=== PATIENT | male | born 1990 | race African-American/Black ===

== ENCOUNTER 2018-03-22 17:35 | Observation (INO) | payer SELFPAY ==
--- NOTE | 2018-03-22 18:20 | EDPHYS ---
Physician Documentation [facility] Name: Brice Polk III Age: 27 yrs Sex: Male : 1990 Arrival Date: 03/22/2018 Time: 17:37 Bed 13 Private MD: None, None ED Physician Kaushik Mcghee HPI: 03/22 18:10 This 27 yrs old Black Male presents to ER via Wheelchair with complaints of Chest Pain. rolan 18:10 The patient or guardian reports chest pain that is located primarily in the substernal rolan area. The pain does not radiate. Associated signs and symptoms: Pertinent positives: shortness of breath. The chest pain is described as a heaviness, a pressure. Modifying factors: The symptoms are alleviated by nothing. the symptoms are aggravated by nothing. Severity of pain: At its worst the pain was mild in the emergency department the pain is unchanged. The patient has experienced similar episodes in the past, a few times. 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 - Social history:: Smoking status: Patient uses tobacco products, 1 pack per week, Patient uses alcohol, weekly. - Ebola Screening: : Patient negative for fever greater than or equal to 101.5 degrees Fahrenheit, and additional compatible Ebola Virus Disease symptoms Patient denies exposure to infectious person Patient denies travel to an Ebola-affected area in the 21 days before illness onset No symptoms or risks identified at this time. - Family history:: not pertinent. ROS: 18:10 Constitutional: Negative for fever, chills, and weight loss, Eyes: Negative for injury, rolan pain, redness, and discharge, ENT: Negative for injury, pain, and discharge, Neck: Negative for injury, pain, and swelling, Respiratory: Negative for shortness of breath, cough, wheezing, and pleuritic chest pain, Abdomen/GI: Negative for abdominal pain, nausea, vomiting, diarrhea, and constipation, Back: Negative for injury and pain, : Negative for injury, bleeding, discharge, and swelling, MS/Extremity: Negative for injury and deformity, Skin: Negative for injury, rash, and discoloration, Neuro: Negative for headache, weakness, numbness, tingling, and seizure, Psych: Negative for depression, anxiety, suicide ideation, homicidal ideation, and hallucinations, Allergy/Immunology: Negative for hives, rash, and allergies, Endocrine: Negative for neck swelling, polydipsia, polyuria, polyphagia, and marked weight changes, Hematologic/Lymphatic: Negative for swollen nodes, abnormal bleeding, and unusual bruising. 18:10 Cardiovascular: Positive for chest pain, of the chest. Exam: 18:10 Constitutional: This is a well developed, well nourished patient who is awake, alert, rolan and in no acute distress. Head/Face: Normocephalic, atraumatic. Eyes: Pupils equal round and reactive to light, extra-ocular motions intact. Lids and lashes normal. Conjunctiva and sclera are non-icteric and not injected. Cornea within normal limits. Periorbital areas with no swelling, redness, or edema. ENT: Nares patent. No nasal discharge, no septal abnormalities noted. Tympanic membranes are normal and external auditory canals are clear. Oropharynx with no redness, swelling, or masses, exudates, or evidence of obstruction, uvula midline. Mucous membranes moist. Neck: Trachea midline, no thyromegaly or masses palpated, and no cervical lymphadenopathy. Supple, full range of motion without nuchal rigidity, or vertebral point tenderness. No Meningismus. Chest/axilla: Normal chest wall appearance and motion. Nontender with no deformity. No lesions are appreciated. Cardiovascular: Regular rate and rhythm with a normal S1 and S2. No gallops, murmurs, or rubs. Normal PMI, no JVD. No pulse deficits. Respiratory: Lungs have equal breath sounds bilaterally, clear to auscultation and percussion. No rales, rhonchi or wheezes noted. No increased work of breathing, no retractions or nasal flaring. Abdomen/GI: Soft, non-tender, with normal bowel sounds. No distension or tympany. No guarding or rebound. No evidence of tenderness throughout. Back: No spinal tenderness. No costovertebral tenderness. Full range of motion. Skin: Warm, dry with normal turgor. Normal color with no rashes, no lesions, and no evidence of cellulitis. MS/ Extremity: Pulses equal, no cyanosis. Neurovascular intact. Full, normal range of motion. Neuro: Awake and alert, GCS 15, oriented to person, place, time, and situation. Cranial nerves II-XII grossly intact. Motor strength 5/5 in all extremities. Sensory grossly intact. Cerebellar exam normal. Normal gait. Psych: Awake, alert, with orientation to person, place and time. Behavior, mood, and affect are within normal limits. Vital Signs: 17:46 BP 168 / 106; Pulse 86; Resp 16; Pulse Ox 100% on R/A; Weight 122.47 kg; Height 6 ft. 2 iw in. (187.96 cm); Pain 8/10; 18:46 BP 157 / 98; Pulse 82; Resp 16; Pulse Ox 100% ; bp 19:00 BP 151 / 93; Pulse 75; Resp 16; Temp 99.7(O); Pulse Ox 100% on R/A; jb4 20:30 BP 162 / 89; Pulse 70; Resp 16; Pulse Ox 100% on R/A; jb4 21:30 BP 157 / 91; Pulse 77; Resp 11; Pulse Ox 100% on R/A; jb4 17:46 Body Mass Index 34.67 (122.47 kg, 187.96 cm) iw MDM: 17:53 Patient medically screened. rolan 18:15 Data reviewed: vital signs, nurses notes, lab test result(s), EKG, radiologic studies, rolan plain films. 03/22 17:54 Order name: Basic Metabolic Panel; Complete Time: 19:08 03/22 17:54 Order name: CBC with Diff; Complete Time: 19: 03/22 17:54 Order name: LFT's; Complete Time: 19: 03/22 17:54 Order name: Magnesium; Complete Time: 19: 03/22 17:54 Order name: NT PRO-BNP; Complete Time: 19:08 03/22 17:54 Order name: PT-INR; Complete Time: 19:08 03/22 17:54 Order name: Troponin (emerg Dept Use Only); Complete Time: 19:08 03/22 17:54 Order name: XRAY Chest (1 view); Complete Time: 19:08 03/22 17:54 Order name: EKG; Complete Time: 17:55 03/22 18:10 Order name: UDS; Complete Time: 21:47 [facility] 03/22 21:48 Order name: Echo w/ Doppler [facility] 03/22 17:54 Order name: Cardiac monitoring; Complete Time: 18:03 03/22 17:54 Order name: EKG - Nurse/Tech; Complete Time: 18:03 03/22 17:54 Order name: IV Saline Lock; Complete Time: 18:03 03/22 17:54 Order name: Labs collected and sent; Complete Time: 18:03 03/22 17:54 Order name: O2 Per Protocol; Complete Time: 18:03 03/22 17:54 Order name: O2 Sat Monitoring; Complete Time: 18:03 Administered Medications: 18:18 Drug: Aspirin Chewable Tablet 162 mg Route: PO; bp 20:43 Follow up: Response: No adverse reaction 4 18:18 Drug: Lopressor (metoprolol TARTRATE) 50 mg Route: PO; bp 20:43 Follow up: Response: No adverse reaction jb4 18:18 Drug: Lisinopril 10 mg Route: PO; bp 20:43 Follow up: Response: No adverse reaction jb4 Disposition: 03/22/18 18:18 Hospitalization ordered by Mabel Le for Observation. Preliminary diagnosis are Chest pain, unspecified, Essential (primary) hypertension, Cardiomegaly. - Bed requested for Telemetry/MedSurg (observation). - Status is Observation. jb4 - Condition is Stable. - Problem is new. - Symptoms have improved. UTI on Admission? No Signatures: Dispatcher [employer] EDMS Sidra Krishnan Corey, MD MD cha Williams, Irene, AWAIS ERNANDEZ Joaquín Camp RN RN jb4 Federico Wilcox RN RN bp Corrections: (The following items were deleted from the chart) 18:48 18:18 Hospitalization Ordered by Mabel Le MD for Observation. Preliminary diagnosis bd is Chest pain, unspecified; Essential (primary) hypertension. Bed requested for Telemetry/MedSurg (observation). Status is Observation. Condition is Stable. Problem is new. Symptoms have improved. UTI on Admission? No. rolan 19:08 18:48 03/22/2018 18:18 Hospitalization Ordered by Mabel Le MD for Observation. rolan Preliminary diagnosis is Chest pain, unspecified; Essential (primary) hypertension. Bed requested for Telemetry/MedSurg (observation). Status is Observation. Condition is Stable. Problem is new. Symptoms have improved. UTI on Admission? No. bd 22:08 19:08 03/22/2018 18:18 Hospitalization Ordered by Mabel Le MD for Observation. jb4 Preliminary diagnosis is Chest pain, unspecified; Essential (primary) hypertension; Cardiomegaly. Bed requested for Telemetry/MedSurg (observation). Status is Observation. Condition is Stable. Problem is new. Symptoms have improved. UTI on Admission? No. rolan
--- NOTE | 2018-03-22 18:20 | ER ---
Nurse's Notes [facility] Name: Brice Polk III Age: 27 yrs Sex: Male : 1990 Arrival Date: 03/22/2018 Time: 17:37 Bed 13 Private MD: None, None Diagnosis: Chest pain, unspecified;Essential (primary) hypertension;Cardiomegaly Presentation: 03/22 17:44 Presenting complaint: Patient states: c/o midsternal chest pain X 2 days, intermittent iw today, also had SOB this morning when he woke up and dizziness, pain described as sharp pressure, at times radiates across chest. Transition of care: patient was not received from another setting of care. Onset of symptoms was March 20, 2018. Risk Assessment: Do you want to hurt yourself or someone else? Patient reports no desire to harm self or others. Initial Sepsis Screen: Does the patient meet any 2 criteria? No. Patient's initial sepsis screen is negative. Does the patient have a suspected source of infection? No. Patient's initial sepsis screen is negative. Care prior to arrival: None. 17:44 Method Of Arrival: Wheelchair iw 17:44 Acuity: LEXI 3 iw Triage Assessment: 18:00 General: Appears in no apparent distress. comfortable, obese, Behavior is calm, bp cooperative, appropriate for age. Pain: Complains of pain in chest. Cardiovascular: Rhythm is sinus rhythm. 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 - Social history:: Smoking status: Patient uses tobacco products, 1 pack per week, Patient uses alcohol, weekly. - Ebola Screening: : Patient negative for fever greater than or equal to 101.5 degrees Fahrenheit, and additional compatible Ebola Virus Disease symptoms Patient denies exposure to infectious person Patient denies travel to an Ebola-affected area in the 21 days before illness onset No symptoms or risks identified at this time. - Family history:: not pertinent. Screenin:00 Abuse screen: Denies threats or abuse. Denies injuries from another. Nutritional bp screening: No deficits noted. Tuberculosis screening: No symptoms or risk factors identified. Fall Risk None identified. Assessment: 18:00 General: Appears in no apparent distress. comfortable, Behavior is calm, cooperative, bp appropriate for age. Pain: Complains of pain in chest Pain does not radiate. Pain began THIS MORNING. Neuro: Level of Consciousness is awake, alert, obeys commands, Oriented to person, place, time, situation, Appropriate for age. Cardiovascular: Chest pain is described as mild, quality is heaviness, is located in substernal area. Respiratory: Airway is patent Respiratory effort is even, unlabored, Respiratory pattern is regular, symmetrical. GI: No signs and/or symptoms were reported involving the gastrointestinal system. : No signs and/or symptoms were reported regarding the genitourinary system. EENT: No deficits noted. Derm: No deficits noted. Musculoskeletal: Circulation, motion, and sensation intact. Range of motion: intact in all extremities. 18:47 Reassessment: ADMIT IN PROCESS, FULL LAB RESULTS PENDING. bp 19:00 Reassessment: Patient appears in no apparent distress at this time. Patient and/or jb4 family updated on plan of care and expected duration. Pain level reassessed. Patient is alert, oriented x 3, equal unlabored respirations, skin warm/dry/pink. General: Appears in no apparent distress. comfortable, Behavior is calm, cooperative. Cardiovascular: Patient's skin is warm and dry. Respiratory: Airway is patent Respiratory effort is even, unlabored, Respiratory pattern is regular, symmetrical. 20:17 Reassessment: Patient appears in no apparent distress at this time. Patient and/or jb4 family updated on plan of care and expected duration. Pain level reassessed. Patient is alert, oriented x 3, equal unlabored respirations, skin warm/dry/pink. Guest is at the bedside. Attempted to call report. instructed to wait for call back. 21:30 Reassessment: Patient appears in no apparent distress at this time. Patient and/or jb4 family updated on plan of care and expected duration. Pain level reassessed. Patient is alert, oriented x 3, equal unlabored respirations, skin warm/dry/pink. Family at the bedside. Vital Signs: 17:46 BP 168 / 106; Pulse 86; Resp 16; Pulse Ox 100% on R/A; Weight 122.47 kg; Height 6 ft. 2 iw in. (187.96 cm); Pain 8/10; 18:46 BP 157 / 98; Pulse 82; Resp 16; Pulse Ox 100% ; bp 19:00 BP 151 / 93; Pulse 75; Resp 16; Temp 99.7(O); Pulse Ox 100% on R/A; jb4 20:30 BP 162 / 89; Pulse 70; Resp 16; Pulse Ox 100% on R/A; jb4 21:30 BP 157 / 91; Pulse 77; Resp 11; Pulse Ox 100% on R/A; jb4 17:46 Body Mass Index 34.67 (122.47 kg, 187.96 cm) iw ED Course: 17:37 Patient arrived in ED. sb2 17:37 None, None is Private Physician. sb2 17:43 Gi Covington, RN is Primary Nurse. iw 17:45 Federico Wilcox, RN is Primary Nurse. bp 17:45 Triage completed. iw 17:46 Arm band placed on. iw 17:53 Kaushik Mcghee MD is Attending Physician. rolan 18:00 Patient has correct armband on for positive identification. Bed in low position. Call bp light in reach. Side rails up X2. Adult w/ patient. Pulse ox on. NIBP on. 18:00 Inserted saline lock: 20 gauge in right forearm, using aseptic technique. Blood bp collected. 18:00 Patient maintains SpO2 saturation greater than 95% on room air. bp 18:08 EKG done, by radiographic technologist. reviewed by Kaushik Mcghee MD. sm3 18:10 XRAY Chest (1 view) In Process Unspecified. EDMS 18:16 Mabel Le MD is Hospitalizing Provider. rolan 21:50 No provider procedures requiring assistance completed. Patient admitted, IV remains in jb4 place. Administered Medications: 18:18 Drug: Aspirin Chewable Tablet 162 mg Route: PO; bp 20:43 Follow up: Response: No adverse reaction jb4 18:18 Drug: Lopressor (metoprolol TARTRATE) 50 mg Route: PO; bp 20:43 Follow up: Response: No adverse reaction jb4 18:18 Drug: Lisinopril 10 mg Route: PO; bp 20:43 Follow up: Response: No adverse reaction jb4 Outcome: 18:18 Decision to Hospitalize by Provider. rolan 21:50 Admitted to Tele accompanied by tech, via wheelchair, room 425, with chart, Report jb4 called to AWAIS Granado 21:50 Condition: stable 21:50 Discharge instructions given to patient, Instructed on the need for admit, Demonstrated understanding of instructions. 22:08 Patient left the ED. jb4 Signatures: Dispatcher [employer] EDKaushik Blanchard MD MD cha Williams, Irene, RN RN Joaquín Padilla RN RN jb4 Federico Wilcox RN RN bp Billeau, Sheri 2 Vijaya Chavez 3 Corrections: (The following items were deleted from the chart) 19:25 19:00 BP 151 / 93; Pulse 75bpm; Resp 16bpm; Pulse Ox 100% RA; jb4 jb4
[2018-03-22 18:22] LABS: Absolute Lymphocytes (CBC) 1.5 K/uL (0.7-4.9); Absolute Monocytes 0.7 K/uL (0.1-1.3); Absolute Neutrophil 4.4 K/uL (1.8-8.0); Basophils % 0.6 % (0-1.3); Eosinophils % 1.3 % (0-4.4); Hematocrit 41.7 % (39.6-49.0); Lymphocytes % 22.1 % (15.3-44.8); MCH 30.5 pg (27.0-35.0); MCV 90.3 fL (80-100); MPV 7.5 fL (7.6-11.3); Monocytes % 10.2 % (3.3-12.3); RBC Red Blood Cell Count 4.62 M/uL (4.33-5.43)
[2018-03-22] MEDS ORDERED: ASPIRIN EC 81 MG TAB PO ONE (18:23)
[2018-03-22] MEDS ORDERED: METOPROLOL TAR 50 MG TAB ONE (18:23)
[2018-03-22] MEDS ORDERED: LISINOPRIL 10 MG TAB ONE (18:24)
[2018-03-22 18:26] LABS: Protime INR 0.92
[2018-03-22 18:41] LABS: ALT/SGPT 66 U/L (12-78); AST/SGOT 47 U/L (15-37); Albumin 3.8 g/dL (3.4-5.0); Alkaline Phosphatase 73 U/L (45-117); BUN Blood Urea Nitrogen 12 mg/dL (7-18); Bicarbonate 26 mmol/L (21-32); Bilirubin Direct 0.1 mg/dL (0-0.2); Bilirubin Total 0.4 mg/dL (0.2-1.0); Glucose Level 94 mg/dL (74-106); NT PRO-BNP 72 pg/mL (<125); Potassium 3.8 mmol/L (3.5-5.1); Protein, Total 7.1 g/dL (6.4-8.2); Sodium Level 140 mmol/L (136-145); Troponin (Emerg Dept Use Only) < 0.02 ng/mL (0.0-0.045)
--- NOTE | 2018-03-22 18:41 | RAD REPORT ---
EXAM DESCRIPTION: RAD - Chest Single View - 03/22/2018 6:10 pm CLINICAL HISTORY: Chest pain COMPARISON: None. TECHNIQUE: AP portable chest image was obtained 1803 hours . FINDINGS: Lungs are clear. Heart size is upper normal. Vasculature within normal limits. Trachea is midline. No measurable pleural effusion and no pneumothorax. No acute bony abnormality seen. No acute aortic findings suspected. IMPRESSION: No acute cardiopulmonary process.
[2018-03-22 19:40] LABS: Barbiturates NEGATIVE (NEGATIVE); Benzodiazepines NEGATIVE (NEGATIVE); Cocaine NEGATIVE (NEGATIVE); METHAMPHETAM NEGATIVE (NEGATIVE); Methadone NEGATIVE (NEGATIVE); Opiates NEGATIVE (NEGATIVE); Phencyclidine NEGATIVE (NEGATIVE); THC Cannibis NEGATIVE (NEGATIVE)
[2018-03-22] MEDS ORDERED: ACETAMINOPHEN 500 MG TAB PO PRN (22:09)
[2018-03-23 04:37] LABS: Absolute Lymphocytes (CBC) 1.8 K/uL (0.7-4.9); Absolute Monocytes 0.6 K/uL (0.1-1.3); Absolute Neutrophil 3.4 K/uL (1.8-8.0); Basophils % 0.6 % (0-1.3); Eosinophils % 1.8 % (0-4.4); Hematocrit 40.8 % (39.6-49.0); Lymphocytes % 30.1 % (15.3-44.8); MCH 30.9 pg (27.0-35.0); MCV 90.8 fL (80-100); MPV 7.6 fL (7.6-11.3); Monocytes % 10.6 % (3.3-12.3); RBC Red Blood Cell Count 4.49 M/uL (4.33-5.43)
[2018-03-23 04:47] LABS: ALT/SGPT 64 U/L (12-78); AST/SGOT 34 U/L (15-37); Albumin 3.7 g/dL (3.4-5.0); Alkaline Phosphatase 69 U/L (45-117); BUN Blood Urea Nitrogen 13 mg/dL (7-18); Bicarbonate 26 mmol/L (21-32); Bilirubin Total 0.5 mg/dL (0.2-1.0); Glucose Level 94 mg/dL (74-106); Potassium 4.3 mmol/L (3.5-5.1); Protein, Total 6.9 g/dL (6.4-8.2); Sodium Level 140 mmol/L (136-145)
[2018-03-23] MEDS: METOPROLOL TAR 25 MG TAB PO SCH ×2 (05:48→17:56)
--- NOTE | 2018-03-23 07:44 | EKG ---
Test Date: 2018-03-22 Test Time: 17:49:40 Stain Applicator: RAUL MEASUREMENT RESULTS: Intervals: Rate: 75 VA: 144 QRSD: 96 QT: 376 QTc: 419 [place]: P: 13 VA: 144 QRS: 49 T: 14 INTERPRETIVE STATEMENTS: Normal sinus rhythm Incomplete right bundle branch block Borderline ECG Compared to ECG 01/08/2000 15:52:00 Incomplete right bundle-branch block now present Atrial abnormality no longer present Electronically Signed On 03-23-18 07:43:36 ENGINE INSPECTOR by William Jacobo
[2018-03-23 07:48] LABS: Phosphorus 4.2 mg/dL (2.5-4.9)
[2018-03-23] MEDS ORDERED: INFLUENZA VACCINE (for 3y+) 0.5 ML DOSE IMVAC ONE (08:00)
[2018-03-23] MEDS: LOSARTAN POTASSIUM 50 MG TABLET PO SCH ×2 (08:58→22:18)
[2018-03-23] MEDS: ENOXAPARIN 40 MG/0.4 ML SQ SCH (08:58)
--- NOTE | 2018-03-23 09:46 | P.HP ---
Certification for Inpatient Patient admitted to: Observation With expected LOS: <2 Midnights Patient will require the following post-hospital care: None Practitioner: I am a practitioner with admitting privileges, knowledge of patient current condition, hospital course, and medical plan of care. 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 He said it started with a "T", and they had to switch his blood vessels, so is believe that is what it was called. 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 -: open heart surgery as a baby - Family History Father Medical History: Hypertension Mother Medical History: Hypertension, Stroke Notes: heart attack Brother Medical History: Hypertension - Social History Smoking Status: Current every day smoker Alcohol use: Yes CD- Drugs: No Caffeine use: No Place of Residence: Home Review of Systems 10-point ROS is otherwise unremarkable Physical Examination - Vital Signs Temperature: 98.2 F Blood Pressure: 136/76 Pulse: 67 Respirations: 16 Pulse Ox (%): 98 - Physical Exam General: Alert, In no apparent distress, Oriented x3 HEENT: Atraumatic, PERRLA, Mucous membr. moist/pink, EOMI, Sclerae nonicteric Neck: Supple, 2+ carotid pulse no bruit, No LAD, Without JVD or thyroid abnormality Respiratory: Clear to auscultation bilaterally, Normal air movement Cardiovascular: Regular rate/rhythm, Normal S1 S2, No murmurs Gastrointestinal: Normal bowel sounds, Soft and benign, Non-distended, No tenderness Musculoskeletal: No clubbing, No swelling, No tenderness Integumentary: No rashes Neurological: Normal gait, Normal speech, Normal strength at 5/5 x4 extr, Normal tone, Sensation intact, Cranial nerves 3-12 intact, Normal affect Lymphatics: No axilla or inguinal lymphadenopathy - Studies Laboratory Data (last 24 hrs) 03/22/18 18:00: PT 10.9, INR 0.92 03/22/18 18:00: WBC 6.7, Hgb 14.1, Hct 41.7, Plt Count 270 03/22/18 18:00: Sodium 140, Potassium 3.8, BUN 12, Creatinine 1.00, Glucose 94, Magnesium 2.0, Total Bilirubin 0.4, AST 47 H, ALT 66, Alkaline Phosphatase 73 Assessment & Plan - Problems (Diagnosis) (1) Transposition of great arteries Current Visit: Yes Status: Acute (2) Hypertensive urgency Current Visit: Yes Status: Acute - Plan Plan: 1. Strict blood pressure control 2. Pain control 3. Monitor hemodynamics closely 4. Echocardiogram and about. 5. Cardiology consultation 6. GI and DVT prophylaxis Discharge Plan: Home Plan to discharge in: 24 Hours - Advance Directives Does patient have a Living Will: No Does patient have a Durable POA for Healthcare: No - Code Status/Comfort Care Code Status Assessed: Yes Code Status: Full Code Critical Care: No Time Spent Managing PTS Care (In Minutes): 50
[2018-03-23 10:03] LABS: Urine Appearance TURBID; Urine Bilirubin NEGATIVE (NEG); Urine Blood NEGATIVE (NEG); Urine Color YELLOW; Urine Glucose NEGATIVE (NEG); Urine Protein TRACE (NEG); Urine Specific Gravity 1.025 (1.005-1.030); Urine pH 7.5 (5.0-7.0)
[2018-03-23 10:42] LABS: Urine Amorphous Sediment 3+ /HPF (NONE SEEN); Urine Bacteria <20 /HPF (NONE SEEN); Urine Culture Reflex Order NOT NEEDED; Urine Mucus 3+ /HPF (NONE SEEN); Urine RBC <5 /HPF (NONE SEEN)
--- NOTE | 2018-03-23 12:17 | CON ---
CARDIOLOGY CONSULT Chief Complaint: Chest pain. History Of Present Illness: Mr. Polk has been having chest pain off and on for about 3 days. The pain is sharp and brief in duration, not related to exertion. He decided to come to the hospital whe n it seemed to get a little bit worse. No nausea, vomiting, sweating, syncope, or palpitations. 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 We do not have any records from the surgery, but it seems fairly clear that he had transposition of the great vessels and an arterial switch operation. He has had no further followup with the heart team that did that or any software engineering specialist. Medications: He takes no medications. Social History: He uses tobacco, but only about 40 cigarettes a month. Uses no illegal drugs, rare alcohol. Allergies: HE HAS NO ALLERGIES. Physical Examination: General: 6 feet 3, 274 pounds. HEENT: Normal. Lungs: Clear. Cardiac: Within normal limits. No murmur or gallop. Extremities: Normal. Abdomen: Soft. Laboratory Data: EKG reveals incomplete right bundle-branch block, otherwise, it is normal. Plan: I think, we should do an echocardiogram and routine stress test to see what level of congenita l heart disease limitation he has. Some people with an arterial switch operation do very well and juarez ve a normal lifestyle, some have significant problems. I think, we should try to work that out, so w mo could understand Mr. Polk. He has not had any contact with the software engineering specialist in more than a decad e, so it is a good time to have him do a stress test and echo. He needs some kind of treatment for h is blood pressure, an angiotensin receptor clarence with hydrochlorothiazide and weight loss would be very good. Tobacco cessation has been recommended to him. JIMMIE/KARYNA Voice ID: [id number] Report ID: [id number]
--- NOTE | 2018-03-23 13:17 | P.PN ---
Subjective Date of Service: 03/23/18 Chief Complaint: Malignant hypertension Subjective: No new changes, No C/O voiced, Improving Patient seen and examined at bedside. No family at bedside. Chart reviewed and case discussed with nursing staff. Reports intermittent chest pain. Blood pressure elevated overnight, which responded to metoprolol. Review of Systems As noted Physical Examination - Vital Signs Temperature: 97.4 F Blood Pressure: 124/70 Pulse: 72 Respirations: 16 Pulse Ox (%): 99 - Physical Exam General: Alert, In no apparent distress, Oriented x3 HEENT: Atraumatic, PERRLA, EOMI Neck: Supple, JVD not distended Respiratory: Clear to auscultation bilaterally, Normal air movement Cardiovascular: Regular rate/rhythm, Normal S1 S2 Gastrointestinal: Normal bowel sounds, No tenderness Musculoskeletal: No tenderness Integumentary: No rashes Neurological: Normal speech, Normal tone, Normal affect Lymphatics: No axilla or inguinal lymphadenopathy - Studies Laboratory Data (last 24 hrs) 03/22/18 18:00: PT 10.9, INR 0.92 03/22/18 18:00: WBC 6.7, Hgb 14.1, Hct 41.7, Plt Count 270 03/22/18 18:00: Sodium 140, Potassium 3.8, BUN 12, Creatinine 1.00, Glucose 94, Magnesium 2.0, Total Bilirubin 0.4, AST 47 H, ALT 66, Alkaline Phosphatase 73 Assessment And Plan - Plan This is a 27-year-old male with: Hypertensive urgency Blood pressures improved, continue metoprolol and losartan. Will monitor and may add amlodipine if needed. Transposition of great arteries Cardiology consulted. Recommendations appreciated Echo pending Stress test pending Current tobacco user Counseled on smoking cessation Obesity, BMI 34.3 DVT prophylaxis: Lovenox GI prophylaxis: Not needed Diet: Heart healthy Disposition: Pending symptomatic improvement and cardiac workup. Physician Review: Patient Assessed, Agree with Above Assessment and Plan Time Spent Managing PTS Care (In Minutes): 30
--- NOTE | 2018-03-23 15:25 | TREADMILL ---
70% H.R.: 137 85% H.R.: 165 90% H.R.: 176 100% H.R.: 195 DX: CHEST PAIN Date of Study: 03/23/2018 Ht: 6 3 Wt: 274 lb 6.4 oz Consulting Physician: Dr. Jacobo MEDICATIONS: LOPRESSOR, COZAAR, LOVENOX HISTORY: 27 YEAR OLD MALE WITH COMPLAINTS OF CHEST PAIN. MEDICAL HISTORY: SMOKER, CONGENITAL HEART PROBLEMS PHYSICIAL EXAMINATION: RESTING B.P.: 156/94 RESTING H.R.: 86 RESTING EKG: SINUS/ RIGHT BUNDLE BRANCH BLOCK PROTOCOL: HARRIET ROUTINE EXERCISE TIME: 8:03 MAXIMUM HEART RATE: 176 90 % OF PREDICTED B.P. AT PEAK STRESS: 184/99 H.R. AT 1 MINUTE POST EXERCISE: 162 IMPRESSION: HARRIET ROUTINE STRESS STOPPED DUE TO FATIGUE AND TARGET HEART RATE REACHED. NO SUPRAVENTRICULAR TACHYCARDIA. NO VENTRICULAR TACHYCARDIA. 2 PREMATURE VENTRICULAR COMPLEXES. 9/10 CHEST PAIN AFTER PROCEDURE. NO ST CHANGES WITH STRESS.
--- NOTE | 2018-03-23 15:25 | ECHO ---
HEIGHT: 6 ft 3 in WEIGHT: 274 lb 6.4 oz DATE OF STUDY: 03/23/[address]: Kaushik Mcghee MD 2-DIMENSIONAL: YES M.MODE: YES DOPPLER: YES COLOR FLOW: YES TDS: PORTABLE: DEFINITY: BUBBLE STUDY: DIAGNOSIS: CHEST PAIN, HISTORY OF TRANSPOSITION OF THE GREAT VESSELS. CARDIAC HISTORY: CATHERIZATION: NO SURGERY: YES PROSTHETIC VALVE: NO PACEMAKER: NO MEASUREMENTS (cm) DIASTOLIC (NORMALS) SYSTOLIC (NORMALS) IVSd 1.3 (0.6-1.2) LA Diam 4.2 (1.9-4.0) LVEF 53% LVIDd 5.1 (3.5-5.7) LVIDs 3.7 (2.0-3.5) %FS 28% LVPWd 1.3 (0.6-1.2) Ao Diam 3.1 (2.0-3.7) 2 DIMENSIONAL ASSESSMENT: RIGHT ATRIUM: NORMAL LEFT ATRIUM: DILATED RIGHT VENTRICLE: NORMAL LEFT VENTRICLE: LEFT VENTRICULAR HYPERTROPHY TRICUSPID VALVE: NORMAL MITRAL VALVE: NORMAL PULMONIC VALVE: NORMAL AORTIC VALVE: NORMAL PERICARDIAL EFFUSION: NONE AORTIC ROOT: NORMAL LEFT VENTRICULAR WALL MOTION: NORMAL DOPPLER/COLOR FLOW: MILD AORTIC REGURGITATION. COMMENTS: NORMAL LEFT VENTRICULAR EJECTION FRACTION. LEFT VENTRICULAR HYPERTROPHY. DILATED LEFT ATRIUM. MILD AORTIC REGURGITATION. TECHNOLOGIST: CALVIN SEGUNDO
[2018-03-24] MEDS: METOPROLOL TAR 25 MG TAB PO SCH (06:10)
[2018-03-24] MEDS: ENOXAPARIN 40 MG/0.4 ML SQ SCH (09:44)
[2018-03-24] MEDS: LOSARTAN POTASSIUM 50 MG TABLET PO SCH (09:45)
--- NOTE | 2018-03-24 18:43 | P.SSS ---
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 He said it started with a "T", and they had to switch his blood vessels, so is believe that is what it was called. 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 moist/pink, EOMI, Sclerae nonicteric Neck: Supple, 2+ carotid pulse no bruit, No LAD, Without JVD or thyroid abnormality Respiratory: Clear to auscultation bilaterally, Normal air movement Cardiovascular: Regular rate/rhythm, Normal S1 S2 Gastrointestinal: Normal bowel sounds, No tenderness Musculoskeletal: No tenderness Integumentary: No rashes Neurological: Normal gait, Normal speech, Normal strength at 5/5 x4 extr, Normal tone, Normal affect Lymphatics: No axilla or inguinal lymphadenopathy Treatment Summary: Patient was admitted for hypertensive urgency. His blood pressure was elevated on admission, which stabilized with losartan and metoprolol. Cardiology was consulted as patient has a history of transposition of the great arteries as well as an open heart surgery when he was 1-day-old. Cardiac workup was negative, he was cleared for discharge from cardiology and was given information regarding cardiology so he could follow up outpatient with pulverizer mill operator. He remained otherwise stable throughout the stay. Lifestyle modifications including weight loss and exercise was discussed with patient. He was also counseled on smoking cessation. - Disposition Disposition: ROUTINE DISCHARGE Condition: GOOD Patient Discharge Instructions: Please follow up with your primary care physician in 1 week. Please follow up with the pulverizer mill operator in 2 weeks. Diet: AHA Activity: Ad vitaly Physician Review: Patient Assessed, Agree with Above Assessment and Plan Time Spent Managing Pts Care (In Minutes): 45
== END 2018-03-24 15:23 | disposition home or self-care (01) ==
LOC: ER 17:35 → ERHOLD 18:35 → 4TH 21:37
PROVIDERS: ADMIT Family Medicine; ATTEND Hospitalist
DX: I10 Essential (primary) hypertension (principal); F17.210 Nicotine dependence, cigarettes, uncomplicated
CPT/HCPCS: 36415; 71045; 80048; 80053; 80076; 80307; 81001; 83735; 83880; 84100; 84484; 85025; 85610; 93005; 93017; 93306; 94760; 99285; G0008; G0378; J1650; Q2035

== ENCOUNTER 2018-10-18 13:30 | Emergency (ER) | payer SELFPAY ==
[2018-10-18 15:08] LABS: Absolute Lymphocytes (CBC) 1.2 K/uL (0.7-4.9); Basophils % 0.4 % (0-1.3); Eosinophils % 0.4 % (0-4.4); Hematocrit 40.5 % (39.6-49.0); Lymphocytes % 15.5 % (15.3-44.8); MPV 7.3 fL (7.6-11.3); Monocytes % 6.4 % (3.3-12.3); RBC Red Blood Cell Count 4.66 M/uL (4.33-5.43)
[2018-10-18 15:24] LABS: BUN Blood Urea Nitrogen 13 mg/dL (7-18); Bicarbonate 25 mmol/L (21-32); Glucose Level 89 mg/dL (74-106); NT PRO-BNP 134 pg/mL (<125); Sodium Level 141 mmol/L (136-145); Troponin (Emerg Dept Use Only) < 0.02 ng/mL (0.0-0.045)
--- NOTE | 2018-10-18 15:35 | RAD REPORT ---
EXAM DESCRIPTION: RAD - Chest Single View - 10/18/2018 3:24 pm CLINICAL HISTORY: CHEST PAIN Chest pain. COMPARISON: Chest Single View dated 03/22/2018 FINDINGS: Portable technique limits examination quality. Mild interstitial pulmonary edema is noted. The heart is moderately enlarged. No displaced fractures. IMPRESSION: Mild CHF or volume overload pattern.
[2018-10-18] MEDS ORDERED: FENTANYL CITR 100 MCG/2 ML ONE (16:26)
[2018-10-18] MEDS ORDERED: FUROSEMIDE 20 MG/ 2ML VIAL ONE (16:26)
--- NOTE | 2018-10-18 16:42 | RAD REPORT ---
EXAM DESCRIPTION: CT - Thorax W/ Con CLINICAL HISTORY: Chest pain PAIN COMPARISON: Chest Single View dated 10/18/2018 FINDINGS: Mild linear subsegmental atelectasis is present in the left lung base. No focal infiltrate seen. No pleural thickening or pleural effusion. No pneumothorax. No axillary, mediastinal or hilar adenopathy. The heart appears normal in size, however there is aneu rysmal dilatation of the root of the aorta measuring 5.2 cm. No concerning bony finding. No gross upper abdominal finding. All CT scans are performed using dose optimization technique as appropriate and may include automated exposure control or mA/KV adjustment according to patient size. IMPRESSION: Aneurysmal dilatation of the root of the aorta/ proximal ascending aorta measuring 5.2 c m.No aortic dissection seen. No acute pulmonary finding.
--- NOTE | 2018-10-18 17:34 | EDPHYS ---
Physician Documentation [facility] Name: Brice Polk III Age: 28 yrs Sex: Male : 1990 Arrival Date: 10/18/2018 Time: 13:31 Bed 15 Private MD: ED Physician Rafael Dorman HPI: 10/18 16:58 This 28 yrs old Black Male presents to ER via Ambulatory with complaints of Chest Pain. gs 16:58 This 28 yrs old Black Male presents to ER via Ambulatory with complaints of Chest Pain. gs 16:58 The patient or guardian reports chest pain that is located primarily in the anterior gs chest wall. The pain does not radiate. Associated signs and symptoms: Pertinent positives: shortness of breath. The chest pain is described as a heaviness. Duration: The patient or guardian reports multiple episodes, that are intermittent. Modifying factors: the symptoms are aggravated by breathing, exertion. Severity of pain: At its worst the pain was moderate in the emergency department the pain is unchanged. The patient has experienced similar episodes in the past, a few times. The patient has not recently seen a physician. Historical: - Allergies: 13:37 No Known Drug Allergies; hj - PMHx: 13:37 CONGENITAL HEART PROBLEMS; Hypertension; hj - PSHx: 13:37 OPEN HEART SURGERY BABY; hj - Immunization history:: Adult Immunizations up to date. - Social history:: Smoking status: Patient/guardian denies using tobacco. - Ebola Screening: : No symptoms or risks identified at this time. ROS: 16:58 All other systems are negative. gs Exam: 16:30 ECG was reviewed by the Attending Physician. gs 16:58 Head/Face: Normocephalic, atraumatic. Eyes: Pupils equal round and reactive to light, gs extra-ocular motions intact. Lids and lashes normal. Conjunctiva and sclera are non-icteric and not injected. Cornea within normal limits. Periorbital areas with no swelling, redness, or edema. ENT: Nares patent. No nasal discharge, no septal abnormalities noted. Tympanic membranes are normal and external auditory canals are clear. Oropharynx with no redness, swelling, or masses, exudates, or evidence of obstruction, uvula midline. Mucous membranes moist. Neck: Trachea midline, no thyromegaly or masses palpated, and no cervical lymphadenopathy. Supple, full range of motion without nuchal rigidity, or vertebral point tenderness. No Meningismus. Chest/axilla: Normal chest wall appearance and motion. Nontender with no deformity. No lesions are appreciated. Cardiovascular: Regular rate and rhythm with a normal S1 and S2. No gallops, murmurs, or rubs. Normal PMI, no JVD. No pulse deficits. Respiratory: Lungs have equal breath sounds bilaterally, clear to auscultation and percussion. No rales, rhonchi or wheezes noted. No increased work of breathing, no retractions or nasal flaring. Abdomen/GI: Soft, non-tender, with normal bowel sounds. No distension or tympany. No guarding or rebound. No evidence of tenderness throughout. Back: No spinal tenderness. No costovertebral tenderness. Full range of motion. Skin: Warm, dry with normal turgor. Normal color with no rashes, no lesions, and no evidence of cellulitis. MS/ Extremity: Pulses equal, no cyanosis. Neurovascular intact. Full, normal range of motion. Neuro: Awake and alert, GCS 15, oriented to person, place, time, and situation. Cranial nerves II-XII grossly intact. Motor strength 5/5 in all extremities. Sensory grossly intact. Cerebellar exam normal. Normal gait. 16:58 Constitutional: The patient appears alert, awake, uncomfortable. Vital Signs: 13:37 BP 152 / 90; Pulse 101; Resp 18; Temp 98.6(TE); Pulse Ox 100% on R/A; Weight 127.01 kg; Height 6 ft. 3 in. (190.50 cm); Pain 8/10; 16:05 BP 149 / 96; Pulse 86; Resp 16; Pulse Ox 98% on R/A; la1 17:07 BP 160 / 100; Pulse 95; Resp 16; Pulse Ox 98% on R/A; la1 18:29 BP 159 / 95; Pulse 91; Resp 16; Pulse Ox 98% on R/A; la1 18:49 BP 149 / 95; Pulse 82; Resp 16; Pulse Ox 98% on R/A; la1 13:37 Body Mass Index 35.00 (127.01 kg, 190.50 cm) MDM: 14:43 Patient medically screened. 16:58 Differential diagnosis: coronary artery disease chest wall pain, congestive heart gs failure thoracic aortic disection. Data reviewed: vital signs, nurses notes, lab test result(s), EKG, radiologic studies. 10/18 14:43 Order name: Basic Metabolic Panel; Complete Time: 15:31 gs 10/18 14:43 Order name: CBC with Diff; Complete Time: 15:31 gs 10/18 14:43 Order name: NT PRO-BNP; Complete Time: 15:31 gs 10/18 14:43 Order name: Troponin (emerg Dept Use Only); Complete Time: 15:31 gs 10/18 14:43 Order name: XRAY Chest (1 view); Complete Time: 15:52 gs 10/18 15:57 Order name: Troponin I; Complete Time: 17:13 gs 10/18 13:39 Order name: EKG; Complete Time: 13:39 10/18 14:43 Order name: Cardiac monitoring; Complete Time: 14:54 gs 10/18 14:43 Order name: IV Saline Lock; Complete Time: 14:54 gs 10/18 14:43 Order name: Labs collected and sent; Complete Time: 14:54 10/18 16:01 Order name: CT Chest W/ Con; Complete Time: 16:47 gs 10/18 14:43 Order name: O2 Per Protocol; Complete Time: 14:54 10/18 14:43 Order name: O2 Sat Monitoring; Complete Time: 14:54 gs EC:30 Rate is 105 beats/min. Rhythm is regular, Sinus tachycardia. MO interval is normal. QRS gs interval is normal. QT interval is normal. T waves are Flattened. Clinical impression: NSR w/ Non-specific ST/T Changes. Interpreted by me. Administered Medications: 16:16 Drug: Lasix 20 mg Route: IVP; Site: right antecubital; la1 16:55 Follow up: Response: No adverse reaction la1 16:16 Drug: fentaNYL (PF) 50 mcg Route: IVP; Site: right antecubital; la1 16:55 Follow up: Response: No adverse reaction; Pain is decreased la1 17:37 Drug: Enalaprilat 1.25 mg Route: IV; Rate: calculated rate; Site: right antecubital; la1 18:50 Follow up: IV Status: Completed infusion la1 Disposition: 10/18/18 17:33 Transfer ordered to [facility]. Diagnosis is Thoracic aortic aneurysm, without rupture. - Reason for transfer: Higher level of care. - Accepting physician is [facility]. - Condition is Stable. - Problem is new. - Symptoms have improved. Signatures: Dispatcher [employer] EDParker Arteaga RN RN la1 Nikita Gorman RN Rafael Ponce MD MD gs Corrections: (The following items were deleted from the chart) 18:50 17:33 10/18/2018 17:33 Transfer ordered to [facility]. Diagnosis is la1 Thoracic aortic aneurysm, without rupture. Reason for transfer: Higher level of care. Accepting physician is [facility]. Condition is Stable. Problem is new. Symptoms have improved. gs
--- NOTE | 2018-10-18 17:34 | ER ---
Nurse's Notes [facility] Name: Brice Polk III Age: 28 yrs Sex: Male : 1990 Arrival Date: 10/18/2018 Time: 13:31 Bed 15 Private MD: Diagnosis: Thoracic aortic aneurysm, without rupture Presentation: 10/18 13:35 Presenting complaint: Patient states: i was awaken by my chest pain around 7 am today, hj it hurts when i breathe and i get dizzy, reports squeezing pain; reports N/V;. Transition of care: patient was not received from another setting of care. Onset of symptoms was October 18, 2018. Risk Assessment: Do you want to hurt yourself or someone else? Patient reports no desire to harm self or others. Initial Sepsis Screen: Does the patient meet any 2 criteria? No. Patient's initial sepsis screen is negative. Does the patient have a suspected source of infection? No. Patient's initial sepsis screen is negative. Care prior to arrival: None. 13:35 Method Of Arrival: Ambulatory 13:35 Acuity: LEXI 3 hj Historical: - Allergies: 13:37 No Known Drug Allergies; hj - PMHx: 13:37 CONGENITAL HEART PROBLEMS; Hypertension; hj - PSHx: 13:37 OPEN HEART SURGERY BABY; hj - Immunization history:: Adult Immunizations up to date. - Social history:: Smoking status: Patient/guardian denies using tobacco. - Ebola Screening: : No symptoms or risks identified at this time. Screenin:39 Abuse screen: Denies threats or abuse. Nutritional screening: No deficits noted. la1 Tuberculosis screening: No symptoms or risk factors identified. Fall Risk None identified. Assessment: 14:39 General: Appears comfortable, Behavior is calm, cooperative. Pain: Complains of pain in la1 chest Pain does not radiate. Pain currently is 8 out of 10 on a pain scale. Quality of pain is described as pressure, Pain began 1 day ago. Neuro: Level of Consciousness is awake, alert, obeys commands, Oriented to person, place, time, situation. Cardiovascular: Heart tones S1 S2 present Murmur present Capillary refill < 3 seconds. Respiratory: Airway is patent Respiratory effort is even, unlabored, Respiratory pattern is regular, symmetrical, Breath sounds are clear bilaterally. GI: No signs and/or symptoms were reported involving the gastrointestinal system. : No signs and/or symptoms were reported regarding the genitourinary system. 16:05 Reassessment: Patient appears in no apparent distress at this time. No changes from la1 previously documented assessment. Patient and/or family updated on plan of care and expected duration. Pain level reassessed. Patient is alert, oriented x 3, equal unlabored respirations, skin warm/dry/pink. 18:49 Reassessment: Patient appears in no apparent distress at this time. No changes from la1 previously documented assessment. Patient and/or family updated on plan of care and expected duration. Pain level reassessed. Patient is alert, oriented x 3, equal unlabored respirations, skin warm/dry/pink. Vital Signs: 13:37 BP 152 / 90; Pulse 101; Resp 18; Temp 98.6(TE); Pulse Ox 100% on R/A; Weight 127.01 kg; hj Height 6 ft. 3 in. (190.50 cm); Pain 8/10; 16:05 BP 149 / 96; Pulse 86; Resp 16; Pulse Ox 98% on R/A; la1 17:07 BP 160 / 100; Pulse 95; Resp 16; Pulse Ox 98% on R/A; la1 18:29 BP 159 / 95; Pulse 91; Resp 16; Pulse Ox 98% on R/A; la1 18:49 BP 149 / 95; Pulse 82; Resp 16; Pulse Ox 98% on R/A; la1 13:37 Body Mass Index 35.00 (127.01 kg, 190.50 cm) ED Course: 13:31 Patient arrived in ED. as 13:37 Triage completed. hj 13:37 Arm band placed on left wrist. hj 13:58 Parker Parker, AWAIS is Primary Nurse. la1 14:28 Rafael Dorman MD is Attending Physician. gs 14:40 Call light in reach. Side rails up X 1. cardiac monitor technician on. Pulse ox on. NIBP on. la1 15:24 XRAY Chest (1 view) In Process Unspecified. EDMS 16:29 CT completed. Patient tolerated procedure well. Patient moved to CT. Patient moved back nj from CT. 16:30 CT Chest W/ Con In Process Unspecified. EDMS 18:49 No provider procedures requiring assistance completed. Patient transferred, IV remains la1 in place. Patient maintains SpO2 saturation greater than 95% on room air. Administered Medications: 16:16 Drug: Lasix 20 mg Route: IVP; Site: right antecubital; la1 16:55 Follow up: Response: No adverse reaction la1 16:16 Drug: fentaNYL (PF) 50 mcg Route: IVP; Site: right antecubital; la1 16:55 Follow up: Response: No adverse reaction; Pain is decreased la1 17:37 Drug: Enalaprilat 1.25 mg Route: IV; Rate: calculated rate; Site: right antecubital; la1 18:50 Follow up: IV Status: Completed infusion la1 Outcome: 17:33 ER care complete, transfer ordered by . 18:49 Transferred by ground EMS to [facility], Transfer form completed. la1 X-rays sent w/ patient. 18:49 Condition: stable 18:49 Instructed on the need for transfer. 18:50 Patient left the ED. la1 Signatures: Dispatcher [employer] EDMS Margarita Rebollar Lee, RN RN la Nikita Gorman RN RN hj Jordan, Nathan nj Starr, Gregory, MD MD Corrections: (The following items were deleted from the chart) 13:39 13:37 Pulse 101bpm; Resp 18bpm; Pulse Ox 100% RA; Temp 98.6F Temporal; 127.01 kg; hj Height 6 ft. 3 in.; BMI: 35.0; Pain 8/10; hj
[2018-10-18] MEDS ORDERED: KETOROLAC 30 MG/ML INJ ONE (17:47)
[2018-10-18] MEDS ORDERED: ENALAPRILAT 1.25 MG/ML VIAL IV ONE ×2 (17:48→18:56)
--- NOTE | 2018-10-19 15:08 | EKG ---
Test Date: 2018-10-18 Test Time: 13:43:28 Division Merchandise Manager: KAVIN MEASUREMENT RESULTS: Intervals: Rate: 105 NV: 154 QRSD: 88 QT: 364 QTc: 481 Imperial: P: 63 NV: 154 QRS: 88 T: 66 INTERPRETIVE STATEMENTS: Sinus tachycardia RSR' or QR pattern in V1 suggests right ventricular conduction delay Nonspecific T wave abnormality Abnormal ECG Compared to ECG 03/22/2018 17:49:40 RSR' in V1 or V2 now present T-wave abnormality now present Sinus rhythm no longer present Incomplete right bundle-branch block no longer present Electronically Signed On 10-19-18 15:08:36 CDT by William Jacobo
== END 2018-10-18 18:50 | disposition short-term general hospital (02) ==
LOC: ER 13:30
DX: I71.2 Thoracic aortic aneurysm, without rupture (principal); I10 Essential (primary) hypertension
CPT/HCPCS: 36415; 71045; 71260; 80048; 83880; 84484; 85025; 93005; 96365; 96375; 99285; J1940; J3010; Q9967

== ENCOUNTER 2018-11-10 08:15 | Emergency (ER) | payer SELFPAY ==
--- OUTSIDE RECORDS SUMMARY | 2018-11-10 08:17 | XMS REPORT | Clinical Summary ---
:1990 Author Organization [facility] Address [address] [place] [address] Care Team Providers Name Role Phone Pcp, No Primary Care Provider Unavailable Allergies No Known Allergies Medications Medication Sig Dispensed Refills Start Date End Date Status losartan (COZAAR) 25 Take 3 tablets 270 tablet 0 10/24/2018 10/24/2019 Active MG tablet (75 mg total) by mouth daily. acetaminophen Take 2 tablets 30 tablet 0 10/24/2018 10/19/2019 Active (TYLENOL) 325 MG (650 mg total) tablet by mouth every 4 (four) hours as needed for up to 360 days. metoprolol 75 mg Tab Take 75 mg by 120 tablet 0 10/24/2018 10/24/2019 Active mouth 2 (two) times daily. pantoprazole Take 1 tablet 60 tablet 0 10/25/2018 Active (PROTONIX) 40 MG (40 mg total) tablet by mouth daily. sucralfate (CARAFATE) Take 1 tablet 180 tablet 3 10/24/2018 10/24/2019 Active 1 gram tablet (1 g total) by mouth 2 (two) times daily before meals. traMADol (ULTRAM) 50 Take 2 tablets 30 tablet 0 10/24/2018 11/03/2018 mg tablet (100 mg total) by mouth every 6 (six) hours as needed for up to 10 days. 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, 1992) 10/19/2018 Ascending aortic aneurysm 10/18/2018 Encounters Date Type Specialty Care Team Description 10/19/2018 Travel 10/18/2018 - Hospital Encounter Cardiology Ron Sharma Hypertensive emergency 10/24/2018 MD Coleen without congestive heart failure after 11/09/2017 Family History Medical History Relation Name Comments Hypertension Brother Hypertension Father Hypertension Mother Relation Name Status Comments Brother Father Mother Social History Tobacco Use Types Packs/Day Years Used Date Former Smoker 1 09/18/2005 - 03/05/2018 Smokeless Tobacco: Never Used Alcohol Use Drinks/Week oz/Week Comments Yes Alcohol Habits Answer Date Recorded How often do you have a drink containing alcohol? 2-4 times a month 2018 How many drinks containing alcohol do you have on a 1 or 2 10/18/2018 typical day when you are drinking? How often do you have six or more drinks on one Not asked occasion? Sex Assigned at Date Recorded Not on file Job Start Date Occupation Industry Not on file Not on file Not on file Travel History Travel Start Travel End No recent travel history available. Last Filed Vital Signs Vital Sign Reading Time Taken Blood Pressure 119/70 10/24/2018 7:00 AM CDT Pulse 75 10/24/2018 7:00 AM CDT Temperature 35.7 C (96.2 F) 10/24/2018 7:00 AM CDT Respiratory Rate 17 10/24/2018 7:00 AM CDT Oxygen Saturation 96% 10/24/2018 7:00 AM CDT Inhaled Oxygen Concentration - - Weight 134.4 kg (296 lb 4.8 oz) 10/23/2018 8:13 AM CDT Height 190.5 cm (6' 3") 10/18/2018 10:45 PM CDT Body Mass Index 37.03 10/23/2018 8:13 AM CDT Plan of Treatment Not on file Procedures Procedure Name Priority Date/Time Associated Comments Diagnosis RHYTHM STRIP - SCAN 11/01/2018 2:01 PM CDT RHYTHM STRIP - SCAN 10/26/2018 10:21 AM CDT PT/APTT Routine 10/24/2018 4:55 Results for this AM CDT procedure are in the results section. PROTHROMBIN TIME/INR Routine 10/24/2018 4:55 Results for this AM CDT procedure are in the results section. PHOSPHORUS Routine 10/24/2018 4:55 Results for this AM CDT procedure are in the results section. MAGNESIUM Routine 10/24/2018 4:55 Results for this AM CDT procedure are in the results section. CBC (HEMOGRAM ONLY) Routine 10/24/2018 4:55 Results for this AM CDT procedure are in the results section. CALCIUM, IONIZED Routine 10/24/2018 4:55 Results for this AM CDT procedure are in the results section. BASIC METABOLIC PANEL Routine 10/24/2018 4:55 Results for this (7) AM CDT procedure are in the results section. PT/APTT Routine 10/22/2018 5:03 Results for this AM CDT procedure are in the results section. PROTHROMBIN TIME/INR Routine 10/22/2018 5:03 Results for this AM CDT procedure are in the results section. PHOSPHORUS Routine 10/22/2018 5:03 Results for this AM CDT procedure are in the results section. MAGNESIUM Routine 10/22/2018 5:03 Results for this AM CDT procedure are in the results section. CBC (HEMOGRAM ONLY) Routine 10/22/2018 5:03 Results for this AM CDT procedure are in the results section. CALCIUM, IONIZED Routine 10/22/2018 5:03 Results for this AM CDT procedure are in the results section. BASIC METABOLIC PANEL Routine 10/22/2018 5:03 Results for this (7) AM CDT procedure are in the results section. CTA HEART CORONARY Routine 10/20/2018 5:13 Results for this WITH CALCIUM PM CDT procedure are in EVALUATION WITHOUT the results FFR section. PT/APTT Routine 10/20/2018 6:50 Results for this AM CDT procedure are in the results section. PROTHROMBIN TIME/INR Routine 10/20/2018 6:50 Results for this AM CDT procedure are in the results section. PHOSPHORUS Routine 10/20/2018 6:50 Results for this AM CDT procedure are in the results section. MAGNESIUM Routine 10/20/2018 6:50 Results for this AM CDT procedure are in the results section. CBC (HEMOGRAM ONLY) Routine 10/20/2018 6:50 Results for this AM CDT procedure are in the results section. CALCIUM, IONIZED Routine 10/20/2018 6:50 Results for this AM CDT procedure are in the results section. BASIC METABOLIC PANEL Routine 10/20/2018 6:50 Results for this (7) AM CDT procedure are in the results section. ECHOCARDIOGRAM REPORT 10/19/2018 9:20 - SCAN PM CDT PT/APTT Routine 10/19/2018 5:19 Results for this AM CDT procedure are in the results section. PROTHROMBIN TIME/INR Routine 10/19/2018 5:19 Results for this AM CDT procedure are in the results section. PHOSPHORUS Routine 10/19/2018 5:19 Results for this AM CDT procedure are in the results section. MAGNESIUM Routine 10/19/2018 5:19 Results for this AM CDT procedure are in the results section. CBC (HEMOGRAM ONLY) Routine 10/19/2018 5:19 Results for this AM CDT procedure are in the results section. CALCIUM, IONIZED Routine 10/19/2018 5:19 Results for this AM CDT procedure are in the results section. BASIC METABOLIC PANEL Routine 10/19/2018 5:19 Results for this (7) AM CDT procedure are in the results section. 2D ECHO W/ DOPPLER STAT(After 10/18/2018 9:32 Results for this (CW/PW/COLOR) Hours Page PM CDT procedure are in Staff) the results section. APTT STAT 10/18/2018 9:01 Results for this PM CDT procedure are in the results section. PROTHROMBIN TIME/INR STAT 10/18/2018 9:01 Results for this PM CDT procedure are in the results section. COMPREHENSIVE STAT 10/18/2018 9:01 Results for this METABOLIC PANEL PM CDT procedure are in the results section. CBC (HEMOGRAM ONLY) STAT 10/18/2018 9:01 Results for this PM CDT procedure are in the results section. after 11/09/2017 Results RHYTHM STRIP - SCAN (11/01/2018 2:01 PM CDT)Only the most recent of2 resultswithin the time period is included. Narrative Performed At PT/aPTT (10/24/2018 4:55 AM CDT)Only the most recent of4 resultswithin the time period is included. Protime 13.3 11.9 - 14.2 seconds [facility] INR 1.1 <=5.9 [facility] PTT 34.1 22.5 - 36.0 seconds [facility] Specimen Blood Narrative Performed At Effective 08/31/2018: PT Reference Range [facility] Change New: 11.9-14.2Previous: 11.7-14.7 RECOMMENDED COUMADIN/WARFARIN INR THERAPY RANGES STANDARD DOSE: 2.0-3.0Includes: PROPHYLAXIS for venous thrombosis, systemic embolization; TREATMENT for venous thrombosis and/or pulmonary embolus. HIGH RISK: Target INR is 2.5-3.5 for patients wiht mechanical heart valves. Performing Organization Address [facility] Phone Number [address] [address] CENTER Calcium, Ionized (10/24/2018 4:55 AM CDT)Only the most recent of4 resultswithin the time period is included. Calcium, Ion 1.17 1.12 - 1.27 mmol/L [facility] pH, Blood 7.30 [facility] Specimen Blood Performing Organization Address [facility] Facility[facility]oor Phone Number [address] [phone] [place] Prothrombin time/INR (10/24/2018 4:55 AM CDT)Only the most recent of5 resultswithin the time period is included. Protime 13.3 11.9 - 14.2 seconds [facility] INR 1.1 <=5.9 [facility] Specimen Blood Narrative Performed At Effective 08/31/2018: PT Reference Range [facility] Change New: 11.9-14.2Previous: 11.7-14.7 RECOMMENDED COUMADIN/WARFARIN INR THERAPY RANGES STANDARD DOSE: 2.0-3.0Includes: PROPHYLAXIS for venous thrombosis, systemic embolization; TREATMENT for venous thrombosis and/or pulmonary embolus. HIGH RISK: Target INR is 2.5-3.5 for patients wiht mechanical heart valves. Performing Organization Address City/[facility] Phone Number [address] [address] C[place] CBC (Hemogram only) (10/24/2018 4:55 AM CDT)Only the most recent of5 resultswithin the time period is included. WBC 6.9 3.5 - 10.5 K/L [facility] RBC 4.74 4.63 - 6.08 M/L [facility] Hemoglobin 13.7 13.7 - 17.5 GM/DL [facility] Hematocrit 41.7 40.1 - 51.0 % [facility] MCV 88.0 79.0 - 92.2 fL [facility] MCH 28.9 25.7 - 32.2 pg [facility] MCHC 32.9 32.3 - 36.5 GM/DL [facility] RDW 13.6 11.6 - 14.4 % [facility] Platelets 273 150 - 450 K/CU MM [facility] MPV 9.1 (L) 9.4 - 12.4 fL [facility] nRBC 0 0 - 0 /100 WBC [facility] Specimen Blood Performing Organization Address City/[facility] Phone Number [address] [address] CENTER Phosphorus (10/24/2018 4:55 AM CDT)Only the most recent of4 resultswithin the time period is included. Phosphorus 4.1 2.3 - 4.7 mg/dL [facility] Specimen Blood Performing Organization Address City/[facility] Phone Number [address] [address] C[place] Magnesium (10/24/2018 4:55 AM CDT)Only the most recent of4 resultswithin the time period is included. Magnesium 1.9 1.6 - 2.6 mg/dL [facility] Specimen Blood Performing Organization Address City/[facility] Phone Number [address] [address] CENTER Basic metabolic panel (10/24/2018 4:55 AM CDT)Only the most recent of4 resultswithin the time period is included. Sodium 140 136 - 145 meq/L [facility] Potassium 4.0 3.5 - 5.1 meq/L [facility] Chloride 106 98 - 107 meq/L [facility] CO2 27 22 - 29 meq/L [facility] BUN 12 7 - 21 mg/dL [facility] Creatinine 0.94 0.57 - 1.25 mg/dL [facility] Glucose 94 70 - 105 mg/dL [facility] Calcium 9.1 8.4 - 10.2 mg/dL [facility] EGFR 118Comment: ESTIMATED GFR IS mL/min/1.73 sq m [facility] NOT ACCURATE CREATININE [facility] CLEARANCE IN PREDICTING GLOMERULAR FILTRATION RATE. ESTIMATED GFR IS NOT APPLICABLE FOR DIALYSIS PATIENTS. Specimen Blood Performing Organization Address City/State/Zipcode Phone Number [facility] [address] [place] [address] [phone] CENTER CTA heart coronary with calcium evaluation without FFR (10/20/2018 5:13 PM CDT) Specimen Narrative Performed At Addendum Begins [employer] [facility] REPORT STATUS:A Addendum: October 20, 2018 at 1815 hours I have reviewed the CT images for this study and I concur with the nonvascular imaging findings as dictated. Signed: Manjeet Bridges MD Report Verified Date/Time:10/21/2018 18:13:46 Reading Location: [place] [address] Angio Body Reading Room Addendum Ends FINAL REPORT CT coronary angiography, 20-Oct-18 INDICATION: This is a 28 years old male, with transposition of great vessel, presents for assessment, due to dilated ascending aorta. Patient also chest pain. TECHNIQUE: Spiral acquisition before and during intravenous contrast administration using a Gaston multidetector CT scanner. Multi-planar 3-D volume-rendering reconstruction was performed using an independent workstation interactively by the interpreting physician as well as the 3-D specialist for optimal visualisation of the coronary anatomy.Consecutive thin slices (< 1mm) were obtained. Arrival heart rate was at least 75 bpm, and it appears patient was given a various cocktail of beta clarence and calcium clarence up in the medical santos. Medication administration: Oral metoprolol 0 mg; IV metoprolol 20 mg; S/L nitroglyercin 0.4 mg. Please refer to the contrast sheet scanned in the EPIC system for the amount and route of contrast given. This exam was performed according to our departmental dose-optimisation programme, which includes automated exposure control, adjustment of the mA and/or kV according to patient size and/or use of iterative reconstruction technique. Dose modulation, iterative reconstruction, and/or weight based adjustment of the mA/kV was utilized to reduce the radiation dose to as low as reasonably achievable. FINDINGS: VASCULAR: Patient has D-Transposition of Great Vessel (D-TGA), underwent the Jantene arterial switch procedure, with the Bois D Arc manoeuvre with the expected location of the main pulmonary artery anterior to the ascending thoracic aorta Since this is after corrective surgery, currently, there is normal atrio-ventricular and ventriculo-arterialconcordance, and systemic and pulmonary venous return. The left ventricle is normal in size. There could be minimal right ventricular prominence identified by visual inspection. Correlate with echocardiography. Significant increase imaging noise is identified, however, on visual inspection, no obvious coronary artery calcification is present. Presumably, the coronary artery origins are reimplanted. There are well seen. They're not compressed by surrounding structures. The left main coronary artery is widely patent, that gives rise to the left anterior descending of the left circumflex artery. The left anterior descending artery is widely patent, though it becomes a small calibre vessel distally. The first OM branch is also widely patent proximally. There could be a tiny ramus intermedius artery is identified. The left circumflex artery is widely patent, and give rise to a high OM branch. The second OM branch is widely patent. The right coronary artery origin is well seen, and the right coronary artery if the dominant vessel, and its widely patent in the proximal, mid, distal segment. The PDA is very small but well assessed. There is borderline aneurysmal dilation identified in the aortic root, measure 5.0 x 4.6 cm in diameter with effacement of sinotubular junction. See snapshot for details. Thereafter, the aorta tapers to a normal calibre where the mid ascending thoracic aorta measure 3.2 cm, the transverse arch measure 2.5 cm, the proximal descending thoracic aorta measure 2.5 cm, and the distal descending thoracic aorta measures 1.9 cm. No acute aortic pathology is seen and no dissection or contained rupture is identified. The aortic arch is left-sided, and the arch vessel branching pattern is normal and the visualised arch vessels are seen to be widely patent proximally. There is no acute aortic pathology, specifically, there is no dissection, contained rupture, and intramural hematoma. The central pulmonary artery is unremarkable, eccentric into account of prior surgery. No evidence of central pulmonary artery embolism is identified. No branch artery stenosis is appreciated. However, of note, the more distal pulmonary arteries to the left lower lobe is somewhat tortuous in morphology. On further inspection, the right upper lobe and right lower lobe pulmonary veins are well seen, and the left upper lobe pulmonary veins also well seen, however, the left lower lobe pulmonary vein is not identified, coincide with the tortuosity of the left lower lobe peripheral pulmonary arterial branch. Clinical significance of this finding is uncertain. NON-VASCULAR: The visualised thyroid gland is unremarkable. The chest wall mediastinum is remarkable for prior median sternotomy. No significant adenopathy is identified in the mediastinum. In the lung windows, no endobronchial lesion is seen, and no pleural effusions identified. Some atelectatic changes are seen. No suspicious pulmonary nodule is identified, defined as greater than 6 mm in size. Limited images of the upper abdomen reveals no gross abnormality. No acute bony pathology is identified. CONCLUSIONS: 1.On visual inspection, no coronary artery calcification is identified. 2.Patient has history of D-TGA, underwent the Jantene arterial switch procedure, with the Bois D Arc manoeuvre, with the expected anatomy of the pulmonary arteries and the ascending thoracic aorta (PA is now sitting in front of the ascending thoracic aorta). In the available images, the aortic root (blayne-aortic root) has borderline aneurysmal dilation; by multiplanar reformation, the maximum diameter measures 5.0 x 4.6 cm in diameter, with effacement of sinotubular junction. Thereafter, remainder of the thoracic aorta is normal in course and calibre. See snapshot for details. No acute aortic pathology is identified in the aortic root is left-sided with normal arch vessel branching pattern. 3.The coronary artery origins are well seen, presumably the origins are reimplanted due to prior surgery. The major epicardial coronary arteries are seen to be widely patent and no compression to the coronary artery origins is appreciated. In summary, no coronary artery calcification is seen and no obstructive coronary artery disease is appreciated. 4.Taking account of the prior surgery, the central pulmonary artery is unremarkable, no evidence of central pulmonary artery embolism. 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 5.No acute pulmonary pathology. 6.Other findings as described above. 7.The non-vascular findings will be reviewed by the Link Trainer Mechanic Radiologist and addendum will be added as needed. Major findings were discussed with Dr. Kumar at the time of dictation. Signed: Gokul Mark MD Report Verified Date/Time:10/20/2018 20:02:00 Reading Location: [place] [id number] Cardiology MRI Procedure Note Interface, External Ris In - 10/21/2018 6:15 PM CDT Addendum Begins REPORT STATUS:A Addendum: October 20, 2018 at 1815 hours I have reviewed the CT images for this study and I concur with the nonvascular imaging findings as dictated. Signed: Manjeet Bridgse MD Report Verified Date/Time: 10/21/2018 18:13:46 Reading Location: [facility] [address] Angio Body Reading Room Addendum Ends FINAL REPORT CT coronary angiography, 20-Oct-18 INDICATION: This is a 28 years old male, with transposition of great vessel, presents for assessment, due to dilated ascending aorta. Patient also chest pain. TECHNIQUE: Spiral acquisition before and during intravenous contrast administration using a Gaston multidetector CT scanner. Multi-planar 3-D volume-rendering reconstruction was performed using an independent workstation interactively by the interpreting physician as well as the 3-D specialist for optimal visualisation of the coronary anatomy. Consecutive thin slices (< 1mm) were obtained. Arrival heart rate was at least 75 bpm, and it appears patient was given a various cocktail of beta clarence and calcium clarence up in the medical santos. Medication administration: Oral metoprolol 0 mg; IV metoprolol 20 mg; S/L nitroglyercin 0.4 mg. Please refer to the contrast sheet scanned in the [employer] system for the amount and route of contrast given. This exam was performed according to our departmental dose-optimisation programme, which includes automated exposure control, adjustment of the mA and/or kV according to patient size and/or use of iterative reconstruction technique. Dose modulation, iterative reconstruction, and/or weight based adjustment of the mA/kV was utilized to reduce the radiation dose to as low as reasonably achievable. FINDINGS: VASCULAR: Patient has D-Transposition of Great Vessel (D-TGA), underwent the Jantene arterial switch procedure, with the Jr manoeuvre with the expected location of the main pulmonary artery anterior to the ascending thoracic aorta Since this is after corrective surgery, currently, there is normal atrio-ventricular and ventriculo-arterial concordance, and systemic and pulmonary venous return. The left ventricle is normal in size. There could be minimal right ventricular prominence identified by visual inspection. Correlate with echocardiography. Significant increase imaging noise is identified, however, on visual inspection, no obvious coronary artery calcification is present. Presumably, the coronary artery origins are reimplanted. There are well seen. They're not compressed by surrounding structures. The left main coronary artery is widely patent, that gives rise to the left anterior descending of the left circumflex artery. The left anterior descending artery is widely patent, though it becomes a small calibre vessel distally. The first OM branch is also widely patent proximally. There could be a tiny ramus intermedius artery is identified. The left circumflex artery is widely patent, and give rise to a high OM branch. The second OM branch is widely patent. The right coronary artery origin is well seen, and the right coronary artery if the dominant vessel, and its widely patent in the proximal, mid, distal segment. The PDA is very small but well assessed. There is borderline aneurysmal dilation identified in the aortic root, measure 5.0 x 4.6 cm in diameter with effacement of sinotubular junction. See snapshot for details. Thereafter, the aorta tapers to a normal calibre where the mid ascending thoracic aorta measure 3.2 cm, the transverse arch measure 2.5 cm, the proximal descending thoracic aorta measure 2.5 cm, and the distal descending thoracic aorta measures 1.9 cm. No acute aortic pathology is seen and no dissection or contained rupture is identified. The aortic arch is left-sided, and the arch vessel branching pattern is normal and the visualised arch vessels are seen to be widely patent proximally. There is no acute aortic pathology, specifically, there is no dissection, contained rupture, and intramural hematoma. The central pulmonary artery is unremarkable, eccentric into account of prior surgery. No evidence of central pulmonary artery embolism is identified. No branch artery stenosis is appreciated. However, of note, the more distal pulmonary arteries to the left lower lobe is somewhat tortuous in morphology. On further inspection, the right upper lobe and right lower lobe pulmonary veins are well seen, and the left upper lobe pulmonary veins also well seen, however, the left lower lobe pulmonary vein is not identified, coincide with the tortuosity of the left lower lobe peripheral pulmonary arterial branch. Clinical significance of this finding is uncertain. NON-VASCULAR: The visualised thyroid gland is unremarkable. The chest wall mediastinum is remarkable for prior median sternotomy. No significant adenopathy is identified in the mediastinum. In the lung windows, no endobronchial lesion is seen, and no pleural effusions identified. Some atelectatic changes are seen. No suspicious pulmonary nodule is identified, defined as greater than 6 mm in size. Limited images of the upper abdomen reveals no gross abnormality. No acute bony pathology is identified. CONCLUSIONS: 1. On visual inspection, no coronary artery calcification is identified. 2. Patient has history of D-TGA, underwent the Jantene arterial switch procedure, with the Jr manoeuvre, with the expected anatomy of the pulmonary arteries and the ascending thoracic aorta (PA is now sitting in front of the ascending thoracic aorta). In the available images, the aortic root (blayne-aortic root) has borderline aneurysmal dilation; by multiplanar reformation, the maximum diameter measures 5.0 x 4.6 cm in diameter, with effacement of sinotubular junction. Thereafter, remainder of the thoracic aorta is normal in course and calibre. See snapshot for details. No acute aortic pathology is identified in the aortic root is left-sided with normal arch vessel branching pattern. 3. The coronary artery origins are well seen, presumably the origins are reimplanted due to prior surgery. The major epicardial coronary arteries are seen to be widely patent and no compression to the coronary artery origins is appreciated. In summary, no coronary artery calcification is seen and no obstructive coronary artery disease is appreciated. 4. Taking account of the prior surgery, the central pulmonary artery is unremarkable, no evidence of central pulmonary artery embolism. 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 5. No acute pulmonary pathology. 6. Other findings as described above. 7. The non-vascular findings will be reviewed by the Link Trainer Mechanic Radiologist and addendum will be added as needed. Major findings were discussed with Dr. Kumar at the time of dictation. Signed: Gokul Mark MD Report Verified Date/Time: 10/20/2018 20:02:00 Reading Location: [place] [address] Cardiology MRI Performing Organization Address City/State/Zipcode Phone Number [place] ECHOCARDIOGRAM REPORT - SCAN (10/19/2018 9:20 PM CDT) Narrative Performed At 2D Echo W/Doppler(CW/PW/Color) (10/18/2018 9:32 PM CDT) Ejection Fraction [facility] ECHO HEARTLAB Parametric Dining [facility] Specimen Narrative Performed At Transthoracic Echocardiography Report (TTE) [facility] ECHO HEARTLAB Parametric Dining [facility] Demographics Patient NameBRICE POLK Date of Study10/18/2018 EDWARD III Male Visit [id number] Black Room [id number] Number Date of 1990Referring Physician Age 28 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 Clinical History HGB 13.2 HCT 40.0 % HTN, PSH REPAIR OF TRANSPOSITION OF GREAT VESSELS (1992) Height: 75 inches Weight: 122.47 kg (270 lbs) BSA: 2.49 m^2 BMI: 33.75 kg/m^2 HR: 86 bpm BP: 139/67 mmHg Summary D TGA s/p arterial switch Neoaortic root size (SInus of Valsalva diameter 4.5 cm) and proximal ascending aorta (5.0cm) are moderately to severely dilated. No evidence of aortic regurgitation. All of the LV segments contract normally . LVEF by Valenzuela's method of disk assessment is normal (55-60%) A trivial pericardial effusion is present . Previous Study No prior studies available for comparison. Signature Findings Rhythm/BPRegular sinus rhythm during the exam. Left Ventricle The LV endocardium is adequately visualized. Th e left ventricle is chamber size (by vol index) is normal (male - LVED vol - 34-74ml/m2). Mi ld concentric LV hypertrophy. Al l of the LV segments contract normally . LV EF by Valenzuela's method of disk assessment is no rmal (55-60%) . Left AtriumLA size is normal . Right VentricleRV chamber size is normal size . Gl obal RV systolic function is normal . Right Atrium RA size is normal. Aortic Valve Normal AoV structure. Ao V cusp mobility is normal . No evidence of aortic regurgitation. Mitral Valve Normal MV structure. No significant mitral regurgitation. Tricuspid ValveTV structure is normal. A trace of tricuspid regurgitation. Es timated peak systolic PA pressure is cannot be de termined due to inadequate TR velocity signal . Pulmonic Valve Normal PV structure appears normal by available vi ews with mild pulmonary regurgitation. AortaNeoaorti c root size (SInus of Valsalva diameter 4.5 cm ) and proximal ascending aorta (5.0cm) are mo derately to severely dilated. le ft sided aortic arch. No rmal size transverse and descending aorta. No dissection visualized. PericardiumA trivial pericardial effusion is present . An echo lucent space is noted consistent with pr ominent pericardial fat pad. IVC/SVC/PA/PV/PleuralThe inferior vena cava is not well visualized. 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 Chambers/Structures Left Ventricle LVIDd: 5.54 cm LVIDs: 3.53 cm LV Septum Diastolic: 1.15 cm LV PW Diastolic: 1.31 cmLV FS: 36.3 % LVEDV Valenzuela's:149.98 ml LVESV Valenzuela's:59.34 mlLVEDVI: 60 ml/m^2 LVEF Valenzuela's: 60.4 %LVESV I: 24 ml/m^2 LVOT Diameter: 2.48 cm Aorta Ao Root S of Eileen.: 4.89 cmAscending Aorta: 4.97 cm Doppler/Quantitative Measurements Aortic Valve Peak Velocity: 1.07 m/sMean Velocity: 0.61 m/s Peak Gradient: 4.57 mmHg Mean Gradient: 1.91 mmHg AV Area (continuity): 5.29 cm^2 AV VTI: 16.33 cm AV DVI: 1.1 LVOT Peak Velocity: 0.96 m/s Peak Gradient: 3.72 mmHg Mean Velocity: 0.56 m/s Mean Gradient: 1.61 mmHg LVOT Diameter: 2.48 cmLVOT VTI: 17.9 cm LVOT Area: 4.83 cm^2LVOT SV:86.42 ml LVOT CO: 7.43 l/min LVOT CI: 2.98 l/min/m^2 Procedure Note Interface, External Ris In - 10/19/2018 11:04 AM CDT Transthoracic Echocardiography Report (TTE) Demographics Patient Name BRICE POLK Date of Study 10/18/2018 RIGOBERTO FUNES Gender Male Visit Number [id number] Race Black Room Number [id number] Number Date of 1990 Referring Physician Age 28 year(s) 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 Clinical History HGB 13.2 HCT 40.0 % HTN, PSH REPAIR OF TRANSPOSITION OF GREAT VESSELS (1992) Height: 75 inches Weight: 122.47 kg (270 lbs) BSA: 2.49 m^2 BMI: 33.75 kg/m^2 HR: 86 bpm BP: 139/67 mmHg Summary D TGA s/p arterial switch Neoaortic root size (SInus of Valsalva diameter 4.5 cm) and proximal ascending aorta (5.0cm) are moderately to severely dilated. No evidence of aortic regurgitation. All of the LV segments contract normally . LVEF by Valenzuela's method of disk assessment is normal (55-60%) A trivial pericardial effusion is present . Previous Study No prior studies available for comparison. Signature Findings Rhythm/BP Regular sinus rhythm during the exam. Left Ventricle The LV endocardium is adequately visualized. The left ventricle is chamber size (by vol index) is normal (male - LVED vol - 34-74ml/m2). Mild concentric LV hypertrophy. All of the LV segments contract normally . LVEF by Valenzuela's method of disk assessment is normal (55-60%) . Left Atrium LA size is normal . Right Ventricle RV chamber size is normal size . Global RV systolic function is normal . Right Atrium RA size is normal. Aortic Valve Normal AoV structure. AoV cusp mobility is normal . No evidence of aortic regurgitation. Mitral Valve Normal MV structure. No significant mitral regurgitation. Tricuspid Valve TV structure is normal. A trace of tricuspid regurgitation. Estimated peak systolic PA pressure is cannot be determined due to inadequate TR velocity signal . Pulmonic Valve Normal PV structure appears normal by available views with mild pulmonary regurgitation. Aorta Neoaortic root size (SInus of Valsalva diameter 4.5 cm) and proximal ascending aorta (5.0cm) are moderately to severely dilated. left sided aortic arch. Normal size transverse and descending aorta. No dissection visualized. Pericardium A trivial pericardial effusion is present . An echo lucent space is noted consistent with prominent pericardial fat pad. IVC/SVC/PA/PV/Pleural The inferior vena cava is not well visualized. Congenital Exam consistent with D-TGA with prior atrial redirection surgery . Chambers/Structures Left Ventricle LVIDd: 5.54 cm LVIDs: 3.53 cm LV Septum Diastolic: 1.15 cm LV PW Diastolic: 1.31 cm LV FS: 36.3 % LVEDV Valenzuela's:149.98 ml LVESV Valenzuela's:59.34 ml LVEDVI: 60 ml/m^2 LVEF Valenzuela's: 60.4 % LVESVI: 24 ml/m^2 LVOT Diameter: 2.48 cm Aorta Ao Root S of Eileen.: 4.89 cm Ascending Aorta: 4.97 cm Doppler/Quantitative Measurements Aortic Valve Peak Velocity: 1.07 m/s Mean Velocity: 0.61 m/s Peak Gradient: 4.57 mmHg Mean Gradient: 1.91 mmHg AV Area (continuity): 5.29 cm^2 AV VTI: 16.33 cm AV DVI: 1.1 LVOT Peak Velocity: 0.96 m/s Peak Gradient: 3.72 mmHg Mean Velocity: 0.56 m/s Mean Gradient: 1.61 mmHg LVOT Diameter: 2.48 cm LVOT VTI: 17.9 cm LVOT Area: 4.83 cm^2 LVOT SV:86.42 ml LVOT CO: 7.43 l/min LVOT CI: 2.98 l/min/m^2 Performing Organization Address City/[facility] Phone Number [facility] ECHO HEARTLAB MKCKESSON CPACS aPTT (10/18/2018 9:01 PM CDT) PTT 30.5 22.5 - 36.0 seconds [facility] Specimen Blood Performing Organization Address City/[facility] Facilitycode Phone Number [facility] [address] [place] [address] [phone] [facility] Comprehensive metabolic panel (10/18/2018 9:01 PM CDT) Protein, Total 7.4Comment: Specimen 6.0 - 8.3 gm/dL [facility] slightly hemolyzed [facility] Albumin 4.5Comment: Specimen 3.5 - 5.0 g/dL [facility] slightly hemolyzed [facility] Alkaline Phosphatase 64 40 - 150 U/L [facility] Total Bilirubin 0.7Comment: Specimen 0.2 - 1.2 mg/dL [facility] slightly hemolyzed [facility] Sodium 140 136 - 145 meq/L [facility] Potassium 3.8Comment: Specimen 3.5 - 5.1 meq/L [facility] slightly hemolyzed [facility] Chloride 104 98 - 107 meq/L [facility] CO2 28 22 - 29 meq/L [facility] BUN 11 7 - 21 mg/dL [facility] Creatinine 1.02Comment: Specimen 0.57 - 1.25 mg/dL [facility] Gl[facility] 98 70 - 105 mg/dL [facility] Calcium 9.7 8.4 - 10.2 mg/dL [facility] AST 21Comment: Specimen 5 - 34 U/L [facility] slightly hemolyzed [facility] ALT 28Comment: Specimen 6 - 55 U/L [facility] slightly hemolyzed [facility] EGFR 107Comment: ESTIMATED mL/min/1.73 sq m [facility] GFR IS NOT ACCURATE [facility] CREATININE CLEARANCE IN PREDICTING GLOMERULAR FILTRATION RATE. ESTIMATED GFR IS NOT APPLICABLE FOR DIALYSIS PATIENTS. Specimen Blood Performing Organization Address City/State/Zipcode Phone Number [facility] [address] [place] [address] [phone] CENTER after 11/09/2017 Advance Directives For more information, please contact:[address] [phone] Code Status Date Activated Date Inactivated Comments Full Code 10/18/2018 8:04 PM 10/24/2018 3:40 PM This code status was determined by: Patient
--- OUTSIDE RECORDS SUMMARY | 2018-11-10 08:18 | XMS REPORT ---
:1990 [facility] Address [address] [place] [address] [address] [place] [address] Care Team Providers Name Role Phone SONAM PERDOMO Unavailable Unavailable Problems This patient has no known problems. Allergies, Adverse Reactions, Alerts This patient has no known allergies or adverse reactions. Medications This patient has no known medications. Results Test Description Test Time Test Comments Text Results Atomic Results Result Comments PHOSPHORUS 2018-10-24 07:08:00 Test Item Value Reference Range Comments PHOSPHORUS (BEAKER) (test thpb=062) 4.1 mg/dL 2.3-4.7 [id number] 07:08:00 Test Item Value Reference Range Comments MAGNESIUM (BEAKER) (test rjwl=647) 1.9 mg/dL 1.6-2.6 BASIC METABOLIC [id number] 07:08:00 Test Item Value Reference Range Comments SODIUM (BEAKER) (test 140 meq/L 136-145 beqn=506) POTASSIUM (BEAKER) (test 4.0 meq/L 3.5-5.1 fmhb=322) CHLORIDE (BEAKER) (test 106 meq/L 98-107 fmtd=644) CO2 (BEAKER) (test 27 meq/L 22-29 sigr=295) BLOOD UREA NITROGEN 12 mg/dL 7-21 (BEAKER) (test sfgi=528) CREATININE (BEAKER) (test 0.94 mg/dL 0.57-1.25 wzil=066) GLUCOSE RANDOM (BEAKER) 94 mg/dL 70-105 (test dspd=185) CALCIUM (BEAKER) (test 9.1 mg/dL 8.4-10.2 vkgw=207) EGFR (BEAKER) (test 118 mL/min/1.73 sq m ESTIMATED GFR IS NOT vfsw=7080) ACCURATE CREATININE CLEARANCE IN PREDICTING GLOMERULAR FILTRATION RATE. ESTIMATED GFR IS NOT APPLICABLE FOR DIALYSIS PATIENTS. PT/[id number] 05:59:00 Test Item Value Reference Range Comments PROTIME (BEAKER) (test algv=886) 13.3 seconds 11.9-14.2 INR (BEAKER) (test mohq=580) 1.1 <=5.9 PARTIAL THROMBOPLASTIN TIME (BEAKER) (test 34.1 seconds 22.5-36.0 fcee=032) Effective 08/31/2018: PT Reference Range ChangeNew: 11.9-14.2 Previous: 11.7- 14.7RECOMMENDED COUMADIN/WARFARIN INR THERAPY RANGESSTANDARD DOSE: 2.0-3.0 Includes: PROPHYLAXIS for venous thrombosis, systemic embolization; TREATMENT for venous thrombosis and/or pulmonary embolus.HIGH RISK: Target INR is2.5-3.5 for patients wiht mechanical heart valves.PROTHROMBIN TIME/[id number] 05:58: 00 Test Item Value Reference Range Comments PROTIME (BEAKER) (test wswg=437) 13.3 seconds 11.9-14.2 INR (BEAKER) (test dgxf=069) 1.1 <=5.9 Effective 08/31/2018: PT Reference Range ChangeNew: 11.9-14.2 Previous: 11.7- 14.7RECOMMENDED COUMADIN/WARFARIN INR THERAPY RANGESSTANDARD DOSE: 2.0-3.0 Includes: PROPHYLAXIS for venous thrombosis, systemic embolization; TREATMENT for venous thrombosis and/or pulmonary embolus.HIGH RISK: Target INR is2.5-3.5 for patients wiht mechanical heart valves.CALCIUM, [id number] 05:48:00 Test Item Value Reference Range Comments CALCIUM IONIZED (BEAKER) (test ffrq=474) 1.17 mmol/L 1.12-1.27 PH, BLOOD (BEAKER) (test hivj=0997) 7.30 CBC (HEMOGRAM ONLY)2018-10-24 05:40:00 Test Item Value Reference Range Comments WHITE BLOOD CELL COUNT (BEAKER) (test nrlc=772) 6.9 K/ L 3.5-10.5 RED BLOOD CELL COUNT (BEAKER) (test vpss=481) 4.74 M/ L 4.63-6.08 HEMOGLOBIN (BEAKER) (test cdsi=815) 13.7 GM/DL 13.7-17.5 HEMATOCRIT (BEAKER) (test bbtn=572) 41.7 % 40.1-51.0 MEAN CORPUSCULAR VOLUME (BEAKER) (test hlai=356) 88.0 fL 79.0-92.2 MEAN CORPUSCULAR HEMOGLOBIN (BEAKER) (test 28.9 pg 25.7-32.2 kszk=436) MEAN CORPUSCULAR HEMOGLOBIN CONC (BEAKER) (test 32.9 GM/DL 32.3-36.5 ennu=180) RED CELL DISTRIBUTION WIDTH (BEAKER) (test 13.6 % 11.6-14.4 syuw=553) PLATELET COUNT (BEAKER) (test unjl=604) 273 K/CU MM 150-450 MEAN PLATELET VOLUME (BEAKER) (test koyv=981) 9.1 fL 9.4-12.4 NUCLEATED RED BLOOD CELLS (BEAKER) (test 0 /100 WBC 0-0 lrcl=557) [id number] 06:15:00 Test Item Value Reference Range Comments PHOSPHORUS (BEAKER) (test uqjp=492) 3.8 mg/dL 2.3-4.7 [id number] 06:15:00 Test Item Value Reference Range Comments MAGNESIUM (BEAKER) (test ujuw=695) 1.9 mg/dL 1.6-2.6 BASIC METABOLIC [id number] 06:15:00 Test Item Value Reference Range Comments SODIUM (BEAKER) (test 137 meq/L 136-145 bxwh=011) POTASSIUM (BEAKER) (test 4.2 meq/L 3.5-5.1 gxfm=375) CHLORIDE (BEAKER) (test 106 meq/L 98-107 sycl=386) CO2 (BEAKER) (test 25 meq/L 22-29 dyxx=420) BLOOD UREA NITROGEN 12 mg/dL 7-21 (BEAKER) (test vmoj=222) CREATININE (BEAKER) (test 0.91 mg/dL 0.57-1.25 srfs=935) GLUCOSE RANDOM (BEAKER) 92 mg/dL 70-105 (test bsdg=891) CALCIUM (BEAKER) (test 9.2 mg/dL 8.4-10.2 reua=638) EGFR (BEAKER) (test 122 mL/min/1.73 sq m ESTIMATED GFR IS NOT ribe=7204) ACCURATE CREATININE CLEARANCE IN PREDICTING GLOMERULAR FILTRATION RATE. ESTIMATED GFR IS NOT APPLICABLE FOR DIALYSIS PATIENTS. PT/[id number] 05:49:00 Test Item Value Reference Range Comments PROTIME (BEAKER) (test cvot=983) 13.5 seconds 11.9-14.2 INR (BEAKER) (test awis=208) 1.1 <=5.9 PARTIAL THROMBOPLASTIN TIME (BEAKER) (test 32.4 seconds 22.5-36.0 ixgl=524) Effective 08/31/2018: PT Reference Range ChangeNew: 11.9-14.2 Previous: 11.7- 14.7RECOMMENDED COUMADIN/WARFARIN INR THERAPY RANGESSTANDARD DOSE: 2.0-3.0 Includes: PROPHYLAXIS for venous thrombosis, systemic embolization; TREATMENT for venous thrombosis and/or pulmonary embolus.HIGH RISK: Target INR is2.5-3.5 for patients wiht mechanical heart valves.PROTHROMBIN TIME/[id number] 05:48: 00 Test Item Value Reference Range Comments PROTIME (BEAKER) (test ypye=904) 13.5 seconds 11.9-14.2 INR (BEAKER) (test siqd=475) 1.1 <=5.9 Effective 08/31/2018: PT Reference Range ChangeNew: 11.9-14.2 Previous: 11.7- 14.7RECOMMENDED COUMADIN/WARFARIN INR THERAPY RANGESSTANDARD DOSE: 2.0-3.0 Includes: PROPHYLAXIS for venous thrombosis, systemic embolization; TREATMENT for venous thrombosis and/or pulmonary embolus.HIGH RISK: Target INR is2.5-3.5 for patients wiht mechanical heart valves.CALCIUM, [id number] 05:46:00 Test Item Value Reference Range Comments CALCIUM IONIZED (BEAKER) (test amzv=248) 1.14 mmol/L 1.12-1.27 PH, BLOOD (BEAKER) (test bhop=4613) 7.36 CBC (HEMOGRAM ONLY)2018-10-22 05:22:00 Test Item Value Reference Range Comments WHITE BLOOD CELL COUNT (BEAKER) (test kker=177) 5.7 K/ L 3.5-10.5 RED BLOOD CELL COUNT (BEAKER) (test xlux=698) 4.61 M/ L 4.63-6.08 HEMOGLOBIN (BEAKER) (test acgf=833) 13.5 GM/DL 13.7-17.5 HEMATOCRIT (BEAKER) (test cvuf=677) 41.2 % 40.1-51.0 MEAN CORPUSCULAR VOLUME (BEAKER) (test plls=712) 89.4 fL 79.0-92.2 MEAN CORPUSCULAR HEMOGLOBIN (BEAKER) (test 29.3 pg 25.7-32.2 grek=719) MEAN CORPUSCULAR HEMOGLOBIN CONC (BEAKER) (test 32.8 GM/DL 32.3-36.5 vezq=744) RED CELL DISTRIBUTION WIDTH (BEAKER) (test 13.8 % 11.6-14.4 mqnt=490) PLATELET COUNT (BEAKER) (test jbhe=242) 260 K/CU MM 150-450 MEAN PLATELET VOLUME (BEAKER) (test igoy=507) 8.7 fL 9.4-12.4 NUCLEATED RED BLOOD CELLS (BEAKER) (test 0 /100 WBC 0-0 knzq=269) CT, CTA CORONARY, W/ PATTY [id number] 18:13:00Addendum BeginsREPORT STATUS:A Addendum: October 20, 2018 at 1815 hours I have reviewed the CT images for this study and I concur with the nonvascular imaging findings as dictated. Signed: Manjeet Bridges MDReport Verified Date/Time: 10/21/2018 18: 13:46 Reading Location: [address] Body Reading RoomAddendum EndsFINAL REPORT CT coronary angiography, 20-Oct-18 INDICATION: This [...] Arrival heart rate was at least 75 bpm,and it appears patient was given a various cocktail of beta clarence and calcium clarence up in the medical santos. Medication administration: Oral metoprolol 0 mg;IV metoprolol 20 mg;S/L nitroglyercin 0.4mg. Please refer to the contrast sheet scanned [...] the Jantene arterial switch procedure, with the [place] manoeuvre with the expected location of the [...] artery. The left anterior descending artery is widelypatent, though it becomes a small calibre vessel distally. The first OM branch is also widely patentproximally. There could be a tiny ramus intermedius artery is identified. The left circumflex arteryis widely patent, and give rise to a high OM branch. The second OM branch is widely patent. The right coronary artery origin is well seen, and the right coronary artery if the dominant vessel, and its widely patent in the proximal, mid, distal segment. The PDA is very small but well assessed. There isborderline aneurysmal dilation identified in the aortic root, [...] rupture is identified. The aortic arch is left- sided, and the arch vessel branching pattern is normal and the visualised arch vessels are seen to be widely patent proximally. There is no acute aortic pathology, specifically, there is no dissection, contained rupture, and intramural hematoma. The central pulmonary artery isunremarkable, eccentric into account of prior surgery. No [...] multiplanar reformation, the maximum diameter measures 5.0 x4.6 cm in diameter, with effacement of sinotubular [...] the prior surgery, the central pulmonary artery isunremarkable, no evidence of central pulmonary artery embolism. 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 5. No acute pulmonary pathology. 6. Other findings as described above. 7. The non-vascular findings will be reviewed by the Director Of Resource Development Radiologist and addendum will be added asneeded. Major findings were discussed with Dr. Kumar at the time of dictation. Signed: Gokul Mark MDReport Verified Date/ Time: 10/20/2018 20:02:00 Reading Location: [place] [address] Cardiology MRI [id number] 08:03:00 Test Item Value Reference Range Comments PHOSPHORUS (BEAKER) (test kalb=372) 3.9 mg/dL 2.3-4.7 [id number] 08:03:00 Test Item Value Reference Range Comments MAGNESIUM (BEAKER) (test dmmh=613) 2.0 mg/dL 1.6-2.6 BASIC METABOLIC [id number] 08:03:00 Test Item Value Reference Range Comments SODIUM (BEAKER) (test 136 meq/L 136-145 emwc=695) POTASSIUM (BEAKER) (test 4.1 meq/L 3.5-5.1 tgqz=499) CHLORIDE (BEAKER) (test 103 meq/L 98-107 dtta=069) CO2 (BEAKER) (test 26 meq/L 22-29 umba=186) BLOOD UREA NITROGEN 11 mg/dL 7-21 (BEAKER) (test kucc=415) CREATININE (BEAKER) (test 0.84 mg/dL 0.57-1.25 qfmr=770) GLUCOSE RANDOM (BEAKER) 96 mg/dL 70-105 (test sxqs=503) CALCIUM (BEAKER) (test 9.1 mg/dL 8.4-10.2 rbaw=094) EGFR (BEAKER) (test 134 mL/min/1.73 sq m ESTIMATED GFR IS NOT delt=6331) ACCURATE CREATININE CLEARANCE IN PREDICTING GLOMERULAR FILTRATION RATE. ESTIMATED GFR IS NOT APPLICABLE FOR DIALYSIS PATIENTS. PROTHROMBIN TIME/[id number] 07:17:00 Test Item Value Reference Range Comments PROTIME (BEAKER) (test xggs=255) 12.5 seconds 11.9-14.2 INR (BEAKER) (test cvzf=886) 1.0 <=5.9 Effective 08/31/2018: PT Reference Range ChangeNew: 11.9-14.2 Previous: 11.7- 14.7RECOMMENDED COUMADIN/WARFARIN INR THERAPY RANGESSTANDARD DOSE: 2.0-3.0 Includes: PROPHYLAXIS for venous thrombosis, systemic embolization; TREATMENT for venous thrombosis and/or pulmonary embolus.HIGH RISK: Target INR is2.5-3.5 for patients wiht mechanical heart valves.PT/[id number] 07:17:00 Test Item Value Reference Range Comments PROTIME (BEAKER) (test qiyn=261) 12.5 seconds 11.9-14.2 INR (BEAKER) (test kqbl=426) 1.0 <=5.9 PARTIAL THROMBOPLASTIN TIME (BEAKER) (test 30.0 seconds 22.5-36.0 ombz=456) Effective 08/31/2018: PT Reference Range ChangeNew: 11.9-14.2 Previous: 11.7- 14.7RECOMMENDED COUMADIN/WARFARIN INR THERAPY RANGESSTANDARD DOSE: 2.0-3.0 Includes: PROPHYLAXIS for venous thrombosis, systemic embolization; TREATMENT for venous thrombosis and/or pulmonary embolus.HIGH RISK: Target INR is2.5-3.5 for patients wiht mechanical heart valves.CBC (HEMOGRAM ONLY)2018-10-20 07:14:00 Test Item Value Reference Range Comments WHITE BLOOD CELL COUNT (BEAKER) (test hwzr=155) 5.7 K/ L 3.5-10.5 RED BLOOD CELL COUNT (BEAKER) (test jagd=360) 4.63 M/ L 4.63-6.08 HEMOGLOBIN (BEAKER) (test tehk=791) 13.2 GM/DL 13.7-17.5 HEMATOCRIT (BEAKER) (test ysyj=884) 41.4 % 40.1-51.0 MEAN CORPUSCULAR VOLUME (BEAKER) (test avuv=257) 89.4 fL 79.0-92.2 MEAN CORPUSCULAR HEMOGLOBIN (BEAKER) (test 28.5 pg 25.7-32.2 afbb=895) MEAN CORPUSCULAR HEMOGLOBIN CONC (BEAKER) (test 31.9 GM/DL 32.3-36.5 xzta=611) RED CELL DISTRIBUTION WIDTH (BEAKER) (test 14.2 % 11.6-14.4 cclw=482) PLATELET COUNT (BEAKER) (test gsgs=633) 263 K/CU MM 150-450 MEAN PLATELET VOLUME (BEAKER) (test qjln=938) 8.8 fL 9.4-12.4 NUCLEATED RED BLOOD CELLS (BEAKER) (test 0 /100 WBC 0-0 lfxq=860) CALCIUM, [id number] 07:01:00 Test Item Value Reference Range Comments CALCIUM IONIZED (BEAKER) (test yslp=342) 1.20 mmol/L 1.12-1.27 PH, BLOOD (BEAKER) (test wuzh=5203) 7.37 [id number] 06:56:00 Test Item Value Reference Range Comments PHOSPHORUS (BEAKER) (test vybk=038) 5.4 mg/dL 2.3-4.7 [id number] 06:56:00 Test Item Value Reference Range Comments MAGNESIUM (BEAKER) (test fdyt=313) 2.2 mg/dL 1.6-2.6 BASIC METABOLIC [id number] 06:56:00 Test Item Value Reference Range Comments SODIUM (BEAKER) (test 141 meq/L 136-145 udch=160) POTASSIUM (BEAKER) (test 3.8 meq/L 3.5-5.1 bmnb=216) CHLORIDE (BEAKER) (test 106 meq/L 98-107 bfyx=754) CO2 (BEAKER) (test 28 meq/L 22-29 xvfa=955) BLOOD UREA NITROGEN 12 mg/dL 7-21 (BEAKER) (test znzb=022) CREATININE (BEAKER) (test 0.98 mg/dL 0.57-1.25 dtgc=917) GLUCOSE RANDOM (BEAKER) 97 mg/dL 70-105 (test sfsl=836) CALCIUM (BEAKER) (test 9.0 mg/dL 8.4-10.2 wotb=838) EGFR (BEAKER) (test 112 mL/min/1.73 sq m ESTIMATED GFR IS NOT dhgs=2467) ACCURATE CREATININE CLEARANCE IN PREDICTING GLOMERULAR FILTRATION RATE. ESTIMATED GFR IS NOT APPLICABLE FOR DIALYSIS PATIENTS. PT/[id number] 06:30:00 Test Item Value Reference Range Comments PROTIME (BEAKER) (test pjix=534) 12.8 seconds 11.9-14.2 INR (BEAKER) (test milu=715) 1.0 <=5.9 PARTIAL THROMBOPLASTIN TIME (BEAKER) (test 30.5 seconds 22.5-36.0 jlfm=854) Effective 08/31/2018: PT Reference Range ChangeNew: 11.9-14.2 Previous: 11.7- 14.7RECOMMENDED COUMADIN/WARFARIN INR THERAPY RANGESSTANDARD DOSE: 2.0-3.0 Includes: PROPHYLAXIS for venous thrombosis, systemic embolization; TREATMENT for venous thrombosis and/or pulmonary embolus.HIGH RISK: Target INR is2.5-3.5 for patients wiht mechanical heart valves.PROTHROMBIN [id number] 06:29: 00 Test Item Value Reference Range Comments PROTIME (BEAKER) (test eswb=248) 12.8 seconds 11.9-14.2 INR (BEAKER) (test yokd=529) 1.0 <=5.9 Effective 08/31/2018: PT Reference Range ChangeNew: 11.9-14.2 Previous: 11.7- 14.7RECOMMENDED COUMADIN/WARFARIN INR THERAPY RANGESSTANDARD DOSE: 2.0-3.0 Includes: PROPHYLAXIS for venous thrombosis, systemic embolization; TREATMENT for venous thrombosis and/or pulmonary embolus.HIGH RISK: Target INR is2.5-3.5 for patients wiht mechanical heart valves.CBC (HEMOGRAM ONLY)2018-10-19 06:21:00 Test Item Value Reference Range Comments WHITE BLOOD CELL COUNT (BEAKER) (test imsa=678) 5.5 K/ L 3.5-10.5 RED BLOOD CELL COUNT (BEAKER) (test ggov=522) 4.47 M/ L 4.63-6.08 HEMOGLOBIN (BEAKER) (test xkno=335) 12.9 GM/DL 13.7-17.5 HEMATOCRIT (BEAKER) (test bkif=301) 39.7 % 40.1-51.0 MEAN CORPUSCULAR VOLUME (BEAKER) (test kevf=058) 88.8 fL 79.0-92.2 MEAN CORPUSCULAR HEMOGLOBIN (BEAKER) (test 28.9 pg 25.7-32.2 gwef=520) MEAN CORPUSCULAR HEMOGLOBIN CONC (BEAKER) (test 32.5 GM/DL 32.3-36.5 azsn=436) RED CELL DISTRIBUTION WIDTH (BEAKER) (test 14.2 % 11.6-14.4 buvi=655) PLATELET COUNT (BEAKER) (test obvd=891) 283 K/CU MM 150-450 MEAN PLATELET VOLUME (BEAKER) (test lrdw=465) 9.0 fL 9.4-12.4 NUCLEATED RED BLOOD CELLS (BEAKER) (test 0 /100 WBC 0-0 silw=699) CALCIUM, [id number] 05:32:00 Test Item Value Reference Range Comments CALCIUM IONIZED (BEAKER) (test nopj=729) 1.20 mmol/L 1.12-1.27 PH, BLOOD (BEAKER) (test yuhr=8152) 7.38 COMPREHENSIVE METABOLIC [id number] 21:28:00 Test Item Value Reference Range Comments TOTAL PROTEIN (BEAKER) 7.4 gm/dL 6.0-8.3 Specimen slightly (test ssfq=416) hemolyzed ALBUMIN (BEAKER) (test 4.5 g/dL 3.5-5.0 Specimen slightly jijz=2567) hemolyzed ALKALINE PHOSPHATASE 64 U/L 40-150 (BEAKER) (test gugf=499) BILIRUBIN TOTAL (BEAKER) 0.7 mg/dL 0.2-1.2 Specimen slightly (test fnpm=075) hemolyzed SODIUM (BEAKER) (test 140 meq/L 136-145 zypv=983) POTASSIUM (BEAKER) (test 3.8 meq/L 3.5-5.1 Specimen slightly gkgp=648) hemolyzed CHLORIDE (BEAKER) (test 104 meq/L 98-107 kuei=152) CO2 (BEAKER) (test 28 meq/L 22-29 jgae=066) BLOOD UREA NITROGEN 11 mg/dL 7-21 (BEAKER) (test oerm=297) CREATININE (BEAKER) (test 1.02 mg/dL 0.57-1.25 Specimen slightly jkxk=367) hemolyzed GLUCOSE RANDOM (BEAKER) 98 mg/dL 70-105 (test uyjb=775) CALCIUM (BEAKER) (test 9.7 mg/dL 8.4-10.2 arlo=658) AST (SGOT) (BEAKER) (test 21 U/L 5-34 Specimen slightly ydvc=452) hemolyzed ALT (SGPT) (BEAKER) (test 28 U/L 6-55 Specimen slightly apqz=595) hemolyzed EGFR (BEAKER) (test 107 mL/min/1.73 sq ESTIMATED GFR IS NOT weli=8142) m ACCURATE CREATININE CLEARANCE IN PREDICTING GLOMERULAR FILTRATION RATE. ESTIMATED GFR IS NOT APPLICABLE FOR DIALYSIS PATIENTS. [id number] 21:24:00 Test Item Value Reference Range Comments PARTIAL THROMBOPLASTIN TIME (BEAKER) (test 30.5 seconds 22.5-36.0 mxhg=285) PROTHROMBIN TIME/[id number] 21:23:00 Test Item Value Reference Range Comments PROTIME (BEAKER) (test banf=671) 13.5 seconds 11.9-14.2 INR (BEAKER) (test bcpp=640) 1.1 <=5.9 Effective 08/31/2018: PT Reference Range ChangeNew: 11.9-14.2 Previous: 11.7- 14.7RECOMMENDED COUMADIN/WARFARIN INR THERAPY RANGESSTANDARD DOSE: 2.0-3.0 Includes: PROPHYLAXIS for venous thrombosis, systemic embolization; TREATMENT for venous thrombosis and/or pulmonary embolus.HIGH RISK: Target INR is2.5-3.5 for patients wiht mechanical heart valves.CBC (HEMOGRAM ONLY)2018-10-18 21:14:00 Test Item Value Reference Range Comments WHITE BLOOD CELL COUNT (BEAKER) (test lnmm=211) 6.7 K/ L 3.5-10.5 RED BLOOD CELL COUNT (BEAKER) (test vyji=161) 4.58 M/ L 4.63-6.08 HEMOGLOBIN (BEAKER) (test ioon=607) 13.2 GM/DL 13.7-17.5 HEMATOCRIT (BEAKER) (test wdxc=616) 40.0 % 40.1-51.0 MEAN CORPUSCULAR VOLUME (BEAKER) (test staq=750) 87.3 fL 79.0-92.2 MEAN CORPUSCULAR HEMOGLOBIN (BEAKER) (test 28.8 pg 25.7-32.2 ocpl=297) MEAN CORPUSCULAR HEMOGLOBIN CONC (BEAKER) (test 33.0 GM/DL 32.3-36.5 ewyu=754) RED CELL DISTRIBUTION WIDTH (BEAKER) (test 14.0 % 11.6-14.4 zciz=672) PLATELET COUNT (BEAKER) (test tmbk=081) 285 K/CU MM 150-450 MEAN PLATELET VOLUME (BEAKER) (test avta=753) 8.8 fL 9.4-12.4 NUCLEATED RED BLOOD CELLS (BEAKER) (test 0 /100 WBC 0-0 wwfx=631)
[2018-11-10 09:03] LABS: Protime INR 0.9
[2018-11-10 09:11] LABS: Absolute Lymphocytes (CBC) 1.6 K/uL (0.7-4.9); Basophils % 0.5 % (0-1.3); Hematocrit 40.4 % (39.6-49.0); Lymphocytes % 29.3 % (15.3-44.8); MPV 7.8 fL (7.6-11.3); RBC Red Blood Cell Count 4.64 M/uL (4.33-5.43)
--- NOTE | 2018-11-10 09:30 | RAD REPORT ---
EXAM DESCRIPTION: Margarette Single View11/10/2018 8:57 am CLINICAL HISTORY: Chest pain COMPARISON: October 2018 FINDINGS: The lungs appear clear of acute infiltrate. The heart is moderately enlarged IMPRESSION: No acute abnormalities displayed
[2018-11-10 09:42] LABS: ALT/SGPT 35 U/L (12-78); AST/SGOT 14 U/L (15-37); Albumin 3.7 g/dL (3.4-5.0); Alkaline Phosphatase 66 U/L (45-117); BUN Blood Urea Nitrogen 17 mg/dL (7-18); Bicarbonate 26 mmol/L (21-32); Bilirubin Direct 0.1 mg/dL (0-0.2); Bilirubin Total 0.3 mg/dL (0.2-1.0); Glucose Level 106 mg/dL (74-106); NT PRO-BNP 54 pg/mL (<125); Potassium 3.9 mmol/L (3.5-5.1); Protein, Total 6.9 g/dL (6.4-8.2); Sodium Level 143 mmol/L (136-145); Troponin (Emerg Dept Use Only) < 0.02 ng/mL (0.0-0.045)
--- NOTE | 2018-11-10 10:35 | RAD REPORT ---
EXAM DESCRIPTION: CT - Angio Aorta For Dissection - 11/10/2018 9:58 am CLINICAL HISTORY: Chest pain, shortness of breath, nausea, far remote history of open heart surgery COMPARISON: CT chest October 18 TECHNIQUE: Dynamically enhanced 3 mm thick images of the chest, abdomen, and upper pelvis were obtai carlos during administration of approximately 150mL Isovue 370 IV contrast. Sagittal and coronal reconst ruction images were generated using MIP and reviewed. Exam utilizes a protocol to evaluate entire cou rse of the aorta. All CT scans are performed using dose optimization technique as appropriate and may include automated exposure control or mA/KV adjustment according to patient size. FINDINGS: Ascending aorta is dilated to 5.3 cm matching the October 18 study. Aorta and main pulmonary artery have an altered orientation over what is typically encounter. Main pulmonary artery is anterio r to the aorta bifurcating into the right and left pulmonary arteries which traverse on the respectiv e lateral margins of the aorta. This AP orientation of aorta and pulmonary artery is atypical and can be accounted for by the patient's history of open heart surgery as an . The ascending aorta sh ows no dissection. This is believed to be a long-standing presentation for the patient. Aortic arch i s 2.8 cm in diameter and shows a normal 3 great vessel configuration. Aorta is normal diameter along the remaining course forearm arch the bifurcation. No iliac artery abnormality. Pulmonary arteries are well opacified and show no pulmonary emboli. Pulmonary vein show no suspicious findings. No cardiomegaly, pericardial thickening or pericardial effusion. No acute infiltrate in the lung parenchyma. A 6 millimeter noncalcified nodule is present in the post eromedial base of the lingula. This is not regarded as significant in a patient this age. No malignan cy history indicated. No pleural thickening, pleural effusion or pneumothorax. No abnormal mediastinal or hilar mass or lymphadenopathy seen. No chest wall mass or abnormal axillar y lymphadenopathy. Celiac, SMA and renal arteries show no suspicious findings. Solid abdominal viscera and bowel show no significant findings. Gallbladder size is normal. There is a punctate 1- 2 mm calcification in the g allbladder. No active gallbladder process seen. No biliary tree dilatation. No mass or abnormal lymp hadenopathy. No free air, free fluid or inflammatory stranding. No urinary bladder abnormality. IMPRESSION: Ascending aorta is dilated to 5.3 cm matching the October 18 study. The patient has a alter ed orientation of the aorta and main pulmonary artery as detailed above. These aortic findings can be explained by the patient provided history of open heart surgery as an infant. An acute aortic finding is not suspected. Pulmonary arteries are normal. No acute lung parenchymal process. Remainder of the examination, as detailed above, is without acute or suspicious finding. No other significant findings on chest, abdomen and upper pelvis examination.
--- NOTE | 2018-11-10 11:01 | ER ---
Nurse's Notes [facility] Name: Brice Polk III Age: 28 yrs Sex: Male : 1990 Arrival Date: 11/10/2018 Time: 08:17 Bed 7 Private MD: None, None Diagnosis: Hypertensive heart disease Presentation: 11/10 08:27 Presenting complaint: Substernal chest pain, mild SOB and nausea that started this hb morning while sitting down. Transition of care: patient was not received from another setting of care. Onset of symptoms was November 10, 2018. Risk Assessment: Do you want to hurt yourself or someone else? Patient reports no desire to harm self or others. Initial Sepsis Screen: Does the patient meet any 2 criteria? No. Patient's initial sepsis screen is negative. Does the patient have a suspected source of infection? No. Patient's initial sepsis screen is negative. Care prior to arrival: None. 08:27 Method Of Arrival: Ambulatory hb 08:27 Acuity: LEXI 3 hb Historical: - Allergies: 08:29 No Known Allergies; hb - Home Meds: 08:29 Metoprolol Tartrate Oral [Active]; hb - PMHx: 08:29 CONGENITAL HEART PROBLEMS; Hypertension; hb - PSHx: 08:29 OPEN HEART SURGERY BABY; hb - Immunization history:: Adult Immunizations up to date. - Social history:: Smoking status: Patient/guardian denies using tobacco. - Ebola Screening: : No symptoms or risks identified at this time. Screenin:40 Abuse screen: Denies threats or abuse. Denies injuries from another. Nutritional sg screening: No deficits noted. Tuberculosis screening: No symptoms or risk factors identified. Never had TB. Fall Risk None identified. Assessment: 08:40 General: Appears in no apparent distress. well groomed, well developed, well nourished, sg Behavior is calm, cooperative, appropriate for age. Pain: Complains of pain in chest Quality of pain is described as aching, sharp. Neuro: Level of Consciousness is awake, alert, obeys commands, Oriented to person, place, time, situation, Oil Agent are equal bilaterally Moves all extremities. Full function Gait is steady, Speech is normal. Cardiovascular: Patient's skin is warm and dry. Chest pain is described as vague, mild, quality is sharp, episodes are intermittent. 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 GI: Abdomen is round non-distended, Reports nausea, normal bowel habits, tolerance of fluids, tolerance of food. : No signs and/or symptoms were reported regarding the genitourinary system. EENT: No signs and/or symptoms were reported regarding the EENT system. Derm: Skin is pink, warm \T\ dry. Musculoskeletal: Circulation, motion, and sensation intact. Range of motion: intact in all extremities, Swelling absent. 09:35 Reassessment: Patient appears in no apparent distress at this time. Patient and/or sg family updated on plan of care and expected duration. Pain level reassessed. Patient is alert, oriented x 3, equal unlabored respirations, skin warm/dry/pink. awaiting lab results, awaiting CT scan, pt stated understanding, will continue to monitor. 10:39 Reassessment: Patient appears in no apparent distress at this time. Patient and/or sg family updated on plan of care and expected duration. Pain level reassessed. Patient is alert, oriented x 3, equal unlabored respirations, skin warm/dry/pink. radiology results back at this time, awaiting new orders from [facility], will continue to monitor. Vital Signs: 08:29 BP 155 / 106; Pulse 73; Resp 20; Temp 97.8; Pulse Ox 98% on R/A; Weight 127.01 kg; hb Height 6 ft. 3 in. (190.50 cm); Pain 7/10; 09:25 BP 142 / 92; Pulse 72; Resp 17; Pulse Ox 99% on R/A; Pain 7/10; sg 10:21 BP 149 / 97; Pulse 66; Resp 18; Pulse Ox 100% ; sv 11:00 BP 129 / 78; Pulse 70; Resp 18; Pulse Ox 99% ; sv 08:29 Body Mass Index 35.00 (127.01 kg, 190.50 cm) hb ED Course: 08:17 Patient arrived in ED. mr 08:17 None, None is Private Physician. mr 08:21 Lucian Wilson MD is Attending Physician. kdr 08:28 Triage completed. hb 08:29 Arm band placed on right wrist. hb 08:32 Missed attempt(s): 20 gauge in right in left wrist. antecubital area. Bleeding ms controlled, band aid applied, catheter tip intact. 08:34 Ben Martin, RN is Primary Nurse. sg 08:35 Patient has correct armband on for positive identification. Bed in low position. Call sg light in reach. Side rails up X2. hospital nursing assistant on. Pulse ox on. NIBP on. Head of bed elevated. 08:39 EKG done, by field artillery targeting technician. reviewed by Lucian Wilson MD. 3 08:40 Patient maintains SpO2 saturation greater than 95% on room air. sg 08:51 Initial lab(s) drawn, by or, sent to lab. Inserted saline lock: 22 gauge in right kj1 antecubital area, using aseptic technique. Blood collected. 08:54 X-ray completed. Portable x-ray completed in exam room. [facility] 08:56 XRAY Chest (1 view) In Process Unspecified. EDMS 09:26 Awaiting lab results, Awaiting CT Scan. sg 10:02 CT Aorta for Dissection In Process Unspecified. EDMS 11:10 No provider procedures requiring assistance completed. IV discontinued, intact, sg bleeding controlled, No redness/swelling at site. Pressure dressing applied. Administered Medications: No medications were administered Outcome: 10:59 Discharge ordered by . kdr 11:10 Discharged to home ambulatory, with family. sg 11:10 Condition: good 11:10 Discharge instructions given to patient, Instructed on discharge instructions, follow up and referral plans. safety practices, Demonstrated understanding of instructions, follow-up care. 11:15 Patient left the ED. hb Signatures: Dispatcher [employer] EDCorine Goins RN RN Ben Martin, AWAIS ERNANDEZ Lucian Wilson MD MD [facility] Edi, Evette mr KeysCamila 1 Madie Dover ms, Heather, RN RN Vijaya Chavez 3 Katey Rivera kj1
--- NOTE | 2018-11-10 11:01 | EDPHYS ---
Physician Documentation [facility] Name: Brice Polk III Age: 28 yrs Sex: Male : 1990 Arrival Date: 11/10/2018 Time: 08:17 Bed 7 Private MD: None, None ED Physician Lucian Wilson HPI: 11/10 08:43 This 28 yrs old Black Male presents to ER via Ambulatory with complaints of Chest kdr Tightness. 08:43 The patient or guardian reports chest pain that is located primarily in the substernal kdr area, anterior chest wall, bilaterally. The pain does not radiate. Associated signs and symptoms: Pertinent positives:. 08:57 The chest pain is described as aching, a pressure. Duration: The patient or guardian kdr reports multiple episodes, that are intermittent, that wax and wane, with no pattern. Modifying factors: The symptoms are alleviated by nothing. the symptoms are aggravated by exertion, movement. Severity of pain: At its worst the pain was mild just prior to arrival, in the emergency department the pain has improved moderately. EMS care prior to arrival includes:. The patient has experienced similar episodes in the past, multiple times, The patient states that he gets this pain often and does not usually seek treatment but since his pressure was elevated, he decided to be evaluated. The patient has not recently seen a physician. The patient has a known aortic aneurysm and he indicated that his doctors want him to loose 30# before they will operate to repair. Historical: - Allergies: 08:29 No Known Allergies; hb - Home Meds: 08:29 Metoprolol Tartrate Oral [Active]; hb - PMHx: 08:29 CONGENITAL HEART PROBLEMS; Hypertension; hb - PSHx: 08:29 OPEN HEART SURGERY BABY; hb - Immunization history:: Adult Immunizations up to date. - Social history:: Smoking status: Patient/guardian denies using tobacco. - Ebola Screening: : No symptoms or risks identified at this time. ROS: 08:57 Constitutional: Negative for fever, chills, and weight loss, Eyes: Negative for injury, kdr pain, redness, and discharge, ENT: Negative for injury, pain, and discharge, Neck: Negative for injury, pain, and swelling, Respiratory: Negative for shortness of breath, cough, wheezing, and pleuritic chest pain, Abdomen/GI: Negative for abdominal pain, nausea, vomiting, diarrhea, and constipation, Back: Negative for injury and pain, : Negative for injury, bleeding, discharge, and swelling, MS/Extremity: Negative for injury and deformity, Skin: Negative for injury, rash, and discoloration, Neuro: Negative for headache, weakness, numbness, tingling, and seizure activity. Psych: Negative for depression, anxiety, suicide ideation, homicidal ideation, and hallucinations, Allergy/Immunology: Negative for hives, rash, and allergies, Endocrine: Negative for neck swelling, polydipsia, polyuria, polyphagia, and marked weight changes, Hematologic/Lymphatic: Negative for swollen nodes, abnormal bleeding, and unusual bruising. 08:57 Cardiovascular: Positive for chest pain, Negative for edema, orthopnea, palpitations, paroxysmal nocturnal dyspnea, acute changes. Exam: 08:57 Constitutional: This is a well developed, well nourished patient who is awake, alert, kdr and in no acute distress. Head/Face: Normocephalic, atraumatic. Eyes: Pupils equal round and reactive to light, extra-ocular motions intact. Lids and lashes normal. Conjunctiva and sclera are non-icteric and not injected. Cornea within normal limits. Periorbital areas with no swelling, redness, or edema. Neck: Trachea midline, no thyromegaly or masses palpated, and no cervical lymphadenopathy. Supple, full range of motion without nuchal rigidity, or vertebral point tenderness. No Meningismus. Chest/axilla: Normal chest wall appearance and motion. Nontender with no deformity. No lesions are appreciated. Cardiovascular: Regular rate and rhythm with a normal S1 and S2. No gallops, murmurs, or rubs. Normal PMI, no JVD. No pulse deficits. Respiratory: Lungs have equal breath sounds bilaterally, clear to auscultation and percussion. No rales, rhonchi or wheezes noted. No increased work of breathing, no retractions or nasal flaring. Abdomen/GI: Soft, non-tender, with normal bowel sounds. No distension or tympany. No guarding or rebound. No evidence of tenderness throughout. Back: No spinal tenderness. No costovertebral tenderness. Full range of motion. Skin: Warm, dry with normal turgor. Normal color with no rashes, no lesions, and no evidence of cellulitis. MS/ Extremity: Pulses equal, no cyanosis. Neurovascular intact. Full, normal range of motion. Neuro: Awake and alert, GCS 15, oriented to person, place, time, and situation. Cranial nerves II-XII grossly intact. Motor strength 5/5 in all extremities. Sensory grossly intact. Cerebellar exam normal. Normal gait. Psych: Awake, alert, with orientation to person, place and time. Behavior, mood, and affect are within normal limits. Vital Signs: 08:29 BP 155 / 106; Pulse 73; Resp 20; Temp 97.8; Pulse Ox 98% on R/A; Weight 127.01 kg; hb Height 6 ft. 3 in. (190.50 cm); Pain 7/10; 09:25 BP 142 / 92; Pulse 72; Resp 17; Pulse Ox 99% on R/A; Pain 7/10; sg 10:21 BP 149 / 97; Pulse 66; Resp 18; Pulse Ox 100% ; sv 11:00 BP 129 / 78; Pulse 70; Resp 18; Pulse Ox 99% ; sv 08:29 Body Mass Index 35.00 (127.01 kg, 190.50 cm) hb MDM: 10:59 Patient medically screened. kdr 11:00 Data reviewed: vital signs, nurses notes, lab test result(s), EKG, radiologic studies. kdr Counseling: I had a detailed discussion with the patient and/or guardian regarding: the historical points, exam findings, and any diagnostic results supporting the discharge/admit diagnosis, lab results, radiology results, the need for outpatient follow up. 11/10 08:38 Order name: Basic Metabolic Panel; Complete Time: 10:51 kdr 11/10 08:38 Order name: CBC with Diff; Complete Time: 10:51 kdr 11/10 08:38 Order name: LFT's; Complete Time: 10:51 kdr 11/10 08:38 Order name: Magnesium; Complete Time: 10:51 kdr 11/10 08:38 Order name: NT PRO-BNP; Complete Time: 10:51 kdr 11/10 08:38 Order name: PT-INR; Complete Time: 10:51 kdr 11/10 08:38 Order name: Troponin (emerg Dept Use Only); Complete Time: 10:51 kdr 11/10 08:38 Order name: XRAY Chest (1 view); Complete Time: 10:51 kdr 11/10 08:38 Order name: EKG; Complete Time: 08:39 kdr 11/10 08:38 Order name: Cardiac monitoring; Complete Time: 08:48 kdr 11/10 08:38 Order name: EKG - Nurse/Tech; Complete Time: 09:02 kdr 08 08:38 Order name: IV Saline Lock; Complete Time: 08:48 kdr 11/10 08:38 Order name: Labs collected and sent; Complete Time: 08:48 kdr 11/10 08:39 Order name: CT Aorta for Dissection; Complete Time: 10:51 kdr 11/10 08:38 Order name: O2 Per Protocol; Complete Time: 08:48 kdr 11/10 08:38 Order name: O2 Sat Monitoring; Complete Time: 08:48 kdr Administered Medications: No medications were administered Disposition: 11/10/18 10:59 Discharged to Home. Impression: Hypertensive heart disease. - Condition is Fair. - Discharge Instructions: Nonspecific Chest Pain, [id number], Hypertension, [id number]. - Work release form, Medication Reconciliation Form, Thank You Letter form. - Follow up: Private Physician; When: 2 - 3 days; Reason: If symptoms return, Further diagnostic work-up, Recheck today's complaints, Continuance of care, Re-evaluation by your physician. - Problem is an ongoing problem. - Symptoms have improved. Signatures: Dispatcher [employer] EDMS Lucian Wilson MD MD kdr Liane Manning RN RN hb Corrections: (The following items were deleted from the chart) 11:15 10:59 11/10/2018 10:59 Discharged to Home. Impression: Hypertensive heart disease. hb Condition is Fair. Forms are Medication Reconciliation Form, Thank You Letter, Antibiotic Education, Prescription Opioid Use. Follow up: Private Physician; When: 2 - 3 days; Reason: If symptoms return, Further diagnostic work-up, Recheck today's complaints, Continuance of care, Re-evaluation by your physician. Problem is an ongoing problem. Symptoms have improved. kdr
--- NOTE | 2018-11-10 16:28 | EKG ---
Test Date: 2018-11-10 Test Time: 08:29:01 Graduate Fellow: RAUL MEASUREMENT RESULTS: Intervals: Rate: 73 KS: 146 QRSD: 94 QT: 380 QTc: 418 [place]: P: 40 KS: 146 QRS: 40 T: 21 INTERPRETIVE STATEMENTS: Normal sinus rhythm T wave abnormality, consider anterior ischemia Abnormal ECG Compared to ECG 10/18/2018 13:43:28 Possible ischemia now present Sinus tachycardia no longer present T-wave abnormality still present Electronically Signed On 11-10-18 16:26:14 CDT by Iron Berg
== END 2018-11-10 11:15 | disposition home or self-care (01) ==
LOC: ER 08:15
DX: I11.9 Hypertensive heart disease without heart failure (principal); I10 Essential (primary) hypertension
CPT/HCPCS: 36415; 71045; 71275; 74175; 80048; 80076; 83735; 83880; 84484; 85025; 85610; 93005; 99285; Q9967

== ENCOUNTER 2018-11-15 07:53 | Emergency (ER) | payer SELFPAY ==
--- OUTSIDE RECORDS SUMMARY | 2018-11-15 07:55 | XMS REPORT | Clinical Summary ---
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 after 11/14/2017 Results RHYTHM STRIP - SCAN (11/01/2018 2:01 PM CDT)Only the most recent of2 resultswithin the time period is included. Narrative Performed At PT/aPTT (10/24/2018 4:55 AM CDT)Only the most recent of4 resultswithin the time period is included. Protime 13.3 11.9 - 14.2 seconds [facility] INR 1.1 <=5.9 [facility] PTT 34.1 22.5 - 36.0 seconds [facility] Specimen Blood Narrative Performed At Effective 08/31/2018: PT Reference Range [facility] Change New: 11.9-14.2Previous: 11.7-14.7 RECOMMENDED COUMADIN/WARFARIN INR THERAPY RANGES STANDARD DOSE: 2.0-3.0Includes: PROPHYLAXIS for venous thrombosis, systemic embolization; TREATMENT for venous thrombosis and/or pulmonary embolus. HIGH RISK: Target INR is 2.5-3.5 for patients wiht mechanical heart valves. Performing Organization Address [facility] Cent[facility]ode Phone Number [address] [address] CENTER Calcium, Ionized (10/24/2018 4:55 AM CDT)Only the most recent of4 resultswithin the time period is included. Calcium, Ion 1.17 1.12 - 1.27 mmol/L [facility] pH, Blood 7.30 [facility] Specimen Blood Performing Organization Address [facility] Centercova Phone Number [address] [address] [phone] [place] Prothrombin time/INR (10/24/2018 4:55 AM CDT)Only the most recent of5 resultswithin the time period is included. Protime 13.3 11.9 - 14.2 seconds [facility] INR 1.1 <=5.9 [facility] Specimen Blood Narrative Performed At Effective 08/31/2018: PT Reference Range [facility] Change New: 11.9-14.2Previous: 11.7-14.7 RECOMMENDED COUMADIN/WARFARIN INR THERAPY RANGES STANDARD DOSE: 2.0-3.0Includes: PROPHYLAXIS for venous thrombosis, systemic embolization; TREATMENT for venous thrombosis and/or pulmonary embolus. HIGH RISK: Target INR is 2.5-3.5 for patients wiht mechanical heart valves. Performing Organization Address City/[facility] Centercode Phone Number [address] [address] CENTER CBC (Hemogram only) (10/24/2018 4:55 AM CDT)Only the most recent of5 resultswithin the time period is included. WBC 6.9 3.5 - 10.5 K/L [facility] RBC 4.74 4.63 - 6.08 M/L [facility] Hemoglobin 13.7 13.7 - 17.5 GM/DL [facility] Hematocrit 41.7 40.1 - 51.0 % [facility] MCV 88.0 79.0 - 92.2 fL [facility] MCH 28.9 25.7 - 32.2 pg [facility] MCHC 32.9 32.3 - 36.5 GM/DL [facility] RDW 13.6 11.6 - 14.4 % [facility] Platelets 273 150 - 450 K/CU MM [facility] MPV 9.1 (L) 9.4 - 12.4 fL [facility] nRBC 0 0 - 0 /100 WBC [facility] Specimen Blood Performing Organization Address City/[facility] Centercode Phone Number [address] [address] [phone] CENTER Phosphorus (10/24/2018 4:55 AM CDT)Only the most recent of4 resultswithin the time period is included. Phosphorus 4.1 2.3 - 4.7 mg/dL [facility] Specimen Blood Performing Organization Address City/[facility] Centercode Phone Number [address] [address] [phone] CENTER Magnesium (10/24/2018 4:55 AM CDT)Only the most recent of4 resultswithin the time period is included. Magnesium 1.9 1.6 - 2.6 mg/dL [facility] Specimen Blood Performing Organization Address City/[facility] Centercode Phone Number [address] [address] [phone] CENTER Basic metabolic panel (10/24/2018 4:55 AM CDT)Only the most recent of4 resultswithin the time period is included. Sodium 140 136 - 145 meq/L [facility] Potassium 4.0 3.5 - 5.1 meq/L [facility] Chloride 106 98 - 107 meq/L [facility] CO2 27 22 - 29 meq/L [facility] BUN 12 7 - 21 mg/dL [facility] Creatinine 0.94 0.57 - 1.25 mg/dL [facility] Glucose 94 70 - 105 mg/dL [facility] Calcium 9.1 8.4 - 10.2 mg/dL [facility] EGFR 118Comment: ESTIMATED GFR IS mL/min/1.73 sq m [facility] NOT ACCURATE CREATININE [facility] C[facility] CLEARANCE IN PREDICTING GLOMERULAR FILTRATION RATE. ESTIMATED GFR IS NOT APPLICABLE FOR DIALYSIS PATIENTS. Specimen Blood Performing Organization Address City/State/Zipcode Phone Number [facility] [address] [place] [address] [phone] CENTER CTA heart coronary with calcium evaluation without FFR (10/20/2018 5:13 PM CDT) Specimen Narrative Performed At Addendum Begins [employer] [facility] REPORT STATUS:A Addendum: October 20, 2018 at 1815 hours I have reviewed the CT images for this study and I concur with the nonvascular imaging findings as dictated. Signed: Manjeet Bridges MD Report Verified Date/Time:10/21/2018 18:13:46 Reading Location: [place] [address] Angio Body Reading Room Addendum Ends FINAL [...] non-vascular findings will be reviewed by the Hydraulics Engineer Radiologist and addendum will be added as needed. Major findings were discussed with Dr. Kumar at the time of dictation. Signed: Gokul Mark MD Report Verified Date/Time:10/20/2018 20:02:00 Reading Location: [place] [id number] Cardiology MRI Procedure Note Interface, External Ris In - 10/21/2018 6:15 PM CDT Addendum Begins REPORT STATUS:A Addendum: October 20, 2018 at 1815 hours I have reviewed the CT images for this study and I concur with the nonvascular imaging findings as dictated. Signed: Manjeet Bridges MD Report Verified Date/Time: 10/21/2018 18:13:46 Reading Location: [facility] [address] Angio Body Reading Room Addendum Ends [...] to the contrast sheet scanned in the [employer] system for the amount and route of [...] the Jantene arterial switch procedure, with the Jackson manoeuvre with the expected location of the [...] non-vascular findings will be reviewed by the Hydraulics Engineer Radiologist and addendum will be added as needed. Major findings were discussed with Dr. Kumar at the time of dictation. Signed: Gokul Mark MD Report Verified Date/Time: 10/20/2018 20:02:00 Reading Location: [place] [address] Cardiology MRI Performing Organization Address City/State/Zipcode Phone Number [employer] ECHOCARDIOGRAM REPORT - SCAN (10/19/2018 9:20 PM CDT) Narrative Performed At 2D Echo W/Doppler(CW/PW/Color) (10/18/2018 9:32 PM CDT) Ejection Fraction [facility] [employer] [facility] Specimen Narrative Performed At Transthoracic Echocardiography Report (TTE) [facility] [employer] [facility] Demographics Patient NameBRICE POLK Date of Study10/18/2018 EDWARD III Male Visit [id number] Black Room [id number] Number Date of 1990Referring Physician Age 28 year(s)[employer] Massimo Rob Interpreting Corine Lorenzana PhysicianMD Procedure [...] 10/18/2018 RIGOBERTO FUNES Gender Male Visit Number [id number] Race Black Room Number [id number] Number Date of 1990 Referring Physician Age 28 year(s) [employer] Massimo Rob Interpreting Physician HAMILTON Farley Procedure [...] LVOT CI: 2.98 l/min/m^2 Performing Organization Address City/[facility] Centercode Phone Number [facility] [employer] CPACS aPTT (10/18/2018 9:01 PM CDT) PTT 30.5 22.5 - 36.0 seconds [facility] Specimen Blood Performing Organization Address City/[facility] Centercode Phone Number [facility] [address] [place] [address] [place] Comprehensive metabolic panel (10/18/2018 9:01 PM CDT) Protein, Total 7.4Comment: Specimen 6.0 - 8.3 gm/dL [facility] slightly hemolyzed [facility] Albumin 4.5Comment: Specimen 3.5 - 5.0 g/dL [facility] slightly hemolyzed [facility] Alkaline Phosphatase 64 40 - 150 U/L [facility] Total Bilirubin 0.7Comment: Specimen 0.2 - 1.2 mg/dL [facility] slightly hemolyzed [facility] Sodium 140 136 - 145 meq/L [facility] Potassium 3.8Comment: Specimen 3.5 - 5.1 meq/L [facility] slightly hemolyzed [facility] Chloride 104 98 - 107 meq/L [facility] CO2 28 22 - 29 meq/L [facility] BUN 11 7 - 21 mg/dL [facility] Creatinine 1.02Comment: Specimen 0.57 - 1.25 mg/dL [facility] Glucose 98 70 - 105 mg/dL [facility] Calcium 9.7 8.4 - 10.2 mg/dL [facility] AST 21Comment: Specimen 5 - 34 U/L [facility] slightly hemolyzed [facility] ALT 28Comment: Specimen 6 - 55 U/L [facility] slightly hemolyzed [facility] EGFR 107Comment: ESTIMATED mL/min/1.73 sq m [facility] GFR IS NOT ACCURATE [facility] CREATININE CLEARANCE IN PREDICTING GLOMERULAR FILTRATION RATE. ESTIMATED GFR IS NOT APPLICABLE FOR DIALYSIS PATIENTS. Specimen Blood Performing Organization Address City/State/Zipcode Phone Number [facility] [address] [place] [address] [phone] CENTER after 11/14/2017 Advance Directives For more information, please contact:[address] [phone] Code Status Date Activated Date Inactivated Comments Full Code 10/18/2018 8:04 PM 10/24/2018 3:40 PM This code status was determined by: Patient
--- OUTSIDE RECORDS SUMMARY | 2018-11-15 07:56 | XMS REPORT ---
:1990 Author Organization [facility] Address [address] [place] [address] [address] [place] [address] Care Team Providers Name Role Phone SONAM PERDOMO Unavailable Unavailable Problems This patient has no known problems. Allergies, Adverse Reactions, Alerts This patient has no known allergies or adverse reactions. Medications This patient has no known medications. Results Test Description Test Time Test Comments Text Results Atomic Results Result Comments PHOSPHORUS 2018-10-24 07:08:00 Test Item Value Reference Range Comments PHOSPHORUS (BEAKER) (test uvcp=069) 4.1 mg/dL 2.3-4.7 [id number] 07:08:00 Test Item Value Reference Range Comments MAGNESIUM (BEAKER) (test dswr=338) 1.9 mg/dL 1.6-2.6 BASIC METABOLIC [id number] 07:08:00 Test Item Value Reference Range Comments SODIUM (BEAKER) (test 140 meq/L 136-145 grtu=267) POTASSIUM (BEAKER) (test 4.0 meq/L 3.5-5.1 bpgn=609) CHLORIDE (BEAKER) (test 106 meq/L 98-107 rioo=217) CO2 (BEAKER) (test 27 meq/L 22-29 lplk=604) BLOOD UREA NITROGEN 12 mg/dL 7-21 (BEAKER) (test izoz=323) CREATININE (BEAKER) (test 0.94 mg/dL 0.57-1.25 rycv=156) GLUCOSE RANDOM (BEAKER) 94 mg/dL 70-105 (test xzhk=705) CALCIUM (BEAKER) (test 9.1 mg/dL 8.4-10.2 fctt=878) EGFR (BEAKER) (test 118 mL/min/1.73 sq m ESTIMATED GFR IS NOT wqln=9335) ACCURATE CREATININE CLEARANCE IN PREDICTING GLOMERULAR FILTRATION RATE. ESTIMATED GFR IS NOT APPLICABLE FOR DIALYSIS PATIENTS. PT/[id number] 05:59:00 Test Item Value Reference Range Comments PROTIME (BEAKER) (test arhl=622) 13.3 seconds 11.9-14.2 INR (BEAKER) (test uzjv=462) 1.1 <=5.9 PARTIAL THROMBOPLASTIN TIME (BEAKER) (test 34.1 seconds 22.5-36.0 yyfz=318) Effective 08/31/2018: PT Reference Range ChangeNew: 11.9-14.2 Previous: 11.7- 14.7RECOMMENDED COUMADIN/WARFARIN INR THERAPY RANGESSTANDARD DOSE: 2.0-3.0 Includes: PROPHYLAXIS for venous thrombosis, systemic embolization; TREATMENT for venous thrombosis and/or pulmonary embolus.HIGH RISK: Target INR is2.5-3.5 for patients wiht mechanical heart valves.PROTHROMBIN TIME/[id number] 05:58: 00 Test Item Value Reference Range Comments PROTIME (BEAKER) (test zcdi=714) 13.3 seconds 11.9-14.2 INR (BEAKER) (test immi=281) 1.1 <=5.9 Effective 08/31/2018: PT Reference Range ChangeNew: 11.9-14.2 Previous: 11.7- 14.7RECOMMENDED COUMADIN/WARFARIN INR THERAPY RANGESSTANDARD DOSE: 2.0-3.0 Includes: PROPHYLAXIS for venous thrombosis, systemic embolization; TREATMENT for venous thrombosis and/or pulmonary embolus.HIGH RISK: Target INR is2.5-3.5 for patients wiht mechanical heart valves.CALCIUM, [id number] 05:48:00 Test Item Value Reference Range Comments CALCIUM IONIZED (BEAKER) (test bgbt=695) 1.17 mmol/L 1.12-1.27 PH, BLOOD (BEAKER) (test ttzd=6702) 7.30 CBC (HEMOGRAM ONLY)2018-10-24 05:40:00 Test Item Value Reference Range Comments WHITE BLOOD CELL COUNT (BEAKER) (test rhru=350) 6.9 K/ L 3.5-10.5 RED BLOOD CELL COUNT (BEAKER) (test dwwl=335) 4.74 M/ L 4.63-6.08 HEMOGLOBIN (BEAKER) (test eoka=981) 13.7 GM/DL 13.7-17.5 HEMATOCRIT (BEAKER) (test gzca=794) 41.7 % 40.1-51.0 MEAN CORPUSCULAR VOLUME (BEAKER) (test ixjd=372) 88.0 fL 79.0-92.2 MEAN CORPUSCULAR HEMOGLOBIN (BEAKER) (test 28.9 pg 25.7-32.2 ysgg=614) MEAN CORPUSCULAR HEMOGLOBIN CONC (BEAKER) (test 32.9 GM/DL 32.3-36.5 tyba=813) RED CELL DISTRIBUTION WIDTH (BEAKER) (test 13.6 % 11.6-14.4 izaa=298) PLATELET COUNT (BEAKER) (test tkev=083) 273 K/CU MM 150-450 MEAN PLATELET VOLUME (BEAKER) (test vpdk=587) 9.1 fL 9.4-12.4 NUCLEATED RED BLOOD CELLS (BEAKER) (test 0 /100 WBC 0-0 tten=978) [id number] 06:15:00 Test Item Value Reference Range Comments PHOSPHORUS (BEAKER) (test ynum=345) 3.8 mg/dL 2.3-4.7 [id number] 06:15:00 Test Item Value Reference Range Comments MAGNESIUM (BEAKER) (test ymbr=403) 1.9 mg/dL 1.6-2.6 BASIC METABOLIC [id number] 06:15:00 Test Item Value Reference Range Comments SODIUM (BEAKER) (test 137 meq/L 136-145 kxmr=240) POTASSIUM (BEAKER) (test 4.2 meq/L 3.5-5.1 hwou=558) CHLORIDE (BEAKER) (test 106 meq/L 98-107 nouj=057) CO2 (BEAKER) (test 25 meq/L 22-29 bezw=141) BLOOD UREA NITROGEN 12 mg/dL 7-21 (BEAKER) (test ggzu=556) CREATININE (BEAKER) (test 0.91 mg/dL 0.57-1.25 ehpy=404) GLUCOSE RANDOM (BEAKER) 92 mg/dL 70-105 (test fccj=470) CALCIUM (BEAKER) (test 9.2 mg/dL 8.4-10.2 ggjk=839) EGFR (BEAKER) (test 122 mL/min/1.73 sq m ESTIMATED GFR IS NOT hciv=4687) ACCURATE CREATININE CLEARANCE IN PREDICTING GLOMERULAR FILTRATION RATE. ESTIMATED GFR IS NOT APPLICABLE FOR DIALYSIS PATIENTS. PT/[id number] 05:49:00 Test Item Value Reference Range Comments PROTIME (BEAKER) (test hbnk=353) 13.5 seconds 11.9-14.2 INR (BEAKER) (test xkbw=513) 1.1 <=5.9 PARTIAL THROMBOPLASTIN TIME (BEAKER) (test 32.4 seconds 22.5-36.0 wsvd=781) Effective 08/31/2018: PT Reference Range ChangeNew: 11.9-14.2 Previous: 11.7- 14.7RECOMMENDED COUMADIN/WARFARIN INR THERAPY RANGESSTANDARD DOSE: 2.0-3.0 Includes: PROPHYLAXIS for venous thrombosis, systemic embolization; TREATMENT for venous thrombosis and/or pulmonary embolus.HIGH RISK: Target INR is2.5-3.5 for patients wiht mechanical heart valves.PROTHROMBIN TIME/[id number] 05:48: 00 Test Item Value Reference Range Comments PROTIME (BEAKER) (test lbmc=842) 13.5 seconds 11.9-14.2 INR (BEAKER) (test qjvd=366) 1.1 <=5.9 Effective 08/31/2018: PT Reference Range ChangeNew: 11.9-14.2 Previous: 11.7- 14.7RECOMMENDED COUMADIN/WARFARIN INR THERAPY RANGESSTANDARD DOSE: 2.0-3.0 Includes: PROPHYLAXIS for venous thrombosis, systemic embolization; TREATMENT for venous thrombosis and/or pulmonary embolus.HIGH RISK: Target INR is2.5-3.5 for patients wiht mechanical heart valves.CALCIUM, [id number] 05:46:00 Test Item Value Reference Range Comments CALCIUM IONIZED (BEAKER) (test bsqj=791) 1.14 mmol/L 1.12-1.27 PH, BLOOD (BEAKER) (test jklb=8290) 7.36 CBC (HEMOGRAM ONLY)2018-10-22 05:22:00 Test Item Value Reference Range Comments WHITE BLOOD CELL COUNT (BEAKER) (test edfw=117) 5.7 K/ L 3.5-10.5 RED BLOOD CELL COUNT (BEAKER) (test vnvi=271) 4.61 M/ L 4.63-6.08 HEMOGLOBIN (BEAKER) (test qkml=364) 13.5 GM/DL 13.7-17.5 HEMATOCRIT (BEAKER) (test tvvq=619) 41.2 % 40.1-51.0 MEAN CORPUSCULAR VOLUME (BEAKER) (test pjkr=544) 89.4 fL 79.0-92.2 MEAN CORPUSCULAR HEMOGLOBIN (BEAKER) (test 29.3 pg 25.7-32.2 xcvx=002) MEAN CORPUSCULAR HEMOGLOBIN CONC (BEAKER) (test 32.8 GM/DL 32.3-36.5 exmd=450) RED CELL DISTRIBUTION WIDTH (BEAKER) (test 13.8 % 11.6-14.4 ftcd=437) PLATELET COUNT (BEAKER) (test jwyc=771) 260 K/CU MM 150-450 MEAN PLATELET VOLUME (BEAKER) (test wyci=462) 8.7 fL 9.4-12.4 NUCLEATED RED BLOOD CELLS (BEAKER) (test 0 /100 WBC 0-0 wvpc=222) CT, CTA CORONARY, W/ PATTY [id number] 18:13:00Addendum BeginsREPORT STATUS:A Addendum: October 20, 2018 at 1815 hours I have reviewed the CT images for this study and I concur with the nonvascular imaging findings as dictated. Signed: Manjeet Bridges MDReport Verified Date/Time: 10/21/2018 18: 13:46 Reading Location: [address] Body Reading RoomAddendum EndsFINAL REPORT CT [...] the Jantene arterial switch procedure, with the [place] manoeuvre with the expected location of the [...] non-vascular findings will be reviewed by the Hvac Project Manager Radiologist and addendum will be added asneeded. Major findings were discussed with Dr. Kumar at the time of dictation. Signed: Gokul Mark MDReport Verified Date/ Time: 10/20/2018 20:02:00 Reading Location: [place] [address] Cardiology MRI [id number] 08:03:00 Test Item Value Reference Range Comments PHOSPHORUS (BEAKER) (test kixh=893) 3.9 mg/dL 2.3-4.7 [id number] 08:03:00 Test Item Value Reference Range Comments MAGNESIUM (BEAKER) (test ijsw=872) 2.0 mg/dL 1.6-2.6 BASIC METABOLIC [id number] 08:03:00 Test Item Value Reference Range Comments SODIUM (BEAKER) (test 136 meq/L 136-145 cfig=012) POTASSIUM (BEAKER) (test 4.1 meq/L 3.5-5.1 oepf=167) CHLORIDE (BEAKER) (test 103 meq/L 98-107 puzg=053) CO2 (BEAKER) (test 26 meq/L 22-29 zunl=842) BLOOD UREA NITROGEN 11 mg/dL 7-21 (BEAKER) (test dlwu=010) CREATININE (BEAKER) (test 0.84 mg/dL 0.57-1.25 kmpo=972) GLUCOSE RANDOM (BEAKER) 96 mg/dL 70-105 (test enro=924) CALCIUM (BEAKER) (test 9.1 mg/dL 8.4-10.2 xfzd=038) EGFR (BEAKER) (test 134 mL/min/1.73 sq m ESTIMATED GFR IS NOT nszh=0942) ACCURATE CREATININE CLEARANCE IN PREDICTING GLOMERULAR FILTRATION RATE. ESTIMATED GFR IS NOT APPLICABLE FOR DIALYSIS PATIENTS. PROTHROMBIN [id number] 07:17:00 Test Item Value Reference Range Comments PROTIME (BEAKER) (test dyto=013) 12.5 seconds 11.9-14.2 INR (BEAKER) (test zrmb=453) 1.0 <=5.9 Effective 08/31/2018: PT Reference Range ChangeNew: 11.9-14.2 Previous: 11.7- 14.7RECOMMENDED COUMADIN/WARFARIN INR THERAPY RANGESSTANDARD DOSE: 2.0-3.0 Includes: PROPHYLAXIS for venous thrombosis, systemic embolization; TREATMENT for venous thrombosis and/or pulmonary embolus.HIGH RISK: Target INR is2.5-3.5 for patients wiht mechanical heart valves.PT/[id number] 07:17:00 Test Item Value Reference Range Comments PROTIME (BEAKER) (test cjdn=208) 12.5 seconds 11.9-14.2 INR (BEAKER) (test vgvk=405) 1.0 <=5.9 PARTIAL THROMBOPLASTIN TIME (BEAKER) (test 30.0 seconds 22.5-36.0 simn=126) Effective 08/31/2018: PT Reference Range ChangeNew: 11.9-14.2 Previous: 11.7- 14.7RECOMMENDED COUMADIN/WARFARIN INR THERAPY RANGESSTANDARD DOSE: 2.0-3.0 Includes: PROPHYLAXIS for venous thrombosis, systemic embolization; TREATMENT for venous thrombosis and/or pulmonary embolus.HIGH RISK: Target INR is2.5-3.5 for patients wiht mechanical heart valves.CBC (HEMOGRAM ONLY)2018-10-20 07:14:00 Test Item Value Reference Range Comments WHITE BLOOD CELL COUNT (BEAKER) (test vdrs=172) 5.7 K/ L 3.5-10.5 RED BLOOD CELL COUNT (BEAKER) (test qvor=705) 4.63 M/ L 4.63-6.08 HEMOGLOBIN (BEAKER) (test filt=864) 13.2 GM/DL 13.7-17.5 HEMATOCRIT (BEAKER) (test kfja=684) 41.4 % 40.1-51.0 MEAN CORPUSCULAR VOLUME (BEAKER) (test ujvz=053) 89.4 fL 79.0-92.2 MEAN CORPUSCULAR HEMOGLOBIN (BEAKER) (test 28.5 pg 25.7-32.2 ukel=990) MEAN CORPUSCULAR HEMOGLOBIN CONC (BEAKER) (test 31.9 GM/DL 32.3-36.5 jzec=620) RED CELL DISTRIBUTION WIDTH (BEAKER) (test 14.2 % 11.6-14.4 gtcr=089) PLATELET COUNT (BEAKER) (test mhbu=631) 263 K/CU MM 150-450 MEAN PLATELET VOLUME (BEAKER) (test kmak=587) 8.8 fL 9.4-12.4 NUCLEATED RED BLOOD CELLS (BEAKER) (test 0 /100 WBC 0-0 nsmm=370) CALCIUM, [id number] 07:01:00 Test Item Value Reference Range Comments CALCIUM IONIZED (BEAKER) (test kpwn=245) 1.20 mmol/L 1.12-1.27 PH, BLOOD (BEAKER) (test gtco=5496) 7.37 [id number] 06:56:00 Test Item Value Reference Range Comments PHOSPHORUS (BEAKER) (test suec=852) 5.4 mg/dL 2.3-4.7 [id number] 06:56:00 Test Item Value Reference Range Comments MAGNESIUM (BEAKER) (test qgly=411) 2.2 mg/dL 1.6-2.6 BASIC METABOLIC [id number] 06:56:00 Test Item Value Reference Range Comments SODIUM (BEAKER) (test 141 meq/L 136-145 gikt=705) POTASSIUM (BEAKER) (test 3.8 meq/L 3.5-5.1 aeay=484) CHLORIDE (BEAKER) (test 106 meq/L 98-107 uekg=366) CO2 (BEAKER) (test 28 meq/L 22-29 lbhq=427) BLOOD UREA NITROGEN 12 mg/dL 7-21 (BEAKER) (test sxpg=629) CREATININE (BEAKER) (test 0.98 mg/dL 0.57-1.25 iboy=126) GLUCOSE RANDOM (BEAKER) 97 mg/dL 70-105 (test nkjn=324) CALCIUM (BEAKER) (test 9.0 mg/dL 8.4-10.2 kzzd=677) EGFR (BEAKER) (test 112 mL/min/1.73 sq m ESTIMATED GFR IS NOT tpix=7336) ACCURATE CREATININE CLEARANCE IN PREDICTING GLOMERULAR FILTRATION RATE. ESTIMATED GFR IS NOT APPLICABLE FOR DIALYSIS PATIENTS. PT/[id number] 06:30:00 Test Item Value Reference Range Comments PROTIME (BEAKER) (test svfo=093) 12.8 seconds 11.9-14.2 INR (BEAKER) (test gfqg=597) 1.0 <=5.9 PARTIAL THROMBOPLASTIN TIME (BEAKER) (test 30.5 seconds 22.5-36.0 kktb=855) Effective 08/31/2018: PT Reference Range ChangeNew: 11.9-14.2 Previous: 11.7- 14.7RECOMMENDED COUMADIN/WARFARIN INR THERAPY RANGESSTANDARD DOSE: 2.0-3.0 Includes: PROPHYLAXIS for venous thrombosis, systemic embolization; TREATMENT for venous thrombosis and/or pulmonary embolus.HIGH RISK: Target INR is2.5-3.5 for patients wiht mechanical heart valves.PROTHROMBIN TIME/[id number] 06:29: 00 Test Item Value Reference Range Comments PROTIME (BEAKER) (test wznx=415) 12.8 seconds 11.9-14.2 INR (BEAKER) (test eodw=051) 1.0 <=5.9 Effective 08/31/2018: PT Reference Range ChangeNew: 11.9-14.2 Previous: 11.7- 14.7RECOMMENDED COUMADIN/WARFARIN INR THERAPY RANGESSTANDARD DOSE: 2.0-3.0 Includes: PROPHYLAXIS for venous thrombosis, systemic embolization; TREATMENT for venous thrombosis and/or pulmonary embolus.HIGH RISK: Target INR is2.5-3.5 for patients wiht mechanical heart valves.CBC (HEMOGRAM ONLY)2018-10-19 06:21:00 Test Item Value Reference Range Comments WHITE BLOOD CELL COUNT (BEAKER) (test utlx=654) 5.5 K/ L 3.5-10.5 RED BLOOD CELL COUNT (BEAKER) (test ivjr=912) 4.47 M/ L 4.63-6.08 HEMOGLOBIN (BEAKER) (test niyb=727) 12.9 GM/DL 13.7-17.5 HEMATOCRIT (BEAKER) (test dpoi=056) 39.7 % 40.1-51.0 MEAN CORPUSCULAR VOLUME (BEAKER) (test yhvc=892) 88.8 fL 79.0-92.2 MEAN CORPUSCULAR HEMOGLOBIN (BEAKER) (test 28.9 pg 25.7-32.2 azam=441) MEAN CORPUSCULAR HEMOGLOBIN CONC (BEAKER) (test 32.5 GM/DL 32.3-36.5 uuhu=387) RED CELL DISTRIBUTION WIDTH (BEAKER) (test 14.2 % 11.6-14.4 xrxr=974) PLATELET COUNT (BEAKER) (test jmod=888) 283 K/CU MM 150-450 MEAN PLATELET VOLUME (BEAKER) (test lgov=684) 9.0 fL 9.4-12.4 NUCLEATED RED BLOOD CELLS (BEAKER) (test 0 /100 WBC 0-0 crcd=635) CALCIUM, [id number] 05:32:00 Test Item Value Reference Range Comments CALCIUM IONIZED (BEAKER) (test xiaw=899) 1.20 mmol/L 1.12-1.27 PH, BLOOD (BEAKER) (test oyva=5485) 7.38 COMPREHENSIVE METABOLIC [id number] 21:28:00 Test Item Value Reference Range Comments TOTAL PROTEIN (BEAKER) 7.4 gm/dL 6.0-8.3 Specimen slightly (test ytzc=536) hemolyzed ALBUMIN (BEAKER) (test 4.5 g/dL 3.5-5.0 Specimen slightly qfst=1649) hemolyzed ALKALINE PHOSPHATASE 64 U/L 40-150 (BEAKER) (test irvs=266) BILIRUBIN TOTAL (BEAKER) 0.7 mg/dL 0.2-1.2 Specimen slightly (test nytf=109) hemolyzed SODIUM (BEAKER) (test 140 meq/L 136-145 uecc=232) POTASSIUM (BEAKER) (test 3.8 meq/L 3.5-5.1 Specimen slightly pdym=767) hemolyzed CHLORIDE (BEAKER) (test 104 meq/L 98-107 xbnr=183) CO2 (BEAKER) (test 28 meq/L 22-29 noxf=310) BLOOD UREA NITROGEN 11 mg/dL 7-21 (BEAKER) (test yzrc=590) CREATININE (BEAKER) (test 1.02 mg/dL 0.57-1.25 Specimen slightly gobe=314) hemolyzed GLUCOSE RANDOM (BEAKER) 98 mg/dL 70-105 (test mxuk=900) CALCIUM (BEAKER) (test 9.7 mg/dL 8.4-10.2 pxvm=707) AST (SGOT) (BEAKER) (test 21 U/L 5-34 Specimen slightly saas=907) hemolyzed ALT (SGPT) (BEAKER) (test 28 U/L 6-55 Specimen slightly lsbj=555) hemolyzed EGFR (BEAKER) (test 107 mL/min/1.73 sq ESTIMATED GFR IS NOT xvbz=6740) m ACCURATE CREATININE CLEARANCE IN PREDICTING GLOMERULAR FILTRATION RATE. ESTIMATED GFR IS NOT APPLICABLE FOR DIALYSIS PATIENTS. [id number] 21:24:00 Test Item Value Reference Range Comments PARTIAL THROMBOPLASTIN TIME (BEAKER) (test 30.5 seconds 22.5-36.0 nmsk=734) PROTHROMBIN TIME/[id number] 21:23:00 Test Item Value Reference Range Comments PROTIME (BEAKER) (test vmhj=922) 13.5 seconds 11.9-14.2 INR (BEAKER) (test hgox=818) 1.1 <=5.9 Effective 08/31/2018: PT Reference Range ChangeNew: 11.9-14.2 Previous: 11.7- 14.7RECOMMENDED COUMADIN/WARFARIN INR THERAPY RANGESSTANDARD DOSE: 2.0-3.0 Includes: PROPHYLAXIS for venous thrombosis, systemic embolization; TREATMENT for venous thrombosis and/or pulmonary embolus.HIGH RISK: Target INR is2.5-3.5 for patients wiht mechanical heart valves.CBC (HEMOGRAM ONLY)2018-10-18 21:14:00 Test Item Value Reference Range Comments WHITE BLOOD CELL COUNT (BEAKER) (test jekg=932) 6.7 K/ L 3.5-10.5 RED BLOOD CELL COUNT (BEAKER) (test vdlz=178) 4.58 M/ L 4.63-6.08 HEMOGLOBIN (BEAKER) (test hltv=482) 13.2 GM/DL 13.7-17.5 HEMATOCRIT (BEAKER) (test zsdk=099) 40.0 % 40.1-51.0 MEAN CORPUSCULAR VOLUME (BEAKER) (test ixis=997) 87.3 fL 79.0-92.2 MEAN CORPUSCULAR HEMOGLOBIN (BEAKER) (test 28.8 pg 25.7-32.2 vnbm=322) MEAN CORPUSCULAR HEMOGLOBIN CONC (BEAKER) (test 33.0 GM/DL 32.3-36.5 ulsh=904) RED CELL DISTRIBUTION WIDTH (BEAKER) (test 14.0 % 11.6-14.4 yonz=825) PLATELET COUNT (BEAKER) (test keyz=044) 285 K/CU MM 150-450 MEAN PLATELET VOLUME (BEAKER) (test biow=727) 8.8 fL 9.4-12.4 NUCLEATED RED BLOOD CELLS (BEAKER) (test 0 /100 WBC 0-0 khst=878)
[2018-11-15] MEDS ORDERED: METOPROLOL TAR 50 MG TAB ONE (08:22)
[2018-11-15] MEDS ORDERED: METOCLOPRAMIDE 10 MG/2mL INJ ONE (08:22)
[2018-11-15] MEDS ORDERED: ONDANSETRON 4 MG/2 ML VIAL ONE (08:23)
[2018-11-15] MEDS ORDERED: NA CHLORIDE 0.9% 500 ML ONE (08:23)
--- NOTE | 2018-11-15 08:51 | RAD REPORT ---
EXAM DESCRIPTION: Margarette Single View11/15/2018 8:40 am CLINICAL HISTORY: Chest pain COMPARISON: November 10, 2018 FINDINGS: The lungs appear clear of acute infiltrate. The heart is mildly enlarged IMPRESSION: No acute abnormalities displayed
--- NOTE | 2018-11-15 08:55 | RAD REPORT ---
EXAM DESCRIPTION: CT - Head Brain Wo Cont - 11/15/2018 8:27 am CLINICAL HISTORY: Headache COMPARISON: None TECHNIQUE: Computed axial tomography of the head was obtained. IV contrast was not requested. All CT scans are performed using dose optimization technique as appropriate and may include automated exposure control or mA/KV adjustment according to patient size. FINDINGS: An intracranial bleed is not seen . The ventricles are normal in caliber. No extra-axial fluid collection is noted. Fluid within the sinuses/ mastoids is not seen. IMPRESSION: No acute intracranial abnormality is seen. If patient's symptoms persist MRI of the bra in would be recommended.
[2018-11-15 08:56] LABS: Absolute Lymphocytes (CBC) 1.2 K/uL (0.7-4.9); Basophils % 0.6 % (0-1.3); MPV 7.7 fL (7.6-11.3); RBC Red Blood Cell Count 4.56 M/uL (4.33-5.43)
[2018-11-15 09:36] LABS: BUN Blood Urea Nitrogen 19 mg/dL (7-18); Bicarbonate 27 mmol/L (21-32); Glucose Level 99 mg/dL (74-106); Potassium 3.8 mmol/L (3.5-5.1); Sodium Level 143 mmol/L (136-145); Troponin (Emerg Dept Use Only) < 0.02 ng/mL (0.0-0.045)
--- NOTE | 2018-11-15 10:10 | ER ---
Nurse's Notes [facility] Name: Brice Polk III Age: 28 yrs Sex: Male : 1990 Arrival Date: 11/15/2018 Time: 07:58 Bed 5 Private MD: Diagnosis: Chest pain, unspecified;Hypertensive heart disease Presentation: 11/15 07:59 Presenting complaint: Chest pressure, nausea, and pain in back of head that started hb while in bed this morning. Transition of care: patient was not received from another setting of care. Onset of symptoms was November 15, 2018. Risk Assessment: Do you want to hurt yourself or someone else? Patient reports no desire to harm self or others. Initial Sepsis Screen: Does the patient meet any 2 criteria? No. Patient's initial sepsis screen is negative. Does the patient have a suspected source of infection? No. Patient's initial sepsis screen is negative. Care prior to arrival: None. 07:59 Method Of Arrival: Ambulatory hb 07:59 Acuity: LEXI 3 hb Historical: - Allergies: 08:01 No Known Allergies; hb - Home Meds: 08:01 Metoprolol Tartrate Oral [Active]; hb 08:02 pantoprazole oral oral [Active]; losartan oral oral [Active]; Sucralfate Oral [Active]; hb - PMHx: 08:01 Hypertension; CONGENITAL HEART PROBLEMS; hb - PSHx: 08:01 OPEN HEART SURGERY BABY; hb - Immunization history:: Adult Immunizations up to date. - Social history:: Smoking status: Patient/guardian denies using tobacco. - Ebola Screening: : No symptoms or risks identified at this time. - Family history:: not pertinent. - Hospitalizations: : Patient was recently seen at. Screenin:05 Abuse screen: Denies threats or abuse. Denies injuries from another. Nutritional hb screening: No deficits noted. Tuberculosis screening: No symptoms or risk factors identified. Fall Risk None identified. Assessment: 08:05 General: Appears in no apparent distress. Behavior is calm, cooperative. Pain: hb Complains of pain in chest Pain does not radiate. Pain currently is 8 out of 10 on a pain scale. Quality of pain is described as pressure, Pain began 2 hours ago. Neuro: Level of Consciousness is awake, alert, obeys commands, Oriented to person, place, time, situation. Cardiovascular: Heart tones S1 S2 present Capillary refill < 3 seconds Patient's skin is warm and dry. Respiratory: Airway is patent Respiratory effort is even, unlabored, Respiratory pattern is regular, symmetrical, Breath sounds are clear bilaterally. GI: Reports nausea. : No signs and/or symptoms were reported regarding the genitourinary system. EENT: No signs and/or symptoms were reported regarding the EENT system. Derm: Skin is intact, is healthy with good turgor. Musculoskeletal: No signs and/or symptoms reported regarding the musculoskeletal system. 09:00 Reassessment: Patient appears in no apparent distress at this time. hb 10:00 Reassessment: Patient appears in no apparent distress at this time. Patient and/or hb family updated on plan of care and expected duration. Pain level reassessed. Patient is alert, oriented x 3, equal unlabored respirations, skin warm/dry/pink. Patient denies pain at this time. Patient states symptoms have improved. Vital Signs: 08:01 BP 141 / 100; Pulse 92; Resp 16; Temp 98.5(TE); Pulse Ox 98% on R/A; Weight 131.54 kg; hb Height 6 ft. 3 in. (190.50 cm); Pain 8/10; 08:30 BP 113 / 75; Pulse 78; Resp 15; Pulse Ox 100% on R/A; hb 09:09 BP 145 / 91; Pulse 74; Resp 14; Pulse Ox 98% ; bp 10:00 BP 117 / 72; Pulse 70; Resp 15; Pulse Ox 99% on R/A; Pain 0/10; hb 08:01 Body Mass Index 36.25 (131.54 kg, 190.50 cm) ED Course: 07:55 Fady Simpson MD is Attending Physician. rn 07:55 Federico Wilcox, AWAIS is Primary Nurse. bp 07:58 Patient arrived in ED. as 08:00 Triage completed. hb 08:01 Arm band placed on. hb 08:04 EKG done, by ED staff, reviewed by Fady Simpson MD. em1 08:05 Patient has correct armband on for positive identification. Bed in low position. Call light in reach. Side rails up X 1. monitor worker on. Pulse ox on. NIBP on. 08:05 Patient maintains SpO2 saturation greater than 95% on room air. hb 08:30 CT Head Brain wo Cont In Process Unspecified. EDMS 08:35 Inserted saline lock: 20 gauge in right antecubital area, using aseptic technique. hb Blood collected. 08:36 XRAY Chest (1 view) Sent. hb 08:43 XRAY Chest (1 view) In Process Unspecified. EDMS 10:15 No provider procedures requiring assistance completed. IV discontinued, intact, hb bleeding controlled, No redness/swelling at site. Pressure dressing applied. Administered Medications: 08:35 Drug: Zofran 4 mg Route: IVP; Site: right antecubital; hb 09:09 Follow up: Response: No adverse reaction bp 08:35 Not Given (BP 113/75, Dr. Simpson notified): Metoprolol TARTRATE (Lopressor) 50 mg PO oncehb 08:35 Drug: NS 0.9% 500 ml Route: IV; Rate: bolus; Site: right antecubital; hb 08:35 Drug: Reglan 10 mg Route: IVP; Site: right antecubital; hb 09:09 Follow up: Response: No adverse reaction bp Outcome: 10:10 Discharge ordered by . rn 10:15 Discharged to home ambulatory. hb 10:15 Condition: stable 10:15 Discharge instructions given to patient, Instructed on discharge instructions, follow up and referral plans. medication usage, Demonstrated understanding of instructions, follow-up care, medications. 10:16 Patient left the ED. hb Signatures: Dispatcher [employer] EDMS Margarita Rebollar Roman, MD MD rn Martinez, Eric em1 Liane Manning RN RN Federico Middleton RN RN bp
--- NOTE | 2018-11-15 10:11 | EDPHYS ---
Physician Documentation [facility] Name: Brice Polk III Age: 28 yrs Sex: Male : 1990 Arrival Date: 11/15/2018 Time: 07:58 Bed 5 Private MD: ED Physician Fady Simpson HPI: 11/15 08:14 This 28 yrs old Black Male presents to ER via Ambulatory with complaints of Chest Pain, rn Headache. 08:14 The patient or guardian reports chest pain that is located primarily in the substernal rn area. The pain does not radiate. Associated signs and symptoms: Pertinent positives: headache, Pertinent negatives: abdominal pain, cough, diaphoresis, dizziness, lightheadedness, palpitations, shortness of breath, syncope, vomiting. The chest pain is described as aching. Duration: The patient or guardian reports multiple episodes, that are intermittent, the episodes last approximately 5 minute(s). Modifying factors: The symptoms are alleviated by nothing. the symptoms are aggravated by nothing. Severity of pain: At its worst the pain was mild in the emergency department the pain is unchanged. The patient has experienced similar episodes in the past. The patient has been recently seen by a physician:. Reports known thoracic aneurysm, has f/u and has seen CV surgery, sees them again for surgery in 3 weeks. Recently seen here with CT aorta that didn't show any change in aneurysm. Reports very stressed, told can't exert himself, not working, not able to do anything lately. Reports has pain like this daily, doesn't like to take the tramadol prescribed, but today began with headache and nausea in addition to chest pain, blood pressure was high so came in. No focal neuro complaints. No tearing/ripping of chest pain and last a few minutes. . Historical: - Allergies: 08:01 No Known Allergies; hb - Home Meds: 08:01 Metoprolol Tartrate Oral [Active]; hb 08:02 pantoprazole oral oral [Active]; losartan oral oral [Active]; Sucralfate Oral [Active]; hb - PMHx: 08:01 Hypertension; CONGENITAL HEART PROBLEMS; hb - PSHx: 08:01 OPEN HEART SURGERY BABY; hb - Immunization history:: Adult Immunizations up to date. - Social history:: Smoking status: Patient/guardian denies using tobacco. - Ebola Screening: : No symptoms or risks identified at this time. - Family history:: not pertinent. - Hospitalizations: : Patient was recently seen at. ROS: 08:14 Constitutional: Negative for fever, chills, and weight loss, Eyes: Negative for injury, rn pain, redness, and discharge, Neck: Negative for injury, pain, and swelling, Cardiovascular: Negative for palpitations, and edema, Respiratory: Negative for shortness of breath, cough, wheezing, and pleuritic chest pain, Abdomen/GI: Negative for abdominal pain, vomiting, diarrhea, and constipation, MS/Extremity: Negative for injury and deformity, Skin: Negative for injury, rash, and discoloration, Neuro: Negative for weakness, numbness, tingling, and seizure. Exam: 08:14 Constitutional: This is a well developed, well nourished patient who is awake, alert, rn and in no acute distress. Head/Face: Normocephalic, atraumatic. Eyes: Pupils equal round and reactive to light, extra-ocular motions intact. Lids and lashes normal. Conjunctiva and sclera are non-icteric and not injected. Cornea within normal limits. Periorbital areas with no swelling, redness, or edema. Neck: Trachea midline, no thyromegaly or masses palpated, and no cervical lymphadenopathy. Supple, full range of motion without nuchal rigidity, or vertebral point tenderness. No Meningismus. Cardiovascular: Regular rate and rhythm. NO JVD. No pulse deficits. Respiratory: Lungs have equal breath sounds bilaterally, clear to auscultation. No increased work of breathing, no retractions or nasal flaring. Abdomen/GI: soft, non-tender Skin: Warm, dry MS/ Extremity: Pulses equal, no cyanosis. Neurovascular intact. Full, normal range of motion. Equal circumference. Neuro: Awake and alert, GCS 15, oriented to person, place, time, and situation. Cranial nerves II-XII grossly intact. Motor strength 5/5 in all extremities. Sensory grossly intact. Cerebellar exam normal. Vital Signs: 08:01 BP 141 / 100; Pulse 92; Resp 16; Temp 98.5(TE); Pulse Ox 98% on R/A; Weight 131.54 kg; hb Height 6 ft. 3 in. (190.50 cm); Pain 8/10; 08:30 BP 113 / 75; Pulse 78; Resp 15; Pulse Ox 100% on R/A; hb 09:09 BP 145 / 91; Pulse 74; Resp 14; Pulse Ox 98% ; bp 10:00 BP 117 / 72; Pulse 70; Resp 15; Pulse Ox 99% on R/A; Pain 0/10; hb 08:01 Body Mass Index 36.25 (131.54 kg, 190.50 cm) hb MDM: 07:55 Patient medically screened. rn 10:07 Differential diagnosis: acute pericarditis, anxiety, chest wall pain, costochondritis, rn esophagitis, gastritis, gastroesophageal reflux disease (GERD), pleurisy, pneumothorax. Data reviewed: vital signs, nurses notes, old medical records, lab test result(s), EKG, radiologic studies, plain films, and as a result, I will discharge patient. Counseling: I had a detailed discussion with the patient and/or guardian regarding: the historical points, exam findings, and any diagnostic results supporting the discharge/admit diagnosis, lab results, radiology results, the need for outpatient follow up, to return to the emergency department if symptoms worsen or persist or if there are any questions or concerns that arise at home. Special discussion: Based on the patient's history, exam, and Dx evaluation, there is no indication for emergent intervention or inpatient Tx. It is understood by the patient/guardian that if the Sx's persist or worsen they need to return immediately for re-evaluation. I discussed with the patient/guardian in detail that at this point there is no indication for admission to the hospital. It is understood, however, that if the symptoms persist or worsen the patient needs to return immediately for re-evaluation. Based on the history and exam findings, there is no indication for further emergent testing or inpatient evaluation. I discussed with the patient/guardian the need to see the engraver letter for further evaluation of the symptoms. 10:07 ED course: Pt with negative w/u, improved BP, neg ct head, had neg dissection study a rn few days ago, no signs of acute dissection today, will dc home with f/u with CV surgery as planned. . 11/15 08:13 Order name: CBC with Diff; Complete Time: 09:52 rn 11/15 08:13 Order name: Basic Metabolic Panel; Complete Time: 09:52 rn 11/15 08:13 Order name: XRAY Chest (1 view); Complete Time: 09:07 rn 11/15 08:13 Order name: Troponin (emerg Dept Use Only); Complete Time: 09:52 rn 11/15 08:13 Order name: CT Head Brain wo Cont; Complete Time: 09:07 rn 11/15 08:12 Order name: IV Start; Complete Time: 08:35 rn 11/15 08:13 Order name: EKG; Complete Time: 08:17 rn 11/15 08:13 Order name: EKG - Nurse/Tech; Complete Time: 08:27 rn Administered Medications: 08:35 Drug: Zofran 4 mg Route: IVP; Site: right antecubital; hb 09:09 Follow up: Response: No adverse reaction bp 08:35 Not Given (BP 113/75, Dr. Simpson notified): Metoprolol TARTRATE (Lopressor) 50 mg PO oncehb 08:35 Drug: NS 0.9% 500 ml Route: IV; Rate: bolus; Site: right antecubital; hb 08:35 Drug: Reglan 10 mg Route: IVP; Site: right antecubital; hb 09:09 Follow up: Response: No adverse reaction bp Disposition: 11/15/18 10:10 Discharged to Home. Impression: Chest pain, unspecified, Hypertensive heart disease. - Condition is Stable. - Discharge Instructions: Nonspecific Chest Pain, Hypertension. - Medication Reconciliation Form, Thank You Letter, Antibiotic Education, Prescription Opioid Use form. - Follow up: Private Physician; When: As needed; Reason: Recheck today's complaints, Re-evaluation by your physician. - Problem is new. - Symptoms have improved. Signatures: Dispatcher [employer] Fady Fernandez MD MD rn Baxter, Heather, RN RN hb Peltier, Brian RN bp Corrections: (The following items were deleted from the chart) 10:16 10:10 11/15/2018 10:10 Discharged to Home. Impression: Chest pain, unspecified; hb Hypertensive heart disease. Condition is Stable. Forms are Medication Reconciliation Form, Thank You Letter, Antibiotic Education, Prescription Opioid Use. Follow up: Private Physician; When: As needed; Reason: Recheck today's complaints, Re-evaluation by your physician. Problem is new. Symptoms have improved. rn
--- NOTE | 2018-11-15 16:01 | EKG ---
Test Date: 2018-11-15 Test Time: 08:02:48 Typewriter Mechanic: AKIKO MEASUREMENT RESULTS: Intervals: Rate: 85 [place]: 148 QRSD: 92 QT: 346 QTc: 411 [place]: P: 47 AZ: 148 QRS: 72 T: 52 INTERPRETIVE STATEMENTS: Normal sinus rhythm Nonspecific T wave abnormality Abnormal ECG Compared to ECG 11/10/2018 08:29:01 Possible ischemia no longer present T-wave abnormality still present Electronically Signed On 11-15-18 15:58:16 CDT by Iron Berg
== END 2018-11-15 10:16 | disposition home or self-care (01) ==
LOC: ER 07:53
DX: I11.9 Hypertensive heart disease without heart failure (principal); R07.9 Chest pain, unspecified
CPT/HCPCS: 36415; 70450; 71045; 80048; 84484; 85025; 93005; 96374; 96375; 99285; J2405; J2765

== ENCOUNTER 2020-01-22 11:13 | Emergency (ER) | payer SELFPAY ==
--- OUTSIDE RECORDS SUMMARY | 2020-01-22 11:15 | XMS REPORT | Clinical Summary ---
:1990 Author Organization [facility] Address [address] [place] [address] Care Team Providers Name Role Phone Pcp Primary Care Provider Unavailable Allergies No Known Allergies Medications Medication Sig Dispensed Refills Start Date End Date Status pantoprazole Take 1 tablet 60 tablet 0 10/25/2018 Ac tive (PROTONIX) 40 MG (40 mg total) tablet by mouth daily. losartan (COZAAR) 25 Take 3 tablets 270 tablet 0 10/24/2018 MG tablet (75 mg total) by mouth daily. acetaminophen Take 2 tablets 30 tablet 0 10/24/2018 10/19/2019 (TYLENOL) 325 MG (650 mg total) tablet by mouth every 4 (four) hours as needed for up to 360 days. metoprolol 75 mg Tab Take 75 mg by 120 tablet 0 10/24/2018 mouth 2 (two) times daily. sucralfate (CARAFATE) Take 1 tablet 180 tablet 3 10/24/2018 1 gram tablet (1 g total) by mouth 2 (two) times daily before meals. 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 2-4 times a month 10/18/2018 How many drinks containing alcohol do you have on a 1 or 2 10/18/2018 typical day when you are drinking? How often do you have six or more drinks on one Not asked occasion? Sex Assigned at Date Recorded Not on file Last Filed Vital Signs Not on file Plan of Treatment Not on file Results Not on fileafter 01/21/2019 Advance Directives For more information, please contact: [phone] Code Status Date Activated Date Inactivated Comments Full Code 10/18/2018 8:04 PM 10/24/2018 3:40 PM This code status was determined by: Patient
--- OUTSIDE RECORDS SUMMARY | 2020-01-22 11:16 | XMS REPORT | Continuity of Care Document ---
:1990 Author Organization [facility] t Address [address] [place] [address] Care Team Providers Name Role Phone Pcp Primary Care Physician Unavailable Layo VILLASENOR, K.H. Attending Clinician Pob, Lab Main Attending Clinician Unavailable Pc, Vascular Room 1 - Attending Clinician Unavailable Doctor Unassigned, Name Attending Clinician Unavailable Chris VILLASENOR Attending Clinician Christofer RN, E Attending Clinician Stacy VILLASENOR Attending Clinician MOR PERDOMO Attending Clinician Unavailable COSLIZZETTE JOHNSONLETON Admitting Clinician Unavailable Problems Condition Condition Condition Status Onset Resolution Last Treating Co mments Source Name Details Category Date Date Treatment Clinician Date TGA TGA Disease Active [facility] (transposi 10-19 Melisa kes - tion of tion of 00:00: Medical great great [address] [place] [address] arteries) arteries) s/p repair s/p repair ([facility], ([facility], 1992) 1992) 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 Family History Family Member Diagnosis Comments Start Date Stop Date Source Natural brother Hypertension [facility] Natural father Hypertension [facility] Natural mother Hypertension [facility] Social History Social Habit Start Date Stop Date Quantity Comments Source History [facility] - Alcohol Binge Medical Ade ter Sex Assigned At [facility] Cigarettes smoked 2018-10-18 2018-10-18 SANTIAGO Appiah - current (pack per 00:00:00 00:00:00 [facility] Center day) - Reported Tobacco use and 2018-10-18 2018-10-18 Never used SANTIAGO Castillo - exposure 00:00:00 00:00:00 [facility] Center Alcohol intake 2018-10-18 2018-10-18 Current drinker SANTIAGO Hernandez - 00:00:00 00:00:00 of alcohol Medical Center (finding) History [facility] 2018-10-18 2018-10-18 3 SANTIAGO Luu Luconner - Alcohol Frequency 00:00:00 00:00:00 [facility] Center History [facility] 2018-10-18 2018-10-18 1 SANTIAGO Appiah - Alcohol Std Drinks 00:00:00 00:00:00 [facility] History of tobacco 2005-09-18 2018-03-05 Current smoker SAGAR Appiah - use 00:00:00 00:00:00 [facility] Center Smoking Status Start Date Stop Date Source Former smoker 2018-10-18 00:00:00 2018-10-18 00:00:00 [facility] Medications Ordered Filled Start Stop Current Ordering Indication Dosage Frequency Signature Comments Components Source Medication Medication Date Date Medication? Clinician (SIG) Name Name pantoprazol Yes 40mg QD Take [address] [facility] - tablet (40 [facility] - (PROTONIX) 00:00: mg total) Me dical 40 MG 00 by mouth Center tablet daily. losartan 2019- No 75mg QD Take [address] [facility] [address] (COZAAR) 25 10-24 tablets Luke s - MG tablet 00:00: 23:59 (75 mg Medic al 00 :00 total) by Center mouth daily. metoprolol 2019- No 75mg Q.5D Take [address] [facility] 75 mg Tab 10-24 by mouth 2 Aliya es - 00:00: 23:59 (two) Medical 00 :00 times Center daily. sucralfate 2019- No 1g Take [address] [facility] [address] (CARAFATE) 10-24 tablet (1 Aliya es - 1 gram 00:00: 23:59 g total) Medica l tablet 00 :00 by mouth 2 Center (two) times daily before meals. acetaminoph 2019- No 650mg Take [address] en 10-2416 tablets [facility] - (TYLENOL) 00:00: 23:59 (650 mg Medi patty 325 MG 00 :00 total) by Center tablet mouth every 4 (four) hours as needed for up to 360 days. Procedures This patient has no known procedures. Encounters Start End Encounter Admission Attending Care Care Encounter Source Date/Time Date/Time Type Type Clinicians Facility Department ID 2020-01-19 2020-01-19 Telephone Vasques, [facility] [id number] 00:00:00 00:00:00 Magda Black [id number] [place] [id number] Professio [phone] [address] 2020-01-15 2020-01-15 [employer] Sanjeev, [facility] [id number] 10:10:41 10:25:41 Visit Lab [place] [id number] [place] [id number] Professio [phone] [address] 2020-01-15 2020-01-15 Appointmen Pc, [facility] [id number] 08:09:14 09:09:14 t [facility]ascular [place] [id number] Room 1 - [place] [id number] Professio [phone] [address] 2020-01-15 2020-01-15 [employer] , [facility] [id number] 08:08:30 09:08:30 Visit Vascular [place] [id number] Room 1 - [place] [id number] Professio [phone] [address] 2020-01-15 2020-01-15 Orders Doctor MANJEET [id number] 00:00:00 00:00:00 Only Unassigned, HERNANDEZ 350.1.13.10 [place] [facility] 4.2.7.2.686 [phone] [id number] 2020-01-10 2020-01-10 [facility] [id number] 00:00:00 00:00:00 Management Rubina [place] [id number] [place] [id number] Professio [phone] nal 205 [facility] 2020-01-08 2020-01-08 Patient Evette Beaulieu [id number] 00:00:00 00:00:00 Outreach Christopher Ledezma [id number] [place] [phone] [id number] 2020-01-02 2020-01-03 Office Layo [facility] [id number] 10:40:17 07:53:35 Visit Magda JeremieTruongPriscilaTruong Black 350.1.13.10 [place] 4.2.7.2.686 Professio [phone] [facility] 059 [facility] 2018-12-09 2018-12-09 Office StacyStu [id number] 10:06:25 10:51:25 Visit AMBULATOR 350.1.13.21 Y 0.2.7.2.686 [phone] 300 Results Test Description Test Time Test Comments Results Result Comments Source PHOSPHORUS 2018-10-24 07:08:00 Test Item Value Reference Range Interpretation Comme nts PHOSPHORUS (BEAKER) (test code = 604) 4.1 mg/dL 2.3-4.7 [id number] 07:08:00 Test Item Value Reference Range Interpretation Comments MAGNESIUM (BEAKER) (test code = 1.9 mg/dL 1.6-2.6 627) BASIC METABOLIC [id number] 07:08:00 Test Item Value Reference Range Interpretation Comments SODIUM (BEAKER) 140 meq/L 136-145 (test code = 381) POTASSIUM (BEAKER) 4.0 meq/L 3.5-5.1 (test code = 379) CHLORIDE (BEAKER) 106 meq/L 98-107 (test code = 382) CO2 (BEAKER) (test 27 meq/L code = 355) BLOOD UREA NITROGEN 12 mg/dL 7-21 (BEAKER) (test code = 354) CREATININE (BEAKER) 0.94 mg/dL 0.57-1.25 (test code = 358) GLUCOSE RANDOM 94 mg/dL 70-105 (BEAKER) (test code = 652) CALCIUM (BEAKER) 9.1 mg/dL 8.4-10.2 (test code = 697) EGFR (BEAKER) (test 118 mL/min/1.73 ESTIM ATED GFR IS code = 1092) sq m NOT ACCURATE CREATININE CLEARANCE IN PREDICTING GLOMERULAR FILTRATION RATE . ESTIMATED GFR I S NOT APPLICABLE FOR DIALYSIS PATIEN TS. [id number] 05:59:00 Test Item Value Reference Range Interpretation Comments PROTIME (BEAKER) (test code = 13.3 seconds 11.9-14.2 759) INR (BEAKER) (test code = 370) 1.1 <=5.9 PARTIAL THROMBOPLASTIN TIME 34.1 seconds 22.5-36.0 (BEAKER) (test code = 760) Effective 08/31/2018: PT Reference Range ChangeNew: 11.9-14.2 Previous: 11.7- 14.7RECOMMENDED COUMADIN/WARFARIN INR THERAPY RANGESSTANDARD DOSE: 2.0-3.0 Includes: PROPHYLAXIS for venous thrombosis, systemic embolization; TREATMENT for venous thrombosis and/or pulmonary embolus.HIGH RISK: Target INR is2.5-3.5 for patients wiht mechanical heart valves.PROTHROMBIN [id number] 05:58:00 Test Item Value Reference Range Interpretation Comments PROTIME (BEAKER) (test code = 13.3 seconds 11.9-14.2 759) INR (BEAKER) (test code = 370) 1.1 <=5.9 Effective 08/31/2018: PT Reference Range ChangeNew: 11.9-14.2 Previous: 11.7- 14.7RECOMMENDED COUMADIN/WARFARIN INR THERAPY RANGESSTANDARD DOSE: 2.0-3.0 Includes: PROPHYLAXIS for venous thrombosis, systemic embolization; TREATMENT for venous thrombosis and/or pulmonary embolus.HIGH RISK: Target INR is2.5-3.5 for patients wiht mechanical heart valves.CALCIUM, [id number] 05:48:00 Test Item Value Reference Range Interpretation Comments CALCIUM IONIZED (BEAKER) (test 1.17 mmol/L 1.12-1.27 code = 698) PH, BLOOD (BEAKER) (test code = 7.30 1810) CBC (HEMOGRAM ONLY)2018-10-24 05:40:00 Test Item Value Reference Range Interpretation Comments WHITE BLOOD CELL COUNT (BEAKER) 6.9 K/ L 3.5-10.5 (test code = 775) RED BLOOD CELL COUNT (BEAKER) 4.74 M/ L 4.63-6.08 (test code = 761) HEMOGLOBIN (BEAKER) (test code = 13.7 GM/DL 13.7-17.5 410) HEMATOCRIT (BEAKER) (test code = 41.7 % 40.1-51.0 411) MEAN CORPUSCULAR VOLUME (BEAKER) 88.0 fL 79.0-92.2 (test code = 753) MEAN CORPUSCULAR HEMOGLOBIN 28.9 pg 25.7-32.2 (BEAKER) (test code = 751) MEAN CORPUSCULAR HEMOGLOBIN CONC 32.9 GM/DL 32.3-36.5 (BEAKER) (test code = 752) RED CELL DISTRIBUTION WIDTH 13.6 % 11.6-14.4 (BEAKER) (test code = 412) PLATELET COUNT (BEAKER) (test 273 K/CU MM 150-450 code = 756) MEAN PLATELET VOLUME (BEAKER) 9.1 fL 9.4-12.4 L (test code = 754) NUCLEATED RED BLOOD CELLS 0 /100 WBC 0-0 (BEAKER) (test code = 413) [id number] 06:15:00 Test Item Value Reference Range Interpretation Comments PHOSPHORUS (BEAKER) (test code = 3.8 mg/dL 2.3-4.7 604) [id number] 06:15:00 Test Item Value Reference Range Interpretation Comments MAGNESIUM (BEAKER) (test code = 1.9 mg/dL 1.6-2.6 627) BASIC METABOLIC [id number] 06:15:00 Test Item Value Reference Range Interpretation Comments SODIUM (BEAKER) 137 meq/L 136-145 (test code = 381) POTASSIUM (BEAKER) 4.2 meq/L 3.5-5.1 (test code = 379) CHLORIDE (BEAKER) 106 meq/L 98-107 (test code = 382) CO2 (BEAKER) (test 25 meq/L 22-29 code = 355) BLOOD UREA NITROGEN 12 mg/dL 7-21 (BEAKER) (test code = 354) CREATININE (BEAKER) 0.91 mg/dL 0.57-1.25 (test code = 358) GLUCOSE RANDOM 92 mg/dL 70-105 (BEAKER) (test code = 652) CALCIUM (BEAKER) 9.2 mg/dL 8.4-10.2 (test code = 697) EGFR (BEAKER) (test 122 mL/min/1.73 ESTIM ATED GFR IS code = 1092) sq m NOT ACCURATE CREATININE CLEARANCE IN PREDICTING GLOMERULAR FILTRATION RATE . ESTIMATED GFR I S NOT APPLICABLE FOR DIALYSIS PATIEN TS. [id number] 05:49:00 Test Item Value Reference Range Interpretation Comments PROTIME (BEAKER) (test code = 13.5 seconds 11.9-14.2 759) INR (BEAKER) (test code = 370) 1.1 <=5.9 PARTIAL THROMBOPLASTIN TIME 32.4 seconds 22.5-36.0 (BEAKER) (test code = 760) Effective 08/31/2018: PT Reference Range ChangeNew: 11.9-14.2 Previous: 11.7- 14.7RECOMMENDED COUMADIN/WARFARIN INR THERAPY RANGESSTANDARD DOSE: 2.0-3.0 Includes: PROPHYLAXIS for venous thrombosis, systemic embolization; TREATMENT for venous thrombosis and/or pulmonary embolus.HIGH RISK: Target INR is2.5-3.5 for patients wiht mechanical heart valves.PROTHROMBIN [id number] 05:48:00 Test Item Value Reference Range Interpretation Comments PROTIME (BEAKER) (test code = 13.5 seconds 11.9-14.2 759) INR (BEAKER) (test code = 370) 1.1 <=5.9 Effective 08/31/2018: PT Reference Range ChangeNew: 11.9-14.2 Previous: 11.7- 14.7RECOMMENDED COUMADIN/WARFARIN INR THERAPY RANGESSTANDARD DOSE: 2.0-3.0 Includes: PROPHYLAXIS for venous thrombosis, systemic embolization; TREATMENT for venous thrombosis and/or pulmonary embolus.HIGH RISK: Target INR is2.5-3.5 for patients wiht mechanical heart valves.CALCIUM, [id number] 05:46:00 Test Item Value Reference Range Interpretation Comments CALCIUM IONIZED (BEAKER) (test 1.14 mmol/L 1.12-1.27 code = 698) PH, BLOOD (BEAKER) (test code = 7.36 1810) CBC (HEMOGRAM ONLY)2018-10-22 05:22:00 Test Item Value Reference Range Interpretation Comments WHITE BLOOD CELL COUNT (BEAKER) 5.7 K/ L 3.5-10.5 (test code = 775) RED BLOOD CELL COUNT (BEAKER) 4.61 M/ L 4.63-6.08 L (test code = 761) HEMOGLOBIN (BEAKER) (test code = 13.5 GM/DL 13.7-17.5 L 410) HEMATOCRIT (BEAKER) (test code = 41.2 % 40.1-51.0 411) MEAN CORPUSCULAR VOLUME (BEAKER) 89.4 fL 79.0-92.2 (test code = 753) MEAN CORPUSCULAR HEMOGLOBIN 29.3 pg 25.7-32.2 (BEAKER) (test code = 751) MEAN CORPUSCULAR HEMOGLOBIN CONC 32.8 GM/DL 32.3-36.5 (BEAKER) (test code = 752) RED CELL DISTRIBUTION WIDTH 13.8 % 11.6-14.4 (BEAKER) (test code = 412) PLATELET COUNT (BEAKER) (test 260 K/CU MM 150-450 code = 756) MEAN PLATELET VOLUME (BEAKER) 8.7 fL 9.4-12.4 L (test code = 754) NUCLEATED RED BLOOD CELLS 0 /100 WBC 0-0 (BEAKER) (test code = 413) CT, CTA CORONARY, W/ PATTY [id number] 18:13:00Addendum BeginsREPORT STATUS:A Addendum: October 20, 2018 at 1815 hours I have reviewed the CT images for this study and I concur with the nonvascular imaging findings as dictated. Signed: Manjeet Razo MDReport Verified Date/Time: 10/21/2018 18:13:46 Reading Location: [address] Body Reading RoomAddendum EndsFINAL REPORT CT [...] aorta Since this is after corrective surgery, currently,there is normal atrio-ventricular and ventriculo-arterial concordance, and [...] There is no acute aortic pathology, specifically, t here is no dissection, contained rupture, and intramural [...] abnormality. No acute bony pathology is identified. C ONCLUSIONS: 1. On visual inspection, no coronary artery calcification is identified. 2. Patient has history of D-TGA, underwent the Jantene arterial switch procedure, with the [place] manoeuvre, with the expected anatomy of the [...] non-vascular findings will be reviewed by the [facility] Head Radiologist and addendum will be added asneeded. Major findings were discussed with Dr. Kumar at the time of dictation. Signed: Gokul Mark Verified Date/Time: 10/20/2018 20:02:00 Reading Location: [place] [address] Cardiology MRI [id number] 08:03:00 Test Item Value Reference Range Interpretation Comments PHOSPHORUS (BEAKER) (test code = 3.9 mg/dL 2.3-4.7 604) [id number] 08:03:00 Test Item Value Reference Range Interpretation Comments MAGNESIUM (BEAKER) (test code = 2.0 mg/dL 1.6-2.6 627) BASIC METABOLIC [id number] 08:03:00 Test Item Value Reference Range Interpretation Comments SODIUM (BEAKER) 136 meq/L 136-145 (test code = 381) POTASSIUM (BEAKER) 4.1 meq/L 3.5-5.1 (test code = 379) CHLORIDE (BEAKER) 103 meq/L 98-107 (test code = 382) CO2 (BEAKER) (test 26 meq/L 22-29 code = 355) BLOOD UREA NITROGEN 11 mg/dL 7-21 (BEAKER) (test code = 354) CREATININE (BEAKER) 0.84 mg/dL 0.57-1.25 (test code = 358) GLUCOSE RANDOM 96 mg/dL 70-105 (BEAKER) (test code = 652) CALCIUM (BEAKER) 9.1 mg/dL 8.4-10.2 (test code = 697) EGFR (BEAKER) (test 134 mL/min/1.73 ESTIM ATED GFR IS code = 1092) sq m NOT ACCURATE CREATININE CLEARANCE IN PREDICTING GLOMERULAR FILTRATION RATE . ESTIMATED GFR I S NOT APPLICABLE FOR DIALYSIS PATIEN TS. PROTHROMBIN [id number] 07:17:00 Test Item Value Reference Range Interpretation Comments PROTIME (BEAKER) (test code = 12.5 seconds 11.9-14.2 759) INR (BEAKER) (test code = 370) 1.0 <=5.9 Effective 08/31/2018: PT Reference Range ChangeNew: 11.9-14.2 Previous: 11.7- 14.7RECOMMENDED COUMADIN/WARFARIN INR THERAPY RANGESSTANDARD DOSE: 2.0-3.0 Includes: PROPHYLAXIS for venous thrombosis, systemic embolization; TREATMENT for venous thrombosis and/or pulmonary embolus.HIGH RISK: Target INR is2.5-3.5 for patients wiht mechanical heart valves.[id number] 07:17:00 Test Item Value Reference Range Interpretation Comments PROTIME (BEAKER) (test code = 12.5 seconds 11.9-14.2 759) INR (BEAKER) (test code = 370) 1.0 <=5.9 PARTIAL THROMBOPLASTIN TIME 30.0 seconds 22.5-36.0 (BEAKER) (test code = 760) Effective 08/31/2018: PT Reference Range ChangeNew: 11.9-14.2 Previous: 11.7- 14.7RECOMMENDED COUMADIN/WARFARIN INR THERAPY RANGESSTANDARD DOSE: 2.0-3.0 Includes: PROPHYLAXIS for venous thrombosis, systemic embolization; TREATMENT for venous thrombosis and/or pulmonary embolus.HIGH RISK: Target INR is2.5-3.5 for patients wiht mechanical heart valves.CBC (HEMOGRAM ONLY)2018-10-20 07:14:00 Test Item Value Reference Range Interpretation Comments WHITE BLOOD CELL COUNT (BEAKER) 5.7 K/ L 3.5-10.5 (test code = 775) RED BLOOD CELL COUNT (BEAKER) 4.63 M/ L 4.63-6.08 (test code = 761) HEMOGLOBIN (BEAKER) (test code = 13.2 GM/DL 13.7-17.5 L 410) HEMATOCRIT (BEAKER) (test code = 41.4 % 40.1-51.0 411) MEAN CORPUSCULAR VOLUME (BEAKER) 89.4 fL 79.0-92.2 (test code = 753) MEAN CORPUSCULAR HEMOGLOBIN 28.5 pg 25.7-32.2 (BEAKER) (test code = 751) MEAN CORPUSCULAR HEMOGLOBIN CONC 31.9 GM/DL 32.3-36.5 L (BEAKER) (test code = 752) RED CELL DISTRIBUTION WIDTH 14.2 % 11.6-14.4 (BEAKER) (test code = 412) PLATELET COUNT (BEAKER) (test 263 K/CU MM 150-450 code = 756) MEAN PLATELET VOLUME (BEAKER) 8.8 fL 9.4-12.4 L (test code = 754) NUCLEATED RED BLOOD CELLS 0 /100 WBC 0-0 (BEAKER) (test code = 413) CALCIUM, [id number] 07:01:00 Test Item Value Reference Range Interpretation Comments CALCIUM IONIZED (BEAKER) (test 1.20 mmol/L 1.12-1.27 code = 698) PH, BLOOD (BEAKER) (test code = 7.37 1810) [id number] 06:56:00 Test Item Value Reference Range Interpretation Comments PHOSPHORUS (BEAKER) (test code = 5.4 mg/dL 2.3-4.7 H 604) [id number] 06:56:00 Test Item Value Reference Range Interpretation Comments MAGNESIUM (BEAKER) (test code = 2.2 mg/dL 1.6-2.6 627) BASIC METABOLIC [id number] 06:56:00 Test Item Value Reference Range Interpretation Comments SODIUM (BEAKER) 141 meq/L 136-145 (test code = 381) POTASSIUM (BEAKER) 3.8 meq/L 3.5-5.1 (test code = 379) CHLORIDE (BEAKER) 106 meq/L 98-107 (test code = 382) CO2 (BEAKER) (test 28 meq/L 22-29 code = 355) BLOOD UREA NITROGEN 12 mg/dL 7-21 (BEAKER) (test code = 354) CREATININE (BEAKER) 0.98 mg/dL 0.57-1.25 (test code = 358) GLUCOSE RANDOM 97 mg/dL 70-105 (BEAKER) (test code = 652) CALCIUM (BEAKER) 9.0 mg/dL 8.4-10.2 (test code = 697) EGFR (BEAKER) (test 112 mL/min/1.73 ESTIM ATED GFR IS code = 1092) sq m NOT ACCURATE CREATININE CLEARANCE IN PREDICTING GLOMERULAR FILTRATION RATE . ESTIMATED GFR I S NOT APPLICABLE FOR DIALYSIS PATIEN TS. [id number] 06:30:00 Test Item Value Reference Range Interpretation Comments PROTIME (BEAKER) (test code = 12.8 seconds 11.9-14.2 759) INR (BEAKER) (test code = 370) 1.0 <=5.9 PARTIAL THROMBOPLASTIN TIME 30.5 seconds 22.5-36.0 (BEAKER) (test code = 760) Effective 08/31/2018: PT Reference Range ChangeNew: 11.9-14.2 Previous: 11.7- 14.7RECOMMENDED COUMADIN/WARFARIN INR THERAPY RANGESSTANDARD DOSE: 2.0-3.0 Includes: PROPHYLAXIS for venous thrombosis, systemic embolization; TREATMENT for venous thrombosis and/or pulmonary embolus.HIGH RISK: Target INR is2.5-3.5 for patients wiht mechanical heart valves.PROTHROMBIN [id number] 06:29:00 Test Item Value Reference Range Interpretation Comments PROTIME (BEAKER) (test code = 12.8 seconds 11.9-14.2 759) INR (BEAKER) (test code = 370) 1.0 <=5.9 Effective 08/31/2018: PT Reference Range ChangeNew: 11.9-14.2 Previous: 11.7- 14.7RECOMMENDED COUMADIN/WARFARIN INR THERAPY RANGESSTANDARD DOSE: 2.0-3.0 Includes: PROPHYLAXIS for venous thrombosis, systemic embolization; TREATMENT for venous thrombosis and/or pulmonary embolus.HIGH RISK: Target INR is2.5-3.5 for patients wiht mechanical heart valves.CBC (HEMOGRAM ONLY)2018-10-19 06:21:00 Test Item Value Reference Range Interpretation Comments WHITE BLOOD CELL COUNT (BEAKER) 5.5 K/ L 3.5-10.5 (test code = 775) RED BLOOD CELL COUNT (BEAKER) 4.47 M/ L 4.63-6.08 L (test code = 761) HEMOGLOBIN (BEAKER) (test code = 12.9 GM/DL 13.7-17.5 L 410) HEMATOCRIT (BEAKER) (test code = 39.7 % 40.1-51.0 L 411) MEAN CORPUSCULAR VOLUME (BEAKER) 88.8 fL 79.0-92.2 (test code = 753) MEAN CORPUSCULAR HEMOGLOBIN 28.9 pg 25.7-32.2 (BEAKER) (test code = 751) MEAN CORPUSCULAR HEMOGLOBIN CONC 32.5 GM/DL 32.3-36.5 (BEAKER) (test code = 752) RED CELL DISTRIBUTION WIDTH 14.2 % 11.6-14.4 (BEAKER) (test code = 412) PLATELET COUNT (BEAKER) (test 283 K/CU MM 150-450 code = 756) MEAN PLATELET VOLUME (BEAKER) 9.0 fL 9.4-12.4 L (test code = 754) NUCLEATED RED BLOOD CELLS 0 /100 WBC 0-0 (BEAKER) (test code = 413) CALCIUM, [id number] 05:32:00 Test Item Value Reference Range Interpretation Comments CALCIUM IONIZED (BEAKER) (test 1.20 mmol/L 1.12-1.27 code = 698) PH, BLOOD (BEAKER) (test code = 7.38 1810) COMPREHENSIVE METABOLIC [id number] 21:28:00 Test Item Value Reference Range Interpretation Comments TOTAL PROTEIN 7.4 gm/dL 6.0-8.3 Specimen sligh tly (BEAKER) (test code = hemoly zed 770) ALBUMIN (BEAKER) 4.5 g/dL 3.5-5.0 Specimen sl ightly (test code = 1145) hemolyzed ALKALINE PHOSPHATASE 64 U/L 40-150 (BEAKER) (test code = 346) BILIRUBIN TOTAL 0.7 mg/dL 0.2-1.2 Specimen sli ghtly (BEAKER) (test code = hemoly zed 377) SODIUM (BEAKER) (test 140 meq/L 136-145 code = 381) POTASSIUM (BEAKER) 3.8 meq/L 3.5-5.1 Specimen slightly (test code = 379) hemolyzed CHLORIDE (BEAKER) 104 meq/L 98-107 (test code = 382) CO2 (BEAKER) (test 28 meq/L 22-29 code = 355) BLOOD UREA NITROGEN 11 mg/dL 7-21 (BEAKER) (test code = 354) CREATININE (BEAKER) 1.02 mg/dL 0.57-1.25 Specimen slightly (test code = 358) hemolyzed GLUCOSE RANDOM 98 mg/dL 70-105 (BEAKER) (test code = 652) CALCIUM (BEAKER) 9.7 mg/dL 8.4-10.2 (test code = 697) AST (SGOT) (BEAKER) 21 U/L 5-34 Specimen slightly (test code = 353) hemolyzed ALT (SGPT) (BEAKER) 28 U/L 6-55 Specimen slightly (test code = 347) hemolyzed EGFR (BEAKER) (test 107 ESTIMATE D GFR IS code = 1092) mL/min/1.73 sq NOT ACCURA TE m CREATININE CLEARANCE IN PREDICTING GLOMERULAR FILTRATION RATE . ESTIMATED GFR I S NOT APPLICABLE FOR DIALYSIS PATIEN TS. [id number] 21:24:00 Test Item Value Reference Range Interpretation Comments PARTIAL THROMBOPLASTIN TIME 30.5 seconds 22.5-36.0 (BEAKER) (test code = 760) PROTHROMBIN [id number] 21:23:00 Test Item Value Reference Range Interpretation Comments PROTIME (BEAKER) (test code = 13.5 seconds 11.9-14.2 759) INR (BEAKER) (test code = 370) 1.1 <=5.9 Effective 08/31/2018: PT Reference Range ChangeNew: 11.9-14.2 Previous: 11.7- 14.7RECOMMENDED COUMADIN/WARFARIN INR THERAPY RANGESSTANDARD DOSE: 2.0-3.0 Includes: PROPHYLAXIS for venous thrombosis, systemic embolization; TREATMENT for venous thrombosis and/or pulmonary embolus.HIGH RISK: Target INR is2.5-3.5 for patients wiht mechanical heart valves.CBC (HEMOGRAM ONLY)2018-10-18 21:14:00 Test Item Value Reference Range Interpretation Comments WHITE BLOOD CELL COUNT (BEAKER) 6.7 K/ L 3.5-10.5 (test code = 775) RED BLOOD CELL COUNT (BEAKER) 4.58 M/ L 4.63-6.08 L (test code = 761) HEMOGLOBIN (BEAKER) (test code = 13.2 GM/DL 13.7-17.5 L 410) HEMATOCRIT (BEAKER) (test code = 40.0 % 40.1-51.0 L 411) MEAN CORPUSCULAR VOLUME (BEAKER) 87.3 fL 79.0-92.2 (test code = 753) MEAN CORPUSCULAR HEMOGLOBIN 28.8 pg 25.7-32.2 (BEAKER) (test code = 751) MEAN CORPUSCULAR HEMOGLOBIN CONC 33.0 GM/DL 32.3-36.5 (BEAKER) (test code = 752) RED CELL DISTRIBUTION WIDTH 14.0 % 11.6-14.4 (BEAKER) (test code = 412) PLATELET COUNT (BEAKER) (test 285 K/CU MM 150-450 code = 756) MEAN PLATELET VOLUME (BEAKER) 8.8 fL 9.4-12.4 L (test code = 754) NUCLEATED RED BLOOD CELLS 0 /100 WBC 0-0 (BEAKER) (test code = 413)
--- OUTSIDE RECORDS SUMMARY | 2020-01-22 11:17 | XMS REPORT | Summary of Care ---
:1990 Author Organization [facility] Address [address] [place] [id number] Care Team Providers Name Role Phone Pcp, Patient Does Not Have A Primary Care Provider +[id number] 0-0000 Reason for Referral (Routine) Status Reason Specialty Diagnoses / Referred By Referred To Procedures Contact Contact New Request IM-CARDIOVASCULA Diagnoses Chest pain, unspecified type Tin Davis R DISEASE Procedures Discharge Follow-Up: Specialty Service IM-CARDIOVASCULAR DISEASE; [address] [place] [phone] (Routine) Status Reason Specialty Diagnoses / Referred By Referred To Procedures Contact Contact New Request Echocardiograph Diagnoses Chest pain, unspecified type Elkin Villanueva, Procedures ECHO ROUTINE W/DOPPLER COLOR [address] [place] [phone] MRI/CAT Scan (STAT) Status Reason Specialty Diagnoses / Referred By Referred To Procedures Contact Contact New Request Diagnostic Diagnoses Chest pain, unspecified type Ronn Jurado Radiology Procedures CT CHEST PULMONARY ANGIOGRAM G, AMBULANCE DRIVER PARAMEDIC [address] [place] [phone] Radiology Services (STAT) Status Reason Specialty Diagnoses / Referred By Referred To Procedures Contact Contact New Request Diagnostic Diagnoses Chest pain, unspecified type Ld Preciado, Radiology Procedures XR CHEST [address] [place] [id number] Reason for Visit Reason Comments Chest Pain Auth/Cert Status Reason Specialty Diagnoses / Referred By Referred To Procedures Contact Contact Emergency Medicine [facility] Em ergency Dept [address] [place] [address] Fax: Encounter Details Date Type Department Care Team Description 12/02/2019 - Emergency ADC Medicine Surgery Trinity Jurado ala, AMBULANCE DRIVER PARAMEDIC [address] [facility] [id number] [place] [address] Chest pain, rule out 12/04/2019 Unit Elkin Villanueva MD [address] [place] [phone] acute myocardial 132 [facility] crystal [place], [place] [id number] Allergies No Known Allergiesdocumented as of this encounter (statuses as of 12/04/2019) Medications Medication Sig Dispensed Refills Start Date End Date Status metoprolol tartrate 100 Take 1 tablet by 60 tablet 6 0 Active mg tabletIndications: mouth 2 (two) Ascending aortic times daily. aneurysm ketorolac 10 mg Take 1 tablet by 20 tablet 0 12/04/2019 Active tabletIndications: mouth every 6 Chest pain, unspecified (six) hours as type needed for Pain (scale 4-6). traMADoL 50 mg Take 1 tablet by 12 tablet 0 12/04/2019 Active tabletIndications: mouth every 6 acute pain (six) hours as needed for Pain (scale 7-10). 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 Essential hypertension 12/03/2019 Chest pain, rule out acute myocardial infarction 12/01 Leg pain 07/10/2019 E44.1 Mild protein-calorie malnutrition 06/23/2019 Morbid obesity with body mass index of 40.0-49.9 06/15 Obesity (BMI 30-39.9) 05/31/2019 Ascending aortic aneurysm 05/31/2019 Thoracic ascending aortic aneurysm 05/31/2019 Overview: Added automatically from request for alejandro davis [id number] documented as of this encounter (statuses as of 12/04/2019) Social History Tobacco Use Types Packs/Day Years Used Date Never Smoker Smokeless Tobacco: Never Used Sex Assigned at Date Recorded Not on file COVID-19 Exposure Response Date Recorded In the last month, have you been in contact with No / Unsure 12/02/2019 7:24 PM CDT someone who was confirmed or suspected to have Coronavirus / COVID-19? documented as of this encounter Last Filed Vital Signs Vital Sign Reading Time Taken Comments Blood Pressure 123/70 12/04/2019 3:51 PM CDT Pulse 58 12/04/2019 3:51 PM CDT Temperature 36.2 C (97.1 F) 12/04/2019 3:51 PM CDT Respiratory Rate 16 12/04/2019 3:51 PM CDT Oxygen Saturation 100% 12/04/2019 3:51 PM CDT Inhaled Oxygen Concentration - - Weight 127.5 kg (281 lb 1 oz) 12/04/2019 4:08 AM CDT Height 188 cm (6' 2") 12/02/2019 11:30 PM CDT Body Mass Index 36.09 12/02/2019 11:30 PM CDT documented in this encounter Discharge Instructions AttachmentsThe following attachments cannot be sent through Care Everywhere. Ketorolac tablets (Czech)Tramadol tablets (Czech)Chest Pain, Uncertain Cause (Czech)documented in this encounter Progress Notes Annabelle Gifford MD - 12/04/2019 9:30 AM CDT [facility] Cardiology progress note Date of Service: 12/04/2019 Brice Polk is a 29 years old male hospitalized for chest pain. Less chest pain. PHYSICAL EXAM Vitals: 12/04/19 0002 12/04/19 0319 12/04/19 0408 12/04/19 0740 BP: 134/78 114/62 125/76 Pulse: 58 54 51 Resp: 18 16 16 Temp: 35.4 C (95.7 F) 35 C (95 F) 35.9 C (96.7 F) TempSrc: Temporal Artery Temporal Artery Temporal Artery SpO2: 99% 100% 100% Weight: 127.5 kg (281 lb) 127.5 kg (281 lb 1 oz) Height: General: alert and oriented x 3 (person, place and date/time); no apparent distress, obese HEENT: normocephalic atraumatic Neck: supple, no lymphadenopathy, no bruits, no JVD Lungs: clear to auscultation bilaterally Cardio: S1, S2, normal rate, regular; no murmurs, rubs or gallops Abdomen: non-distended : not examined Rectal: not examined Extremities: no clubbing, cyanosis, or edema Skin: no rashes Neuro: no focal deficits Medications: I have reviewed the patient's medications; see Medication Reconciliation. Labs: I have reviewed the patient's labs. ASSESSMENT AND PLAN Principal Problem: Chest pain, rule out acute myocardial infarction Active Problems: Obesity (BMI 30-39.9) Ascending aortic aneurysm Transposition of great arteries Essential hypertension Chest pain--Non anginal. Suspect musculoskeletal. The course does not suggest Sagar syndrome. ESRnormal. CRP pending. ECHO to assess LVEF and pericardial disease. Consider NSAIDs or other pain medications. D-TGA s/p arterial switch surgery Ascending aortic aneurysm s/p repair HTN--controlled with metoprolol. Obesity--diet, exercise and weight loss. Annabelle Gifford MD, [facility] [place] Culture Room Worker, Division of Cardiology [facility] [place] [facility] - 12/04/2019 9:14 AM CDTSubjective Patient ID: Brice Polk is a 29 year old male. Care Management Social Functional Assessment Patient Name: Brice Polk Age: [age] year old Sex: male Patient's Previous Admission Date at [facility]: 07/10/2019 Current diagnosis and co-morbidities: Chest pain Readmission Questions: Was patient discharged from any acute care hospital within the last 30 days: No Social Functional Assessment: Primary language spoken/preferred: Czech Mental Status: Alert & Oriented to Person,Place & Time Information given by: Self Patient's support system: Other Name and number of support system: milagros Wilkinson other [phone] Primary Wildlife Control Operator: Self MPOA: No Living Arrangement: Apartment Address of living arrangement : [facility] [id number] [facility] [id number] Persons living in home: Self;Other Barriers to returning home: None Baseline functional status- ambulation: Independent Functional status-baseline personal care: Independent Baseline functional status- driving: Independent Baseline functional status- grocery shopping: Independent Functional status-baseline housekeeping: Independent Functional status-baseline meal prep: Independent Current functional status same as prior: Yes Do you have a PCP?: Yes Name of PCP: Clinic in [facility] Health Care Agency: No Provider Services: No DME Company: No Equipment: None Hemodialysis: No Community resources utilized: None Funding Resources: Self Pay Prescription coverage plan: Self Pay Pharmacy where meds are filled: Other [facility] [place] Anticipated services prior to disharge: Continue Medical Eval Additional Recommendations for DC: Medical clearance Additional info required for discharge planning: Pending medical evaluation Recommended discharge plan: Home SFA Complete: Social Functional Assessment complete: Yes Alcohol Use Screening (AUDIT-C) How often do you have a drink containing alcohol?: Never SCORE: 0 Did patient elect to have resources provided: No Role of Care Management explained. Any issues or concerns with obtaining/affording your medications at home: no. Are you or your support system able to pickle water pump operator medications at discharge: yes. Review of Systems Objective Physical Exam Assessment/Plan Home with sig other CHARITO Chao Refrigerating Engineer - Care Management [facility] [phone] [email or web address] Abelino Brunner MD - 12/03/2019 1:09 PM CDT [facility] Medicine Progress Note Name: Brice Polk : 1990 Admit Date: 12/02/2019 PCP on file: PATIENT DOES NOTHAVE A PCP ASSESSMENT: Brice Polk is a 29 year old male with PLAN: # Chest pain - Trop neg. EKG showed no new ST-T change. CT angio no acute changes. Does have some TTP over prior surgical scar area. ESR normal - telemetry - pain control (toradol prn, morphine prn) - TTE tomorrow; check CRP - Cardio following # ascending aortic aneurysm -s/p repair 06/22 -Metoprolol bid # htn -metoprolol bid Dispo: home possibly tomorrow VTE Prophylaxis: Lovenox Code Status: [facility] SENIOR TALENT ACQUISITION SPECIALIST was verified during stay Electronically signed by: Abelino Ochoa MD SUBJECTIVE/ 24-HOUR HOSPITAL EVENTS: 12/02: still has intermittent CP. OBJECTIVE: Vital signs range: Temp: [35.6 C (96 F)-37.4 C (99.3 F)] 36.6 C (97.8 F) Pulse: [58-86] 58 Resp: [16-28] 20 BP: (122-144)/(72-82) 122/72 Most recent vital signs: BP 122/72 | Pulse 58 | Temp 36.6 C (97.8 F) (Tympanic) | Resp 20 | Ht 6' 2" (1.88 m) | Wt 281 lb (127.5 kg) | SpO2 99% | BMI 36.08 kg/m I/O: No intake/output data recorded. PHYSICAL EXAM: General: alert and oriented x 4 (person, place, date/time and situation); no apparent distress; obese HEENT: pupils equal, round, reactive to light; extraocular movements intact; oropharynx clear; moistmucous membranes Neck: supple, no lymphadenopathy, no bruits, no JVD Lungs: clear to auscultation bilaterally Cardio: S1, S2 normal; no murmurs, rubs or gallops Abdomen: soft; non-tender; non-distended; normoactive bowel sounds Extremities: no clubbing, cyanosis, or edema Skin: no rashes Neuro: cranial nerves II through XII grossly intact; sensation grossly intact; muscle strength 5 outof 5 in all four extremities, no focal deficits, alert and oriented x 3 LABS: I reviewed all the relevant patient's new lab test results Recent Results (from the past 24 hour(s)) TROPONIN I Collection Time: 12/02/19 7:42 PM Result Value Ref Range TROPONIN I <0.012 <=0.034 ng/mL aPTT Collection Time: 12/02/19 7:42 PM Result Value Ref Range APTT Patient 28 23 - 38 Seconds PROTHROMBIN TIME / INR Collection Time: 12/02/19 7:42 PM Result Value Ref Range PROTIME PATIENT 12.6 12.0 - 14.7 Seconds INR 1.0 COMP. METABOLIC PANEL (12490) Collection Time: 12/02/19 7:42 PM Result Value Ref Range NA 137 135 - 145 mmol/L K 3.7 3.5 - 5.0 mmol/L CL 109 (H) 98 - 108 mmol/L CO2 TOTAL 22 (L) 23 - 31 mmol/L AGAP 6 2 - 16 BUN 16 7 - 23 mg/dL GLUCOSE 111 (H) 70 - 110 mg/dL CREATININE 0.87 0.60 - 1.25 mg/dL TOTAL BILI 0.3 0.1 - 1.1 mg/dL CALCIUM 9.1 8.6 - 10.6 mg/dL T PROTEIN 7.1 6.3 - 8.2 g/dL ALBUMIN 4.2 3.5 - 5.0 g/dL ALK PHOS 69 34 - 122 U/L ALTv 20 5 - 50 U/L AST(SGOT) 22 13 - 40 U/L eGFR Calculation (Non-) 105.3 mL/min/1.73m2 eGFR Calculation () 127.6 mL/min/1.73m2 LIPASE, SERUM Collection Time: 12/02/19 7:42 PM Result Value Ref Range LIPASE 59 0 - 220 U/L CBC WITH DIFF Collection Time: 12/02/19 7:42 PM Result Value Ref Range WBC 6.73 4.20 - 10.70 10*3/L RBC 4.38 4.26 - 5.52 10*6/L HGB 12.6 12.2 - 16.4 g/dL HCT 36.4 (L) 38.4 - 49.3 % MCV 83.1 81.7 - 95.6 fL MCH 28.8 26.1 - 32.7 pg MCHC 34.6 31.2 - 35.0 g/dL RDW-SD 47.8 38.5 - 51.6 fL RDW-CV 15.9 (H) 12.1 - 15.4 % PLT 229 150 - 328 10*3/L MPV 8.8 (L) 9.8 - 13.0 fL NRBC/100 WBC 0.0 0.0 - 10.0 /100 WBCs NRBC x10^3 <0.01 10*3/L GRAN MAT (NEUT) % 65.3 % IMM GRAN % 0.10 % LYMPH % 23.5 % MONO % 9.5 % EOS % 1.3 % BASO % 0.3 % GRAN MAT x10^3(ANC) 4.39 1.99 - 6.95 10*3/uL IMM GRAN x10^3 <0.03 0.00 - 0.06 10*3/uL LYMPH x10^3 1.58 1.09 - 3.23 10*3/uL MONO x10^3 0.64 0.36 - 1.02 10*3/uL EOS x10^3 0.09 0.06 - 0.53 10*3/uL BASO x10^3 <0.03 0.01 - 0.09 10*3/uL N-TERMINAL PRO-BNP Collection Time: 12/02/19 7:42 PM Result Value Ref Range NT-proBNP 233 (H) <=125 pg/mL COVID-19 (ID NOW RAPID TESTING) Collection Time: 12/02/19 9:51 PM Specimen: NASOPHARYNGEAL SWAB Result Value Ref Range SARS-CoV-2 Rapid ID NOW Not Detected Not Detected TROPONIN I Collection Time: 12/02/19 11:06 PM Result Value Ref Range TROPONIN I <0.012 <=0.034 ng/mL SEDIMENTATION RATE Collection Time: 12/03/19 3:56 AM Result Value Ref Range ESR 6 0 - 10 mm/HR TROPONIN I Collection Time: 12/03/19 3:56 AM Result Value Ref Range TROPONIN I <0.012 <=0.034 ng/mL IMAGING: I reviewed all the relevant patient's new radiology test results Hospital Encounter on 12/02/19 CT CHEST PULMONARY ANGIOGRAM Narrative PROCEDURE: CT ANGIO CHEST WITH CONTRAST - PE PROTOCOL CLINICAL INDICATION: Shortness of breath history of AAA repair, and covid + COMPARISON: CT chest on 06/25/2019 TECHNIQUE: Helical CT was performed and reconstructed at 1.25 mm slice thickness from lung base to apices after the administration of 120 mL Omnipaque-350 intravenous contrast, without complication. Display field of view: 40 cm. FINDINGS: PULMONARY ARTERIES: Status post D-TGA repair. Evaluation of the distal lobar, segmental, and subsegmental branches is limited due to suboptimal contrast opacification and respiratory motion artifact. No acute central pulmonary embolism noted to the level of the distal lobar branches. CHEST: Lower neck/thyroid: Unremarkable. Lungs: Interval resolution of the groundglass and airspace opacities noted on the prior CT. Minimal linear densities in the right middle lobe and left lower lobe likely represent areas of subsegmental atelectasis. * Solid 0.4 cm nodule along the minor fissure (7:147) represents a fissural node. * Solid 0.6 cm nodule is noted in the left lower lobe (7:244). * Solid 0.6 cm subpleural nodule within the right lower lobe (7:173) * Solid 3 mm nodule within perifissural right lower lobe (3:174). Central airway: 6 mm tracheal diverticulum (7:40). Central airways are patent. Pleura: No pleural effusion, thickening or pneumothorax. Thoracic aorta and great vessels: Postsurgical changes of arterial switch procedure are noted for correction of the D-transportation of great arteries. Aneurysmal dilation of the ascending aorta is stable compared to prior exams measuring 4.9 x 4.3 cm. Heart and pericardium: Postsurgical changes of arterial switch procedure. No detectable coronary arterial calcification. Minimal aortic annular calcification. Lymph nodes: No enlarged thoracic lymph nodes. Mediastinum: Unremarkable. Thoracic spine and chest wall: Unremarkable, with normal thoracic vertebral body heights. Changes of median sternotomy, nonunited. Other Lines/Tubes/Devices/Hardware: None Visualized upper abdomen: Small fat-containing epigastric hernia is noted. No sliding-type hiatal hernia. The visualized upper abdomen is otherwise unremarkable. Impression 1. No acute pulmonary embolism to the level of the lobar branches. Evaluation of the segmental and subsegmental branches is limited due to suboptimal opacification and respiratory motion artifact. 2. Interval near-complete resolution of bilateral groundglass and airspace opacities compared to the prior exam with scattered nodules and areas of subsegmental atelectasis. Follow to resolution. 3. Postsurgical changes of arterial switch procedure for correction of the D-transportation of great arteries with stable aneurysmal dilation of the ascending aorta measuring 4.9 x 4.3 cm. 4. Small fat-containing epigastric ventral hernia. Preliminary Report Dictated by Resident: Keanu Bragg MD., have reviewed this study and agree with the above report. XR CHEST 1 VW Narrative EXAM: XR CHEST 1 VW HISTORY: 29 years-old; Male; Chest pain COMPARISON: 07/02/2019 radiograph FINDINGS: Lungs/Pleura: Mild interstitial prominence with central vascular congestion. No focal consolidation. There is no pleural effusion or pneumothorax. Heart/Mediastinum: The cardiomediastinal silhouette is normal to borderline enlarged. Changes of median sternotomy are noted. No acute osseous structure abnormality. Impression Mild interstitial prominence with central vascular congestion. Findings are nonspecific but may represent small degree of interstitial edema. Atypical infection can have similar appearance. No focal consolidation. Preliminary Report Dictated by Resident: Keanu Longoria MD., have reviewed this study and agree with the above report. MEDICATIONS: I reviewed the current inpatient medications ordered Current Facility-Administered Medications Medication Dose Route Frequency Last Rate Last Dose acetaminophen (TYLENOL) tablet 650 mg 650 mg Oral Q6HPRN enoxaparin (LOVENOX) injection 40 mg 40 mg Subcutaneous DAILY 40 mg at 12/03/19 0848 metoprolol tartrate (LOPRESSOR) tablet 100 mg 100 mg Oral BID 100 mg at 12/03/19 0848 morpHINE injection 2 mg 2 mg Slow IV Push Q4HPRN 2 mg at 12/03/19 1223 documented in this encounter H&P Notes Elkin Villanueva MD - 12/02/2019 11:49 PM CDT MEDICINE H&P Date of Service: 12/02/2019 CHIEF COMPLAINT: Chest pain History of Present Illness 29 y/o male, pmh of transposition of great vessels (s/p surgery at [facility]), ascending aortic aneurysm (s/p repair 06/22 which was complicated by a right femoral disection), htn, covid recently (currently negative), who presents due to chest pain. States since his aneurysm repair he had intermittent substernal chest pain, variable can be sharp or pressure, at time on exertion or rest, and time with increased breathing, and on occasional associated with mild sob. Denied pnd/orthonea/leg swelling, syncope. PAST MEDICAL HISTORY Past Medical History: Diagnosis Date History of aortic aneurysm repair History of open heart surgery Past Surgical History: Procedure Laterality Date ANGIOPLASTY Right 06/05/2019 Surgeon: Mathew Mosqueda Jr., MD; Location: [facility] AORTOGRAM N/A 06/05/2019 Surgeon: Mathew Mosqueda Jr., MD; Location: [facility] ARTERIOGRAM Right 06/05/2019 Surgeon: Mathew Mosqueda Jr., MD; Location: [facility] ASCENDING AORTIC ANEURYSM REPAIR N/A 06/13/2019 Surgeon: Isacc Chaudhari MD; Location: [facility] [place] CLOSURE SURGICAL WOUND CHEST (SHX) N/A 06/16/2019 Surgeon: Isacc Chaudhari MD; Location: [facility] REDO STERNOTOMY N/A 06/13/2019 Surgeon: Isacc Chaudhari MD; Location: [facility] family history -was reviewed and was [place] ALLERGIES No Known Allergies MEDICATIONS No current facility-administered medications on file prior to encounter. Current Outpatient Medications on File Prior to Encounter Medication Sig Dispense Refill metoprolol tartrate 100 mg tablet Take 1 tablet by mouth 2 (two) times daily. 60 tablet 6 SOCIAL HISTORY Social History Socioeconomic History Marital status: Single Spouse name: Not on file Number of children: Not on file Years of education: Not on file Highest education level: Not on file Occupational History Not on file Social Needs Financial resource strain: Not on file Food insecurity Worry: Not on file Inability: Not on file Transportation needs Medical: Not on file Non-medical: Not on file Tobacco Use Smoking status: Never Smoker Smokeless tobacco: Never Used Substance and Sexual Activity Alcohol use: Not on file Drug use: Not on file Sexual activity: Not on file Lifestyle Physical activity Days per week: Not on file Minutes per session: Not on file Stress: Not on file Relationships Social connections Talks on phone: Not on file Gets together: Not on file Attends advent service: Not on file Active member of club or organization: Not on file Attends meetings of clubs or organizations: Not on file Relationship status: Not on file Intimate partner violence Fear of current or ex partner: Not on file Emotionally abused: Not on file Physically abused: Not on file Forced sexual activity: Not on file Other Topics Concern Not on file Social History Narrative Not on file REVIEW OF SYSTEMS 10 point ros was asked which was neg except mentioned above PHYSICAL EXAMINATION Vitals: 12/02/19 2000 12/02/19 2100 12/02/19 2200 12/02/19 2300 BP: 129/72 129/74 (!) 140/80 135/75 Pulse: 82 78 75 74 Resp: 28 17 20 26 Temp: TempSrc: SpO2: 97% 99% 98% 98% Weight: Height: General: alert and oriented x 3 (person, place and date/time); no apparent distress HEENT: normocephalic atraumatic Neck: full range of motion Lungs: clear to auscultation bilaterally Cardio: regular rate and rhythm. TTP over scar area Abdomen: soft; non-tender; non-distended; normoactive bowel sounds : not examined Rectal: not examined Extremities: no clubbing, cyanosis, or edema Skin: no rashes Neuro: no focal deficits LABS - reviewed pertinent labs as below: CBC WBC (10*3/L) Date Value 12/02/2019 6.73 PLT (10*3/L) Date Value 12/02/2019 229 HGB (g/dL) Date Value 12/02/2019 12.6 HCT (%) Date Value 12/02/2019 36.4 (L) BMP NA (mmol/L) Date Value 12/02/2019 137 K (mmol/L) Date Value 12/02/2019 3.7 CALCIUM (mg/dL) Date Value 12/02/2019 9.1 CL (mmol/L) Date Value 12/02/2019 109 (H) BUN (mg/dL) Date Value 12/02/2019 16 CREATININE (mg/dL) Date Value 12/02/2019 0.87 GLUCOSE (mg/dL) Date Value 12/02/2019 111 (H) CO2 TOTAL (mmol/L) Date Value 12/02/2019 22 (L) IMAGING - reviewed, pertinent results as below: Ctpe: IMPRESSION 1. No acute pulmonary embolism to the level of the lobar branches. Evaluation of the segmental and subsegmental branches is limited due to suboptimal opacification and respiratory motion artifact. 2. Interval near-complete resolution of bilateral groundglass and airspace opacities compared to the prior exam with scattered nodules and areas of subsegmental atelectasis. Follow to resolution. 3. Postsurgical changes of arterial switch procedure for correction of the D-transportation of great arteries with stable aneurysmal dilation of the ascending aorta measuring 4.9 x 4.3 cm. 4. Small fat-containing epigastric ventral hernia. Cxr: Mild interstitial prominence with central vascular congestion. Findings are nonspecific but may represent small degree of interstitial edema. Atypical infection can have similar appearance. No focal consolidation. CHART REVIEW: pertinent information as below: ASSESSMENT/PLAN Brice Polk is a 29 year old male with PMH as listed above, admitted to the hospital with: Active Problems: Chest pain -seems atypical. Does have some TTP over prior surgical scar area Trop x [address] angio no acute changes Check ESR TTE, tele Cardio consulted ascending aortic aneurysm -s/p repair 06/22 Metoprolol bid htn -metoprolol bid Prophylaxis: DVT- lovenox Advanced Care Planning ( Z71.89): Discussed with patient I spent 16 minutes discussing the advance care plan Level of comfort: home surrgote decision maker: mother Code Status: Full Tobacco User Z 71.6 No Non Tobacco User Z78.9 No Measure 130 Current Medications Current Facility-Administered Medications: acetaminophen (TYLENOL) tablet 650 mg, 650 mg, Oral, Q6HPRN, Elkin Villanueva MD enoxaparin (LOVENOX) injection 40 mg, 40 mg, Subcutaneous, DAILY, Elkin Villanueva MD metoprolol tartrate (LOPRESSOR) tablet 100 mg, 100 mg, Oral, BID, Elkin Villanueva MD morpHINE injection 2 mg, 2 mg, Slow IV Push, Q4HPRN, Elkin Villanueva MD Measure 317 BP Readings from Last 1 Encounters: 12/02/19 (!) 144/81 [facility] was reviewed The above diagnosis and plan was discussed with the patient and was agreed upon Elkin Villanueva M.D. Internal Medicine Employee ID #: [id number] documented in this encounter Consult Notes Annabelle Gifford MD - 12/03/2019 2:58 PM CDTAssociated Order(s): CONSULT CARDIOLOGY [facility] Cardiology Consult PCP: PATIENT DOES NOT HAVE A PCP Date of Service: 12/03/2019 CHIEF COMPLAINT/reason for consult: chest pain HISTORY OF PRESENT ILLNESS This is a 29 year-old male with PMH D-type transposition of great arteries s/p surgery, ascending aortic aneurysm s/p repair in 2019, HTN and obesity etc. He was admitted to [facility] for chest pain. He seems to have had chest pain for a long time even before aneurysm repair in 06/2019. It is precordial chest pressure or sharp pain, non exertional, lasting mins or hrs, without radiation or associated symptoms, sometimes worse with deep breath, rate 7/10. EKG showed no acute changes. Troponin negative. PAST MEDICAL HISTORY Past Medical History: Diagnosis Date History of aortic aneurysm repair History of open heart surgery Past Surgical History: Procedure Laterality Date ANGIOPLASTY Right 06/05/2019 Surgeon: Mathew Mosqueda Jr., MD; Location: [facility] AORTOGRAM N/A 06/05/2019 Surgeon: Mathew Mosqueda Jr., MD; Location: [facility] Location ARTERIOGRAM Right 06/05/2019 Surgeon: Mathew Mosqueda Jr., MD; Location: [facility] Location ASCENDING AORTIC ANEURYSM REPAIR N/A 06/13/2019 Surgeon: Isacc Chaudhari MD; Location: [facility] Location CLOSURE SURGICAL WOUND CHEST (SHX) N/A 06/16/2019 Surgeon: Isacc Chaudhari MD; Location: [facility] Location REDO STERNOTOMY N/A 06/13/2019 Surgeon: Isacc Chaudhari MD; Location: [facility] Location No family history on file. ALLERGIES No Known Allergies MEDICATIONS No current facility-administered medications on file prior to encounter. Current Outpatient Medications on File Prior to Encounter Medication Sig Dispense Refill metoprolol tartrate 100 mg tablet Take 1 tablet by mouth 2 (two) times daily. 60 tablet 6 SOCIAL HISTORY Social History Socioeconomic History Marital status: Single Spouse name: Not on file Number of children: Not on file Years of education: Not on file Highest education level: Not on file Occupational History Not on file Social Needs Financial resource strain: Not on file Food insecurity Worry: Not on file Inability: Not on file Transportation needs Medical: Not on file Non-medical: Not on file Tobacco Use Smoking status: Never Smoker Smokeless tobacco: Never Used Substance and Sexual Activity Alcohol use: Not on file Drug use: Not on file Sexual activity: Not on file Lifestyle Physical activity Days per week: Not on file Minutes per session: Not on file Stress: Not on file Relationships Social connections Talks on phone: Not on file Gets together: Not on file Attends advent service: Not on file Active member of club or organization: Not on file Attends meetings of clubs or organizations: Not on file Relationship status: Not on file Intimate partner violence Fear of current or ex partner: Not on file Emotionally abused: Not on file Physically abused: Not on file Forced sexual activity: Not on file Other Topics Concern Not on file Social History Narrative Not on file REVIEW OF SYSTEMS General: (-) fever, (-) chills, (-) weight change, (-) dizziness, (-) fatigue Skin: (-) rash HEENT: (-) headache, (-) change in vision Neck: (-) difficulty swallowing Heme: negative Resp: (-) cough, (-) dyspnea on exertion Cardio: (+) chest pain, (-) palpitations, (-) syncope GI: (-) vomiting, (-) diarrhea : negative Endo: (-) diabetes, (-) thyroid disease Neuro: (-) numbness, (-) tingling, (-) weakness Back: (-) pain DANIE: (-) muscle pain, (-) claudication Psych: (-) anxiety, (-) depression PHYSICAL EXAMINATION Vitals: 12/03/19 0335 12/03/19 0740 12/03/19 0757 12/03/19 1130 BP: 123/79 126/78 122/72 Pulse: 62 67 58 Resp: 18 20 16 20 Temp: 35.6 C (96 F) 36.4 C (97.5 F) 36.6 C (97.8 F) TempSrc: Temporal Artery Tympanic Tympanic SpO2: 98% 100% 97% 99% Weight: 127.5 kg (281 lb) Height: Constitutional: alert and oriented x 3 (person, place and date/time); no apparent distress, obese ENT: normocephalic atraumatic, supple, no lymphadenopathy, no bruits, no JVD Lungs: clear to auscultation bilaterally Cardiovascular: S1, S2 normal, regular; no murmurs, rubs or gallops, + mild tenderness to palpation GI: soft; non-tender; non-distended; normoactive bowel sounds : not examined Musculoskeletal: Extremities: no clubbing, cyanosis, or edema Skin: no rashes Neuro: no focal deficits LABS - reviewed pertinent labs as below: CBC BMP PT/INR WBC (10*3/L) Date Value 12/02/2019 6.73 NA (mmol/L) Date Value 12/02/2019 137 No results found for: PT PLT (10*3/L) Date Value 12/02/2019 229 K (mmol/L) Date Value 12/02/2019 3.7 INR (no units) Date Value 12/02/2019 1.0 HGB (g/dL) Date Value 12/02/2019 12.6 BUN (mg/dL) Date Value 12/02/2019 16 HCT (%) Date Value 12/02/2019 36.4 (L) CREATININE (mg/dL) Date Value 12/02/2019 0.87 LIPID PROFILE GLUCOSE (mg/dL) Date Value 12/02/2019 111 (H) No results found for: CHOL TSH No results found for: LDL No results found for: TSH CARDIAC ENZYMES No results found for: HDL No results found for: CK No results found for: TRIG LFTs No results found for: CKMB AST(SGOT) (U/L) Date Value 12/02/2019 22 TROPONIN I (ng/mL) Date Value 12/03/2019 <0.012 ALTv (U/L) Date Value 12/02/2019 20 No results found for: BNP EKG: Sinus rhythm with IRBBB ASSESSMENT/PLAN Principal Problem: Chest pain, rule out acute myocardial infarction Active Problems: Obesity (BMI 30-39.9) Ascending aortic aneurysm Transposition of great arteries Essential hypertension Chest pain--Non anginal. Suspect musculoskeletal. The course does not suggest Sagar syndrome. Will check CRP and ESR. ECHO to assess LVEF and pericardial disease. Consider NSAIDs or other pain medications. D-TGA s/p arterial switch surgery Ascending aortic aneurysm s/p repair HTN--controlled with metoprolol. Obesity--diet, exercise and weight loss. Thank you for allowing us to participate in the care of your patient. Please feel free to contact usfor any questions or if we can be of further assistance. Annabelle Gifford MD, [facility] Culture Room Worker, Division of Cardiology [facility] documented in this encounter ED Notes Pallavi Rebollar RN - 12/02/2019 7:24 PM CDTPatient reports chest pain to the center of his chest onset a few weeks ago. Patient reports that the pain does not radiate. 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 No aggravating or alleviating factors, sometime with SOB sometimes not, no change with movement. He reports occasionally awakens from sleep, varying in intensity and character. He is 5 months post ascending aortic aneurysm with surgical repair. Complicated by right femoral discretion during AAA repair . Tested positive for Covid on 10/03/19 and negative on 10/17/19 Past Medical History Past Medical History: Diagnosis Date History of aortic aneurysm repair History of open heart surgery Past Surgical History Past Surgical History: Procedure Laterality Date ANGIOPLASTY Right 06/05/2019 Surgeon: Mathew Mosqueda Jr., MD; Location: [facility] Location AORTOGRAM N/A 06/05/2019 Surgeon: Mathew Mosqueda Jr., MD; Location: [facility] Location ARTERIOGRAM Right 06/05/2019 Surgeon: Mathew Mosqueda Jr., MD; Location: [facility] Location ASCENDING AORTIC ANEURYSM REPAIR N/A 06/13/2019 Surgeon: Isacc Chaudhari MD; Location: [facility] Location CLOSURE SURGICAL WOUND CHEST (SHX) N/A 06/16/2019 Surgeon: Isacc Chaudhari MD; Location: [facility] REDO STERNOTOMY N/A 06/13/2019 Surgeon: Isacc Chaudhari MD; Location: [facility] Medications Current Outpatient Medications Medication Instructions metoprolol tartrate (LOPRESSOR) 100 mg, Oral, BID Allergies No Known Allergies Review of Systems Review of Systems Eye: negative except as in HPI ENT: negative except as in HPI CV: negative except as in HPI Respiratory: negative except as in HPI GI: negative except as in HPI : negative except as in HPI Musculoskeletal: negative except as in HPI Skin: negative except as in HPI Neuro: negative except as in HPI Psych: negative except as in HPI Physical Exam BP 129/74 | Pulse 78 | Temp 37.4 C (99.3 F) (Oral) | Resp 17 | Ht 1.88 m (6' 2") | Wt 124.7kg (275 lb) | SpO2 99% | BMI 35.31 kg/m Physical Exam General: no acute distress, alert Head: normal, non-tender and no swelling Neck: normal inspection , non-tender, supple and trachea midline Cardiovascular: regular, rate, rhythm , heart sounds S1, S2,+ murmer , no gallop, no rub, pulses full/equal Respiratory: chest non-tender, no respiratory distress, clear to asculation Abdomen: soft, non- tender to palpation, no organomegaly, normal bowel sounds, no abdominal bruit and no pulsatile mass, no guarding, no rebound, no distention Back: non-tender, normal inspection and painless range of motion Skin: intact and warm, dry Extremities: atraumatic, (+) pulses equal, (-) limited range of motion, (-) swelling and (-) tenderness Neuro/Psych: alert, oriented x3, cooperative, interactive and mood/affect normal, cranial nerves grossly intact Labs and Studies Reviewed: No significant abnormality , troponin negative Recent Results (from the past 24 hour(s)) TROPONIN I Collection Time: 12/02/19 7:42 PM Result Value Ref Range TROPONIN I <0.012 <=0.034 ng/mL aPTT Collection Time: 12/02/19 7:42 PM Result Value Ref Range APTT Patient 28 23 - 38 Seconds PROTHROMBIN TIME / INR Collection Time: 12/02/19 7:42 PM Result Value Ref Range PROTIME PATIENT 12.6 12.0 - 14.7 Seconds INR 1.0 COMP. METABOLIC PANEL (67686) Collection Time: 12/02/19 7:42 PM Result Value Ref Range NA 137 135 - 145 mmol/L K 3.7 3.5 - 5.0 mmol/L CL 109 (H) 98 - 108 mmol/L CO2 TOTAL 22 (L) 23 - 31 mmol/L AGAP 6 2 - 16 BUN 16 7 - 23 mg/dL GLUCOSE 111 (H) 70 - 110 mg/dL CREATININE 0.87 0.60 - 1.25 mg/dL TOTAL BILI 0.3 0.1 - 1.1 mg/dL CALCIUM 9.1 8.6 - 10.6 mg/dL T PROTEIN 7.1 6.3 - 8.2 g/dL ALBUMIN 4.2 3.5 - 5.0 g/dL ALK PHOS 69 34 - 122 U/L ALTv 20 5 - 50 U/L AST(SGOT) 22 13 - 40 U/L eGFR Calculation (Non-) 105.3 mL/min/1.73m2 eGFR Calculation () 127.6 mL/min/1.73m2 LIPASE, SERUM Collection Time: 12/02/19 7:42 PM Result Value Ref Range LIPASE 59 0 - 220 U/L CBC WITH DIFF Collection Time: 12/02/19 7:42 PM Result Value Ref Range WBC 6.73 4.20 - 10.70 10*3/L RBC 4.38 4.26 - 5.52 10*6/L HGB 12.6 12.2 - 16.4 g/dL HCT 36.4 (L) 38.4 - 49.3 % MCV 83.1 81.7 - 95.6 fL MCH 28.8 26.1 - 32.7 pg MCHC 34.6 31.2 - 35.0 g/dL RDW-SD 47.8 38.5 - 51.6 fL RDW-CV 15.9 (H) 12.1 - 15.4 % PLT 229 150 - 328 10*3/L MPV 8.8 (L) 9.8 - 13.0 fL NRBC/100 WBC 0.0 0.0 - 10.0 /100 WBCs NRBC x10^3 <0.01 10*3/L GRAN MAT (NEUT) % 65.3 % IMM GRAN % 0.10 % LYMPH % 23.5 % MONO % 9.5 % EOS % 1.3 % BASO % 0.3 % GRAN MAT x10^3(ANC) 4.39 1.99 - 6.95 10*3/uL IMM GRAN x10^3 <0.03 0.00 - 0.06 10*3/uL LYMPH x10^3 1.58 1.09 - 3.23 10*3/uL MONO x10^3 0.64 0.36 - 1.02 10*3/uL EOS x10^3 0.09 0.06 - 0.53 10*3/uL BASO x10^3 <0.03 0.01 - 0.09 10*3/uL N-TERMINAL PRO-BNP Collection Time: 12/02/19 7:42 PM Result Value Ref Range NT-proBNP 233 (H) <=125 pg/mL Hospital Encounter on 12/02/19 CT CHEST PULMONARY ANGIOGRAM Narrative PROCEDURE: CT ANGIO CHEST WITH CONTRAST - PE PROTOCOL CLINICAL INDICATION: Shortness of breath history of AAA repair, and covid + COMPARISON: CT chest on 06/25/2019 TECHNIQUE: Helical CT was performed and reconstructed at 1.25 mm slice thickness from lung base to apices after the administration of 120 mL Omnipaque-350 intravenous contrast, without complication. Display field of view: 40 cm. FINDINGS: PULMONARY ARTERIES: Evaluation of the distal lobar, segmental, and subsegmental branches is limited due to suboptimal contrast opacification and respiratory motion artifact. No acute central pulmonary embolism noted to the level of the proximal lobar branches. CHEST: Lower neck/thyroid: Unremarkable. Lungs: Interval resolution of the groundglass and airspace opacities noted on the prior CT. Minimal linear densities in the right middle lobe and left lower lobe likely represent areas of subsegmental atelectasis. * A 0.4 cm nodule along the minor fissure (7:147) represents a fissural node. * A 0.6 cm nodule is noted in the left lower lobe (7:244). Central airway: Unremarkable. Pleura: No pleural effusion, thickening or pneumothorax. Thoracic aorta and great vessels: Postsurgical changes of arterial switch procedure are noted for correction of the D-transportation of great arteries. Aneurysmal dilation of the ascending aorta is stable compared to prior exams measuring 4.9 x 4.3 cm. Heart and pericardium: Postsurgical changes of arterial switch procedure. No detectable coronary arterial calcification. Minimal aortic annular calcification. Lymph nodes: No enlarged thoracic lymph nodes. Mediastinum: Unremarkable. Thoracic spine and chest wall: Unremarkable, with normal thoracic vertebral body heights. Changes of median sternotomy. Other Lines/Tubes/Devices/Hardware: None Visualized upper abdomen: Small fat-containing epigastric hernia is noted. The visualized upper abdomen is otherwise unremarkable. Impression 1. No acute pulmonary embolism to the level of the proximal lobar branches. Evaluation of the distal lobar, segmental, and subsegmental branches is limited due to suboptimal opacification and respiratory motion artifact. 2. Interval near-complete resolution of bilateral groundglass and airspace opacities compared to the prior exam with minimal residual nodularities and areas of subsegmental atelectasis. 3. Postsurgical changes of arterial switch procedure for correction of the D-transportation of great arteries with stable aneurysmal dilation of the ascending aorta measuring 4.9 x 4.3 cm. 4. Small fat-containing epigastric ventral hernia. Preliminary Report Dictated by Resident: Fern Alexander XR CHEST 1 VW Narrative EXAM: XR CHEST 1 VW HISTORY: 29 years-old; Male; Chest pain COMPARISON: 07/02/2019 radiograph FINDINGS: Lungs/Pleura: Mild interstitial prominence with central vascular congestion. No focal consolidation. There is no pleural effusion or pneumothorax. Heart/Mediastinum: The cardiomediastinal silhouette is normal to borderline enlarged. Changes of median sternotomy are noted. No acute osseous structure abnormality. Impression Mild interstitial prominence with central vascular congestion. Findings are nonspecific but may represent small degree of interstitial edema. Atypical infection can have similar appearance. No focal consolidation. Preliminary Report Dictated by Resident: Arie Marshall I, Keanu Theodore MD., have reviewed this study and agree with the above report. EKG:normal sinus rhythm QR pattern , q waves in leaded V1-V2 with inverted T waves in leads III, V1and VII. changed from prior Orders and Treatments Orders Placed This Encounter Procedures XR CHEST [address] CHEST PULMONARY ANGIOGRAM TROPONIN I aPTT PROTHROMBIN TIME / INR COMP. METABOLIC PANEL (84943) LIPASE, SERUM CBC WITH DIFF N-TERMINAL PRO-BNP COVID-19 (ID NOW RAPID TESTING) O2 Per Protocol Orders Placed This Encounter Medications FENTanyl PF (SUBLIMAZE (PF)) injection 75 mcg ketorolac (TORADOL) injection 30 mg iohexol (OMNIPAQUE 350 BULK-150 mL) injection 120 mL Notes Brice Polk is a 29 year old male with an extensive cardiac history who presents to ED with return of mid sternal chest pain , intermittently for the past month. No aggravating or alleviating factors, sometime with SOB sometimes not, no change with movement. He reports occasionally awakens from sleep, varying in intensity and character. He is 5 months post ascending aortic aneurysm with surgical repair. Complicated by right femoral discretion during AAA repair . Tested positive for Covid on 10/03/19 and negative on 10/17/19 Plan: XR CHEST [address] CHEST PULMONARY ANGIOGRAM TROPONIN I aPTT PROTHROMBIN TIME / INR COMP. METABOLIC PANEL (50620) LIPASE, SERUM CBC WITH DIFF N-TERMINAL PRO-BNP O2 Per Protocol FENTanyl PF (SUBLIMAZE (PF)) injection 75 mcg ketorolac (TORADOL) injection 30 mg [address] Villanueva who agrees to admit for observation to R/O ACS, discussed plan with patient and he agrees with plan Procedures Procedures EKG see above Diagnosis ICD-10-CM ICD-9-CM 1. Chest pain, unspecified type R07.9 786.50 2. Hypertension, unspecified type I10 401.9 3. Chest pain, rule out acute myocardial infarction R07.9 786.50 4. 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 October 2018: Chest pain. 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 CTS abandonment of originally planned aortic aneurysm repairsecondary to concerns of potential retrograde dissectionof aorta. 06/13/19: Redo sternotomy, ascending aorta aneurysm repair, reimplantation of LCA & RCA, takedownof Jr maneuver with division of PA, reconstruction of PA, right common femoral artery &vein cannulation. Delayed chest closure on 06/16/19. Postoperative course complicated by respiratory failure, persistent post-op fever, and multifocal pneumonia. Blood cultures negative. 06/22 COVID negative; flu negative. 07/03/19 Discharged. Patient Vitals for the past 24 hrs: BP Temp Temp src Pulse Resp SpO2 Height Weight 12/02/192099 129/74 78 17 99 % 12/02/191999 129/72 82 28 97 % 12/02/19 192 (!) 142/82 37.4 C (99.3 F) Oral 86 16 98 % 1.88 m (6' 2") 124.7 kg (275 lb) Disposition and Condition ED Disposition ED Disposition Condition Comment Admit - Observation Good Patients undergoing COVID-19 testing are cared for in a designated unit and care team. Is this patient being tested for COVID-19?: No Treatment Team: [facility] [[id number]] Primary reason for admission: Chest pain, rule out acute myocardial infarction [6 [id number]] Is (or was) this a planned re-admission?: No Ronn Jurado STEEL INSPECTOR- [facility] T976 Associated attestation - Ld Preciado MD - 12/04/2019 4:00 AM CDTOn the date of service, I reviewed the patients history, exam findings, diagnostic and any interventions or procedures in detail of the assigned advance practice provider and was available for consultation. Ld Preciado Jr., MD Clinical Culture Room Worker [facility] Emergency Department documented in this encounter Miscellaneous Notes Care Plan - Kary Billings RN - 12/04/2019 9:28 AM CDT Problem: Infection Risk Goal: Absence of infection Outcome: Progressing as expected Problem: Falls, Risk of Goal: Absence of falls Outcome: Progressing as expected Problem: Discharge Planning Goal: Absence of venous thromboembolism Outcome: Progressing as expected Goal: Adequate for discharge Outcome: Progressing as expected Goal: Effective communication Outcome: Progressing as expected Problem: Discharge Planning Goal: Absence of venous thromboembolism Outcome: Progressing as expected Goal: Adequate for discharge Outcome: Progressing as expected Goal: Adequate to move to next level of care Outcome: Progressing as expected Goal: Knowledge of medication management Outcome: Progressing as expected are Plan - Karen Erickson RN - 12/03/2019 11:37 PM CDT. are Plan - Kary Billings RN - 12/03/2019 11:09 AM CDT Problem: Infection Risk Goal: Absence of infection Outcome: Progressing as expected Problem: Falls, Risk of Goal: Absence of falls Outcome: Progressing as expected Problem: Discharge Planning Goal: Absence of venous thromboembolism Outcome: Progressing as expected Goal: Adequate for discharge Outcome: Progressing as expected Goal: Effective communication Outcome: Progressing as expected Problem: Discharge Planning Goal: Absence of venous thromboembolism Outcome: Progressing as expected Goal: Adequate for discharge Outcome: Progressing as expected Goal: Adequate to move to next level of care Outcome: Progressing as expected Goal: Knowledge of medication management Outcome: Progressing as expected are Plan - Karen Erickson RN - 12/03/2019 2:02 AM CDT. D Nurse Note - Nafisa Doan RN - 12/02/2019 11:13 PM CDTPatient admitted to [facility] ADC Medical surgical unit for diagnosis of chest pain. Patient agrees to admission, discussed plan of care with patient and family. Patient is awake, alert, oriented, resp reg unlabored, color appropriate for race, PIV intact. No adverse reaction to medications administered while in ED. Belongings with patient to unit. Report to Ayala ERNANDEZ. documented in this encounter Plan of Treatment Date Type Specialty Care Team Description 06/20/2020 Office Visit Thoracic Surgery [facility], Cardiovascu lar Health Maintenance Due Date Last Done Comments VARICELLA VACCINES (1 of 2 - 1993 2-dose childhood series) DTaP,Tdap,and Td Vaccines (1 - 09/22/2011 Tdap) INFLUENZA VACCINE (#1) 2019 Depression Screening 08/13/2020 08/14/2019 PNEUMOCOCCAL 0-64 YEARS COMBINED Aged Out No longer eligible based on SERIES patient's age to complete this topic documented as of this encounter Implants Implanted Type Area Office Equipment Mechanic Device Shelf Model / Identifier Expiration Serial / Lot Date Bard Roxane /2in X 4in #[id number] - [place] Left: Bard 10/31/2023 [id number] / Implanted: Qty: 2 on 06/13/2019 by Lj Arellano Jr., MD at [facility] Chest NA / [id number] Gelweave Woven Vascular Prosthesis 8mm X 15cm Terumo # [id number] - [id number] GRAFT N/A: Terumo 10/02/2021 [id number] / Implanted: Qty: 1 on 06/05/2019 by Isacc Ramon MD at [facility] Chest [id number] / NA Gelweave Woven Vascular Prosthesis 8mm X 15cm [employer]umo # [id number] - [id number] GRAFT Left: Terumo 11/02/2021 [id number] / Implanted: Qty: 1 on 06/13/2019 by Lj Arellano Jr., MD at [facility] Groin [id number] / [id number] 32mm Gelweave Graft GRAFT N/A: TERUMO 10/02/2020 [id number] / Implanted: Qty: 1 on 06/13/2019 by Isacc Ramon MD at [facility] Heart CARDIOVASCULAR [id number] / [id number] documented as of this encounter Procedures Procedure Name Priority Date/Time Associated Comments Diagnosis BASIC METABOLIC PANEL Routine 12/04/2019 3:25 Re sults for this (NA, K, CL, CO2, AM CDT procedure a re in GLUCOSE, BUN, the results CREATININE, CA) section. C-REACTIVE PROTEIN Routine 12/03/2019 4:24 Resul ts for this PM CDT procedure are i n the results section. SEDIMENTATION RATE Routine 12/03/2019 3:56 Resul ts for this AM CDT procedure are i n the results section. TROPONIN I Routine 12/03/2019 3:56 Results for this AM CDT procedure are i n the results section. TROPONIN I Routine 12/02/2019 11:06 Results for this PM CDT procedure are i n the results section. COVID-19 (ID NOW STAT 12/02/2019 9:51 Chest pain, Results for this RAPID TESTING) PM CDT unspecified type procedure are in the results section. CT CHEST PULMONARY STAT 12/02/2019 8:53 Chest pain, Resul ts for this ANGIOGRAM PM CDT unspecified type procedure a re in the results section. XR CHEST 1 VW STAT 12/02/2019 7:49 Chest pain, Results fo r this PM CDT unspecified type procedure a re in the results section. N-TERMINAL PRO-BNP STAT Add-On 12/02/2019 7:42 Chest pain, Resul ts for this PM CDT unspecified type procedure a re in the results section. ACTIVATED PARTIAL STAT 12/02/2019 7:42 Chest pain, Result s for this THRMPLAS CONY PM CDT unspecified type procedure a re in the results section. PROTHROMBIN TIME / STAT 12/02/2019 7:42 Chest pain, Resul ts for this INR PM CDT unspecified type procedure a re in the results section. CBC WITH DIFF STAT 12/02/2019 7:42 Chest pain, Results fo r this PM CDT unspecified type procedure a re in the results section. COMP. METABOLIC PANEL STAT 12/02/2019 7:42 Chest pain, Re sults for this (38096) PM CDT unspecified type procedure a re in the results section. TROPONIN I STAT 12/02/2019 7:42 Chest pain, Results for this PM CDT unspecified type procedure a re in the results section. LIPASE STAT 12/02/2019 7:42 Chest pain, Results for this PM CDT unspecified type procedure a re in the results section. EKG-12 LEAD STAT 12/02/2019 7:32 PM CDT CONSENT/REFUSAL FOR Routine 12/02/2019 7:21 DIAGNOSIS AND PM CDT TREATMENT documented in this encounter Results Basic Metabolic Panel (NA, K, CL, CO2, GLUCOSE, BUN, CREATININE, CA) (12/04/2019 3:25 AM CDT) [facility] NA 134 (L) 135 - 145 [facility] mmol/L [facility] K 3.6 3.5 - 5.0 [facility] mmol/L [facility] CL 105 98 - 108 mmol/L [facility] CO2 TOTAL 23 23 - 31 mmol/L [facility] AGAP 6 2 - 16 [facility] BUN 15 7 - 23 mg/dL [facility] GLUCOSE 88 70 - 110 mg/dL [facility] CREATININE 0.74 0.60 - 1.25 [facility] mg/dL [facility] CALCIUM 8.4 (L) 8.6 - 10.6 [facility] mg/dL [facility] eGFR Calculation 126.9 mL/min/1.73m2 [facility] ([facility]) eGFR Calculation 153.8 mL/min/1.73m2 [facility] () [facility] Specimen Blood - ARM, LEFT Narrative Performed At Association of Glomerular Filtration Rate (GFR) [facility] and Staging of Kidney Disease* + + +- + | GFR (mL/min/1.73 m2) | With Kidney Damage | Without Kidney Damage + + +- + | >90 | Stage one | Normal + + +- + | 60-89 | Stage two | Decreased GFR + + +- + | 30-59 | Stage three | Stage three + + +- + | 15-29 | Stage four | Stage four + + +- + | <15 (or dialysis) | Stage five | Stage five + + +- + *Each stage assumes the associated GFR level has been in effect for at least three months. Stages 1 to 5, with or without kidney disease, indicate chronic kidney disease. Notes: Determination of stages one and two (with eGFR >59mL/min/1.73 m2) requires estimation of kidney damage for at least three months as defined by structural or functional abnormalities of the kidney, manifested by either: Pathological abnormalities or Markers of kidney damage (including abnormalities in the composition of the blood or urine or abnormalities in imaging tests). Performing Organization Address City/[facility] Phone Number [facility] CLIA: [id number] [place] [address] C-REACTIVE PROTEIN (12/03/2019 4:24 PM CDT) Pathologist [facility] CRP 0.3 <0.8 mg/dL [facility] Specimen Blood - ARM, RIGHT Performing Organization Address [facility] Centercode Phone Number [facility] CLIA: [id number] [place] [address] [place] [address] SEDIMENTATION RATE (12/03/2019 3:56 AM CDT) Pathologist [facility] ESR 6 0 - 10 mm/HR [facility] Specimen Blood - ARM, LEFT Performing Organization Address [facility] Phone Number [facility] CLIA: [id number] [place] [address] TROPONIN I (12/03/2019 3:56 AM CDT) [facility] TROPONIN I <0.012 <=0.034 ng/mL [facility] Specimen Blood - ARM, LEFT Narrative Performed At Equal or Less than 0.034 ng/ml---Normal [facility] Note: Cardiac troponin begins to rise 3-4 hours after the onset of ischemia. Repeat in 4-6 hours if the sample was drawn within 3-4 hours of the onset of the symptom and found normal. Between 0.035 and 0.120 ng/mL--- Borderline. Questionable myocardial injury or necros is Note: Serial measurement may be necessary to confirm or exclude the diagnosis of myocardial injury or necrosis; Clinical correlation (symptoms, EKGs, imaging studies, and others) required; Repeat in 4-6 hours if clinically indicated. Equal or Higher than 0.121 ng/mL---Abnormal. Myocardial Injury or Necrosis Likely Biotin has been reported to cause a negative bias, interpret results relative to patient's use of biotin. Performing Organization Address [facility] Cent[facility]ode Phone Number [facility] CLIA: [id number] [place] [address] TROPONIN I (12/02/2019 11:06 PM CDT) Pathologist Sig nature TROPONIN I <0.012 <=0.034 ng/mL [facility] Specimen Blood - VENOUS Narrative Performed At Equal or Less than 0.034 ng/ml---Normal [facility] Note: Cardiac troponin begins to rise 3-4 hours after the onset of ischemia. Repeat in 4-6 hours if the sample was drawn within 3-4 hours of the onset of the symptom and found normal. Between 0.035 and 0.120 ng/mL--- Borderline. Questionable myocardial injury or necros is Note: Serial measurement may be necessary to confirm or exclude the diagnosis of myocardial injury or necrosis; Clinical correlation (symptoms, EKGs, imaging studies, and others) required; Repeat in 4-6 hours if clinically indicated. Equal or Higher than 0.121 ng/mL---Abnormal. Myocardial Injury or Necrosis Likely Biotin has been reported to cause a negative bias, interpret results relative to patient's use of biotin. Performing Organization Address City/[facility] Cent[facility]ode Phone Number [facility] CLIA: [id number] [place] [address] COVID-19 ([facility] NOW RAPID TESTING) (12/02/2019 9:51 PM CDT) SARS-CoV-2 Rapid ID Not Detected Not Detected [facility] Specimen Swab - NASOPHARYNGEAL SWAB Narrative Performed At ID NOW COVID-19 Assay is an isothermal nucleic [facility] acid amplification test intended for the qualitative detection of nucleic acid from SARS-CoV-2 viral RNA in nasopharyngeal ([employer]) specimens. It is used under Emergency Use Authorization (EUA) by FDA. The limit of detection (LOD) of the assay is 125 Genome Equivalents/mL. A positive result is indicative of the presence of SARS-CoV-2 RNA. Clinical correlation with patient history and other diagnostic information is necessary to determine patient infection status. A negative (Not Detected) result does not preclude SARS-CoV-2 infection. In patients with clinical symptoms and other tests that are consistent with SARS-CoV-2 infection, negative results should be treated as presumptive negative and a new specimen should be tested with alternative PCR molecular test. Invalid: Please collect a new specimen for repeat patient testing if clinically indicated. Performing Organization Address City/State/[facility] Cent[facility]ode Phone Number [facility] CLIA: [id number] [place] [address] CHEST PULMONARY ANGIOGRAM (12/02/2019 8:53 PM CDT) Specimen Impressions Performed At PACS/VR/DOSE 1. No acute pulmonary embolism to the level of the lobar branches. Evaluation of the segmental and subsegme ntal branches is limited due to suboptimal opacification and respiratory motion artifact. 2. Interval near-complete resolution of bilateral gr oundglass and airspace opacities compared to the prior exam wit h scattered nodules and areas of subsegmental atelectasis. Follow to reso lution. 3. 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 4. Small fat-containing epigastric corey tral hernia. Preliminary Report Dictated by Resident: Fern Alexander I, Keanu Theodore MD., have review ed this study and agree with the above report. Narrative Performed At PROCEDURE: CT ANGIO CHEST WITH CONTRAST - PE PROTOCOL PACS/VR/DOSE CLINICAL INDICATION: Shortness of breath history of AA A repair, and covid + COMPARISON: CT chest on 06/25/2019 TECHNIQUE: Helical CT was performed an d reconstructed at 1.25 mm slice thickness from lung base to apices after the administration of 120 mL Omnipaque-350 intravenous contrast, without complicati on. Display field of view: 40 cm. FINDINGS: PULMONARY ARTERIES: Status post D-TGA repair. Evaluation of the distal lobar, segmenta l, and subsegmental branches is limited due to suboptimal contrast opaci fication and respiratory motion artifact. No acute central pulmonary emb olism noted to the level of the distal lobar branches. CHEST: Lower neck/thyroid: Unremarkable. Lungs: Interval resolution of the groundglass and airs pace opacities noted on the prior CT. Minimal linear densities in the right middle lobe and left lower lobe likely represent areas of sub segmental atelectasis. * Solid 0.4 cm nodule along the minor fissure (7:147) represents a fissural node. * Solid 0.6 cm nodule is noted in the left lower lobe (7:244). * Solid 0.6 cm subpleural nodule withi n the right lower lobe (7:173) * Solid 3 mm nodule within perifissura l right lower lobe (3:174). Central airway: 6 mm tracheal diverticul um (7:40). Central airways are patent. Pleura: No pleural effusion, thickening or pneumothorax. Thoracic aorta and great vessels: Postsurgical changes of arterial switch procedure are noted for correction of th e D-transportation of great arteries. Aneurysmal dilation of the ascending aorta i s stable compared to prior exams measuring 4.9 x 4.3 cm. Heart and pericardium: Postsurgical changes of arteria l switch procedure. No detectable coronary arterial calcific ation. Minimal aortic annular calcification. Lymph nodes: No enlarged thoracic lymph nodes. Mediastinum: Unremarkable. Thoracic spine and chest wall: Unremarkable, with norm al thoracic vertebral body heights. Changes of median sternoto my, nonunited. Other Lines/Tubes/Devices/Hardware: None Visualized upper abdomen: Small fat-containing epigast estefanía hernia is noted. No sliding-type hiatal hernia. The visua lized upper abdomen is otherwise unremarkable. Procedure Note [facility], Radiant Results Inft User - 2019 11:10 PM CDT PROCEDURE: CT ANGIO CHEST WITH CONTRAST - PE PROTOCOL CLINICAL INDICATION: Shortness of breath history of AAA repair, and covid + COMPARISON: CT chest on 06/25/2019 TECHNIQUE: Helical CT was performed and reconstructed at 1.25 mm slice thickness from lung base to apices after the administration of 120 mL Omnipaque-350 intravenous contrast, with out complication. Display field of view: 40 cm. FINDINGS: PULMONARY ARTERIES: Status post D-TGA repair. Evaluation of the distal lobar, segmenta l, and subsegmental branches is limited due to suboptimal contrast opaci fication and respiratory motion artifact. No acute central pulmonary emb olism noted to the level of the distal lobar branches. CHEST: Lower neck/thyroid: Unremarkable. Lungs: Interval resolution of the ground glass and airspace opacities noted on the prior CT. Minimal linear densitie s in the right middle lobe and left lower lobe likely represent areas of sub segmental atelectasis. * Solid 0.4 cm nodule along the minor f issure (7:147) represents a fissural node. * Solid 0.6 cm nodule is noted in the l eft lower lobe (7:244). * Solid 0.6 cm subpleural nodule within the right lower lobe (7:173) * Solid 3 mm nodule within perifissural right lower lobe (3:174). Central airway: 6 mm tracheal diverticul um (7:40). Central airways are patent. Pleura: No pleural effusion, thickening or pneumothorax. Thoracic aorta and great vessels: Postsu rgical changes of arterial switch procedure are noted for correction of th e D-transportation of great arteries. Aneurysmal dilation of the asc ending aorta is stable compared to prior exams measuring 4.9 x 4.3 cm. Heart and pericardium: Postsurgical carrillo ges of arterial switch procedure. No detectable coronary arterial calcific ation. Minimal aortic annular calcification. Lymph nodes: No enlarged thoracic lymph nodes. Mediastinum: Unremarkable. Thoracic spine and chest wall: Unremarka ble, with normal thoracic vertebral body heights. Changes of median sternoto my, nonunited. Other Lines/Tubes/Devices/Hardware: None Visualized upper abdomen: Small fat-cont aining epigastric hernia is noted. No sliding-type hiatal hernia. The visua lized upper abdomen is otherwise unremarkable. IMPRESSION 1. No acute pulmonary embolism to the l evel of the lobar branches. Evaluation of the segmental and subsegme ntal branches is limited due to suboptimal opacification and respiratory motion artifact. 2. Interval near-complete resolution of bilateral groundglass and airspace opacities compared to the prior exam wit h scattered nodules and areas of subsegmental atelectasis. Follow to reso lution. 3. 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 4. Small fat-containing epigastric vent ral hernia. Preliminary Report Dictated by Resident: Keanu Bragg MD., have reviewe d this study and agree with the above report. Performing Organization Address City/State/Zipcode Phone Number PACS/VR/DOSE XR CHEST 1 VW (12/02/2019 7:49 PM CDT) Specimen Impressions Performed At PACS/VR/DOSE Mild interstitial prominence with central vascular con gestion. Findings are nonspecific but may represent small degree of intersti tial edema. Atypical infection can have similar appearance. No focal consolidation. Preliminary Report Dictated by Resident: Keanu Longoria MD., have review ed this study and agree with the above report. Narrative Performed At EXAM: PACS/VR/DOSE XR CHEST 1 VW HISTORY: 29 years-old; Male; Chest pain COMPARISON: 07/02/2019 radiograph FINDINGS: Lungs/Pleura: Mild interstitial prominen ce with central vascular congestion. No focal consolidation. Ther e is no pleural effusion or pneumothorax. Heart/Mediastinum: The cardiomediastinal silhouette is normal to borderline enlarged. Changes of median sternotomy a re noted. No acute osseous structure abnormality. Procedure Note [facility], Radiant Results Inft User - 2019 8:17 PM CDT EXAM: XR CHEST 1 VW HISTORY: 29 years-old; Male; Chest pain COMPARISON: 07/02/2019 radiograph FINDINGS: Lungs/Pleura: Mild interstitial prominen ce with central vascular congestion. No focal consolidation. Ther e is no pleural effusion or pneumothorax. Heart/Mediastinum: The cardiomediastinal silhouette is normal to borderline enlarged. Changes of median sternotomy a re noted. No acute osseous structure abnormality. IMPRESSION Mild interstitial prominence with centra l vascular congestion. Findings are nonspecific but may represent small degr ee of interstitial edema. Atypical infection can have similar appearance. No focal consolidation. Preliminary Report Dictated by Resident: Keanu Longoria MD., have reviewe d this study and agree with the above report. Performing Organization Address City/[facility] Cent[facility]ode Phone Number PACS/VR/DOSE N-TERMINAL PRO-BNP (12/02/2019 7:42 PM CDT) Pathologist Sig nature NT-proBNP 233 (H) <=125 pg/mL [facility] Specimen Blood - VENOUS Narrative Performed At [facility] has been reported to cause a negative [facility] bias, interpret results relative to patient's use of biotin. Performing Organization Address City/State/Zipcode Phone Number [facility] CLIA: [id number] [place] [address] CBC WITH DIFF (12/02/2019 7:42 PM CDT) Pathologist Sig nature WBC 6.73 4.20 - 10.70 [facility] 10*3/L [facility] RBC 4.38 4.26 - 5.52 [facility] 10*6/L [facility] HGB 12.6 12.2 - 16.4 [facility] g/dL [facility] HCT 36.4 (L) 38.4 - 49.3 % [facility] MCV 83.1 81.7 - 95.6 fL [facility] MCH 28.8 26.1 - 32.7 pg [facility] MCHC 34.6 31.2 - 35.0 [facility] g/dL [facility] RDW-SD 47.8 38.5 - 51.6 fL [facility] RDW-CV 15.9 (H) 12.1 - 15.4 % [facility] PLT 229 150 - 328 [facility] 10*3/L [facility] MPV 8.8 (L) 9.8 - 13.0 fL [facility] NRBC/100 WBC 0.0 0.0 - 10.0 /100 [facility] WBCs [facility] NRBC x10^3 <0.01 10*3/L [facility] GRAN MAT (NEUT) % 65.3 % [facility] IMM GRAN % 0.10 % [facility] LYMPH % 23.5 % [facility] MONO % 9.5 % [facility] EOS % 1.3 % [facility] BASO % 0.3 % [facility] GRAN MAT x10^3(ANC) 4.39 1.99 - 6.95 [facility] 10*3/uL [facility] IMM GRAN x10^3 <0.03 0.00 - 0.06 [facility] 10*3/uL HOSPITAL LABORATORY LYMPH x10^3 1.58 1.09 - 3.23 [facility] 10*3/uL HOSPITAL LABORATORY MONO x10^3 0.64 0.36 - 1.02 [facility] 10*3/uL HOSPITAL LABORATORY EOS x10^3 0.09 0.06 - 0.53 [facility] 10*3/uL [facility] BASO x10^3 <0.03 0.01 - 0.09 [facility] 10*3/uL [facility] Specimen Blood - VENOUS Performing Organization Address [facility] Centercode Phone Number [facility] CLIA: [id number] [place] [address] LABORATORY [address] [facility] LIPASE, SERUM (12/02/2019 7:42 PM CDT) Pathologist Sig [employer] (deja mi) LIPASE 59 0 - 220 U/L [facility] Specimen Blood - VENOUS Performing Organization Address [facility] Phone Number [facility] CLIA: [id number] [place] [address] LABORATORY [address] [facility] COMP. METABOLIC PANEL (12552) (12/02/2019 7:42 PM CDT) Pathologist Sig [employer] (deja mi) NA 137 135 - 145 [facility] mmol/L [facility] K 3.7 3.5 - 5.0 [facility] mmol/L [facility] CL 109 (H) 98 - 108 mmol/L [facility] CO2 TOTAL 22 (L) 23 - 31 mmol/L [facility] AGAP 6 2 - 16 [facility] BUN 16 7 - 23 mg/dL [facility] GLUCOSE 111 (H) 70 - 110 mg/dL [facility] CREATININE 0.87 0.60 - 1.25 [facility] mg/dL [facility] TOTAL BILI 0.3 0.1 - 1.1 mg/dL [facility] CALCIUM 9.1 8.6 - 10.6 [facility] mg/dL [facility] T PROTEIN 7.1 6.3 - 8.2 g/dL [facility] ALBUMIN 4.2 3.5 - 5.0 g/dL [facility] ALK PHOS 69 34 - 122 U/L [facility] ALTv 20 5 - 50 U/L [facility] AST(SGOT) 22 13 - 40 U/L [facility] eGFR Calculation 105.3 mL/min/1.73m2 [facility] eGFR Calculation 127.6 mL/min/1.73m2 [facility] () [facility] Specimen Blood - VENOUS Narrative Performed At [facility] of Glomerular Filtration Rate (GFR) [facility] and Staging of Kidney Disease* + + +- + | GFR (mL/min/1.73 m2) | With Kidney Damage | Without Kidney Damage + + +- + | >90 | Stage one | Normal + + +- + | 60-89 | Stage two | Decreased GFR + + +- + | 30-59 | Stage three | Stage three + + +- + | 15-29 | Stage four | Stage four + + +- + | <15 (or dialysis) | Stage five | Stage five + + +- + *Each stage assumes the associated GFR level has been in effect for at least three months. Stages 1 to 5, with or without kidney disease, indicate chronic kidney disease. Notes: Determination of stages one and two (with eGFR >59mL/min/1.73 m2) requires estimation of kidney damage for at least three months as defined by structural or functional abnormalities of the kidney, manifested by either: Pathological abnormalities or Markers of kidney damage (including abnormalities in the composition of the blood or urine or abnormalities in imaging tests). Performing Organization Address City/State/Zipcode Phone Number [facility] CLIA: [id number] [place] [address] PROTHROMBIN TIME / INR (12/02/2019 7:42 PM CDT) PROTIME PATIENT 12.6 12.0 - 14.7 [facility] LABORATORY INR 1.0Comment: Normal [facility] INR <1.1; Warfarin [facility] Therapeutic range LABORATORY 2.0 to 3.0 or 2.5 to 3.5, depending upon the indications. Specimen Blood - VENOUS Performing Organization Address City/State/Zipcode Phone Number [facility] CLIA: [id number] [place] [address] aPTT (12/02/2019 7:42 PM CDT) Pathologist Sig nature APTT Patient 28 23 - 38 Seconds [facility] Specimen Blood - VENOUS Narrative Performed At The [facility] patient population mean normal value [facility] for aPTT is 30 seconds. Performing Organization Address [facility] Centercode Phone Number [facility] CLIA: [id number] [place] [address] TROPONIN I (12/02/2019 7:42 PM CDT) Pathologist Sig nature TROPONIN I <0.012 <=0.034 ng/mL [facility] Specimen Blood - VENOUS Narrative Performed At Equal or Less than 0.034 ng/ml---Normal [facility] Note: Cardiac troponin begins to rise 3-4 hours after the onset of ischemia. Repeat in 4-6 hours if the sample was drawn within 3-4 hours of the onset of the symptom and found normal. Between 0.035 and 0.120 ng/mL--- Borderline. Questionable myocardial injury or necros is Note: Serial measurement may be necessary to confirm or exclude the diagnosis of myocardial injury or necrosis; Clinical correlation (symptoms, EKGs, imaging studies, and others) required; Repeat in 4-6 hours if clinically indicated. Equal or Higher than 0.121 ng/mL---Abnormal. Myocardial Injury or Necrosis Likely Biotin has been reported to cause a negative bias, interpret results relative to patient's use of biotin. 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 Essential hypertension Unspecified essential hypertension documented in this encounter Administered Medications Medication Order MAR Action Action Date Dose Rate Site enoxaparin (LOVENOX) Given 12/04/2019 8:12 AM CDT 40 mg Abdomen-SC injection 40 mg 40 mg, Subcutaneous, DAILY, First dose on 12/03/19 at 0900, Until Discontinued, Routine Given 12/03/2019 8:48 AM CDT 40 mg Abdo men-SC ketorolac (TORADOL) injection 30 mg Given 12/03/2019 4:24 PM CDT 30 mg 30 mg, Slow IV Push, Q8HPRN, 6 doses, Starting 12/03/19 at 1319, Until Discontinued, Routine, Pain (scale 4-6), prepared foods service team member approving Restricted medication: ABELINO OCHOA metoprolol tartrate (LOPRESSOR) tablet 100 Given 12/04/2019 8:12 AM CDT 100 mg mg 100 mg, Oral, BID, First dose on 12/03/19 at 0800, Until Discontinued, Routine Given 12/03/2019 8:13 PM CDT 100 mg Given 12/03/2019 8:48 AM CDT 100 mg morpHINE injection 2 mg Given 12/04/2019 2:03 PM CDT 2 mg 2 mg, Slow IV Push, Q4HPRN, Starting 12/03/19 at 0009, Until Discontinued, Routine, Pain (scale 7-10) Given 12/04/2019 8:12 AM CDT 2 mg Given 12/03/2019 8:13 PM CDT 2 mg Medication Order MAR Action Action Date Dose Rate Site FENTanyl PF (SUBLIMAZE (PF)) Given 12/02/2019 8:26 PM CDT 75 mc g injection 75 mcg 75 mcg, Slow IV Push, ONCE, 1 dose, 12/02/19 at 211, STAT iohexol (OMNIPAQUE 350 BULK-150 mL) Given 12/02/2019 8:38 PM CD T 120 mL injection 120 mL 120 mL, Intravenous, ONCE, 1 dose, 12/02/19 at 204, Routine ketorolac (TORADOL) injection 30 mg Given 12/02/2019 8:26 PM CDT 30 mg 30 mg, Slow IV Push, ONCE, 1 dose, 12/02/19 at 2115, Routine, prepared foods service team member approving Restricted medication: RONN JURADO documented in this encounter Additional Health Concerns Infection Onset Date Last Indicated Resolved Time COVID-19 Rule Out 12/02/2019 12/02/2019 12/02/2019 10: 28 PM CDT documented as of this encounter Insurance Payer Benefit Plan / Subscriber ID Effective Phone Address T ype Group Dates MEDICAID MEDICAID SSI PENDING 2019-Pres [address] [place] [address] documented as of this encounter
--- OUTSIDE RECORDS SUMMARY | 2020-01-22 11:17 | XMS REPORT | Summary of Care ---
:1990 Author Organization [address] [address] Care Team Providers Name Role Phone Pcp, Patient Does Not Have A Primary Care Provider +[phone] 0-0000 Reason for Visit Reason Comments Referral/consult [facility] referral Auth/Cert Status Reason Specialty Diagnoses / Referred By Referred To Procedures Contact Contact Emergency Medicine [facility] Em ergency Dept [address] [place] [address] Fax: Encounter Details Date Type Department Care Team Description 12/04/2019 Patient Outreach [facility] Evette Beaulieu RN Referral/consult [address] ([facility] refer ral) [place], [place] [address] Allergies No Known Allergiesdocumented as of this encounter (statuses as of 12/05/2019) Medications Medication Sig Dispensed Refills Start Date End Date Status metoprolol tartrate Take 1 tablet by 60 tablet 6 07/27/2019 Active 100 mg mouth 2 (two) tabletIndications: times daily. 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 Essential hypertension 12/03/2019 Chest pain, rule out acute myocardial infarction 12/01 Leg pain 07/10/2019 E44.1 Mild protein-calorie malnutrition 06/23/2019 Morbid obesity with body mass index of 40.0-49.9 06/15 Obesity (BMI 30-39.9) 05/31/2019 Ascending aortic aneurysm 05/31/2019 Thoracic ascending aortic aneurysm 05/31/2019 Overview: Added automatically from request for alejandro davis [id number] documented as of this encounter (statuses as of 12/05/2019) Social History Tobacco Use Types Packs/Day Years [...] of this encounter Last Filed Vital Signs Not on filedocumented in this encounter Progress Notes Evette Beaulieu RN - 12/04/2019 11:15 AM CDTOutpatient Care Management Enrollment Brice Polk is a 29 year old male enrolled in [facility] ([facility]), Outpatient Care Management on 12/04/19 for care management of vascular disease. 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 Follow-up appointment as scheduled; get established with PCP through [facility] in [place] while applying for indigent program. (CM provided patient with [facility] Indigent program application and the [facility] financial application) Activity as tolerated Exercise daily with gradual duration increase as tolerated; work on decreasing weight. Assist patient with obtaining affordable prescriptions [facility] team to encourage his continuation of smoking cessation Referral to W for further assistance with POC and education re: diet and healthy lifestyle behaviors. JOSUE Maher, RN, [facility] Outpatient Histological IllustratorRegulatory Compliance Officer [employer] [facility] O: [phone] M: [phone] documented in this encounter Plan of Treatment Date Type Specialty Care Team Description 06/20/2020 Office Visit Thoracic Surgery [facility], Cardiovascu lar Health Maintenance Due Date Last Done Comments VARICELLA VACCINES (1 of 2 - 1993 2-dose childhood series) DTaP,Tdap,and Td Vaccines (1 - 09/22/2011 Tdap) INFLUENZA VACCINE (#1) 2019 Depression Screening 08/13/2020 08/14/2019 PNEUMOCOCCAL 0-64 YEARS COMBINED Aged Out No longer eligible based on SERIES patient's age to complete this topic documented as of this encounter Implants Implanted Type Area Clerk Television Production Device Shelf Model / Identifier Expiration Serial / Lot Date [place], 1/2in X 4in #[id number] - Sna [place] Left: Bard 10/31/2023 [id number] / Implanted: Qty: 2 on 06/13/2019 by Lj Arellano Jr., MD at [facility] Chest NA / [id number] Gelweave Woven Vascular Prosthesis 8mm X 15cm Terumo # [id number] - [id number] GRAFT N/A: Terumo 10/02/2021 [id number] / Implanted: Qty: 1 on 06/05/2019 by Isacc Ramon MD at [facility] Chest [id number] / NA Gelweave Woven Vascular Prosthesis 8mm X 15cm Terumo # [id number] - [id number] GRAFT Left: Terumo 11/02/2021 [id number] / Implanted: Qty: 1 on 06/13/2019 by Lj Arellano Jr., MD at [facility] Groin [id number] / [id number] 32mm Gelweave Graft GRAFT N/A: TERUMO 10/02/2020 [id number] / Implanted: Qty: 1 on 06/13/2019 by Isacc Ramon MD at [facility] Heart CARDIOVASCULAR [id number] / [id number] documented as of this encounter Results Not on filedocumented in this encounter Insurance Payer Benefit Plan / Subscriber ID Effective Phone Address T ype Group Dates MEDICAID MEDICAID SSI PENDING 2019-Pres [address] P[place] [address] documented as of this encounter
--- OUTSIDE RECORDS SUMMARY | 2020-01-22 11:17 | XMS REPORT | Summary of Care ---
:1990 Author Organization [facility] Address [address] [place] [id number] Care Team Providers Name Role Phone Pcp, Patient Does Not Have A Primary Care Provider +1-000-00 0-0000 Reason for Visit Reason Comments Transition Of Care Encounter Details Date Type Department Care Team Description 12/04/2019 Transition of Care [facility] Celia Moran Transition Of Care [facility]- [address] [place] [id number] Allergies No Known Allergiesdocumented as of this encounter (statuses as of 12/04/2019) Medications Medication Sig Dispensed Refills Start Date End Date Status metoprolol tartrate Take 1 tablet by 60 tablet 6 07/27/2019 Suspended 100 mg mouth 2 (two) tabletIndications: times daily. Ascending aortic aneurysm Additional Information documented as of this encounter (statuses as [...] Added automatically from request for alejandro davis [id number] documented as of this encounter (statuses as [...] Signs Not on filedocumented in this encounter Miscellaneous Notes Telephone Encounter - Meenu Moran - 12/04/2019 12:33 PM CDTCHP referral duplicate on patient already assisgned to Evette Beaulieu CM. documented in this encounter Plan of Treatment Date Type Specialty Care Team Description 06/20/2020 Office Visit Thoracic Surgery [facility], Cardiovascu lar Health Maintenance Due Date Last Done Comments VARICELLA VACCINES (1 of - 1993 2-dose childhood series) DTaP,Tdap,and Td Vaccines ( - 09/22/2011 Tdap) INFLUENZA VACCINE (#1) 2019 Depression Screening 08/13/2020 08/14/2019 PNEUMOCOCCAL 0-64 YEARS COMBINED Aged Out No longer eligible based on SERIES patient's age to complete this topic documented as of this encounter Implants Implanted Type Area Building Attendant Device Shelf Model / Identifier Expiration Serial / Lot Date Roxane 1/2in X 4in #[id number] - Sna [place] Left: Bard 10/31/2023 [id number] / Implanted: Qty: 2 on 06/13/2019 by Lj Arellano Jr., MD at [facility] Chest NA / [id number] Gelweave Woven Vascular Prosthesis 8mm X 15cm Terumo # [id number] - [id number] GRAFT N/A: Terumo 10/02/2021 [id number] / Implanted: Qty: 1 on 06/05/2019 by Isacc Ramon MD at [facility] Chest [id number] / NA Gelweave Woven Vascular Prosthesis 8mm X 15cm Terumo # [id number] - [id number] GRAFT Left: Terumo 11/02/2021 [id number] / Implanted: Qty: 1 on 06/13/2019 by Lj Arellano Jr., MD at [facility] Groin [id number] / [id number] 32mm Gelweave Graft GRAFT N/A: TERUMO 10/02/2020 [id number] / Implanted: Qty: 1 on 06/13/2019 by Isacc Ramon MD at [facility] Heart CARDIOVASCULAR [id number] / [id number] documented as of this encounter Results Not on filedocumented in this encounter Insurance Payer Benefit Plan / Subscriber ID Effective Phone Address T ype Group Dates MEDICAID MEDICAID SSI PENDING 2019-Pres [address] [place] [address] documented as of this encounter
--- OUTSIDE RECORDS SUMMARY | 2020-01-22 11:17 | XMS REPORT | Summary of Care ---
:1990 Author Organization [facility] Address [address] [place] [address] Care Team Providers Name Role Phone Pcp, Does Not Have A Primary Care Provider Christopher Beaulieu game producer Reason for Visit Reason Comments Follow-up hospital admit Chest Pain (Routine) Status Reason Specialty Diagnoses / Referred By Referred To Procedures Contact Contact Closed IM-CARDIOVASCULAR Diagnoses Chest pain, unspecified type Tin Davis Prasad Senddex DISEASE / Procedures Discharge Follow-Up: Specialty Service IM-CARDIOVASCULAR DISEASE; 2 Weeks MD Aisha MD Cardiology [address] [place] [address] [facility] ISAÍAS 106 [facility] X [phone] Phone: Encounter Details Date Type Department Care Team Description 01/02/2020 Office Visit [facility] Vasques, Sendil Thoracic asce nding aortic aneurysm (Primary Dx); Cardiology- Wayne Leonard MD Morbid obesity with body mass index of 4 0.0-49.9; [address] [place] [address] Transposition of great arteries; Drive, [address] ISAÍAS 106 Essential hypertension; [place], [place] Atypical chest pain [phone] Allergies No Known Allergiesdocumented as of this encounter (statuses as of 01/02/2020) Medications Medication Sig Dispensed Refills Start Date End Date Status ketorolac 10 mg Take 1 tablet 20 tablet 0 12/04/2019 Active tabletIndications: by mouth Chest pain, every 6 (six) unspecified type hours as needed for Pain (scale 4-6). traMADoL 50 mg Take 1 tablet 12 tablet 0 12/04/2019 Active tabletIndications: by mouth acute pain every 6 (six) hours as needed for Pain (scale 7-10). Indications: acute pain metoprolol succinate Take 1 tablet 60 tablet 4 01/02/2020 10/2 12/2019 Active XL 100 mg 24 hr by mouth 2 tabletIndications: (two) times Thoracic ascending daily for 30 aortic aneurysm, days. Morbid obesity with body mass index of 40.0-49.9, Transposition of great arteries, Essential hypertension, Atypical chest pain metoprolol tartrate Take 1 tablet 60 tablet 6 07/27/201901/01 Discontinued 100 mg by mouth 2 tabletIndications: (two) times Ascending aortic daily. aneurysm documented as of this encounter (statuses as of 01/02/2020) Active Problems Problem Noted Date 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 Essential hypertension 12/03/2019 Chest pain, rule out acute myocardial infarction 12/01 Leg pain 07/10/2019 E44.1 Mild protein-calorie malnutrition 06/23/2019 Morbid obesity with body mass index of 40.0-49.9 06/15 Obesity (BMI 30-39.9) 05/31/2019 Ascending aortic aneurysm 05/31/2019 Thoracic ascending aortic aneurysm 05/31/2019 Overview: Added automatically from request for alejandro neily [id number] documented as of this encounter (statuses as of 01/02/2020) Social History Tobacco Use Types Packs/Day Years Used Date Never Smoker Smokeless Tobacco: Never Used Sex Assigned at Date Recorded Not on file COVID-19 Exposure Response Date Recorded In the last month, have you been in contact with No / Unsure 01/02/2020 10:53 AM CDT someone who was confirmed or suspected to have Coronavirus / COVID-19? documented as of this encounter Last Filed Vital Signs Vital Sign Reading Time Taken Comments Blood Pressure 128/79 01/02/2020 10:56 AM CDT Pulse 70 01/02/2020 10:56 AM CDT Temperature - - Respiratory Rate 16 01/02/2020 10:56 AM CDT Oxygen Saturation - - Inhaled Oxygen Concentration - - Weight 131.7 kg (290 lb 4.8 oz) 01/02/2020 10:56 AM CDT Height 190.5 cm (6' 3") 01/02/2020 10:56 AM CDT Body Mass Index 36.29 01/02/2020 10:56 AM CDT documented in this encounter Progress Notes Magda Vasques MD - 01/02/2020 10:30 AM CDT [facility] Cardiology Consult Note Patient: Brice Polk III Date of : 1990 Date of service: 01/02/2020 Primary Care Physician: PATIENT DOES NOT HAVE A PCP CHIEF COMPLAINT: Chief Complaint Patient presents with Follow-up hospital admit Chest Pain HISTORY OF PRESENT ILLNESS: Brice Polk III is a 29 year old male presented to the clinic for follow up for ascending aortic aneurysm s/p repair in 2019. History from patient. Patient seen and examined in the room. Pertinent cardiac related history reviewed from chart 11/2019: dmitted to [facility] for chest pain. He seems to have had chest pain for a long time even before aneurysm repair in 06/2019. Trop were negative. Echo was within acceptable limits. RAJAN NYHA Class II. No history of exertional chest pain. No PND or orthopnea. No pedal edema. No exertional palpitationsor palpitations at rest. No syncopal attacks. 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 Discharge summary reviewed: ADMISSION DATE: 05/31/2019 DISCHARGE DATE: 07/03/2019 HOSPITAL COURSE: Brice Polk is a 28 year old male was admitted for elective repair of a symptomatic ascending aortaaneurysm. He has a complex surgical history including prior TGA repair. Was taken to the OR for repair of his aneurysm. During the case while access was being obtained for bypass via the R groin, he developed a retrograde dissection. Vascular was consulted intraop and he underwent R iliofemoral bypass. He ultimately underwent his AAA repair on 06/13/19 with chest closure on 06/15. Postoperative course was complicated by respiratory failure. He was medically optimized in the OR. His condition improved.He was able to come off oxygen, tolerate a site and ambulate. He is being discharge home today. Previous Cardiac Studies: IMAGING - I personally reviewed, pertinent results as below: CT Chest 11/2019 IMPRESSION 1. No acute pulmonary embolism to [...] cm. 4. Small fat-containing epigastric ventral hernia. ECG 11/2019 Sinus rhythm Incomplete right bundle branch block T wave abnormality, consider anterolateral ischemia Abnormal ECG Echo 11/2019 Interpretation Summary A complete two-dimensional transthoracic echocardiogram was performed (2D, M- mode, Doppler and colorflow Doppler). Left ventricular systolic function is normal. Ejection Fraction = 55-60%. Insufficient Tricuspid regurgitation jet to estimate RVSP Moderate aortic root dilatation. Trace aortic regurgitation. Radiology: CT Angio chest 05/31/2019: Stable appearance of the postsurgical changes of repair of the transposition of the great arteries. Aneurysmally dilated ascending aorta, unchanged since prior examination. No evidence of dissection on the prior examination and on current exam, despite lack of gating on current examination. Motion artifact limits evaluation of the aortic root. Op 06/13/2019 PREOPERATIVE DIAGNOSIS: Transposition of great arteries, ascending aortic aneurysm. POSTOPERATIVE DIAGNOSIS:Same OPERATION: 1. Repair of ascending aortic aneurysm utilizing 32 mm Hemashield graft. 2. Reimplantation of left coronary artery and right coronary artery. 3. Takedown of Ga maneuver from previous arterial switch with division of pulmonary artery. 4. Modifier for extensive adhesions and redo sternotomy status.5. Reconstruction of pulmonary artery.6.Exploration and exposure of right common femoral artery and vein for femoral cannulation. PAST MEDICAL HISTORY Past Medical History: Diagnosis Date History of aortic aneurysm repair History of open heart surgery Past Surgical History: Procedure Laterality Date ANGIOPLASTY Right 06/05/2019 Surgeon: Mathew Mosqueda Jr., MD; Location: [facility] AORTOGRAM N/A 06/05/2019 Surgeon: Mathew Mosqueda Jr., MD; Location: [facility] ARTERIOGRAM Right 06/05/2019 Surgeon: Mathew Mosqueda Jr., MD; Location: [facility] Location ASCENDING AORTIC ANEURYSM REPAIR N/A 06/13/2019 Surgeon: Isacc Chaudhari MD; Location: [facility] Location CLOSURE SURGICAL WOUND CHEST (SHX) N/A 06/16/2019 Surgeon: Isacc Chaudhari MD; Location: [facility] Location REDO STERNOTOMY N/A 06/13/2019 Surgeon: Isacc Chaudhari MD; Location: [facility] No family history on file. SOCIAL HISTORY Social History Socioeconomic History Marital [...] file Gets together: Not on file Attends anglican service: Not on file Active member of [...] file Social History Narrative Not on file ALLERGIES No Known Allergies MEDICATIONS Patient's Medications START taking these medications METOPROLOL SUCCINATE XL 100 MG 24 HR TABLET Take 1 tablet by mouth 2 (two) times daily for 30 days. CONTINUE taking these medications which have NOT CHANGED KETOROLAC 10 MG TABLET Take 1 tablet by mouth every 6 (six) hours as needed for Pain (scale 4-6). TRAMADOL 50 MG TABLET Take 1 tablet by mouth every 6 (six) hours as needed for Pain (scale 7-10). Indications: acute pain START taking Modified Medications as Prescribed No medications on file STOP taking these medications METOPROLOL TARTRATE 100 MG TABLET Take 1 tablet by mouth 2 (two) times daily. Current Outpatient Medications: metoprolol succinate XL 100 mg 24 hr tablet, Take 1 tablet by mouth 2 (two) times daily for 30 days., Disp: 60 tablet, Rfl: 4 ketorolac 10 mg tablet, Take 1 tablet by mouth every 6 (six) hours as needed for Pain (scale 4-6)., Disp: 20 tablet, Rfl: 0 traMADoL 50 mg tablet, Take 1 tablet by mouth every 6 (six) hours as needed for Pain (scale 7-10). Indications: acute pain, Disp: 12 tablet, Rfl: 0 REVIEW OF SYSTEMS: Comprehensive 10-system review was conducted and were negative except for what's noted in the HPI. The following systems were reviewed: Constitutional, cardiovascular, respiratory, gastrointestinal, genitourinary, musculoskeletal, neurologic, psychiatric, endocrinological, and hematological. PHYSICAL EXAMINATION: Vitals: 01/02/20 1056 BP: 128/79 BP Location: Right arm Patient Position: Sitting BP CUFF SIZE: Adult Large Pulse: 70 Resp: 16 Weight: 290 lb 4.8 oz (131.7 kg) Height: 6' 3" (1.905 m) General: no apparent distress HEENT: normocephalic atraumatic Neck: supple, no lymphadenopathy, no bruits, no JVD Lungs: clear to auscultation bilaterally. No wheezes or rhonchi. No increased work of breathing. Cardio: Regular rate and rhythm, S1&S2 normal, no murmurs, rubs or gallops Abdomen: soft; non-tender; non-distended; normoactive bowel sounds. : not examined Rectal: not examined Extremities: no clubbing, cyanosis, or edema. Skin: no rashes, no visible lesions. Neuro: no gross focal deficits LABS - Reviewed pertinent labs as below: CBC BMP PT/INR WBC (10*3/L) Date Value 12/02/2019 6.73 NA (mmol/L) Date Value 12/04/2019 134 (L) No results found for: PT PLT (10*3/L) Date Value 12/02/2019 229 K (mmol/L) Date Value 12/04/2019 3.6 INR (no units) Date Value 12/02/2019 1.0 HGB (g/dL) Date Value 12/02/2019 12.6 BUN (mg/dL) Date Value 12/04/2019 15 HCT (%) Date Value 12/02/2019 36.4 (L) CREATININE (mg/dL) Date Value 12/04/2019 0.74 LIPID PROFILE GLUCOSE (mg/dL) Date Value 12/04/2019 88 No results found for: CHOL TSH No results found for: LDL No results found for: TSH CARDIAC ENZYMES No results found for: HDL No results found for: CK No results found for: TRIG LFTs No results found for: CKMB AST(SGOT) (U/L) Date Value 12/02/2019 22 TROPONIN I (ng/mL) Date Value 12/03/2019 <0.012 ALTv (U/L) Date Value 12/02/2019 20 No results found for: BNP No results found for: LDL Recent Labs 12/03/19 0356 TROPNI <0.012 There are no current results on file for these tests and/or test for 1 year. No results found for: LDL NT-proBNP (pg/mL) Date Value 12/02/2019 233 (H) ASSESSMENT/PLAN 1. Thoracic ascending aortic aneurysm metoprolol succinate XL 100 mg 24 hr tablet CBC WITH DIFF COMP. METABOLIC PANEL (45719) LIPID PANEL (15658)(TOTAL CHOLESTEROL, TRIGLYCERIDES, HDL) N-TERMINAL PRO-BNP 2. Morbid obesity with body mass index of 40.0-49.9 metoprolol succinate XL 100 mg 24 hr tablet CBC WITH DIFF COMP. METABOLIC PANEL (64131) LIPID PANEL (20173)(TOTAL CHOLESTEROL, TRIGLYCERIDES, HDL) N-TERMINAL PRO-BNP 3. Transposition of great arteries metoprolol succinate XL 100 mg 24 hr tablet CBC WITH DIFF COMP. METABOLIC PANEL (57314) LIPID PANEL (66403)(TOTAL CHOLESTEROL, TRIGLYCERIDES, HDL) N-TERMINAL PRO-BNP 4. Essential hypertension metoprolol succinate XL 100 mg 24 hr tablet CBC WITH DIFF COMP. METABOLIC PANEL (76399) LIPID PANEL (32825)(TOTAL CHOLESTEROL, TRIGLYCERIDES, HDL) N-TERMINAL PRO-BNP 5. Atypical chest pain metoprolol succinate XL 100 mg 24 hr tablet CBC WITH DIFF COMP. METABOLIC PANEL (06316) LIPID PANEL (06703)(TOTAL CHOLESTEROL, TRIGLYCERIDES, HDL) N-TERMINAL PRO-BNP Atypical Chest pain: Non anginal. Suspect musculoskeletal. Reviewed Echo/ECG and op report/CT chest with him. Explained its non cardiac in nature. Reassured him from cardiac stand point. D-TGA s/p arterial switch surgery/Ascending aortic aneurysm s/p repair 06/2019: will change lopressor 100 mg BiD to Toprol XL [address] Diaz 06/2019. Will need yearly CT. HTN: Will change lopressor 100 mg BiD to Toprol XL 100 mg BiD. Home log. May need to add Losartan. Home BP log recommended. Cross check his BP machine. Appropriate ways to check home BP discussed. Goals BP < 130/80 stressed. Explained if BP > 130/80, adviced to send us the log. Lifestyle modifications stressed. Obese: Recommended lifestyle modification/risk factor modification/weight reduction diet/adequate exercises. Body mass index is 36.29 kg/m. Follow up in 3-4 months with labs prior to next OV. Orders Placed This Encounter Procedures CBC WITH DIFF COMP. METABOLIC PANEL (32886) LIPID PANEL (99420)(TOTAL CHOLESTEROL, TRIGLYCERIDES, HDL) N-TERMINAL PRO-BNP Requested Prescriptions Signed Prescriptions Disp Refills metoprolol succinate XL 100 mg 24 hr tablet 60 tablet 4 Sig: Take 1 tablet by mouth 2 (two) times daily for 30 days. Patient's diease process and its evaluation and treatment were discussed. We discussed each of for cardio vascular-related problems and discussed long-term goals and expectations for the each problem.I reviewed each of the cardiac medications in detail. Reviewed the medication with patient in detail recommended to continue taking the current medications without further changes. Recommended goal BP < 130/80 consistently, LDL << 70, HbA1c < 6.5. Recommended, explained and stressed the importance of healthy eating habits and exercises and lifestyle modifications Follow up as planned is predicated on symptoms stability and/or acceptable test results. Patient is urged to call in sooner should problems arise or if there is no improvement in cardiac symptoms. ER warning signs and symptoms explained and patient verbalized understanding. My diagnostic impression and treatment plans were discussed at length with the patient. All side effects as well as drug-drug interactions and risks discussed at length. Ample opportunity was offered and encouraged to ask questions during this visit and patient appreciated the answers given by me and verbzalised statisfcation in the answers given. We reviewed the [place] [employer] recommendations for reduction of overall cardio vascular risk. The importance of monitoring the blood pressure carefully both at home on regular basis along with other physicians appointment was stressed in detail. In addition we discussed target LDL levels for optimal risk reduction. It was advised that to daily physical activity be performed with 30 minutes of sustained exercise for both cardio vascular fitness and improvement for generalized medical health and well-being. Thank you for allowing us to participate in the care of Brice Polk III. If you have any questions or concerns please feel free to call our office at [phone]. I would be happy to be of further assistance for Brice Polk III wellbeing. Thuan Vasques MD Conical Mixer, Division of Cardiology [facility] documented in this encounter Plan of Treatment Date Type Specialty Care Team Description 04/29/2020 Information Technology Advisor Visit Phlebotomy 2, Adc Lab 05/03/2020 Office Visit Cardiology Magda Vasques MD [address] [place] [place] [phone] 06/20/2020 Office Visit Thoracic Surgery Veda Chaudhari MD [address] [place], [place] [phone] Name Type Priority Associated Diagnoses Order S chedule CBC WITH DIFF LAB Routine Thoracic ascending 1 Occurr ences starting aortic aneurysm 01/02/2020 until Morbid obesity with body 08/2020 mass index of 40 .0-49.9 Transposition of great arteries Essential hypert ension Atypical chest pain COMP. METABOLIC PANEL LAB Routine Thoracic ascending 1 Occurrences starting (15046) aortic aneurysm 01/02/2020 until Morbid obesity with body mass index of 40 .0-49.9 Transposition of great arteries Essential hypert ension Atypical chest pain LIPID PANEL LAB Routine Thoracic ascending 1 Occurre nces starting (95947)(TOTAL aortic aneurysm 01/02/2020 until CHOLESTEROL, Morbid obesity with body TRIGLYCERIDES, HDL) mass index o f 40.0-49.9 Transposition of great arteries Essential hypert ension Atypical chest pain N-TERMINAL PRO-BNP LAB Routine Thoracic ascending 1 O ccurrences starting aortic aneurysm 01/02/2020 until Morbid obesity with body mass index of 40 .0-49.9 Transposition of great arteries Essential hypert ension Atypical chest pain Health Maintenance Due Date Last Done Comments VARICELLA VACCINES (1 of 2 - 1993 2-dose childhood series) DTaP,Tdap,and Td Vaccines (1 - 09/22/2011 Tdap) INFLUENZA VACCINE (#1) 2019 Depression Screening 08/13/2020 08/14/2019 PNEUMOCOCCAL 0-64 YEARS COMBINED Aged Out No longer eligible based on SERIES patient's age to complete this topic documented as of this encounter Implants Implanted Type Area Party Supply Specialist Device Shelf Model / Identifier Expiration Serial / Lot Date Bard Roxane /2in X 4in #[id number] - Sna [place] Left: Bard 10/31/2023 [id number] / Implanted: Qty: 2 on 06/13/2019 by Lj Arellano Jr., MD at [facility] Chest NA / [id number] Gelweave Woven Vascular Prosthesis 8mm X 15cm Terumo # [id number] - [id number] [id number] N/A: Terumo 10/02/2021 [id number] / Implanted: Qty: 1 on 06/05/2019 by Isacc Ramon MD at [facility] Chest [id number] / NA Gelweave Woven Vascular Prosthesis 8mm X 15cm Terumo # [id number] - [id number] GRAFT Left: Terumo 11/02/2021 [id number] / Implanted: Qty: 1 on 06/13/2019 by Lj Arellano Jr., MD at [facility] Groin [id number] / [id number] 32mm Gelweave Graft GRAFT N/A: TERUMO 10/02/2020 [id number] / Implanted: Qty: 1 on 06/13/2019 by Isacc Ramon MD at [facility] Heart CARDIOVASCULAR [id number] / [id number] documented as of this encounter Results Not on filedocumented in this encounter Visit Diagnoses Diagnosis Thoracic ascending aortic aneurysm - Saundra zabrina Thoracic aneurysm without mention of rup ture Morbid obesity with body mass index of 4 0.0-49.9 Transposition of great arteries Complete transposition of great vessels Essential hypertension Unspecified essential hypertension Atypical chest pain Other chest pain documented in this encounter
--- OUTSIDE RECORDS SUMMARY | 2020-01-22 11:18 | XMS REPORT | Summary of Care ---
:1990 Author Organization [facility] Address [address] [place] [address] Care Team Providers Name Role Phone Pcp, Does Not Have A Primary Care Provider Christopher Beaulieu RNpotato chip packaging machine operator Encounter Details Date Type Department Care Team Description 01/15/2020 Orders Only [facility] Doctor Unassigned, No [address] [facility] [place] [address] [address] [place] [address] Allergies No Known Allergiesdocumented as of this encounter (statuses as of 01/15/2020) Medications Medication Sig Dispensed Refills Start Date End Date Status ketorolac 10 mg Take 1 tablet 20 tablet 0 12/04/2019 Active tabletIndications: by mouth every Chest pain, unspecified 6 (six) hours type as needed for Pain (scale 4-6). traMADoL 50 mg Take 1 tablet 12 tablet 0 12/04/2019 Active tabletIndications: by mouth every acute pain 6 (six) hours as needed for Pain (scale 7-10). Indications: acute pain metoprolol succinate XL Take 1 tablet 60 tablet 4 01/02/2020 1 Active 100 mg 24 hr by mouth 2 tabletIndications: (two) times Thoracic ascending daily for 30 aortic aneurysm, Morbid days. obesity with body mass index of 40.0-49.9, Transposition of great arteries, Essential hypertension, Atypical chest pain documented as of this encounter (statuses as of 01/15/2020) Active Problems Problem Noted Date 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 Essential hypertension 12/03/2019 Chest pain, rule out acute myocardial infarction 12/01 Leg pain 07/10/2019 E44.1 Mild protein-calorie malnutrition 06/23/2019 Morbid obesity with body mass index of 40.0-49.9 06/15 Obesity (BMI 30-39.9) 05/31/2019 Ascending aortic aneurysm 05/31/2019 Thoracic ascending aortic aneurysm 05/31/2019 Overview: Added automatically from request for alejandro davis [id number] documented as of this encounter (statuses as of 01/15/2020) Social History Tobacco Use Types Packs/Day Years [...] Signs Not on filedocumented in this encounter Plan of Treatment Date Type Specialty Care Team Description 01/15/2020 Program Strategist Visit Phlebotomy Annabelle Gifford MD [address] [facility] [address] [place], [place] [phone] Pob, Adc Lab Main 01/19/2020 Office Visit Vascular Surgery Estrellita Perez MD [address] [place] [phone] 04/29/2020 Program Strategist Visit Phlebotomy 2, Adc Lab 05/03/2020 Office Visit Cardiology Magda Vasques MD [address] [facility] [address] [phone] 06/20/2020 Office Visit Thoracic Surgery Veda Chaudhari MD [address] [place] [phone] Health Maintenance Due Date Last Done Comments VARICELLA VACCINES (1 of 2 - 1993 2-dose childhood series) DTaP,Tdap,and Td Vaccines (1 - 09/22/2011 Tdap) INFLUENZA VACCINE (#1) 2019 Depression Screening 08/13/2020 08/14/2019 PNEUMOCOCCAL 0-64 YEARS COMBINED Aged Out No longer eligible based on SERIES patient's age to complete this topic documented as of this encounter Implants Implanted Type Area Starchmaker Device Shelf Model / Identifier Expiration Serial / Lot Date Bard Roxane 1/2in X 4in #[id number] - Sna [place] Left: Bard 10/31/2023 [id number] / Implanted: Qty: 2 on 06/13/2019 by Lj Arellano Jr., MD at [facility] Chest NA / [id number] Gelweave Woven Vascular Prosthesis 8mm X 15cm Terumo # [id number] - [id number] GRAFT N/A: Terumo 10/02/2021 [id number] / Implanted: Qty: 1 on 06/05/2019 by Isacc Ramon MD at [facility] Chest [id number] / NA Gelweave Woven Vascular Prosthesis 8mm X 15cm Terumo # [id number] - [id number] GRAFT Left: Terumo 11/02/2021 [id number] / Implanted: Qty: 1 on 06/13/2019 by Lj Arellano Jr., MD at [facility] Groin [id number] / [id number] 32mm Gelweave Graft GRAFT N/A: TERUMO 10/02/2020 [id number] / Implanted: Qty: 1 on 06/13/2019 by Isacc Ramon MD at [facility] Heart CARDIOVASCULAR [id number] / [id number] documented as of this encounter Procedures Procedure Name Priority Date/Time Associated Diagnosis Comme nts ASSIGNMENT OF BENEFITS Routine 01/15/2020 10:08 AM CDT documented in this encounter Results Not on filedocumented in this encounter Insurance Payer Benefit Plan / Subscriber ID Effective Phone Address T ype Group Dates MEDICAID MEDICAID SSI PENDING 2019-Pres [address] [place] [address] documented as of this encounter
--- OUTSIDE RECORDS SUMMARY | 2020-01-22 11:18 | XMS REPORT | Summary of Care ---
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 Reason for Referral (CRISTO) Status Reason Specialty Diagnoses / Referred By Referred To Procedures Contact Contact New Request Vascular Surgery Diagnoses Peripheral vascular disease, unspecified Chris, Procedures ERICK MULTI LEVEL BY VASCULAR LAB MD Rubina [address] [place] [phone] (CRISTO) Status Reason Specialty Diagnoses / Referred By Referred To Procedures Contact Contact New Request Vascular Surgery Diagnoses Peripheral vascular disease, unspecified Chris, Procedures DUPLEX SCAN GRAFT LOWER EXTREMITY-UNILATERAL BY VASCULAR LAB MD Rubina [address] [place] [phone] Reason for Visit Reason Comments Leg Pain Encounter Details Date Type Department Care Team Description 01/10/2020 Case Management [facility] Vascular Pradip Perez MD Leg Pain Surgery- [address] [place], [place] [phone] [place] [address] [phone] Allergies No Known Allergiesdocumented as of this encounter (statuses as of 01/10/2020) Medications Medication Sig Dispensed Refills Start Date [...] as of this encounter (statuses as of 01/10/2020) Active Problems Problem Noted Date 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 Essential hypertension 12/03/2019 Chest pain, rule out acute myocardial infarction 12/01 Leg pain 07/10/2019 E44.1 Mild protein-calorie malnutrition 06/23/2019 Morbid obesity with body mass index of 40.0-49.9 06/15 Obesity (BMI 30-39.9) 05/31/2019 Ascending aortic aneurysm 05/31/2019 Thoracic ascending aortic aneurysm 05/31/2019 Overview: Added automatically from request for alejandro davis [id number] documented as of this encounter (statuses as of 01/10/2020) Social History Tobacco Use Types Packs/Day Years [...] Date Type Specialty Care Team Description 04/29/2020 Lubricating Engineer Visit Phlebotomy 2, Adc Lab 05/03/2020 Office Visit Cardiology Magda Vasques MD [address] [place] [address] [phone] 06/20/2020 Office Visit Thoracic Surgery Veda Chaudhari MD [address] [address] [phone] Health Maintenance Due Date Last Done Comments VARICELLA VACCINES (1 of 2 - 1993 2-dose childhood series) DTaP,Tdap,and Td Vaccines (1 - 09/22/2011 Tdap) INFLUENZA VACCINE (#1) 2019 Depression Screening 08/13/2020 08/14/2019 PNEUMOCOCCAL 0-64 YEARS COMBINED Aged Out No longer eligible based on SERIES patient's age to complete this topic documented as of this encounter Implants Implanted Type Area Geriatrics Physician Device Shelf Model / Identifier Expiration Serial / Lot Date Bard Roxane 1/2in X 4in #[id number] - Sna [place] Left: Bard 10/31/2023 [id number] / Implanted: Qty: 2 on 06/13/2019 by Lj Arellano Jr., MD at [facility] Chest NA / [id number] Gelweave Woven Vascular Prosthesis 8mm X 15cm Terumo # [id number] - [id number] GRAFT N/A: Terumo 10/02/2021 [id number] / Implanted: Qty: 1 on 06/05/2019 by Isacc Ramon MD at [facility] Chest [id number] / NA Gelweave Woven Vascular Prosthesis 8mm X 15cm Terumo # [id number] - [id number] GRAFT Left: Terumo 11/02/2021 [id number] / Implanted: Qty: 1 on 06/13/2019 by Lj Arellano Jr., MD at [facility] Groin [id number] / [id number] 32mm Gelweave Graft GRAFT N/A: TERUMO 10/02/2020 [id number] / Implanted: Qty: 1 on 06/13/2019 by Isacc Ramon MD at [facility] Heart CARDIOVASCULAR [id number] / [id number] documented as of this encounter Results Not on filedocumented in this encounter Visit Diagnoses Diagnosis Peripheral vascular disease, unspecified - Primary documented in this encounter Insurance Payer Benefit Plan / Subscriber ID Effective Phone Address T ype Group Dates MEDICAID MEDICAID SSI PENDING 2019-Pres [address] [employer] Pending PENDING PENDING [place] [id number] documented as of this encounter
--- OUTSIDE RECORDS SUMMARY | 2020-01-22 11:18 | XMS REPORT | Summary of Care ---
:1990 Author Organization [facility] Address [address] [place] [address] Care Team Providers Name Role Phone Pcp, Does Not Have A Primary Care Provider Christopher Beaulieu RNfuse maker Reason for Visit Auth/Cert Status Reason Specialty Diagnoses / Procedures Referred By Nancy collier Referred To Contact Phlebotomy Procedures [facility] Pob Lab Draw LIPID PANEL Professional Office Building [address] [facility] , [address] [place] [address] Phone: Fax: Encounter Details Date Type Department Care Team Description 01/15/2020 Manager Of Enterprise Visit [facility] Annabelle Gifford MD [address] [place] [address] [address] [place] [address] Peripheral vascular Cardiology- [facility], Adc Vascular Room 1 - disease, unspecified [address] [facility], [address] [place] [address] Allergies No Known Allergiesdocumented as of [...] Added automatically from request for alejandro davis [id number] documented as of this encounter (statuses as of 01/15/2020) Social History Tobacco Use Types Packs/Day Years Used Date Never Smoker Smokeless Tobacco: Never Used Sex Assigned at Date Recorded Not on file COVID-19 Exposure Response Date Recorded In the last month, have you been in contact with No / Unsure 01/15/2020 10:09 AM CDT someone who was confirmed or suspected to have Coronavirus / COVID-19? documented as of this encounter Last Filed Vital Signs Not on filedocumented in this encounter Plan of Treatment Date Type Specialty Care Team Description 01/19/2020 Office Visit Vascular Surgery Estrellita Perez MD [address] [place] [phone] 04/29/2020 Manager Of Enterprise Visit Phlebotomy 2, Adc Lab 05/03/2020 Office Visit Cardiology Magda Vasques MD [address] [place] [phone] 06/20/2020 Office Visit Thoracic Surgery Veda Chaudhari MD [address] [place], [place] [phone] Health Maintenance Due Date Last Done Comments VARICELLA VACCINES (1 of 2 - 1993 2-dose childhood series) DTaP,Tdap,and Td Vaccines (1 - 09/22/2011 Tdap) INFLUENZA VACCINE (#1) 2019 Depression Screening 08/13/2020 08/14/2019 PNEUMOCOCCAL 0-64 YEARS COMBINED Aged Out No longer eligible based on SERIES patient's age to complete this topic documented as of this encounter Implants Implanted Type Area Cement Conveyor Operator Device Shelf Model / Identifier Expiration Serial / Lot Date [place], Bard 1/2in X 4in #[id number] - Sna [place] Left: Bard 10/31/2023 [id number] / Implanted: Qty: 2 on 06/13/2019 by Lj Arellano Jr., MD at [facility] Chest NA / [id number] Gelweave Woven Vascular Prosthesis 8mm X 15cm Terumo # [id number] - [id number] GRAFT N/A: Terumo 10/02/2021 [id number] / Implanted: Qty: 1 on 06/05/2019 by Isacc Ramon MD at [facility] Chest [id number] / NA Gelweave Woven Vascular Prosthesis 8mm X 15cm Terumo # [id number] - [id number] GRAFT Left: Terumo 11/02/2021 [id number] / Implanted: Qty: 1 on 06/13/2019 by Lj Arellano Jr., MD at [facility] Groin [id number] / [id number] 32mm Gelweave Graft GRAFT N/A: TERUMO 10/02/2020 [id number] / Implanted: Qty: 1 on 06/13/2019 by Isacc Ramon MD at [facility] Heart CARDIOVASCULAR [id number] / [id number] documented as of this encounter Results Not on filedocumented in this encounter Visit Diagnoses Diagnosis Peripheral vascular disease, unspecified documented in this encounter Insurance Payer Benefit Plan / Subscriber ID Effective Phone Address T ype Group Dates MEDICAID MEDICAID SSI PENDING 2019-Pres [address] [place] [place] [address] documented as of this encounter
--- OUTSIDE RECORDS SUMMARY | 2020-01-22 11:18 | XMS REPORT | Summary of Care ---
:1990 Author Organization [facility] Address [address] [place] [address] Care Team Providers Name Role Phone Pcp, Does Not Have A Primary Care Provider Christopher Beaulieu RNbinding cementer french cord Reason for Visit Auth/Cert Status Reason Specialty Diagnoses / Procedures Referred By Nancy collier Referred To Contact Phlebotomy Procedures [facility] Pob Lab Draw LIPID PANEL Professional Office Building [address] [place] [address] , [address] [place] [address] Phone: Fax: Encounter Details Date Type Department Care Team Description 01/15/2020 Appointment [facility] Annabelle Gifford M D [address] [place] [address] [address] [place] [address] Intermittent Cardiology- [facility], Adc Vascular Room 1 - claudication [address] [facility], [address] [place] [address] Allergies No Known Allergiesdocumented as [...] Added automatically from request for alejandro davis [id number] documented as of this encounter (statuses as [...] Office Visit Vascular Surgery Estrellita Perez MD [address] [place] [phone] 04/29/2020 Lease Broker Visit Phlebotomy 2, Adc Lab 05/03/2020 Office Visit Cardiology Magda Vasques MD [address] [place] [phone] 06/20/2020 Office Visit Thoracic Surgery Veda Chaudhari MD [address] [place] [address], [place] [phone] Health Maintenance Due Date Last Done Comments VARICELLA VACCINES (1 of 2 - 1993 2-dose childhood series) DTaP,Tdap,and Td Vaccines (1 - 09/22/2011 Tdap) INFLUENZA VACCINE (#1) 2019 Depression Screening 08/13/2020 08/14/2019 PNEUMOCOCCAL 0-64 YEARS COMBINED Aged Out No longer eligible based on SERIES patient's age to complete this topic documented as of this encounter Implants Implanted Type Area Pipeline Operator Device Shelf Model / Identifier Expiration Serial / Lot Date [place], Bard 2in X 4in #[id number] - Sna [place] Left: Bard 10/31/2023 [id number] / Implanted: Qty: 2 on 06/13/2019 by Lj Arellano Jr., MD at [facility] Chest NA / [id number] Gelweave Woven Vascular Prosthesis 8mm X 15cm Terumo # [id number] - [id number] GRAFT N/A: Terumo 10/02/2021 [id number] / Implanted: Qty: 1 on 06/05/2019 by Isacc Ramon MD at [facility] Chest [id number] / NA Gelweave Woven Vascular Prosthesis 8mm X 15cm Terumo # [id number] - [id number] GRAFT Left: Terumo 11/02/2021 [id number] / Implanted: Qty: 1 on 06/13/2019 by Lj Arellano Jr., MD at [facility] Groin [id number] / [id number] 32mm Gelweave Graft GRAFT N/A: TERUMO 10/02/2020 [id number] / Implanted: Qty: 1 on 06/13/2019 by Isacc Ramon MD at [facility] Heart CARDIOVASCULAR [id number] / [id number] documented as of this encounter Results Not on filedocumented in this encounter Visit Diagnoses Diagnosis Intermittent claudication Peripheral vascular disease, unspecified documented in this encounter Insurance Payer Benefit Plan / Subscriber ID Effective Phone Address T ype Group Dates MEDICAID MEDICAID SSI PENDING 2019-Pres [address] [place] [address] documented as of this encounter
--- OUTSIDE RECORDS SUMMARY | 2020-01-22 11:18 | XMS REPORT | Summary of Care ---
:1990 Author Organization [facility] Address [address] [place] [address] Care Team Providers Name Role Phone Pcp, Does Not Have A Primary Care Provider Christopher Beaulieu crtt Reason for Visit Reason Comments Follow-up hospital admit Chest Pain (Routine) Status Reason Specialty Diagnoses / Referred By Referred To Procedures Contact Contact Closed IM-CARDIOVASCULAR Diagnoses Chest pain, unspecified type Tin Davis Prasad Senddex DISEASE / Procedures Discharge Follow-Up: Specialty Service IM-CARDIOVASCULAR DISEASE; 2 Weeks MD Aisha MD Cardiology [address] [place] [address] [facility] ISAÍAS 106 [facility] [place] [phone] Phone: Encounter Details Date Type Department Care Team Description 01/02/2020 Office Visit [facility] Vasques, Sendil Thoracic asce nding aortic aneurysm (Primary Dx); Cardiology- Wayne Leonard MD Morbid obesity with body mass index of 4 0.0-49.9; [address] [place] [address] Transposition of great arteries; Drive, [address] ISAÍAS 106 Essential hypertension; [place], [place] Atypical chest pain [phone] Allergies No Known Allergiesdocumented as of this encounter (statuses as of 01/03/2020) Medications Medication Sig Dispensed Refills Start Date [...] as of this encounter (statuses as of 01/03/2020) Active Problems Problem Noted Date 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 Essential hypertension 12/03/2019 Chest pain, rule out acute myocardial infarction 12/01 Leg pain 07/10/2019 E44.1 Mild protein-calorie malnutrition 06/23/2019 Morbid obesity with body mass index of 40.0-49.9 06/15 Obesity (BMI 30-39.9) 05/31/2019 Ascending aortic aneurysm 05/31/2019 Thoracic ascending aortic aneurysm 05/31/2019 Overview: Added automatically from request for alejandro neily [id number] documented as of this encounter (statuses as of 01/03/2020) Social History Tobacco Use Types Packs/Day Years [...] Vasques MD - 01/02/2020 10:30 AM CDT [facility] Cardiology Consult Note Patient: Brice Polk III [...] history reviewed from chart 11/2019: dmitted to [facility] for chest pain. He seems to have [...] Surgeon: Mathew Mosqueda Jr., MD; Location[facility] AORTOGRAM N/A 06/05/2019 Surgeon: Mathew Mosqueda Jr., MD; Location: [facility] ARTERIOGRAM Right 06/05/2019 Surgeon: Mathew Mosqueda Jr., MD; Location: [facility] Location ASCENDING AORTIC ANEURYSM REPAIR N/A 06/13/2019 Surgeon: Isacc Chaudhari MD; Location: [facility] Location CLOSURE SURGICAL WOUND CHEST (SHX) N/A 06/16/2019 Surgeon: Isacc Chaudhari MD; Location: [facility] Location REDO STERNOTOMY N/A 06/13/2019 Surgeon: [...] file Gets together: Not on file Attends shinto service: Not on file Active member of [...] tablet CBC WITH DIFF COMP. METABOLIC PANEL (71681) LIPID PANEL (38702)(TOTAL CHOLESTEROL, TRIGLYCERIDES, HDL) N-TERMINAL PRO-BNP 2. Morbid obesity with body mass index of 40.0-49.9 metoprolol succinate XL 100 mg 24 hr tablet CBC WITH DIFF COMP. METABOLIC PANEL (53503) LIPID PANEL (33183)(TOTAL CHOLESTEROL, TRIGLYCERIDES, HDL) N-TERMINAL PRO-BNP 3. Transposition of great arteries metoprolol succinate XL 100 mg 24 hr tablet CBC WITH DIFF COMP. METABOLIC PANEL (76455) LIPID PANEL (53781)(TOTAL CHOLESTEROL, TRIGLYCERIDES, HDL) N-TERMINAL PRO-BNP 4. Essential hypertension metoprolol succinate XL 100 mg 24 hr tablet CBC WITH DIFF COMP. METABOLIC PANEL (24888) LIPID PANEL (42546)(TOTAL CHOLESTEROL, TRIGLYCERIDES, HDL) N-TERMINAL PRO-BNP 5. Atypical chest pain metoprolol succinate XL 100 mg 24 hr tablet CBC WITH DIFF COMP. METABOLIC PANEL (16683) LIPID PANEL (33042)(TOTAL CHOLESTEROL, TRIGLYCERIDES, HDL) N-TERMINAL PRO-BNP Atypical Chest [...] exercises. Body mass index is 36.29 kg/m. Right leg pain: Recommend to follow up with vascular surgery. Follow up in 3-4 months with labs prior to next OV. Orders Placed This Encounter Procedures CBC WITH DIFF COMP. METABOLIC PANEL (96965) LIPID PANEL (47969)(TOTAL CHOLESTEROL, TRIGLYCERIDES, HDL) N-TERMINAL PRO-BNP Requested Prescriptions [...] in the answers given. We reviewed the [place] [employer] recommendations for reduction of overall [...] feel free to call our office at [phone]. I would be happy to be of further assistance for Brice Polk III wellbeing. Thuan Vasques MD Assistant Customer Service Manager, Division of Cardiology [facility] documented in this encounter Plan of Treatment Date Type Specialty Care Team Description 04/29/2020 Ophthalmic Assistant Visit Phlebotomy 2, Adc Lab 05/03/2020 Office Visit Cardiology Magda Vasques MD [address] [phone] 06/20/2020 Office Visit Thoracic Surgery Veda Chaudhari MD [address] [place], [place] [phone] Name Type Priority Associated Diagnoses Order S chedule CBC WITH DIFF LAB Routine Thoracic ascending 1 Occurr ences starting aortic aneurysm 01/02/2020 until Morbid obesity with body 08/2020 mass index of 40 .0-49.9 Transposition of great arteries Essential hypert ension Atypical chest pain COMP. METABOLIC PANEL LAB Routine Thoracic ascending 1 Occurrences starting (46115) aortic aneurysm 01/02/2020 until Morbid obesity with body mass index of 40 .0-49.9 Transposition of great arteries Essential hypert ension Atypical chest pain LIPID PANEL LAB Routine Thoracic ascending 1 Occurre nces starting (34807)(TOTAL aortic aneurysm 01/02/2020 until CHOLESTEROL, Morbid obesity [...] of this encounter Implants Implanted Type Area Steel Placer Device Shelf Model / Identifier Expiration Serial / Lot Date [place], 1/2in X 4in #[id number] - Sna [place] Left: Bard 10/31/2023 [id number] / Implanted: Qty: 2 on 06/13/2019 by Lj Arellano Jr., MD at [facility] Chest NA / [id number] Gelweave Woven Vascular Prosthesis 8mm X 15cm Terumo # [id number] - [id number] GRAFT N/A: Terumo 10/02/2021 [id number] / Implanted: Qty: 1 on 06/05/2019 by Isacc Ramon MD at [facility] Chest [id number] / NA Gelweave Woven Vascular Prosthesis 8mm X 15cm Terumo # 241665 - [id number] GRAFT Left: Terumo 11/02/2021 [id number] / Implanted: Qty: 1 on 06/13/2019 by Lj Arellano Jr., MD at [facility] Groin [id number] / [id number] 32mm Gelweave Graft GRAFT N/A: TERUMO 10/02/2020 [id number] / Implanted: Qty: 1 on 06/13/2019 by Isacc Ramon MD at [facility] Heart CARDIOVASCULAR [id number] / [id number] documented as of this encounter Results [...]
--- OUTSIDE RECORDS SUMMARY | 2020-01-22 11:18 | XMS REPORT | Summary of Care ---
:1990 Author Organization [facility] Address [address] [place] [address] Care Team Providers Name Role Phone Pcp, Does Not Have A Primary Care Provider Christopher Beaulieu pyrotechnic mixer Reason for Visit Reason Comments Follow-up hospital admit Chest Pain (Routine) Status Reason Specialty Diagnoses / Referred By Referred To Procedures Contact Contact Closed IM-CARDIOVASCULAR Diagnoses Chest pain, unspecified type Tin Davis Prasad Senddex DISEASE / Procedures Discharge Follow-Up: Specialty Service IM-CARDIOVASCULAR DISEASE; 2 Weeks MD Aisha MD Cardiology [address] [place] [address] [facility] ISAÍAS 106 [facility] [place] [phone] Phone: Encounter Details Date Type Department Care Team Description 01/02/2020 Office Visit [facility] Vasques, Sendil Thoracic asce nding aortic aneurysm (Primary Dx); Cardiology- Wayne Leonard MD Morbid obesity with body mass index of 4 0.0-49.9; [address] [place] [address] Transposition of great arteries; Drive, [address] ISA[address]AS 106 Essential hypertension; [place], [place] Atypical chest pain [phone] Allergies [...] Added automatically from request for alejandro neily [id number] documented as of this encounter (statuses as [...] Vasques MD - 01/02/2020 10:30 AM CDT [facility] Cardiology Consult Note Patient: Brice Polk III [...] history reviewed from chart 11/2019: dmitted to [facility] for chest pain. He seems to have [...] Surgeon: Mathew Mosqueda Jr., MD; Location: [facility] Location AORTOGRAM N/A 06/05/2019 Surgeon: Mathew Mosqueda Jr., MD; Location: [facility] Location ARTERIOGRAM Right 06/05/2019 Surgeon: Mathew Mosqueda Jr., MD; Location: [facility] Location ASCENDING AORTIC ANEURYSM REPAIR N/A 06/13/2019 Surgeon: Isacc Chaudhari MD; Location: [facility] Location CLOSURE SURGICAL WOUND CHEST (SHX) N/A 06/16/2019 Surgeon: Isacc Chaudhari MD; Location: [facility] Location REDO STERNOTOMY N/A 06/13/2019 Surgeon: [...] file Gets together: Not on file Attends gnosticism service: Not on file Active member of [...] tablet CBC WITH DIFF COMP. METABOLIC PANEL (45806) LIPID PANEL (26568)(TOTAL CHOLESTEROL, TRIGLYCERIDES, HDL) N-TERMINAL PRO-BNP 2. Morbid obesity with body mass index of 40.0-49.9 metoprolol succinate XL 100 mg 24 hr tablet CBC WITH DIFF COMP. METABOLIC PANEL (95587) LIPID PANEL (04000)(TOTAL CHOLESTEROL, TRIGLYCERIDES, HDL) N-TERMINAL PRO-BNP 3. Transposition of great arteries metoprolol succinate XL 100 mg 24 hr tablet CBC WITH DIFF COMP. METABOLIC PANEL (47728) LIPID PANEL (02679)(TOTAL CHOLESTEROL, TRIGLYCERIDES, HDL) N-TERMINAL PRO-BNP 4. Essential hypertension metoprolol succinate XL 100 mg 24 hr tablet CBC WITH DIFF COMP. METABOLIC PANEL (53697) LIPID PANEL (70658)(TOTAL CHOLESTEROL, TRIGLYCERIDES, HDL) N-TERMINAL PRO-BNP 5. Atypical chest pain metoprolol succinate XL 100 mg 24 hr tablet CBC WITH DIFF COMP. METABOLIC PANEL (32548) LIPID PANEL (36232)(TOTAL CHOLESTEROL, TRIGLYCERIDES, HDL) N-TERMINAL PRO-BNP Atypical Chest [...] Procedures CBC WITH DIFF COMP. METABOLIC PANEL (93970) LIPID PANEL (20595)(TOTAL CHOLESTEROL, TRIGLYCERIDES, HDL) N-TERMINAL PRO-BNP Requested Prescriptions [...] in the answers given. We reviewed the [place] [employer] recommendations for reduction of overall [...] feel free to call our office at [phone]. I would be happy to be of further assistance for Brice Polk III wellbeing. Thuan Vasques MD Tag Writer, Division of Cardiology [facility] documented in this encounter Plan of Treatment Date Type Specialty Care Team Description 04/29/2020 Material Loader Visit Phlebotomy 2, Adc Lab 05/03/2020 Office Visit Cardiology Magda Vasques MD [address] [address] [phone] 06/20/2020 Office Visit Thoracic Surgery Veda Chaudhari MD [address] [place], [place] [phone] Name Type Priority Associated Diagnoses Order S chedule CBC WITH DIFF LAB Routine Thoracic ascending 1 Occurr ences starting aortic aneurysm 01/02/2020 until Morbid obesity with body 08/2020 mass index of 40 .0-49.9 Transposition of great arteries Essential hypert ension Atypical chest pain COMP. METABOLIC PANEL LAB Routine Thoracic ascending 1 Occurrences starting (23647) aortic aneurysm 01/02/2020 until Morbid obesity with body mass index of 40 .0-49.9 Transposition of great arteries Essential hypert ension Atypical chest pain LIPID PANEL LAB Routine Thoracic ascending 1 Occurre nces starting (47218)(TOTAL aortic aneurysm 01/02/2020 until CHOLESTEROL, Morbid obesity [...] of this encounter Implants Implanted Type Area Stone And Concrete Washer Device Shelf Model / Identifier Expiration Serial / Lot Date Bard Roxane /2in X 4in #[id number] - Sna [place] Left: Bard 10/31/2023 [id number] / Implanted: Qty: 2 on 06/13/2019 by Lj Arellano Jr., MD at [facility] Chest NA / [id number] Gelweave Woven Vascular Prosthesis 8mm X 15cm Terumo # [id number] - [id number] GRAFT N/A: Terumo 10/02/2021 [id number] / Implanted: Qty: 1 on 06/05/2019 by Isacc Ramon MD at [facility] Chest [id number] / NA Gelweave Woven Vascular Prosthesis 8mm X 15cm Terumo # 766654 - [id number] GRAFT Left: Terumo 11/02/2021 [id number] / Implanted: Qty: 1 on 06/13/2019 by Lj Arellano Jr., MD at [facility] Groin [id number] / [id number] 32mm Gelweave Graft GRAFT N/A: TERUMO 10/02/2020 [id number] / Implanted: Qty: 1 on 06/13/2019 by Isacc Ramon MD at [facility] Heart CARDIOVASCULAR [id number] / [id number] documented as of this encounter Results [...]
--- OUTSIDE RECORDS SUMMARY | 2020-01-22 11:19 | XMS REPORT | Summary of Care ---
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 sander Reason for Visit Reason Comments Follow-up Assessment Encounter Details Date Type Department Care Team Description 01/08/2020 Patient Outreach [facility] Evette Beaulieu RN Follow-up; [facility]- [address] [place] [address] 77 [phone] Allergies No Known Allergiesdocumented as [...] Added automatically from request for alejandro davis [id number] documented as of this encounter (statuses as [...] encounter Progress Notes Evette Beaulieu RN - 01/08/2020 11:01 AM CDTCHP: CM attempted to f/u with the patient since he has not CB yet with updated BP readings; no answer. CMleft a vm to call back at his earliest convenience with BP readings. JOSUE Maher, RN, [facility] Outpatient [facility] O: [phone] M: [phone] Evette gonzalez RN - 01/08/2020 11:01 AM CDTCHP: Pt stated he saw the powder loader yesterday and was started a new medication. He will be measuring his BP around noon (per patient); CM asked for patient to call and report his BP. Pt agreed. CM reminded the patient to be completing the applications that were provided to him in the hospital and notifyCM as soon as possible when completed. Pt verbalized understanding and agrees with plan. JOSUE Maher, RN, [facility] Outpatient [facility] O: [phone] M: [phone] documented in this encounter Plan of Treatment Date Type Specialty Care Team Description 01/19/2020 Office Visit Vascular Surgery Estrellita Perez MD [address] [place] [address] 77 [phone] 04/29/2020 Cutter Helper Visit Phlebotomy 2, Adc Lab 05/03/2020 Office Visit Cardiology Magda Vasques MD [address] [place], [place] [address] [phone] 06/20/2020 Office Visit Thoracic Surgery Veda Chaudhari MD [address] [place], [place] 77 [phone] Health Maintenance Due Date Last Done Comments VARICELLA VACCINES (1 of 2 - 1993 2-dose childhood series) DTaP,Tdap,and Td Vaccines (1 - 09/22/2011 Tdap) INFLUENZA VACCINE (#1) 2019 Depression Screening 08/13/2020 08/14/2019 PNEUMOCOCCAL 0-64 YEARS COMBINED Aged Out No longer eligible based on SERIES patient's age to complete this topic documented as of this encounter Implants Implanted Type Area Retention Specialist Device Shelf Model / Identifier Expiration Serial / Lot Date Bard Roxane 1/2in X 4in #[id number] - Sna [place] Left: Bard 10/31/2023 [id number] / Implanted: Qty: 2 on 06/13/2019 by Lj Arellano Jr., MD at [facility] Chest NA / [id number] Gelweave Woven Vascular Prosthesis 8mm X 15cm Terumo # [id number] - [id number] GRAFT N/A: Terumo 10/02/2021 [id number] / Implanted: Qty: 1 on 06/05/2019 by Isacc Ramon MD at [facility] Chest [id number] / NA Gelweave Woven Vascular Prosthesis 8mm X 15cm Terumo # [id number] - [id number] GRAFT Left: Terumo 11/02/2021 [id number] / Implanted: Qty: 1 on 06/13/2019 by Lj Arellano Jr., MD at [facility] Groin [id number] / [id number] 32mm Gelweave Graft GRAFT N/A: TERUMO 10/02/2020 [id number] / Implanted: Qty: 1 on 06/13/2019 by Isacc Ramon MD at [facility] Heart CARDIOVASCULAR [id number] / [id number] documented as of this encounter Results Not on filedocumented in this encounter Insurance Payer Benefit Plan / Subscriber ID Effective Phone Address T ype Group Dates MEDICAID MEDICAID SSI PENDING 2019-Pres [address] [place] [address] documented as of this encounter
--- OUTSIDE RECORDS SUMMARY | 2020-01-22 11:19 | XMS REPORT | Summary of Care ---
:1990 Author Organization [facility] Address [address] [place] [address] Care Team Providers Name Role Phone Pcp, Does Not Have A Primary Care Provider Christopher Beaulieu RNinstallation coordinator Reason for Visit Reason Comments LAB WORK Auth/Cert Status Reason Specialty Diagnoses / Procedures Referred By Nancy collier Referred To Contact Phlebotomy Procedures Adc Pob Lab Draw LIPID PANEL Professional Office Building [address] [place] [address] , [address] [place] [address] Phone: Fax: Encounter Details Date Type Department Care Team Description 01/15/2020 Sales Department Manager Visit [facility] Annabelle Gifford MD [address] [facility] [address] [place] [address] Thoracic ascending aortic aneurysm; Professional Office Pob, Adc Lab Main Morbid obesity with body mass index of 4 0.0-49.9; Building Phlebotomy Transpos ition of great arteries; Lab Essential hypertension; Professional Office Atypical chest pain Building [address] [place] [address] , [address] [place] [address] Allergies No Known Allergiesdocumented as of this [...] Added automatically from request for alejandro davis [id number] documented as of this encounter (statuses as [...] Office Visit Vascular Surgery Estrellita Perez MD [address] [place] [address] [phone] 04/29/2020 Sales Department Manager Visit Phlebotomy 2, Adc Lab 05/03/2020 Office Visit Cardiology Magda Vasques MD [address] [place], [place] [address] [phone] 06/20/2020 Office Visit Thoracic Surgery Veda Chaudhari MD [address] [place] [address] [phone] Health Maintenance Due Date Last Done Comments VARICELLA VACCINES (1 of 2 - 1993 2-dose childhood series) DTaP,Tdap,and Td Vaccines (1 - 09/22/2011 Tdap) INFLUENZA VACCINE (#1) 2019 Depression Screening 08/13/2020 08/14/2019 PNEUMOCOCCAL 0-64 YEARS COMBINED Aged Out No longer eligible based on SERIES patient's age to complete this topic documented as of this encounter Implants Implanted Type Area Slurry Blender Device Shelf Model / Identifier Expiration Serial / Lot Date Bard Roxane 1/2in X 4in #[id number] - Sna [place] Left: Bard 10/31/2023 [id number] / Implanted: Qty: 2 on 06/13/2019 by Lj Arellano Jr., MD at [facility] Chest NA / [id number] Gelweave Woven Vascular Prosthesis 8mm X 15cm Terumo # [id number] - [id number] GRAFT N/A: Terumo 10/02/2021 [id number] / Implanted: Qty: 1 on 06/05/2019 by Isacc Ramon MD at [facility] Chest [id number] / NA Gelweave Woven Vascular Prosthesis 8mm X 15cm Terumo # [id number] - [id number] GRAFT Left: Terumo 11/02/2021 [id number] / Implanted: Qty: 1 on 06/13/2019 by Lj Arellano Jr., MD at [facility] Groin [id number] / [id number] 32mm Gelweave Graft GRAFT N/A: TERUMO 10/02/2020 [id number] / Implanted: Qty: 1 on 06/13/2019 by Isacc Ramon MD at [facility] Heart CARDIOVASCULAR [id number] / [id number] documented as of this encounter Procedures Procedure Name Priority Date/Time Associated Diagnosis Comme nts N-TERMINAL PRO-BNP Routine 01/15/2020 10:22 AM Thoracic ascend ing Results for this CDT aortic aneurysm procedure are in Morbid obesity with the resu lts body mass index of section. 40.0-49.9 Transposition of great arteries Essential hypertension Atypical chest pain CBC WITH DIFF Routine 01/15/2020 10:22 AM Thoracic ascending R esults for this CDT aortic aneurysm procedure are in Morbid obesity with the resu lts body mass index of section. 40.0-49.9 Transposition of great arteries Essential hypertension Atypical chest pain LIPID PANEL Routine 01/15/2020 10:22 AM Thoracic ascending Re sults for this (73052)(TOTAL CDT aortic aneurysm procedure are in CHOLESTEROL, Morbid obesity with the resu lts TRIGLYCERIDES, HDL) body mass index of se ction. 40.0-49.9 Transposition of great arteries Essential hypertension Atypical chest pain COMP. METABOLIC Routine 01/15/2020 10:22 AM Thoracic ascending Results for this PANEL (63598) CDT aortic aneurysm procedure are in Morbid obesity with the resu lts body mass index of section. 40.0-49.9 Transposition of great arteries Essential hypertension Atypical chest pain documented in this encounter Results N-TERMINAL PRO-BNP (01/15/2020 10:22 AM CDT) Pathologist Sig nature NT-proBNP 67 <=125 pg/mL [facility] Specimen Blood Narrative Performed At [facility] has been reported to cause a negative [facility] bias, interpret results relative to patient's use of biotin. Performing Organization Address City/[facility]/Zipcode Phone Number [facility] CLIA: [id number] [place], [place] [id number] LABORATORY [address] LIPID PANEL (99498)(TOTAL CHOLESTEROL, TRIGLYCERIDES, HDL) (01/15/2020 10:22 AM CDT) Pathologist Sig nature CHOL 210 (H) 120 - 200 mg/dL [facility] HDL 48 >40 mg/dL [facility] HDLC RATIO 4.4 <=5.0 [facility] TRIG 151 30 - 170 mg/dL [facility] LDL CHOL 132 <=160 mg/dL [facility] VLDL 30 5 - 60 mg/dL [facility] Specimen Blood Performing Organization Address City/State/Zipcode Phone Number [facility] CLIA: [id number] [place], [place] [id number] LABORATORY [address] COMP. METABOLIC PANEL (52746) (01/15/2020 10:22 AM CDT) [facility] nature NA 139 135 - 145 mmol/L [facility] K 4.8 3.5 - 5.0 mmol/L [facility] CL 105 98 - 108 mmol/L [facility] CO2 TOTAL 31 23 - 31 mmol/L [facility] AGAP 3 2 - 16 [facility] BUN 14 7 - 23 mg/dL [facility] GLUCOSE 96 70 - 110 mg/dL [facility] CREATININE 0.81 0.60 - 1.25 [facility] mg/dL [facility] TOTAL BILI 0.8 0.1 - 1.1 mg/dL [facility] CALCIUM 9.5 8.6 - 10.6 mg/dL [facility] T PROTEIN 7.2 6.3 - 8.2 g/dL [facility] ALBUMIN 4.6 3.5 - 5.0 g/dL [facility] ALK PHOS 60 34 - 122 U/L [facility] ALTv 17 5 - 50 U/L [facility] AST(SGOT) 22 13 - 40 U/L [facility] eGFR Calculation 114.3 mL/min/1.73m2 [facility] (Non-) [facility] Y eGFR Calculation 138.5 mL/min/1.73m2 [facility] () [facility] Specimen Blood Narrative Performed At Association of Glomerular Filtration Rate (GFR) [facility] and Staging of Kidney Disease* [...] tests). Performing Organization Address City/State/Zipcode Phone Number [facility] CLIA: [id number] [place] [address] CBC WITH DIFF (01/15/2020 10:22 AM CDT) Pathologist Sig nature WBC 6.09 4.20 - 10.70 [facility] 10*3/L [facility] RBC 4.62 4.26 - 5.52 [facility] 10*6/L [facility] HGB 13.8 12.2 - 16.4 g/dL [facility] HCT 41.2 38.4 - 49.3 % [facility] MCV 89.2 81.7 - 95.6 fL [facility] MCH 29.9 26.1 - 32.7 pg [facility] MCHC 33.5 31.2 - 35.0 g/dL [facility] RDW-SD 48.5 38.5 - 51.6 fL [facility] RDW-CV 14.8 12.1 - 15.4 % [facility] PLT 236 150 - 328 [facility] 10*3/L [facility] MPV 9.4 (L) 9.8 - 13.0 fL [facility] NRBC/100 WBC 0.0 0.0 - 10.0 /100 [facility] WBCs [facility] NRBC x10^3 <0.01 10*3/L [facility] GRAN MAT (NEUT) % 60.9 % [facility] IMM GRAN % 0.00 % [facility] LYMPH % 26.8 % [facility] MONO % 9.2 % [facility] EOS % 2.6 % [facility] BASO % 0.5 % [facility] GRAN MAT x10^3(ANC) 3.71 1.99 - 6.95 [facility] 10*3/uL HOSPITAL LABORATORY IMM GRAN x10^3 <0.03 0.00 - 0.06 [facility] 10*3/uL HOSPITAL LABORATORY LYMPH x10^3 1.63 1.09 - 3.23 [facility] 10*3/uL HOSPITAL LABORATORY MONO x10^3 0.56 0.36 - 1.02 [facility] 10*3/uL HOSPITAL LABORATORY EOS x10^3 0.16 0.06 - 0.53 [facility] 10*3/uL HOSPITAL LABORATORY BASO x10^3 0.03 0.01 - 0.09 [place] [address]*3/uL [facility] Specimen Blood Performing Organization Address City/State/Zipcode Phone Number [facility] CLIA: [id number] [place] [address] documented in this encounter Visit Diagnoses Diagnosis Thoracic ascending aortic aneurysm Thoracic aneurysm without mention of rup ture Morbid obesity with body mass index of 4 0.0-49.9 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
--- OUTSIDE RECORDS SUMMARY | 2020-01-22 11:19 | XMS REPORT | Summary of Care ---
:1990 Author Organization [facility] Address [address] [place] [address] Care Team Providers Name Role Phone Pcp, Does Not Have A Primary Care Provider Christopher Beaulieu RNassistant executive housekeeper Reason for Visit Reason Comments Results Encounter Details Date Type Department Care Team Description 01/19/2020 Telephone [facility] Cardiology- Magda Vasques MD Results [place] [address] [facility], Suite [facility] [address] [place] [address] [place] [address] [phone] Allergies No Known Allergiesdocumented as of this encounter (statuses as of 01/19/2020) Medications Medication Sig Dispensed Refills Start Date End Date Status ketorolac 10 mg Take 1 tablet 20 tablet 0 12/04/2019 Active tabletIndications: by mouth every Chest pain, 6 (six) hours unspecified type as needed for Pain (scale 4-6). traMADoL 50 mg Take 1 tablet 12 tablet 0 12/04/2019 Active tabletIndications: by mouth every acute pain 6 (six) hours as needed for Pain (scale 7-10). Indications: acute pain metoprolol succinate Take 1 tablet 60 tablet 4 01/02/202001/04 Active XL 100 mg 24 hr by mouth 2 tabletIndications: (two) times Thoracic ascending daily for 30 aortic aneurysm, days. Morbid obesity with body mass index of 40.0-49.9, Transposition of great arteries, Essential hypertension, Atypical chest pain gabapentin 100 mg Take 1 capsule 30 capsule 2 01/19/2020 Active capsuleIndications: by mouth 3 Paresthesia (three) times daily. atorvastatin 20 mg Take 1 tablet 30 tablet 5 01/19/2020 Active tablet by mouth at bedtime. documented as of this encounter (statuses as of 01/19/2020) Active Problems Problem Noted Date 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 Essential hypertension 12/03/2019 Chest pain, rule out acute myocardial infarction 12/01 Leg pain 07/10/2019 E44.1 Mild protein-calorie malnutrition 06/23/2019 Morbid obesity with body mass index of 40.0-49.9 06/15 Obesity (BMI 30-39.9) 05/31/2019 Ascending aortic aneurysm 05/31/2019 Thoracic ascending aortic aneurysm 05/31/2019 Overview: Added automatically from request for alejandro davis [id number] documented as of this encounter (statuses as of 01/19/2020) Social History Tobacco Use Types Packs/Day Years Used Date Never Smoker Smokeless Tobacco: Never Used Sex Assigned at Date Recorded Not on file COVID-19 Exposure Response Date Recorded In the last month, have you been in contact with No / Unsure 01/19/2020 11:37 AM CDT someone who was confirmed or suspected to have Coronavirus / COVID-19? documented as of this encounter Last Filed Vital Signs Not on filedocumented in this encounter Miscellaneous Notes Telephone Encounter - Danyell Covington RN - 01/19/2020 4:37 PM CDTPatient notified of results/recommendations, understanding was verbalized via teach back. NT pro BNP Normal CMP and CB within acceptable limits. LDL at 132. Recommend to keep it < 100 if possible. Recommend starting lipitor 20 mg daily. Rptlipid panel in 2 months. documented in this encounter Plan of Treatment Date Type Specialty Care Team Description 04/29/2020 Managing Editor Visit Phlebotomy 2, Adc Lab 05/03/2020 Office Visit Cardiology Magda Vasques MD [address] [place] [address] [phone] 06/20/2020 Office Visit Thoracic Surgery Veda Chaudhari MD [address] [place] [address] [phone] 07/12/2020 Managing Editor Visit Cardiology Pc, Adc Vascular Room 1 - 07/12/2020 Managing Editor Visit Cardiology Pc, Adc Vascular Room 1 - 07/19/2020 Office Visit Vascular Surgery Estrellita Perez MD [address] [place] [address] [phone] Name Type Priority Associated Diagnoses Order S chedule LIPID PANEL LAB Routine Essential hypert ension Expected: 03/20/2020, ([id number])(TOTAL Peripheral vascular Expires : 01/18/2021 CHOLESTEROL, disease, unspecified TRIGLYCERIDES, HDL) Health Maintenance Due Date Last Done Comments VARICELLA VACCINES (1 of - 1993 2-dose childhood series) DTaP,Tdap,and Td Vaccines (1 - 09/22/2011 Tdap) INFLUENZA VACCINE (#1) 2019 Depression Screening 08/13/2020 08/14/2019 PNEUMOCOCCAL 0-64 YEARS COMBINED Aged Out No longer eligible based on SERIES patient's age to complete this topic documented as of this encounter Implants Implanted Type Area Oil Developer Device Shelf Model / Identifier Expiration Serial / Lot Date Bard Roxane 1/2in X 4in #[id number] - Sna [place] Left: Bard 10/31/2023 [id number] / Implanted: Qty: 2 on 06/13/2019 by Lj Arellano Jr., MD at [facility] Chest NA / [id number] Gelweave Woven Vascular Prosthesis 8mm X 15cm Terumo # [id number] - [id number] [id number] N/A: Terumo 10/02/2021 [id number] / Implanted: Qty: 1 on 06/05/2019 by Isacc Ramon MD at [facility] Chest [id number] / NA Gelweave Woven Vascular Prosthesis 8mm X 15cm Terumo # [id number] - [id number] GRAFT Left: Terumo 11/02/2021 [id number] / Implanted: Qty: 1 on 06/13/2019 by Lj Arellano Jr., MD at [facility] Groin [id number] / [id number] 32mm Gelweave Graft GRAFT N/A: TERUMO 10/02/2020 [id number] / Implanted: Qty: 1 on 06/13/2019 by Isacc Ramon MD at [facility] Heart CARDIOVASCULAR [id number] / [id number] documented as of this encounter Results Not on filedocumented in this encounter Visit Diagnoses Diagnosis Essential hypertension - Primary Unspecified essential hypertension Peripheral vascular disease, unspecified documented in this encounter Insurance Payer Benefit Plan / Subscriber ID Effective Phone Address T ype Group Dates MEDICAID MEDICAID SSI PENDING 2019-Pres [address] Pending [place] [address] documented as of this encounter
[2020-01-22 12:05] LABS: Absolute Lymphocytes (CBC) 1.4 K/uL (0.7-4.9); Basophils % 0.6 % (0-1.3); Hematocrit 40.2 % (39.6-49.0); Lymphocytes % 21.5 % (15.3-44.8); MPV 7.5 fL (7.6-11.3)
[2020-01-22 12:06] LABS: Protime INR 1.02
[2020-01-22 12:22] LABS: ALT/SGPT 35 U/L (12-78); AST/SGOT 19 U/L (15-37); Albumin 4.1 g/dL (3.4-5.0); Alkaline Phosphatase 88 U/L (45-117); BUN Blood Urea Nitrogen 9 mg/dL (7-18); Bicarbonate 28 mmol/L (21-32); Bilirubin Direct 0.2 mg/dL (0-0.2); Bilirubin Total 0.7 mg/dL (0.2-1.0); Glucose Level 101 mg/dL (74-106); Magnesium 2.3 mg/dL (1.8-2.4); NT PRO-BNP 78 pg/mL (<125); Potassium 3.8 mmol/L (3.5-5.1); Protein, Total 7.9 g/dL (6.4-8.2); Sodium Level 141 mmol/L (136-145); Troponin (Emerg Dept Use Only) < 0.02 ng/mL (0.0-0.045)
[2020-01-22] MEDS ORDERED: MORPHINE 4 MG/ML SYR ONE (12:48)
[2020-01-22] MEDS ORDERED: ONDANSETRON 4 MG/2 ML VIAL ONE (12:48)
--- NOTE | 2020-01-22 13:01 | RAD REPORT ---
EXAM DESCRIPTION: Margarette Single View01/22/2020 12:23 pm CLINICAL HISTORY: Chest pain COMPARISON: 2019 FINDINGS: The lungs appear clear of acute infiltrate. The heart is mildly enlarged. Postsurgical changes involve the chest. IMPRESSION: No acute abnormalities displayed
--- NOTE | 2020-01-22 15:45 | ER ---
Nurse's Notes [facility] Name: Brice Polk III Age: 29 yrs Sex: Male : 1990 Arrival Date: 01/22/2020 Time: 11:15 Bed 18 Private MD: Diagnosis: Chest pain, unspecified Presentation: 01/21 11:22 Chief complaint: Patient states: midsternal chest pain, generalized weakness started a sv few days ago. Coronavirus screen: Client denies travel out of the [place] in the last 14 days. At this time, the client does not indicate any symptoms associated with coronavirus-19. Ebola Screen: No symptoms or risks identified at this time. Risk Assessment: Do you want to hurt yourself or someone else? Patient reports no desire to harm self or others. Onset of symptoms was January 20, 2020. 11:22 Method Of Arrival: Ambulatory sv 11:22 Acuity: LEXI 2 sv 11:24 Initial Sepsis Screen: Does the patient meet any 2 criteria? HR > 90 bpm. No. Patient's sv initial sepsis screen is negative. Does the patient have a suspected source of infection? No. Patient's initial sepsis screen is negative. Triage Assessment: 11:22 General: Appears in no apparent distress. comfortable, Behavior is calm, cooperative, sv appropriate for age. Pain: Complains of pain in chest. Neuro: Level of Consciousness is awake, alert, obeys commands, Oriented to person, place, time, situation, Gait is steady. Cardiovascular: Reports chest pain. Respiratory: Respiratory effort is even, unlabored. Historical: - Allergies: 11:24 No Known Drug Allergies; sv - Home Meds: 12:01 metoprolol tartrate 100 mg oral tab 1 tab 2 times per day [Active]; ketorolac 10 mg tw2 Oral tab 1 tab every 6 hours as needed for pain [Active]; atorvastatin 20 mg oral tab 1 tab once daily [Active]; gabapentin 100 mg oral cap 3 caps 3 times per day [Active]; - PMHx: 11:24 CONGENITAL HEART PROBLEMS; Hypertension; sv - PSHx: 11:24 OPEN HEART SURGERY BABY; Open heart surgery for ascending aorta-June 2019; sv - Immunization history:: Adult Immunizations. - Social history:: Smoking status: . Screenin:48 Abuse screen: Denies threats or abuse. Nutritional screening: On. Tuberculosis tw2 screening: No symptoms or risk factors identified. Fall Risk None identified. Assessment: 11:42 General: Appears in no apparent distress. obese, well groomed, Behavior is calm, tw2 cooperative, appropriate for age. Pain: Complains of pain in chest Pain radiates to back and right arm. Pain: Pain began 1 day ago. Neuro: Level of Consciousness is awake, alert, obeys commands, Oriented to person, place, time, situation. Cardiovascular: Reports chest pain, Heart tones S1 S2 Patient's skin is warm and dry. Respiratory: Airway is patent Respiratory effort is even, unlabored, Respiratory pattern is regular, symmetrical, Breath sounds are clear bilaterally. GI: No signs and/or symptoms were reported involving the gastrointestinal system. Abdomen is round non-distended, obese, Bowel sounds present X 4 quads. : No signs and/or symptoms were reported regarding the genitourinary system. EENT: No signs and/or symptoms were reported regarding the EENT system. Derm: No signs and/or symptoms reported regarding the dermatologic system. Musculoskeletal: Range of motion: intact in all extremities. 12:33 Reassessment: Patient appears in no apparent distress at this time. No changes from tw2 previously documented assessment. Patient and/or family updated on plan of care and expected duration. Pain level reassessed. Patient is alert, oriented x 3, equal unlabored respirations, skin warm/dry/pink. 13:28 Reassessment: Patient appears in no apparent distress at this time. No changes from tw2 previously documented assessment. Patient and/or family updated on plan of care and expected duration. Pain level reassessed. Patient is alert, oriented x 3, equal unlabored respirations, skin warm/dry/pink. 14:30 Reassessment: Patient appears in no apparent distress at this time. No changes from tw2 previously documented assessment. Patient and/or family updated on plan of care and expected duration. Pain level reassessed. Patient is alert, oriented x 3, equal unlabored respirations, skin warm/dry/pink. 15:30 Reassessment: Patient appears in no apparent distress at this time. No changes from tw2 previously documented assessment. Patient and/or family updated on plan of care and expected duration. Pain level reassessed. Patient is alert, oriented x 3, equal unlabored respirations, skin warm/dry/pink. 16:00 Reassessment: provider at bedside going over results at this time. tw2 16:10 Reassessment: Patient appears in no apparent distress at this time. No changes from tw2 previously documented assessment. Patient and/or family updated on plan of care and expected duration. Pain level reassessed. Patient is alert, oriented x 3, equal unlabored respirations, skin warm/dry/pink. Vital Signs: 11:24 BP 143 / 90; Pulse 98; Resp 18; Temp 98.3; Pulse Ox 99% ; Weight 131.54 kg; Height 6 sv ft. 3 in. (190.50 cm); 12:33 BP 126 / 71; Pulse 86; Resp 17; Pulse Ox 99% on R/A; tw2 13:29 BP 125 / 83; Pulse 84; Resp 19; Pulse Ox 99% ; Pain 5/10; tw2 14:30 BP 130 / 73; Pulse 79; Resp 17; Pulse Ox 100% on R/A; tw2 15:46 BP 123 / 52; Pulse 87; Resp 16; Pulse Ox 98% on R/A; tw2 16:09 BP 121 / 55; Pulse 80; Resp 16; Pulse Ox 99% on R/A; tw2 11:24 Body Mass Index 36.25 (131.54 kg, 190.50 cm) sv ED Course: 11:15 Patient arrived in ED. mr 11:22 Arm band placed on. sv 11:23 Triage completed. sv 11:30 EKG completed in triage. Results shown to MD. sv 11:30 EKG done, by ED staff, reviewed by Lucian Wilson MD. sv 11:40 Stephanie Adair, RN is Primary Nurse. tw2 11:41 Placed in gown. personnel monitor on. Pulse ox on. NIBP on. tw2 11:48 Patient maintains SpO2 saturation greater than 95% on room air. tw2 11:53 Initial lab(s) drawn, by me, sent to lab. Inserted saline lock: 20 gauge in left dh3 antecubital area, using aseptic technique. Blood collected. 11:54 Lucian Wilson MD is Attending Physician. kdr 14:53 XRAY Chest (1 view) Sent. ss 14:53 Troponin (emerg Dept Use Only) Sent. ss 14:53 PT-INR Sent. ss 14:53 NT PRO-BNP Sent. ss 14:53 Magnesium Sent. 14:53 LFT's Sent. 14:53 CBC with Diff Sent. 14:53 Basic Metabolic Panel Sent. 15:02 Troponin (emerg Dept Use Only) Sent. dh3 16:14 No provider procedures requiring assistance completed. IV discontinued, intact, tw2 bleeding controlled, No redness/swelling at site. Pressure dressing applied. Administered Medications: 12:38 Drug: Zofran (Ondansetron) 4 mg Route: IVP; Site: left antecubital; tw2 13:29 Follow up: Response: No adverse reaction tw2 12:40 Drug: morphine 4 mg {Note: RASS 0.} Route: IVP; Site: left antecubital; tw2 13:29 Follow up: Response: Pain is decreased; RASS: Alert and Calm (0) tw2 Outcome: 15:44 Discharge ordered by . kdr 16:14 Discharged to home ambulatory. tw2 16:14 Condition: stable 16:14 Discharge instructions given to patient, Instructed on discharge instructions, follow up and referral plans. Demonstrated understanding of instructions, follow-up care. 16:15 Patient left the ED. tw2 Signatures: Corine Shepherd RN RN Lucian Wilson MD MD kdr Rivera, Mary mr Joie Brooks RN RN ss Wise, Tara, RN RN tw2 Alice Ribera 3 Corrections: (The following items were deleted from the chart) 11:26 11:22 Acuity: LEXI 3 sv sv 11:27 11:24 Pulse 98bpm; Resp 18bpm; Pulse Ox 99%; Temp 98.3F; sv sv
--- NOTE | 2020-01-22 15:45 | EDPHYS ---
Physician Documentation [facility] Name: Brice Polk III Age: 29 yrs Sex: Male : 1990 Arrival Date: 01/22/2020 Time: 11:15 Bed 18 Private MD: ED Physician Lucian Wilson HPI: 01/22 07:29 This 29 yrs old Black Male presents to ER via Ambulatory with complaints of Chest Pain. kdr 07:29 The patient or guardian reports chest pain that is located primarily in the substernal kdr area. The pain does not radiate. Associated signs and symptoms: Pertinent positives: nausea, shortness of breath. The chest pain is described as aching, dull, a pressure. Duration: The patient or guardian reports a single episode, that is still ongoing, He has frequent CP and intermittently waxes and wanes. He reports an extensive cardiac history and that the pain he was having was consistent with his prior chest pain. There was nothing unusual about this pain. Modifying factors: The symptoms are alleviated by nothing. the symptoms are aggravated by nothing. Severity of pain: At its worst the pain was moderate severe just prior to arrival, in the emergency department the pain has improved mildly. The patient has experienced similar episodes in the past, multiple times, chronically. The patient has been recently seen by a physician: The patient reports multiple visits to EDs in the area for similar CP over the past months and years. Historical: - Allergies: 01/21 11:24 No Known Drug Allergies; sv - Home Meds: 12:01 metoprolol tartrate 100 mg oral tab 1 tab 2 times per day [Active]; ketorolac 10 mg tw2 Oral tab 1 tab every 6 hours as needed for pain [Active]; atorvastatin 20 mg oral tab 1 tab once daily [Active]; gabapentin 100 mg oral cap 3 caps 3 times per day [Active]; - PMHx: 11:24 CONGENITAL HEART PROBLEMS; Hypertension; sv - PSHx: 11:24 OPEN HEART SURGERY BABY; Open heart surgery for ascending aorta-June 2019; sv - Immunization history:: Adult Immunizations. - Social history:: Smoking status: . ROS: 01/22 07:37 Constitutional: Negative for fever, chills, and weight loss, Eyes: Negative for injury, kdr pain, redness, and discharge, ENT: Negative for injury, pain, and discharge, Neck: Negative for injury, pain, and swelling, Respiratory: Negative for shortness of breath, cough, wheezing, and pleuritic chest pain, Abdomen/GI: Negative for abdominal pain, nausea, vomiting, diarrhea, and constipation, Back: Negative for injury and pain, : Negative for injury, bleeding, discharge, and swelling, MS/Extremity: Negative for injury and deformity, Skin: Negative for injury, rash, and discoloration, Neuro: Negative for headache, weakness, numbness, tingling, and seizure activity. Psych: Negative for depression, anxiety, suicide ideation, homicidal ideation, and hallucinations, Allergy/Immunology: Negative for hives, rash, and allergies, Endocrine: Negative for neck swelling, polydipsia, polyuria, polyphagia, and marked weight changes, Hematologic/Lymphatic: Negative for swollen nodes, abnormal bleeding, and unusual bruising. Cardiovascular: Positive for chest pain, Negative for edema, orthopnea, palpitations. Exam: 07:37 Constitutional: This is a well developed, well nourished patient who is awake, alert, kdr and in no acute distress. Head/Face: Normocephalic, atraumatic. Eyes: Pupils equal round and reactive to light, extra-ocular motions intact. Lids and lashes normal. Conjunctiva and sclera are non-icteric and not injected. Cornea within normal limits. Periorbital areas with no swelling, redness, or edema. Neck: Trachea midline, no thyromegaly or masses palpated, and no cervical lymphadenopathy. Supple, full range of motion without nuchal rigidity, or vertebral point tenderness. No Meningismus. Chest/axilla: Normal chest wall appearance and motion. Nontender with no deformity. No lesions are appreciated. Cardiovascular: Regular rate and rhythm with a normal S1 and S2. No gallops, murmurs, or rubs. Normal PMI, no JVD. No pulse deficits. Respiratory: Lungs have equal breath sounds bilaterally, clear to auscultation and percussion. No rales, rhonchi or wheezes noted. No increased work of breathing, no retractions or nasal flaring. Abdomen/GI: Soft, non-tender, with normal bowel sounds. No distension or tympany. No guarding or rebound. No evidence of tenderness throughout. Back: No spinal tenderness. No costovertebral tenderness. Full range of motion. Skin: Warm, dry with normal turgor. Normal color with no rashes, no lesions, and no evidence of cellulitis. MS/ Extremity: Pulses equal, no cyanosis. Neurovascular intact. Full, normal range of motion. Neuro: Awake and alert, GCS 15, oriented to person, place, time, and situation. Cranial nerves II-XII grossly intact. Motor strength 5/5 in all extremities. Sensory grossly intact. Cerebellar exam normal. Normal gait. Psych: Awake, alert, with orientation to person, place and time. Behavior, mood, and affect are within normal limits. Vital Signs: 01/21 11:24 BP 143 / 90; Pulse 98; Resp 18; Temp 98.3; Pulse Ox 99% ; Weight 131.54 kg; Height 6 sv ft. 3 in. (190.50 cm); 12:33 BP 126 / 71; Pulse 86; Resp 17; Pulse Ox 99% on R/A; tw2 13:29 BP 125 / 83; Pulse 84; Resp 19; Pulse Ox 99% ; Pain 5/10; tw2 14:30 BP 130 / 73; Pulse 79; Resp 17; Pulse Ox 100% on R/A; tw2 15:46 BP 123 / 52; Pulse 87; Resp 16; Pulse Ox 98% on R/A; tw2 16:09 BP 121 / 55; Pulse 80; Resp 16; Pulse Ox 99% on R/A; tw2 11:24 Body Mass Index 36.25 (131.54 kg, 190.50 cm) sv MDM: 15:44 Patient medically screened. kdr 01/22 07:37 HEART Score: History: Moderately Suspicious (1), ECG: Non specific repolarization kdr disturbance / LBTB / PM (1), Age: < or = 45 years (0), Risk Factors: 1 or 2 risk factors (1), Troponin: < or = 1 x Normal Limit (0), Total Score = 3. Data reviewed: vital signs, nurses notes, lab test result(s), radiologic studies. Counseling: I had a detailed discussion with the patient and/or guardian regarding: the historical points, exam findings, and any diagnostic results supporting the discharge/admit diagnosis, lab results, radiology results. 01/21 11:50 Order name: Basic Metabolic Panel tw2 01/21 11:50 Order name: CBC with Diff tw2 01/21 11:50 Order name: LFT's 2 01/21 11:50 Order name: Magnesium 2 01/21 11:50 Order name: NT PRO-BNP 01/21 11:50 Order name: PT-INR 01/21 11:50 Order name: Troponin (emerg Dept Use Only) 01/21 12:13 Order name: CBC with Automated Diff; Complete Time: 14:52 EDMS 01/21 12:16 Order name: Protime (+INR); Complete Time: 14:52 EDMS 01/21 12:22 Order name: Basic Metabolic Panel; Complete Time: 14:52 EDMS 01/21 12:22 Order name: Liver (Hepatic) Function; Complete Time: 14:52 EDMS 01/21 12:22 Order name: Troponin (Emerg Dept Use Only); Complete Time: 14:52 EDMS 01/21 12:22 Order name: NT PRO-BNP; Complete Time: 14:52 EDMS 01/21 12:22 Order name: Magnesium; Complete Time: 14:52 EDMS 01/21 11:50 Order name: XRAY Chest (1 view) 01/21 11:50 Order name: EKG; Complete Time: 11:51 01/21 11:50 Order name: Cardiac monitoring; Complete Time: 11:50 01/21 11:50 Order name: EKG - Nurse/Tech; Complete Time: 11:50 01/21 11:50 Order name: IV Saline Lock; Complete Time: 11:55 01/21 11:50 Order name: Labs collected and sent; Complete Time: 11:55 01/21 11:50 Order name: O2 Per Protocol; Complete Time: 11:50 01/21 11:50 Order name: O2 Sat Monitoring; Complete Time: 11:50 01/21 13:02 Order name: RAD; Complete Time: 14:52 EDMS 01/21 14:53 Order name: Troponin (emerg Dept Use Only) kdr 01/21 15:37 Order name: Troponin (Emerg Dept Use Only); Complete Time: 15:39 EDMS Administered Medications: 01/21 12:38 Drug: Zofran (Ondansetron) 4 mg Route: IVP; Site: left antecubital; tw2 13:29 Follow up: Response: No adverse reaction tw2 12:40 Drug: morphine 4 mg {Note: RASS 0.} Route: IVP; Site: left antecubital; tw2 13:29 Follow up: Response: Pain is decreased; RASS: Alert and Calm (0) tw2 Disposition: 01/22/20 15:44 Discharged to Home. Impression: Chest pain, unspecified. - Condition is Stable. - Medication Reconciliation Form, Thank You Letter, Antibiotic Education, Prescription Opioid Use, Work release form form. - Follow up: Private Physician; When: 2 - 3 days; Reason: If symptoms return, Further diagnostic work-up, Recheck today's complaints, Continuance of care, Re-evaluation by your physician. - Problem is an acute exacerbation. - Symptoms have improved. Signatures: Dispatcher [employer] Corine Canela, AWAIS RN sv Lucian Wilson MD MD kdr Stephanie Adair RN RN tw2 Corrections: (The following items were deleted from the chart) 16:15 15:44 01/22/2020 15:44 Discharged to Home. Impression: Chest pain, unspecified. tw2 Condition is Stable. Forms are Medication Reconciliation Form, Thank You Letter, Antibiotic Education, Prescription Opioid Use. Follow up: Private Physician; When: 2 - 3 days; Reason: If symptoms return, Further diagnostic work-up, Recheck today's complaints, Continuance of care, Re-evaluation by your physician. Problem is an acute exacerbation. Symptoms have improved. kdr
[2020-01-22 18:25] VITALS: TEMP 98.3
[2020-01-22 18:32] VITALS: BP 121/55; O2SAT 99
--- NOTE | 2020-01-23 16:11 | EKG ---
Test Date: 2020-01-22 Test Time: 11:33:13 Satellite Dish Technician: L[place] MEASUREMENT RESULTS: Intervals: Rate: 95 [place]: 150 QRSD: 98 QT: 370 QTc: 464 [place]: P: 43 [place]: 150 QRS: 25 T: 0 INTERPRETIVE STATEMENTS: Normal sinus rhythm Incomplete right bundle branch block Nonspecific T wave abnormality Prolonged QT Abnormal ECG Compared to ECG 11/15/2018 08:02:48 Incomplete right bundle-branch block now present Prolonged QT interval now present T-wave abnormality still present Electronically Signed On 01-23-20 16:08:23 CDT by [place]
== END 2020-01-22 16:15 | disposition home or self-care (01) ==
LOC: ER 11:13
DX: R07.9 Chest pain, unspecified (principal); I10 Essential (primary) hypertension
CPT/HCPCS: 36415; 71045; 80048; 80076; 83735; 83880; 84484; 85025; 85610; 93005; 96374; 96375; 99285; J2405

== ENCOUNTER 2022-06-17 06:59 | Emergency (ER) | payer SELFPAY ==
--- OUTSIDE RECORDS SUMMARY | 2022-06-17 07:06 | XMS REPORT | Continuity of Care Document ---
:[address] [facility] t Address [address] [place] [address] [place] [id number] Care Team Providers Name Role Phone Pcp MD, No Primary Care Physician Unavailable MAGDA SMALL Attending Clinician Unavailable Magda Small MD Attending Clinician Linden Nina NP Attending Clinician Doctor Unassigned, [place] Attending Clinician Unavailable LINDEN NINA Attending Clinician Unavailable PAIGE LEE Attending Clinician Unavailable Eddi Young Attending Clinician Rosa VILLASENOR, Paige Attending Clinician JESÚS PIERRE Attending Clinician Unavailable Ignacio LAND SURVEYOR, Jesús Attending Clinician Nimcoelva LAND SURVEYOR, Sidra Lenore Attending Clinician WILLIAM MCDONALD Attending Clinician Unavailable William Mcdonald MD Attending Clinician JASPREET CIFUENTES Attending Clinician Unavailable Jaspreet Cifuentes DO Attending Clinician Deana Evangelista MD Attending Clinician [phone] DEANA EVANGELISTA Attending Clinician Unavailable , [facility] Attending Clinician Unavailable Jose ANN, Rosana Attending Clinician Therapy, [facility] Attending Clinician Unavailable Leo Brasher MD Attending Clinician UNKNOWN, ATTENDING Attending Clinician Unavailable Estefany BOLESP, Kwasi Magana Attending Clinician ROSANA YAO Attending Clinician Unavailable RACHANA BURTON Attending Clinician Unavailable RACHANA BURTON Attending Clinician Unavailable Tre LEGER, Payam Steward Attending Clinician [phone] Rubina Perez MD Attending Clinician RUBINA PEREZ Attending Clinician Unavailable Tylor Mack DO Attending Clinician Deirdre Chaudhari MD Attending Clinician DEIRDRE CHAUDHARI Attending Clinician Unavailable Jitendra Preciado MD Attending Clinician JITENDRA PRECIADO Attending Clinician Unavailable Marifer Covington DO Attending Clinician Christofer ERNANDEZ, Evette White Attending Clinician Iva Meehan NP Attending Clinician Po, [facility] Main Attending Clinician Unavailable Balta VILLASENOR, Annabelle Attending Clinician , [facility] Vascular Room 1 - Attending Clinician Unavailable Elkin Villanueva MD Attending Clinician Meenu Moran Attending Clinician Lab, [facility]ending [facility] Unavailable Sharita ANN, Gaviota Attending Clinician Manjeet Gasca PA-C Attending Clinician Bre Diana Attending Clinician BRE REY Attending Clinician Unavailable Faculty, Vascular Surg Attending Clinician Unavailable Joseph Mosqueda MD Attending Clinician JOSEPH MOSQUEDA JR Attending Clinician Unavailable Helga VILLASENOR, Gustavo Naranjo Attending Clinician [phone] Unknown, Attending Attending Clinician Unavailable Cesilia ERNANDEZ, Stephanie Attending Clinician Rivera Mckeon MD Attending Clinician RIVERA MCKEON Attending Clinician Unavailable SAM OLIVIER Attending Clinician Unavailable Stu Kumar MD Attending Clinician SONAM PERDOMO Attending Clinician Unavailable PAIGE LEE Admitting Clinician Unavailable Paige Lee MD Admitting Clinician JESÚS PIERRE Admitting Clinician Unavailable JASPREET CIFUENTES Admitting Clinician Unavailable Payam Corbin Admitting Clinician [phone] JITENDRA PRECIADO Admitting Clinician Unavailable Elkin Villanueva MD Admitting Clinician Rivera Mckeon MD Admitting Clinician RIVERA MCKEON Admitting Clinician Unavailable Deirdre Chaudhari MD Admitting Clinician DEIRDRE CHAUDHARI Admitting Clinician Unavailable SAM OLIVIER Admitting Clinician Unavailable SONAM PERDOMO Admitting Clinician Unavailable Payers Payer Name Policy Type Policy Number Effective Date Expiration Date S mary [facility] [id number] 2020 PPO 00:00:00 MEDICAID SSI PENDING 2019 PENDING 00:00:00 Problems Condition Condition Condition Status Onset Resolution Last Treating Co mments Source Name Details Category Date Date Treatment Clinician Date Subacute Subacute Disease Active 2021-04 Unive rs cough cough 1-28 ity of 00:00: [place] [facility] Chest Chest Disease Active 2021-04 Univers pain, pain, 1-27 ity of unspecifie [place] type d type 00 Medical Branch Chest pain Chest pain Disease Active U nivers 6-07 ity of 00:00: [place] [facility] Transposit Transposit Disease Active U nivers ion of ion of 8-30 ity of great great 00:00: [place] arteries arteries 00 Medica l Branch Essential Essential Disease Active Uni vers hypertensi hypertensi 8-30 it y of on on 00:00: [place] [facility] Leg pain Leg pain Disease Active Unive rs 4-06 ity of 00:00: [place] 00 Medical Branch 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 Added automatic ally from request for surgery [id number] TGA TGA Disease Active [facility]transposi (transposi 7-17 [facility] tion of tion of 00:00: Medical great great 00 Center arteries) arteries) s/p repair s/p repair ([facility], ([facility], 1992) 1992) Ascending Ascending Disease Active [facility] aortic aortic 7[facility] aneurysm aneurysm 00:00: Medica l 00 Center HTN HTN Disease Active [facility] (hypertens (hypertens Co llege ion) ion) of Medicin e CHF CHF Disease Active [facility] (congestiv (congestiv Co llege e heart e heart of failure) failure) Medici n e Aortic Aortic Disease Active [facility] root root [place] aneurysm aneurysm of Medicin e Obesity Obesity Disease Active [facility] of Medicin e Allergies, Adverse Reactions, Alerts Allergy Allergy Status Severity Reaction(s) Onset Inactive Treating Comm ents Source Name Type Date Date Clinician NO KNOWN Drug Active Univers ALLERGIE Class ity of S [facility] NO KNOWN Allergy Active [facility] St ALLERGIE [facility] Family History Family Member Diagnosis Comments Start Date Stop Date Source Natural brother Hypertension [facility] Natural father Hypertension [facility] Natural mother Hypertension [facility] Social History Social Habit Start Date Stop Date Quantity Comments Source History of tobacco Passive smoker Un iversity of use [facility] History SDOH [facility] Alcohol Binge Medical Ade ter History SDOH [facility] Alcohol Comment Medical C enter Exposure to 2022-04-24 2022-05-04 Not sure University SARS-CoV-2 (event) 00:00:00 14:17:00 [facility] Cigarette 2018-12-09 2018-12-09 [facility] of pack-years 00:00:00 00:00:00 Medicine History MAOH 2018-10-19 2018-10-[address] [facility] Alcohol Frequency 00:00:00 00:00:00 Medical Center History [facility] 2018-10-19 2018-10-[address] [facility] Alcohol Std Drinks 00:00:00 00:00:00 [facility] Cigarettes smoked 2018-10-18 2018-10-[address] [facility] current (pack per 00:00:00 00:00:00 Medical Center day) - Reported Tobacco use and 2018-10-18 2018-10-[address] [facility] exposure 00:00:00 00:00:00 [facility] Alcohol intake 2018-10-18 2018-10-18 [facility] 00[facility]00:00 of alcohol [facility] (finding) Sex Assigned At [address] [facility] 00:00:00 00:00:00 Medical Center Smoking Status Start Date Stop Date Source Ex-smoker 2022-03-02 00:00:00 2022-03-02 00:00:00 [facility] Medical Branch Medications Ordered Filled Start Stop Current Ordering Indication Dosage Frequency Signature Comments Components Source Medication Medication Date Date Medication? Clinician (SIG) Name Name sushil 2022- No 40mg Take 40 mg Univers n 40 mg 1-30 30 by mouth ity of tablet 15:26: 00:00 at [place] 19 :00 bedtime. Medical Branch atorvastati 2022- No 40mg Take 40 mg Univers n 40 mg 1-30 30 by mouth ity of tablet 15:26: 00:00 at [place] 19 :00 bedtime. Medical Branch atorvastati Yes [id number] 40mg Take 1 Univers n 40 mg 1-30 tablet by ity of tablet 00:00: mouth at [place] [address] bedtime. Medical Branch atorvastati Yes [id number] 40mg Take 1 Univers n 40 mg 1-30 tablet by ity of tablet 00:00: mouth at [place] [address] bedtime. Medical Branch nitroglycer Yes [id number] .4mg Place 1 Univers in 0.4 mg 1-26 tablet ity of sublingual 00:00: [place] tablet 00 tongue Medical every 5 Branch (five) minutes as needed for Chest pain. metoprolol Yes [id number] 100mg Take 1 Univers succinate 1-26 tablet by ity o f XL (TOPROL 00:00: mouth in [facility] [place] [facility] as XL) 100 mg 00 the Medical 24 hr morning Branch tablet and 1 tablet in the evening. nitroglycer Yes [id number] .4mg Place 1 Univers in 0.4 mg 1-26 tablet ity of sublingual 00:00: under [place] tablet 00 tongue Medical every 5 Branch (five) minutes as needed for Chest pain. losartan Yes [id number] 100mg Take 1 U nivers 100 mg 1-26 tablet by ity of tablet 00:00: mouth in [place] 00 the Medical morning. Branch dextrometho Yes [id number] 10mL Take 10 mL Univers rphan-guaif 1-26 by mouth ity of enesin 00:00: every 6 [place] 10-100 mg/5 00 (six) Medical mL solution hours as Bran ch needed for Cough. metoprolol 2023-0 Yes [id number] 100mg Take 1 Univers succinate 1-26 tablet by ity o f XL (TOPROL 00:00: mouth in [place] as XL) 100 mg 00 the Medical 24 hr morning Branch tablet and 1 tablet in the evening. nitroglycer 2023-[id number] 1 Univers in 0.4 mg 1-26 tablet ity of sublingual 00:00: under the [place] tablet 00 tongue Medical every 5 Branch (five) minutes as needed for Chest pain. losartan 2023-0 Yes [id number] 100mg Take 1 U nivers 100 mg 1-26 tablet by ity of tablet 00:00: mouth in [place] 00 the Medical morning. Branch dextrometho 3-0 Yes [id number] 10mL Take 10 mL Univers rphan-guaif 1-26 by mouth ity of enesin 00:00: every 6 [place] 10-100 mg/5 00 (six) Medical mL solution hours as Bran ch needed for Cough. metoprolol 2023-0 Yes [id number] 100mg Take 1 Univers succinate 1-26 tablet by ity o f XL (TOPROL 00:00: mouth in [place] as XL) 100 mg 00 the Medical 24 hr morning Branch tablet and 1 tablet in the evening. nitroglycer 2023-[id number] 1 Univers in 0.4 mg 1-26 tablet ity of sublingual 00:00: under [place] tablet 00 tongue Medical every 5 Branch (five) minutes as needed for Chest pain. losartan 2023-0 Yes [id number] 100mg Take 1 U nivers 100 mg 1-26 tablet by ity of tablet 00:00: mouth in [place] 00 the Medical morning. Branch dextrometho 2023-0 Yes [id number] 10mL Take 10 mL Univers rphan-guaif 1-26 by mouth ity of enesin 00:00: every 6 [place] 10-100 mg/5 00 (six) Medical mL solution hours as Bran ch needed for Cough. metoprolol 2023-0 Yes [id number] 100mg Take 1 Univers succinate 1-26 tablet by ity o f XL (TOPROL 00:00: mouth in [place] as XL) 100 mg 00 the Medical 24 hr morning Branch tablet and 1 tablet in the evening. nitroglycer 2023-[id number] 1 Univers in 0.4 mg 1-26 tablet ity of sublingual 00:00: under [place] tablet 00 tongue Medical every 5 Branch (five) minutes as needed for Chest pain. atorvastati 2021-04 Yes 40mg Take 40 mg Univers n 40 mg 2-02 by mouth ity of tablet 13:50: at [place] [address] bedtime. Medical Branch atorvastati 2021-04 Yes 40mg Take 40 mg Univers n 40 mg 2-02 by mouth ity of tablet 13:50: at [place] [address] bedtime. Medical Branch atorvastati 2021-04 Yes 40mg Take 40 mg Univers n 40 mg 2-02 by mouth ity of tablet 13:50: at [place] [address] bedtime. Medical Branch atorvastati 2021-04 Yes 40mg Take 40 mg Univers n 40 mg 2-02 by mouth ity of tablet 13:50: at [place] [address] bedtime. Medical Branch atorvastati 2021-04 Yes 40mg Take 40 mg Univers n 40 mg 2-02 by mouth ity of tablet 13:50: at [place] [address] bedtime. Medical Branch cyclobenzap 2021-04 Yes [id number] 10mg Take 1 Univers rine 10 mg 2-02 tablet by ity of tablet 00:00: mouth at [place] 00 bedtime. Medical Branch nitroglycer 2021-[id number] 1 Univers in 0.4 mg 2-02 tablet ity of sublingual 00:00: under the [place] tablet 00 tongue Medical every 5 Branch (five) minutes as needed for Chest pain. hydrOXYzine 2021-04 Yes [id number] 25mg Take 0.5 Univers 50 mg 2-02 tablets by ity of tablet 00:00: mouth [place] 00 every 8 Medical (eight) Branch hours as needed for Anxiety. cyclobenzap 2021-04 Yes [id number] 10mg Take 1 Univers rine 10 mg 2-02 tablet by ity of tablet 00:00: mouth at [place] 00 bedtime. Medical Branch nitroglycer 2021-[id number] 1 Univers in 0.4 mg 2-02 tablet ity of sublingual 00:00: under the [place] tablet 00 tongue Medical every 5 Branch (five) minutes as needed for Chest pain. hydrOXYzine 2021-04 Yes [id number] 25mg Take 0.5 Univers 50 mg 2-02 tablets by ity of tablet 00:00: mouth [place] 00 every 8 Medical (eight) Branch hours as needed for Anxiety. cyclobenzap 2021-04 Yes [id number] 10mg Take 1 Univers rine 10 mg 2-02 tablet by ity of tablet 00:00: mouth at [place] 00 bedtime. Medical Branch hydrOXYzine 2021-04 Yes [id number] 25mg Take 0.5 Univers 50 mg 2-02 tablets by ity of tablet 00:00: mouth [place] 00 every 8 Medical (eight) Branch hours as needed for Anxiety. cyclobenzap 2021-04 Yes [id number] 10mg Take 1 Univers rine 10 mg 2-02 tablet by ity of tablet 00:00: mouth at [place] 00 bedtime. Medical Branch hydrOXYzine 2021-04 Yes [id number] 25mg Take 0.5 Univers 50 mg 2-02 tablets by ity of tablet 00:00: mouth [place] 00 every 8 Medical (eight) Branch hours as needed for Anxiety. cyclobenzap 2021-04 Yes [id number] 10mg Take 1 Univers rine 10 mg 2-02 tablet by ity of tablet 00:00: mouth at [place] 00 bedtime. Medical Branch hydrOXYzine 2021-04 Yes [id number] 25mg Take 0.5 Univers 50 mg 2-02 tablets by ity of tablet 00:00: mouth [place] 00 every 8 Medical (eight) Branch hours as needed for Anxiety. cyclobenzap 2021-04 Yes [id number] 10mg Take 1 Univers rine 10 mg 2-02 tablet by ity of tablet 00:00: mouth at [place] 00 bedtime. Medical Branch hydrOXYzine 2021-04 Yes [id number] 25mg Take 0.5 Univers 50 mg 2-02 tablets by ity of tablet 00:00: mouth [place] 00 every 8 Medical (eight) Branch hours as needed for Anxiety. cyclobenzap 2021-04 Yes [id number] 10mg Take 1 Univers rine 10 mg 2-02 tablet by ity of tablet 00:00: mouth at [place] 00 bedtime. Medical Branch hydrOXYzine 2021-04 Yes [id number] 25mg Take 0.5 Univers 50 mg 2-02 tablets by ity of tablet 00:00: mouth [place] 00 every 8 Medical (eight) Branch hours as needed for Anxiety. nitroglycer 2021-04- No [id number] .4mg Place 1 Univers in 0.4 mg 05-07 tablet ity of sublingual 00:00: 00:00 under the [place] tablet 00 :00 [facility] every 5 Branch (five) minutes as needed for Chest pain. losartan 2021-04- No [id number] 100mg Take 1 Univers 100 mg - 12-30 tablet by ity of tablet 00:00: 05:59 mouth in [place] 00 :00 the Medical morning Branch for 30 days. aspirin 81 2021-04- No [id number] 81mg Take 1 Univers mg EC - 12-30 tablet by ity of tablet 00:00: 05:59 mouth in [place] 00 :00 the Medical morning Branch for 30 days. losartan 2021-04- No [id number] 100mg Take 1 Univers 100 mg - 12-30 tablet by ity of tablet 00:00: 05:59 mouth in [place] 00 :00 the Medical morning Branch for 30 days. aspirin 81 2021-04- No [id number] 81mg Take 1 Univers mg EC - 12-30 tablet by ity of tablet 00:00: 05:59 mouth in [place] 00 :00 the Medical morning Branch for 30 days. losartan 2021-04- No [id number] 100mg Take 1 Univers 100 mg 05-03 12-30 tablet by ity of tablet 00:00: 05:59 mouth in [place] 00 :00 the Medical morning Branch for 30 days. aspirin 81 2021-04- No [id number] 81mg Take 1 Univers mg EC 05-03 12-30 tablet by ity of tablet 00:00: 05:59 mouth in [place] 00 :00 the Medical morning [place] for 30 days. losartan 2021-04- No [id number] 100mg Take 1 Univers 100 mg -29 12-30 tablet by ity of tablet 00:00: 05:59 mouth in [place] 00 :00 the Medical morning Branch for 30 days. aspirin 81 2021-04- No [id number] 81mg Take 1 Univers mg EC -29 12-30 tablet by ity of tablet 00:00: 05:59 mouth in [place] 00 :00 the Medical morning Branch for 30 days. enoxaparin 2021-04 Yes 40mg 40 mg, Unive rs (LOVENOX) 05-02 Subcutaneo ity of injection 23:00: [place], DAILY, [place] 40 mg 00 First dose Medical on [facility] 03/02/22 at 1700, Until Discontinu ed, Routine atorvastati 2021-04 Yes 40mg Take 40 mg Univers n 40 mg 05-02 by mouth ity of tablet 16:01: at [place] 48 bedtime. Medical Branch atorvastati 2021-04 Yes 40mg Take 40 mg Univers n 40 mg 05-02 by mouth ity of tablet 16:01: at [place] 48 bedtime. Medical Branch sulfur 2021-04- No [id number] 5mL 5 mL, Unive rs hexafluorid 05-02 Intravenou i ty of e microsphr 15:30: 15:20 s, ONCE, 1 [place] (LUMASON) 00 :00 dose, On Medica l injection 5 Wed [place] mL 03/02/22 at 0930, Routine
city council member approving Restricted medication : MAGDA SMALL losartan 2021-04 Yes 100mg 100 mg, Unive rs (COZAAR) 05-02 Oral, ity of tablet 100 15:00: DAILY, [place] mg 00 First dose Medical (after Branch last modificati on) on Wed03/02/22 at 0900, Until Discontinu ed, Routine aspirin EC 2021-04 Yes 81mg 81 mg, Unive rs tablet 81 05-02 Oral, ity of mg 15:00: DAILY, [place] 00 First dose Medical on [facility] 03/02/22 at 0900, Until Discontinu ed, Routine aspirin 2021-04 No 325mg 325 mg, Unive rs E.C. 05-02 Oral, ity of (ECOTRIN) 08:30: 07:40 ONCE, 1 [place] tablet 325 00 :00 dose, On Medic al mg [facility] 03/02/22 at 0230, Routine dextrometho 2021-04 Yes 10mL 10 mL, Univ ers rphan-guaif 05-02 Oral, ity of enesin 07:31: Q6HPRN, [place] (ROBITUSSIN 16 Starting Medi patty DM) 10-100 on [facility] mg/5 mL 03/02/22 solution 10 at 0131, mL Until Discontinu ed, Routine, Cough metoprolol 2021-04 Yes 100mg 100 mg, Uni vers succinate 05-02 Oral, BID, ity of XL (TOPROL 07:15: First [place] XL) tablet 00 on [facility] Medical 100 mg 03/02/22 Branch at 0115, Until Discontinu ed, Routine atorvastati 2021-04 Yes 40mg 40 mg, Univ ers n (LIPITOR) 05-02 Oral, QHS, it y of tablet 40 07:15: First dose [place] mg 00 on [facility] Medical 03/02/22 Branch at 0115, Until Discontinu ed, Routine hydralAZINE 2021-04 Yes 10mg 10 mg, Univ ers (APRESOLINE 05-02 Slow IV ity o f ) injection 06:57: Push, [place] 10 mg 54 Q4HPRN, Medical Starting Branch on Wed03/02/22 at 0057, Until Discontinu ed, Routine, DBP=>10 0; SBP=>160 ondansetron 2021-04 Yes 4mg 4 mg, Slow Univers (ZOFRAN 05-02 IV Push, ity of (PF)) 06:56: Q6HPRN, [place] injection 4 07 Starting Medi patty mg on Wed Branch 03/02/22 at 0056, Until Discontinu ed, Routine, Nausea and Vomiting (N/V) morpHINE (4 2021-04- No 4mg 4 mg, Slow Univers mg/mL) 05-02 IV Push, ity of injection 4 06:56: 06:55 Q4HPRN, [place] mg 05 :05 Starting Medical on Wed Branch 03/02/22 at 0056, Until Tu03/03/22 at 0055, Routine, Pain (scale 7-10) HYDROcodone 2021-04- No 1{tbl} 1 tablet, Univers -acetaminop 05-02 Oral, ity of hen (NORCO 06:56: 06:55 Q6HPRN, [place] as 5) 5-325 mg 03 :03 Starting Medi patty tablet 1 on Wed Branch tablet 03/02/22 at 0056, Until Wed03/04/22 at 0055, Routine, Pain (scale 4-6) acetaminoph 2021-04 Yes 650mg 650 mg, Un avtar en 05-02 Oral, ity of (TYLENOL) 06:55: Q6HPRN, [place] tablet 650 59 Starting Medic al mg on Mon Branch 03/02/22 at 0055, Until Discontinu ed, Routine, Pain (scale 1-3) nitroglycer 2021-04- No .4mg 0.4 mg, Un avtar in 05-02 Sublingual ity of (NITROSTAT) 03:30: 03:42 , ONCE, 1 [place] sublingual 00 :00 dose, On Medic al tablet 0.4 [place] Branch mg 03/01/22 at 2130, CRISTO morpHINE (4 2021-04- No 4mg 4 mg, Slow Univers mg/mL) 05-02 IV Push, ity of injection 4 01:00: 01:10 ONCE, 1 [place] mg 00 :00 dose, On Medical Sun Branch 03/01/22 at 1900, STAT dextrometho 2021-04 Yes [id number] 10mL Take 10 mL Univers rphan-guaif 05-02 by mouth ity of enesin 00:00: every 6 [place] 10-100 mg/5 00 (six) Medical mL solution hours as Bran ch needed for Cough. dextrometho 2021-04 Yes [id number] 10mL Take 10 mL Univers rphan-guaif 05-02 by mouth ity of enesin 00:00: every 6 [place] 10-100 mg/5 00 (six) Medical mL solution hours as Bran ch needed for Cough. dextrometho 2021-04 Yes [id number] 10mL Take 10 mL Univers rphan-guaif -28 by mouth ity of enesin 00:00: every 6 [place] 10-100 mg/5 00 (six) Medical mL solution hours as Bran ch needed for Cough. dextrometho 2021-04 Yes [id number] 10mL Take 10 mL Univers rphan-guaif -28 by mouth ity of enesin 00:00: every 6 [place] 10-100 mg/5 00 (six) Medical mL solution hours as Bran ch needed for Cough. dextrometho 2021-04 Yes [id number] 10mL Take 10 mL Univers rphan-guaif -28 by mouth ity of enesin 00:00: every 6 [place] 10-100 mg/5 00 (six) Medical mL solution hours as Bran ch needed for Cough. dextrometho 2021-04 Yes [id number] 10mL Take 10 mL Univers rphan-alvaradoaif 05-02 by mouth ity of enesin 00:00: every 6 [place] 10-100 mg/5 00 (six) Medical mL solution hours as Bran ch needed for Cough. dextrometho 2021-04- No [id number] 10mL Take 10 mL Univers rphan-guaif 05-02 by mouth ity of enesin 00:00: 00:00 every 6 [place] 10-100 mg/5 00 :00 (six) Medical mL solution hours as Bran ch needed for Cough. iopamidol 2021-04- No [id number] 109mL 109 mL, Univers (ISOVUE 05-01 Intravenou ity o f 370-500 mL) 23:20: 23:30 s, ONCE, 1 [place] injection 00 :00 dose, On Medica l 109 mL [place] Branch 03/01/22 at 1730, Routine ondansetron 2021-04 No 4mg 4 mg, Slow Univers (ZOFRAN 05-01 IV Push, ity of (PF)) 22:00: 22:38 ONCE, 1 [place] injection 4 00 :00 dose, On Medi patty mg [place] Branch 03/01/22 at 1600, CRISTO morpHINE (4 2021-04 No 4mg 4 mg, Slow Univers mg/mL) 05-01 IV Push, ity of injection 4 22:00: 22:38 ONCE, 1 [place] mg 00 :00 dose, On Medical [place] Branch 03/01/22 at 1600, STAT metoprolol 0 Yes [id number] 100mg Take 1 Univers succinate 9-26 tablet by ity o f XL (TOPROL 00:00: mouth in [place] as XL) 100 mg 00 the Medical 24 hr morning Branch tablet and 1 tablet in the evening. metoprolol 0 Yes [id number] 100mg Take 1 Univers succinate 9-26 tablet by ity o f XL (TOPROL 00:00: mouth in [place] as XL) 100 mg 00 the Medical 24 hr morning Branch tablet and 1 tablet in the evening. metoprolol 2022-0 Yes [id number] 100mg Take 1 Univers succinate 9-26 tablet by ity o f XL (TOPROL 00:00: mouth in [place] as XL) 100 mg 00 the Medical 24 hr morning Branch tablet and 1 tablet in the evening. metoprolol 2021-0 Yes [id number] 100mg Take 1 Univers succinate 9-26 tablet by ity o f XL (TOPROL 00:00: mouth in [place] as XL) 100 mg 00 the Medical 24 hr morning Branch tablet and 1 tablet in the evening. metoprolol 2-0 Yes [id number] 100mg Take 1 Univers succinate 9-26 tablet by ity o f XL (TOPROL 00:00: mouth in [place] as XL) 100 mg 00 the Medical 24 hr morning Branch tablet and 1 tablet in the evening. metoprolol 2021-0 Yes [id number] 100mg Take 1 Univers succinate 9-26 tablet by ity o f XL (TOPROL 00:00: mouth in [place] as XL) 100 mg 00 the Medical 24 hr morning Branch tablet and 1 tablet in the evening. metoprolol 2021-0 2022- No [id number] 100mg Take 1 Univers succinate 9-26 01-25 tablet by ity of XL (TOPROL 00:00: 00:00 mouth [place] XL) 100 mg 00 :00 the Medical 24 hr morning Branch tablet and 1 tablet in the evening. losartan 50 2021-0 Yes [id number] 50mg Take 1 Univers mg tablet 7-25 tablet by ity o f 00:00: mouth in [place] 00 the Medical morning. Branch losartan 50 2021-0 Yes [id number] 50mg Take 1 Univers mg tablet 7-25 tablet by ity o f 00:00: mouth in [place] 00 the Medical morning. Branch losartan 50 2021-0 Yes [id number] 50mg Take 1 Univers mg tablet 7-25 tablet by ity o f 00:00: mouth in [place] 00 the Medical morning. Branch losartan 50 2021-0 2021- No [id number] 50mg Take 1 Univers mg tablet 7-25 11-28 tablet by ity of 00:00: 00:00 mouth in [place] 00 :00 the Medical morning. Branch atorvastati 2021-0 2021- No [id number] 40mg Take 1 Univers n 40 mg 7-25 10-24 tablet by ity of tablet 00:00: 04:59 mouth at [place] 00 :00 bedtime Medical for 90 Branch days. atorvastati 2021-0 2021- No [id number] 40mg Take 1 Univers n 40 mg 7-25 10-24 tablet by ity of tablet 00:00: 04:59 mouth at [place] 00 :00 bedtime Medical for 90 Branch days. atorvastati 2021-0 2022- No [id number] 40mg Take 1 Univers n 40 mg 7-25 10-24 tablet by ity of tablet 00:00: 04:59 mouth at [place] 00 :00 bedtime Medical for 90 Branch days. ibuprofen 2021-0 Yes [id number] 800mg Take 1 Univers 800 mg 4-03 6 tablet by ity of tablet 00:00: mouth every 8 Medical (eight) Branch hours as needed for Pain (scale 4-6). methocarbam 2021-0 Yes [id number] 750mg Take 1 Univers oL 750 mg 4-03 6 tablet by ity o f tablet 00:00: mouth (four) Medical times Branch daily as needed for Pain (scale 7-10). ibuprofen 2021-0 Yes [id number] 800mg Take 1 Univers 800 mg 4-03 6 tablet by ity of tablet 00:00: mouth every 8 Medical (eight) Branch hours as needed for Pain (scale 4-6). methocarbam 2021-0 Yes [id number] 750mg Take 1 Univers oL 750 mg 4-03 6 tablet by ity o f tablet 00:00: mouth (four) Medical times Branch daily as needed for Pain (scale 7-10). ibuprofen 2021-0 Yes [id number] 800mg Take 1 Univers 800 mg 4-03 6 tablet by ity of tablet 00:00: mouth every 8 Medical (eight) Branch hours as needed for Pain (scale 4-6). methocarbam 2-0 Yes [id number] 750mg Take 1 Univers oL 750 mg 4-03 6 tablet by ity o f tablet 00:00: mouth (four) Medical times Branch daily as needed for Pain (scale 7-10). ibuprofen 2021-0 2022- No [id number] 800mg Take 1 Univers 800 mg 4-03 11-28 6 tablet by ity of tablet 00:00: 00:00 mouth [place] 00 :00 every 8 Medical (eight) Branch hours as needed for Pain (scale 4-6). methocarbam 2021- No [id number] 750mg Take 1 Univers oL 750 mg 07-06 6 tablet by ity of tablet 00:00: 00:00 mouth 4 [place] 00 :00 (four) Medical times Branch daily as needed for Pain (scale 7-10). metoprolol 2021-0 Yes [id number] 100mg Take 1 Univers succinate 1-31 tablet by ity o f XL (TOPROL 00:00: [place] XL[place] 100 mg 00 (two) Medical 24 hr times Branch tablet daily. metoprolol 2021-0 Yes [id number] 100mg Take 1 Univers succinate 1-31 tablet by ity o f XL (TOPROL 00:00: [place] XL) 100 mg 00 (two) Medical 24 hr times Branch tablet daily. metoprolol 2021- No [id number] 100mg Take 1 Univers succinate -31 - tablet by ity of XL (TOPROL 00:00: 00:00 mouth 2 [place] as XL) 100 mg 00 :00 (two) Medical 24 hr times Branch tablet daily. chlorphenir 2021-0 Yes [id number] 4mg Take 1 Univers amine 4 mg 1-05 tablet by ity of tablet 00:00: mouth [place] 00 every 6 Medical (six) Branch hours as needed for Allergies or Runny nose. calcium/mag 2021-0 Yes [id number] 1{each} Take 1 Univers nesium/zinc 1-05 Each by ity o f (CALCIUM-MA 00:00: mouth [place] GNESUIUM-ZI 00 daily. Medica l NC) Branch 333-133-5 mg Tab benzonatate 2021-0 Yes [id number] 100mg Take 1 Univers 100 mg 1-05 capsule by ity of capsule 00:00: mouth 3 [place] 00 (three) Medical times Branch daily as needed for Cough. chlorphenir 2021-0 Yes [id number] 4mg Take 1 Univers amine 4 mg 1-05 tablet by ity of tablet 00:00: mouth [place] 00 every 6 Medical (six) Branch hours as needed for Allergies or Runny nose. calcium/mag 2021-0 Yes [id number] 1{each} Take 1 Univers nesium/zinc 1-05 Each by ity o f (CALCIUM-MA 00:00: mouth [place] GNESUIUM-ZI 00 daily. Medica l NC) Branch 333-133-5 mg Tab benzonatate 2021-0 Yes [id number] 100mg Take 1 Univers 100 mg 1-05 capsule by ity of capsule 00:00: mouth 3 [place] 00 (three) Medical times Branch daily as needed for Cough. chlorphenir 2021-0 Yes [id number] 4mg Take 1 Univers amine 4 mg 1-05 tablet by ity of tablet 00:00: mouth [place] 00 every 6 Medical (six) Branch hours as needed for Allergies or Runny nose. calcium/mag 2021-0 Yes [id number] 1{each} Take 1 Univers nesium/zinc 1-05 Each by ity o f (CALCIUM-MA 00:00: mouth [place] GNESUIUM-ZI 00 daily. Medica l NC) Branch 333-133-5 mg Tab benzonatate 2021-0 Yes [id number] 100mg Take 1 Univers 100 mg 1-05 capsule by ity of capsule 00:00: mouth 3 [place] 00 (three) Medical times Branch daily as needed for Cough. chlorphenir 2021-0 2021- No [id number] 4mg Take 1 Univers amine 4 mg 1-05 11-28 tablet by ity of tablet 00:00: 00:00 mouth [place] 00 :00 every 6 Medical (six) Branch hours as needed for Allergies or Runny nose. calcium/mag 2021-0 202- No [id number] 1{each} Take 1 Univers nesium/zinc 1-05 11-28 Each by ity of (CALCIUM-MA 00:00: 00:00 [place] GNESUIUM-ZI 00 :00 daily. Medica l NC) Branch 333-133-5 mg Tab benzonatate 2021-0 2021- No [id number] 100mg Take 1 Univers 100 mg 1-05 11-28 capsule by ity of capsule 00:00: 00:00 mouth 3 [place] 00 :00 (three) Medical times Branch daily as needed for Cough. omeprazole 2020-04 Yes [id number] 40mg Take 1 U nivers 40 mg 2-21 capsule by ity of capsule 00:00: mouth 2 [place] 00 (two) Medical times Branch daily. ergocalcife 2020-04 Yes [id number] Take 1 Univers rol, 2-21 capsule by ity of vitamin d2, 00:00: mouth [place] (VITAMIN 00 weekly. Medical D2) 1,250 Branch mcg (50,000 unit) capsule omeprazole 2020-04 Yes [id number] 40mg Take 1 U nivers 40 mg 2-21 capsule by ity of capsule 00:00: mouth 2 [place] 00 (two) Medical times Branch daily. ergocalcife 2020-04 Yes [id number] Take 1 Univers rol, 2-21 capsule by ity of vitamin d2, 00:00: mouth [place] (VITAMIN 00 weekly. Medical D2) 1,250 Branch mcg (50,000 unit) capsule omeprazole 2020-04 Yes [id number] 40mg Take 1 U nivers 40 mg 2-21 capsule by ity of capsule 00:00: mouth 2 [place] 00 (two) Medical times Branch daily. ergocalcife 2020-04 Yes [id number] Take 1 Univers rol, 2-21 capsule by ity of vitamin d2, 00:00: mouth [place] (VITAMIN 00 weekly. Medical D2) 1,250 Branch mcg (50,000 unit) capsule omeprazole 2020-04- No [id number] 40mg Take 1 Univers 40 mg 2-21 11-28 capsule by ity of capsule 00:00: 00:00 mouth 2 [place] 00 :00 (two) Medical times Branch daily. ergocalcife 2020-04- No [id number] Take 1 Univers rol, 2-21 11-28 capsule by ity of vitamin d2, 00:00: 00:[place] (VITAMIN 00 :00 weekly. Medical D2) 1,250 Branch mcg (50,000 unit) capsule albuterol Yes [id number] 2{puff} Inhale 2 Univers 90 9-06 Puffs ity of mcg/actuati 00:00: every 4 [place] as on inhaler 00 (four) Medical hours as Branch needed for Wheezing or Shortness of Breath. albuterol Yes [id number] 2{puff} Inhale 2 Univers 90 9-06 Puffs ity of mcg/actuati 00:00: every 4 [place] as on inhaler 00 (four) Medical hours as Branch needed for Wheezing or Shortness of Breath. albuterol Yes [id number] 2{puff} Inhale 2 Univers 90 9-06 Puffs ity of mcg/actuati 00:00: every 4 [place] as on inhaler 00 (four) Medical hours as Branch needed for Wheezing or Shortness of Breath. albuterol Yes [id number] 2{puff} Inhale 2 Univers 90 9-06 Puffs ity of mcg/actuati 00:00: every 4 [place] as on inhaler 00 (four) Medical hours as Branch needed for Wheezing or Shortness of Breath. albuterol Yes [id number] 2{puff} Inhale 2 Univers 90 9-06 Puffs ity of mcg/actuati 00:00: every 4 [place] as on inhaler 00 (four) Medical hours as Branch needed for Wheezing or Shortness of Breath. albuterol Yes [id number] 2{puff} Inhale 2 Univers 90 9-06 Puffs ity of mcg/actuati 00:00: every 4 [place] as on inhaler 00 (four) Medical hours as Branch needed for Wheezing or Shortness of Breath. albuterol Yes [id number] 2{puff} Inhale 2 Univers 90 9-06 Puffs ity of mcg/actuati 00:00: every 4 [place] as on inhaler 00 (four) Medical hours as Branch needed for Wheezing or Shortness of Breath. albuterol Yes [id number] 2{puff} Inhale 2 Univers 90 9-06 Puffs ity of mcg/actuati 00:00: every 4 [place] as on inhaler 00 (four) Medical hours as Branch needed for Wheezing or Shortness of Breath. albuterol Yes [id number] 2{puff} Inhale 2 Univers 90 9-06 Puffs ity of mcg/actuati 00:00: every 4 [place] as on inhaler 00 (four) Medical hours as Branch needed for Wheezing or Shortness of Breath. albuterol Yes [id number] 2{puff} Inhale 2 Univers 90 9-06 Puffs ity of mcg/actuati 00:00: every 4 [place] as on inhaler 00 (four) Medical hours as Branch needed for Wheezing or Shortness of Breath. albuterol Yes [id number] 2{puff} Inhale 2 Univers 90 9-06 Puffs ity of mcg/actuati 00:00: every 4 [place] as on inhaler 00 (four) Medical hours as Branch needed for Wheezing or Shortness of Breath. albuterol Yes [id number] 2{puff} Inhale 2 Univers 90 9-06 Puffs ity of mcg/actuati 00:00: every 4 [place] as on inhaler 00 (four) Medical hours as Branch needed for Wheezing or Shortness of Breath. gabapentin 2019-04 Yes [id number] 100mg Take 1 Univers 100 mg 0-16 capsule by ity of capsule 00:00: mouth 3 [place] 00 (three) Medical times Branch daily. gabapentin 2019-04 Yes [id number] 100mg Take 1 Univers 100 mg 0-16 capsule by ity of capsule 00:00: mouth 3 [place] 00 (three) Medical times Branch daily. gabapentin 2019-04 Yes [id number] 100mg Take 1 Univers 100 mg 0-16 capsule by ity of capsule 00:00: mouth 3 [place] 00 (three) Medical times Branch daily. gabapentin 2019-04- No [id number] 100mg Take 1 Univers 100 mg 0-16 11-28 capsule by ity of capsule 00:00: 00:00 mouth 3 [place] 00 :00 (three) Medical times Branch daily. Metoprolol Yes Take by [facility] Tartrate 75 - mouth two [facility] MG TABS 00:00: times of 00 daily. Medicin e pantoprazol 2018- Yes daily. [facility] e 10-25 College (PROTONIX) 00:00: of 40 MG 00 Medicin tablet e pantoprazol 2018- Yes 40mg QD Take [address] [facility] ([facility] (PROTONIX) 00:00: mg total) Me dical 40 MG 00 by mouth Center tablet daily. losartan 2019-0 Yes 3 times [facility] (COZAAR) 25 7- daily. Colleg e MG tablet 00:00: of 00 Medicin e sucralfate 2018- Yes Take by [facility] (CARAFATE) 10-25 mouth two Alexandru ege 1 g tablet 00:00: times of 00 daily. Medicin e pantoprazol 2019-0 Yes 40mg QD Take [address] [facility] 7-23 tablet (40 [facility] (PROTONIX) 00:00: mg total) Me dical 40 MG 00 by mouth Center tablet daily. Vital Signs Vital Name Observation Time Observation Value Comments Source Systolic blood 2022-05-04 20:49:00 145 mm[Hg] Univer sity of pressure [facility] Diastolic blood 2022-05-04 20:49:00 82 mm[Hg] Unive rsity of [facility] Heart rate 2022-05-04 20:49:00 69 /min Universi ty of [facility] Body height 2022-05-04 20:49:00 190.5 cm Universi ty [facility] Body weight 2022-05-04 20:49:00 148.916 kg Universi ty [facility] BMI 2022-05-04 20:49:00 41.03 kg/m2 Universi ty [facility] Oxygen saturation in 2022-05-04 20:49:00 99 /min University of Arterial blood by [place] [employer] [facility] Pulse oximetry Branch Body temperature 2022-05-04 20:46:00 36.28 Yvonne Univ ersity [facility] Systolic blood 2022-03-06 19:49:00 123 mm[Hg] Univer sity of [facility] Diastolic blood 2022-03-06 19:49:00 71 mm[Hg] Unive rsity of [facility] Heart rate 2022-03-06 19:49:00 70 /min Universi ty [facility] Body temperature 2022-03-06 19:49:00 36.56 Yvonne Univ ersity [facility] Respiratory rate 2022-03-06 19:49:00 18 /min Univ ersity [facility] Body height 2022-03-06 19:49:00 190.5 cm Universi ty of [facility] Body weight 2022-03-06 19:49:00 144.289 kg Universi ty [facility] BMI 2022-03-06 19:49:00 39.76 kg/m2 Universi ty [facility] Oxygen saturation in 2022-03-06 19:49:00 99 /min University of Arterial blood by [place] [employer] [facility] Pulse oximetry Branch Systolic blood 2022-03-02 17:23:00 123 mm[Hg] Univer sity of [facility] [place] Medical Branch Diastolic blood 2022-03-02 17:23:00 70 mm[Hg] Unive rsity of pressure [place] [facility] Heart rate 2022-03-02 17:23:00 66 /min Universi ty of [place] Medical [facility] Body temperature 2022-03-02 17:23:00 35.89 Yvonne Univ ersity of [place] [facility] Respiratory rate 2022-03-02 17:23:00 18 /min Univ ersity of [place] [facility] Oxygen saturation in 2022-03-02 17:23:00 96 /min University of Arterial blood by [place] [employer] [facility] Pulse oximetry Branch Body weight 2022-03-02 09:31:00 140.978 kg Universi ty of [place] [facility] BMI 2022-03-02 09:31:00 39.90 kg/m2 Universi ty of [place] [facility] Body height 2022-03-02 06:57:00 188 cm Universi ty of [place] [facility] Systolic blood 2021-10-27 14:38:00 139 mm[Hg] Univer sity of pressure [place] [facility] Diastolic blood 2021-10-27 14:38:00 76 mm[Hg] Unive rsity of pressure [place] [facility] Heart rate 2021-10-27 14:37:00 83 /min Universi ty of [place] [facility] Respiratory rate 2021-10-27 14:37:00 18 /min Univ ersity of [place] [facility] Body height 2021-10-27 14:37:00 188 cm Universi ty of [place] [facility] Body weight 2021-10-27 14:37:00 139.708 kg Universi ty of [place] [facility] BMI 2021-10-27 14:37:00 39.54 kg/m2 Universi ty of [place] Medical Branch Oxygen saturation in 2021-10-27 14:37:00 95 /min University of Arterial blood by [facility] Pulse oximetry Branch Diastolic blood 2018-12-09 15:43:00 80 mm[Hg] [facility] pressure Medicine Heart rate 2018-12-09 15:43:00 68 /min [facility] Systolic blood 2018-12-09 15:43:00 118 mm[Hg] [facility] pressure Medicine Body height 2018-12-09 15:17:00 188 cm [facility] Body weight 2018-12-09 15:17:00 133.358 kg [facility] BMI 2018-12-09 15:17:00 37.75 kg/m2 [facility] Diastolic blood 2018-12-09 15:43:00 80 mm[Hg] [facility] Medicine Heart rate 2018-12-09 15:43:00 68 /min [facility] Systolic blood 2018-12-09 15:43:00 118 mm[Hg] [facility] Medicine Body height 2018-12-09 15:17:00 188 cm [facility] Body weight 2018-12-09 15:17:00 133.358 kg [facility] BMI 2018-12-09 15:17:00 37.75 kg/m2 [facility] Procedures Procedure Date / Time Performing Clinician Source Performed TROPONIN I 2022-03-02 10:42:00 Rosa [facility] BASIC METABOLIC PANEL 2022-03-02 10:42:00 Paige Lee [facility] (NA, K, CL, CO2, Medical Branch GLUCOSE, BUN, CREATININE, CA) LIPID PANEL 2022-03-02 10:42:00 Rosa [facility] ([id number])(TOTAL Medical Branch CHOLESTEROL, TRIGLYCERIDES, HDL) CBC WITHOUT DIFF 2022-03-02 10:42:00 Rosa [facility] GLYCOSYLATED HEMOGLOBIN 2022-03-02 10:42:00 Rosa [facility] (A1C) [facility] EKG-12 LEAD 2022-03-02 05:51:36 Eddi Menendez [facility] HB ECG ROUTINE & RHYTHM 2022-03-02 04:46:32 Eddi Menendez [facility] STRIP [facility] Branch TROPONIN I 2022-03-02 03:45:00 Eddi Menendez [facility] THYROID STIMULATING 2022-03-02 03:45:00 Paige Lee [facility] HORMONE [facility] Branch CT ANGIOGRAM CHEST 2022-03-01 23:21:35 Eddi Menendez [facility] LIPASE 2022-03-01 22:38:00 Eddi Menendez [facility] TROPONIN I 2022-03-01 22:38:00 Eddi Menendez [facility] COMP. METABOLIC PANEL 2022-03-01 22:38:00 Eddi Menendez [facility] ([id number]) [facility] Branch CBC WITH DIFF 2022-03-01 22:38:00 Eddi Menendez [facility] N-TERMINAL PRO-BNP 2022-03-01 22:38:00 Eddi Menendez [facility] CONSENT/REFUSAL FOR 2022-03-01 21:06:28 Doctor Unassigned, No Un [facility] DIAGNOSIS AND TREATMENT Name Medical Branch Plan of Care Planned Activity Planned Date Details Comments Source Future Scheduled 2024-01-29 Lipid panel (procedure) [facility] Test 00:00:00 [code = 99767789] Medical Ce nter Future Scheduled 2020-12-04 INFLUENZA VACCINE (#1) [facility] 00:00:00 [code = INFLUENZA VACCINE Me dical Center (#1)] Future Scheduled 2020-04-05 DEPRESSION SCREENING ([address]+) [facility] Test 00:00:00 [code = DEPRESSION Medical C enter SCREENING (12+)] Future Scheduled 2011-09-22 DTAP/TDAP/TD VACCINES (1 - [facility] Test 00:00:00 Tdap) [code = DTAP/TDAP/TD M edical Center VACCINES (1 - Tdap)] Future Scheduled 2010 HEPATITIS C SCREENING [facility] 00:00:00 [code = HEPATITIS C Medical Center SCREENING] Future Scheduled 1998 PNEUMOCOCCAL VACCINE 0-[address] [facility] Test 00:00:00 YRS (1 of 2 - PPSV23) Medica l Center [code = PNEUMOCOCCAL VACCINE 0-64 YRS (1 of 2 - PPSV23)] Future Scheduled 1997 COVID-19 VACCINE (1) [code [facility] Test 00:00:00 = COVID-19 VACCINE (1)] [facility] Future Scheduled ELECTROCARDIOGRAM COMPLETE [facility] Test [code = 51597] of Medicine Future Scheduled TETANUS SHOT (ADULT) [code [facility] Test = TETANUS SHOT (ADULT)] of M edicine Future Scheduled BMI FOLLOW UP PLAN [code = [facility] Test BMI FOLLOW UP PLAN] of Medic ine Future Scheduled HIV SCREENING [code = HIV [facility] Test SCREENING] of Medicine Future Scheduled FL[facility] VACCINE [facility] [code = FLU VACCINE > 6 of M edicine MONTHS] Encounters Start End Encounter Admission Attending Care Care Encounter Source Date/Time Date/Time Type Type Clinicians Facility Department ID 2021-02-03 Emergency [facility] [id number] Univers 20:39:24 ity of [facility] 2021-02-02 Emergency [facility] [id number] Univers 23:37:09 ity of [facility] 2021-02-01 Emergency [facility] [id number] Univers 11:53:19 ity of [facility] 2021-01-31 Emergency [facility] [id number] Univers 23:50:21 ity of [facility] 2021-01-31 Emergency [facility] [id number] Univers 14:49:49 ity of [facility] 2022-11-02 2022-11-02 [id number] Univers 10:00:00 10:00:00 SENDIL ity [facility] 2022-05-04 2022-05-04 [facility] [id number] Univers 14:30:00 15:27:44 [facility]22-[facility]-04 2022-05-[address] [facility] [id number] Univers 14:30:00 15:27:44 Visit Sendil Aisha HARKINS [id number] ity [facility] [id number] [id number] Pa dical NAL 059 [facility] 2022-04-29 2022-04-29 Samuel Nina [facility] [id number] Univers 00:00:00 00:00:00 Linden HARKINS [id number] ity of [facility] [id number] [id number] Pa dical NAL 044 [facility] 2022-04-29 2022-04-29 Refill Staci [facility] [id number] Univers 00:00:00 00:00:00 Sendil Aisha HARKINS [id number] ity of [id number] [id number] Pa dicde NAL 059 [facility] 2022-04-29 2022-04-29 Refill Doctor [facility] 1.2.840.114 [id number] Univers 00:00:00 00:00:00 Unassigned, TORIN [id number] ity of [id number] [id number] Pa dicde NAL 231 [facility] 2022-03-06 2022-03-06 Outpatient R LINDEN NINA [facility] [id number] Univers 13:30:00 14:43:28 LINDEN NINA [facility] 2022-03-06 2022-03-06 Office Carl [facility] 1.2.840.114 [id number] Univers 13:30:00 14:43:28 Visit Linden HARKINS [id number] ity of [facility] [id number] [id number] [facility] 044 [facility] 2022-03-06 2022-03-06 Letter Carl [facility] 1.2.840.114 [id number] Univers 00:00:00 00:00:00 (Out) Linden HARKINS [id number] ity of [facility] [id number] [id number] [facility] 044 [facility] 2022-03-01 2022-03-02 Outpatient X ROSA [facility] [id number] Univers 15:23:00 15:58:00 PIAGE [facility] 2022-03-01 2022-03-02 Emergency Eddi Menendez [facility] 1.2.840.1 [id number] Univers 15:23:00 15:58:00 RosaPaige TORIN [id number] ity of [id number] [id number] [facility] [address] [place] 2021-12-26 2021-12-[address] [facility] 1.2.840.114 [id number] Univers 00:00:00 00:00:00 Senddex HARKINS [id number] ity of [id number] [id number] [address] 2021-11-07 2021-11-07 Outpatient R STACI [facility] [id number] Univers 10:00:00 10:00:00 SENDIL [facility] 2021-10-27 2021-10-27 Outpatient R STACI [facility] [id number] Univers 09:00:00 10:02:11 SENDIL [facility] 2021-10-27 2021-10-[address] [facility] 1.2.840.114 [id number] Univers 09:00:00 10:02:11 Visit Magda HARKINS [id number] ity of [id number] [id number] [address] 2021-10-27 2021-10-27 Orders Doctor MANJEET 1.2.840.114 [id number] Univers 00:00:00 00:00:00 Only Unassigned, HERNANDEZ [id number] ity of [place] [facility] [id number] N[place]anael as [phone] [facility] [address] [place] 2021-10-27 2021-10-[address] [facility] 1.2.840.114 [id number] Univers 00:00:00 00:00:00 (Out) Magda HARKINS [id number] ity of [id number] [id number] Pa dical NAL 059 [facility] 2021-07-06 2021-07-06 Emergency X IGNACIO, [facility] ERT [id number] Univers 17:58:00 20:27:00 JESÚS ity [facility] 2021-07-06 2021-07-06 Emergency Pierre, [facility] 1.2.840.114 [id number] Univers 17:58:00 20:27:00 Jesús KNOXANA 350.1.13.10 i ty of [id number] [phone] [facility] [address] [place] 2021-05-16 2021-05-16 Telephone Fredy MANJEET [id number] Univers 00:00:00 00:00:00 Sidra VALLE [id number] ity of [facility] [id number] [place]el as [id number] [facility] 037 Branch 2021-05-15 2021-05-15 Outpatient R WILLIAM MCDONALD [facility] [id number] Univers 15:00:00 [facility]:00[facility] 2021-05-08 2021-05-08 Outpatient WILLIAM YARBROUGH [facility] [id number] Univers 14:00:00 14:00:00 [facility] 2021-05-08 2021-05-08 Telephone William Mcdonald 1.2.840.11 [id number] Univers 00:00:00 00:00:00 [facility] [id number] [facility] [id number] [id number] [facility] [address] [place] 2021-05-05 2021-05-05 Outpatient R STACI [facility] [id number] Univers 09:00:00 09:46:25 [facility] 2021-05-05 2021-05-05 Office Staci [facility] 1.2.840.114 [id number] Univers 09:00:00 09:46:25 Visit Magda HARKINS [id number] ity [facility] [id number] [id number] Me dical NAL 059 [facility] 2021-05-05 2021-05-05 Janet Small [facility] 1.2.840.114 [id number] Univers 00:00:00 00:00:00 (Out) Magda HARKINS [id number] ity [facility] [id number] PROFESSIO [phone] [facility] 059 [facility] 2021-04-09 2021-04-[address] [facility] ERT [id number] Univers 06:28:00 08:49:00 [facility] 2021-04-09 2021-04-[address] [facility] 1.2.350.220 [id number] Univers 06:28:00 08:49:00 Jaspreet HARKINS 350.1.13.10 i ty of [place] [phone] [facility] [address] [place] 2021-03-24 2021-03-[address] [facility] 1.2.840.114 [id number] Univers 00:00:00 00:00:00 Magda HARKINS 350.1.13.10 ity [facility] [place].2.[place] [phone] [facility] 059 [facility] 2021-03-24 2021-03-[address] [facility] 1.2.840.114 [id number] Univers 00:00:00 00:00:00 Deana HARKINS 350.1.13.10 ity [facility] [place] [phone] [facility] 231 [facility] 2021-03-06 2021-03-06 Outpatient R TONJA [facility] [id number] Univers 15:20:00 15:20:00 DEANA alston [facility] 2021-03-06 2021-03-[address] [facility] 1.2.840.114 [id number] Univers 07:49:31 08:09:31 ne Visit Deana HARKINS 350.1.13.10 ity of [place] [phone] [facility] 231 [facility] 2021-02-13 2021-02-[address] 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 13.10 ity of [place].2.[place] Profess[place] [phone] [facility] 353 [facility] 2021-01-28 2021-01-28 [facility] 1035 [id number] Univers 14:15:00 14:15:00 DEANA alston [facility] 2021-01-23 2021-01-23 Out[facility] 1035 [id number] Univers 15:40:00 15:40:00 DEANA alston [facility] 2021-01-23 2021-01-[address] [facility] 1.2.840.114 [id number] Univers 07:52:46 08:12:46 ne Visit Deana HARKINS 350.1.13.10 ity of [place] [phone] Me dical NAL 231 [facility] 2020-12-23 2020-12-23 Orders Doctor MANJEET 1.2.840.114 [id number] Univers 00:00:00 00:00:00 Only Unassigned, HERNANDEZ 350.1.13.10 ity of [place] [facility] 4.2.7.2.686 Nathanael as [phone] [address] 2020-12-19 2020-12-[address] [facility] 1.2.840.114 [id number] Univers 00:00:00 00:00:00 Rosana Harkins 350.1.13.10 ity of [place] [phone] Pa dical nal 044 [facility] 2020-12-19 2020-12-[address] [facility] 1.2.840.114 [id number] Univers 00:00:00 00:00:00 Magda Harkins 350.1.13.10 ity of [place] [phone] Pa dical nal 059 [facility] 2020-12-12 2020-12-12 Outpatient R TONJA [facility] [id number] Univers 15:00:00 15:00:00 DEANA alston [facility] 2020-12-12 2020-12-12 Nurse Therapy, Adc Covid Infusion [facility] 1.2.840.114 [id number] Univers 13:57:42 14:57:42 Visit Leo Brasher 350.1.13.10 ity [facility] 4.2.7.2.[place] Surgical [phone] [facility] [address] [place] 2020-12-11 2020-12-11 Outpatient R YUE [facility] [id number] Univers 09:00:00 09:00:00 ATTENDING ity [facility] 2020-12-09 2020-12-[address] [facility] 1.2.840.114 [id number] Univers 14:24:00 19:00:00 Kwasi Harkins 350.1.13.10 ity of [place].2.[place] [phone] [facility] [address] [place] 2020-11-15 2020-11-[address] [facility] 1.2.840.114 [id number] Univers 00:00:00 00:00:00 Sendil Aisha Harkins 350.1.13.10 ity of [place] [phone] Pa dical nal 059 [facility] 2020-11-15 2020-11-15 Refill [facility] 1.2.840.114 [id number] [facility] 00:00:00 00:00:00 Rosana Harkins 350.1.13.10 ity of [place] [phone] Pa dical nal 044 [facility] 2020-10-31 2020-10-[address] [facility] 1.2.840.114 [id number] Univers 10:03:28 10:45:21 Visit Magda Harkins 350.1.13.10 ity of [place].2.[place] [phone] [facility] 059 [facility] 2020-10-31 2020-10-31 Outpatient R STACI [facility] [id number] Univers 10:00:00 10:00:00 SENDIL gamaliel [facility] 2020-10-29 2020-10-[address] [facility] 1.2.840.114 [id number] Univers 11:24:33 13:10:38 Visit Deana Harkins 350.1.13.10 ity of [place] [phone] Pa dicde nal 231 [facility] 2020-10-29 2020-10-29 Outpatient R TONJA [facility] 1034 [id number] Univers 11:20:00 11:20:00 DEANA alston [facility] 2020-09-30 2020-09-30 [facility] 1.2.724.083 [id number] Univers 09:40:00 23:59:00 Encounter Rosana Harkins 350.1.13.10 ity [facility] 4.2.7.2.[place] [phone] [facility] [address] 2020-09-30 2020-09-30 Outpatient R [facility] [id number] Univers 00:00:00 00:00:00 ROSANA parrynubia o f [facility] 2020-09-26 2020-09-26 Office [facility] 1.2.840.114 [id number] Univers 14:28:43 15:15:08 Visit Rosana Harkins 350.1.13.10 [facility] [place].2.7.2.[place] [facility] [phone] [address] 2020-09-26 2020-09-26 Outpatient R [facility] [id number] Univers 15:00:00 15:00:00 ROSANA alston o f [facility] 2020-09-26 2020-09-26 Orders Doctor MANJEET 1.2.840.114 [id number] Univers 00:00:00 00:00:00 Only Unassigned, HERNANDEZ 350.1.13.10 ity of [place] [facility] 4.2.7.2.686 Nathanael as [phone] [facility] [address] 2020-09-18 2020-09-18 Outpatient R [facility]SE[facility]INE [facility] [id number] Univers 09:30:00 09:30:00 [facility] ity of [facility] 2020-09-09 2020-09-11 Emergency Jaspreet Cifuentes 1.2.840. 114 [id number] Univers 13:59:00 17:30:00 Payam [place] 350.1.13. 10 ity of [facility] 4.2.7.2.686 Nathanael as [phone] [facility] [address] 2020-07-23 2020-07-23 Office [facility] 1.2.840.114 [id number] Univers 09:52:47 10:53:16 Visit Rubina Harkins 350.1.13.10 ity of [place] [phone] [facility] 205 [facility] 2020-07-23 2020-07-23 Outpatient R [facility] [id number] Univers 09:30:00 09:30:00 RUBINA gamaliel hitchcock lobo [facility] 2020-07-12 2020-07-12 Outpatient R [facility] [id number] Univers 13:00:00 13:00:00 RUBINA gamaliel magana [facility] 2020-06-27 2020-06-27 [facility] 1.2.840.114 [id number] Univers 00:00:00 00:00:00 Magad Harkins 350.1.13.10 ity of [place] [phone] [facility] 059 [facility] 2020-06-26 2020-06-[address] [facility] 1.2.840.114 [id number] Univers 00:00:00 00:00:00 Magda Harkins 350.1.13.10 ity of [place] [phone] [facility] 059 [facility] 2020-06-25 2020-06-[address] [facility] 1.2.840.114 [id number] Univers 00:00:00 00:00:00 Outreach Tylor PRIMARY 350.1.13.10 i ty of [facility] 4.2.7.2.[place] PAV[place] [phone] [facility] [address] [place] 2020-06-20 2020-06-20 Office YOSELYN Chaudhari 1.2.840.114 [id number] Univers 13:38:28 13:53:28 Visit Deirdre Alvarado [facility] 350.1.13.10 ity of CLINICS 4[place]2.[place].2.[place] [id number] [address] 2020-06-20 2020-06-20 Outpatient R FARA, [facility] 1031 [id number] Univers 13:00:00 13:00:00 DEIRDRE gamaliel [facility] 2020-05-03 2020-05-03 Outpatient [facility] [id number] Univers 10:30:00 10:30:00 SENDIL gamaliel [facility] 2020-04-30 2020-04-[address] [facility] 1.2.597.549 [id number] Univers 00:00:00 00:00:00 Magda Harkins 350.1.13.10 ity of [place].2.[place] [phone] Pa dical nal 059 [facility] 2020-04-29 2020-04-29 Mid Level Java Developer 2, Adc Lab [facility] 1.2.840.114 [id number] Univers 08:58:03 09:13:03 Visit Magda Small 350.1.13. 10 it[place] of [place] 4[place].2.[place] [phone] Pa dical nal 353 [facility] 2020-04-29 2020-04-29 Outpatient R [facility] [id number] Univers 09:00:00 09:00:00 ity [facility] 2020-03-31 2020-03-[address] [facility] 1.2.948.618 [id number] Univers 09:41:00 11:05:00 Jitendra Harkins 350.1.13.10 i ty of [place] 4[place]2.7.2.[place] [phone] [facility] [address] [place] 2020-03-31 2020-03-[address] [facility] ERT [id number] Univers 09:41:00 11:05:00 JITENDRA alston [facility] 2020-03-21 2020-03-[address] [facility] 1.2.840.114 [id number] Univers 11:38:00 14:13:00 Marifer Harkins 350.1.13.10 ity of [place].2.[place] [phone] [facility] [address] [place] 2020-03-21 2020-03-21 Orders Doctor MANJEET 1.2.840.114 [id number] Univers 00:00:00 00:00:00 Only Unassigned, HERNANDEZ 350.1.13.10 ity of [place] [facility] 4.2.7.2.686 Nathanael as [phone] [facility] [address] [place] 2020-02-27 2020-02-27 Patient Evette Baeulieu 1.2.840.114 [id number] Univers 00:00:00 00:00:00 Outreach E Ledezma 350.1.13.10 i ty of [place].2.[place] [id number] [address] 2020-02-19 2020-02-19 Patient Evette Beaulieu 1.2.840.114 [id number] Univers 00:00:00 00:00:00 Outreach E Ledezma 350.1.13.10 i ty of [place]2.7.2.[place] [id number] [address] 2020-02-14 2020-02-14 Refill Doctor [facility] 1.2.840.114 [id number] Univers 00:00:00 00:00:00 Unassigned, Torin 350.1.13.10 ity of [place] 4.2.7.2.[place] [phone] Pa dical maria [facility] 205 [facility] 2020-01-25 2020-01-25 Patient Evette Beaulieu 1.2.840.114 [id number] Univers 00:00:00 00:00:00 Outreach E Ledezma 350.1.13.10 i ty of [place]2.7.2.[place] [phone] [address] 2020-01-22 2020-01-22 Emergency [facility] 1.2.375.720 [id number] Univers 19:09:00 22:56:00 Iva Harkins 350.1.13.10 ity of [place] 4.2.7.2.[place] [phone] [address] 2020-01-19 2020-01-19 Office [facility] 1.2.840.114 [id number] [facility] 10:34:36 12:20:59 Visit Rubina Harkins 350.1.13.10 ity of [place].2.[place] [phone] [facility] 205 [facility] 2020-01-19 2020-01-19 Outpatient R [facility] [id number] [facility] 10:30:00 10:30:00 RUBINA alston o f [facility] 2020-01-19 2020-01-19 Telephone [facility] 1.2.965.933 [id number] [facility] 00:00:00 00:00:00 Magda Harkins 350.1.13.10 ity of [place].7.2.[place] [phone] [facility] 059 [facility] 2020-01-19 2020-01-19 Telephone [facility] 1.2.778.307 [id number] 00:00:00 00:00:00 Magda Harkins 350.1.13.10 [place] 4.2.7.2.686 Professio [phone] [address] 2020-01-15 2020-01-15 Mid Level Java Developer Sanjeev, Adc Lab Main [facility] 1.2.8 40.114 [id number] [facility] 10:10:41 10:25:41 Visit Annabelle Gifford 350.1.13.10 ity of [place].2.[place] [phone] [facility] 353 [facility] 2020-01-15 2020-01-15 Mid Level Java Developer Sanjeev, [facility] 1.2.840.114 [id number] 10:10:41 10:25:41 Visit Lab Main Torin 350.1.13.10 [place] 4.2.7.2.686 Professio [phone] [address] 2020-01-15 2020-01-15 Appointmen , Adc Vascular Room 1 - [facility] 1.2.840.114 [id number] [facility] 08:09:14 09:09:14 t Annabelle Gifford 350.1.13.10 ity of [place].7.2.[place] Profess[place] [phone] Pa dic[address] 2020-01-15 2020-01-15 Appointmen Pc, [facility] 1.2.840.114 [id number] 08:09:14 09:09:14 t Vascular [place] 350.1.13.10 Room 1 - [place] 4.2.7.2.686 Professio [phone] [address] 2020-01-15 2020-01-15 Mid Level Java Developer Pc, [facility] Vascular Room 1 - [facility] 1.2.840.114 [id number] [facility] 08:08:30 09:08:30 Visit Annabelle Gifford 350.1.13.10 ity of [place] 4[place]2.7.2.[place] [phone] Pa dic[address] 2020-01-15 2020-01-15 Mid Level Java Developer , [facility] 1.2.840.114 [id number] 08:08:30 09:08:30 Visit Vascular [place] 350.1.13.10 Room 1 - [place] 4.2.7.2.686 Professio [phone] [address] 2020-01-15 2020-01-15 Outpatient R [facility] [id number] Univers 09:00:00 09:00:00 ity of [facility] 2020-01-15 2020-01-15 Orders Doctor BURROUGHS 1.2.840.114 [id number] Univers 00:00:00 00:00:00 Only Unassigned, HERNANDEZ 350.1.13.10 ity of [place] [facility] 4.2.7.2.686 Nathanael as [phone] [address] 2020-01-15 2020-01-15 Orders Doctor BURROUGHS 1.2.840.114 [id number] 00:00:00 00:00:00 Only Unassigned, HERNANDEZ 350.1.13.10 [place] [facility] [phone] 009 2020-01-10 2020-01-10 [facility] 1.2.840.114 [id number] Univers 00:00:00 00:00:00 Management Rubina Torin 350.1.13.10 ity of [place] 4.2.7.2.[place] [phone] [address] 2020-01-10 2020-01-10 Case Chris [facility] 1.2.840.114 [id number] 00:00:00 00:00:00 Management Rubina Torin 350.1.13.10 [place] 4.2.7.2.686 Professio [phone] [address] 2020-01-08 2020-01-08 Patient Evette Beaulieu 1.2.840.114 [id number] [facility] 00:00:00 00:00:00 Outreach E Ledezma 350.1.13.10 i ty of [place].2.[place] [phone] [address] 2020-01-08 2020-01-08 Patient Evette Beaulieu 1.2.840.114 [id number] 00:00:00 00:00:00 Outreach E Ledezma 350.1.13.10 [place] 4.2.7.2.686 [id number] [facility] 2020-01-02 2020-01-03 [facility] 1.2.840.114 [id number] [facility] 10:40:17 07:53:35 Visit Magda Harkins 350.1.13.10 ity of [place]2.7.2.[place] [phone] [address] 2020-01-02 2020-01-[address] [facility] 1.2.840.114 [id number] 10:40:17 07:53:35 Visit Magda Harkins 350.1.13.10 [place] 4.2.7.2.686 Professio [phone] [address] 2020-01-02 2020-01-02 Outpatient R STACI [facility] [id number] Univers 10:30:00 10:30:00 SENDIL gamaliel of [facility] 2019-12-02 2019-12-04 Emergency Iva Meehan [facility] 1.2.840 .114 [id number] Univers 19:29:00 18:58:00 Elkin Villanueva 350.1.13.10 ity of [place] 4[place]2.7.2.[place] [phone] [facility] [address] 2019-12-04 2019-12-04 Patient Evette Beaulieu 1.2.840.114 [id number] Univers 11:18:41 11:33:41 Outreach E Ledezma 350.1.13.10 i ty of [place] 4.2.7.2.[place] [phone] [facility] [address] [place] 2019-12-04 2019-12-04 Transition Neville Moran 1.2.840.114 [id number] Univers 00:00:00 00:00:00 of Care Meenu Ledezma 350.1.13.10 ity of [place] 4[place]2.7.2.[place] [phone] [facility] [address] [place] 2019-10-17 2019-10-17 Laboratory Lab, Adc Fam Pob I [facility] 1.2. 840.114 [id number] Univers 14:12:56 14:32:56 Only Gaviota Sheriff 350.1.13.10 ity of [place] 4.2.7.2.686 Nathanael as Professio [phone] [address] Office [employer] 2019-10-17 2019-10-17 Outpatient R [facility] [id number] Univers 14:00:00 14:00:00 ity of [facility] 2019-10-17 2019-10-17 Telephone YOSELYN Chaudhari 1.2.840.114 [id number] Univers 00:00:00 00:00:00 Deirdre T Y HEALTH 350.1.13.10 ity of [place].2.[place] [phone] [facility] [address] 2019-10-09 2019-10-09 Telephone BAY ChaudhariIT 1.2.840.114 [id number] Univers 00:00:00 00:00:00 Deirdre T Y HEALTH 350.1.13.10 ity [place]2.[place] [id number] [address] 2019-10-05 2019-10-05 Telephone MANJEET Gasca 1.2.495.922 [id number] Univers 00:00:00 00:00:00 Manjeet VALLE 350.1.13.10 it y of [facility] 4.2.7.2.686 [place]el as [phone] [address] 2019-10-03 2019-10-03 Laboratory Lab, Adc Fam Pob I [facility] 1.2. 840.114 [id number] Univers 14:55:00 15:15:00 Only Bre Rey [employer] 350.1.13.10 ity of [place] 4.2.7.2.686 [place]el as Professio [phone] [facility] [address] [place] Office [facility] [employer] 2019-10-03 2019-10-03 Outpatient R JUANPABLO [facility] [id number] Univers 14:40:00 14:40:00 BRE ity [facility] 2019 2019 Office BAY Chaudhari 1.2.840.114 [id number] Univers 12:59:34 13:48:57 Visit Deirdre Alvarado HEALTH 350.1.13.10 ity of [place] [phone] [address] 2019 2019 Outpatient R FARA [facility] [id number] Univers 13:30:00 13:30:00 DEIRDRE ity [facility] 2019-09-07 2019-09-07 Outpatient R [facility] [id number] Univers 13:00:00 13:00:00 ity [facility] 2019-08-31 2019-08-31 Telephone Fara [facility] 1.2.840.114 [id number] Univers 00:00:00 00:00:00 Deirdre Corinne Y HEALTH 350.1.13.10 it[place] of [place] [id number] [address] 2019-08-14 2019-08-14 Office Faculty, Vascular Surg UNIVERSIT 1 .2.840.114 [id number] Univers 10:57:22 11:43:40 Visit Joseph Mosqueda HEALTH 350.1.13.10 it[place] of [place]2.[place] [phone] [address] 2019-08-14 2019-08-14 Outpatient R DELROY GOMEZ, [facility] [id number] Univers 10:00:00 10:00:00 JOSEPH alston [facility] 2019-08-07 2019-08-08 Telemedici Faculty, Vascular Surg UNIVERSI T 1.2.840.114 [id number] Univers 10:22:50 09:22:25 ne Visit Chris Rubina [facility] 350.1.13.1 0 ity [place] [phone] [address] 2019-08-07 2019-08-07 Outpatient R CHRIS [facility] [id number] Univers 11:15:00 11:15:00 RUBINA alston o f [facility] 2019-07-27 2019-07-27 Outpatient R FARA [facility] [id number] Univers 13:00:00 13:00:00 [facility] 2019-07-27 2019-07-27 Telemedici Fara[facility] 1.2.840.11 [id number] Univers 07:33:44 07:48:44 ne Visit Deirdre Sun [facility] 350.1.13.10 ity of [place] [id number] [address] 2019-07-27 2019-07-27 MANJEET Haile 1.2.840.114 [id number] Univers 00:00:00 00:00:00 Sidra VALLE 350.1.13.10 ity of HOSPITAL 4.2.7.2.686 [place] as [phone] [address] 2019-07-27 2019-07-27 YOSELYN Haile 1.2.001.470 [id number] Univers 00:00:00 00:00:00 Sidra Alvarado HEALTH 350.1.13.10 it[place] [id number] [address] 2019-07-24 2019-07-24 Patient Evette Beaulieu 1.2.840.114 [id number] Univers 00:00:00 00:00:00 Outreach Christopher Ledezma 350.1.13.10 i ty of [place]2.[place].2.[place] [phone] [facility] [address] 2019-07-24 2019-07-24 Telephone MANJEET Partida 1.2.025.293 [id number] Univers 00:00:00 00:00:00 Gustavo VAL[place] 350.1.13.10 ity of [facility] 4.2.7.2.[place] [phone] [facility] [address] 2019-07-24 2019-07-24 Telephone MANJEET Daniel 1.2.799.723 [id number] Univers 00:00:00 00:00:00 Sidra VALLE 350.1.13.10 ity of [facility] 4.2.7.2.686 [place] as [phone] [facility] [address] 2019-07-20 2019-07-20 Telephone [facility] 1.2.840.114 [id number] Univers 00:00:00 00:00:00 [facility] 350.1.13.10 it[place] of [place].2.[place].2.[place] [facility] [phone] [facility] & [address] Specialty Care 2019-07-12 2019-07-12 Transition Neville Lomas 1.2.840.114 [id number] Univers 00:00:00 00:00:00 of Care Stephanie Ledezma 350.1.13.10 [place] [phone] [facility] [address] 2019-07-12 2019-07-12 Telephone Mike [facility] 1.2.840.114 [id number] Univers 00:00:00 00:00:00 Rivera T SPECIALTY 350.1.13.10 [place] [phone] [facility] [address] [facility] 2019-07-09 2019-07-11 [facility] Jaspreet Cifuentes 1.2.840.1 14 [id number] Univers 18:58:31 18:10:00 Encounter Rivera [place] 350.1.13 .10 ity of [facility] 4.2.7.2.686 Nathanael as [phone] [place] 034939 [place] 2019-07-09 2019-07-11 Inpatient X MIKE [facility] [id number] Univers 18:58:31 18:10:00 RIVERA ity of [facility] 2019-07-05 2019-07-05 Telephone BAY ChaudhariIT 1.2.840.114 [id number] Univers 00:00:00 00:00:00 Deirdretrina Alvarado HEALTH 350.1.13.10 [place] [phone] [address] 2019-07-04 2019-07-04 Telephone BAY Chaudhari 1.2.840.114 [id number] Univers 00:00:00 00:00:00 Deirdre Sun Y HEALTH 350.1.13.10 [place] [phone] [address] 2019-07-04 2019-07-04 Transition Neville Moran 1.2.840.114 [id number] Univers 00:00:00 00:00:00 of Care Meenu Ledezma 350.1.13.10 [place] [phone] [facility] [address] [place] 2019-05-31 2019-07-03 [facility] Jitendra Preciado 1.2.840.1 14 [id number] Univers 14:35:43 18:10:00 Encounter Leonardoshirlene Deirdre Valle 350.1.1 3.10 ity of Hospital 4.2.7.2.686 Nathanael as [phone] [address] 2019-05-31 2019-07-03 Inpatient X [facility] [id number] Univers 14:35:43 18:10:00 DEIRDRE alston of [facility] 2019-05-31 2019-05-31 Orders Doctor BURROUGHS 1.2.840.114 [id number] Univers 00:00:00 00:00:00 Only Unassigned, HERNANDEZ 350.1.13.10 ity of [place] [facility] 4.2.7.2.686 Nathanael as [phone] [facility] [address] 2019-04-11 2019-04-12 Emergency X [facility] ERT [id number] [employer] 22:26:05 00:56:00 SAM alston [facility] 2019-04-10 2019-04-[address] [facility] ERT [id number] [employer] 14:00:06 17:25:00 JASPREET alston [facility] 2018-12-09 2018-12-09 Office Stu Kumar [id number] [facility] 10:06:25 10:51:25 Visit AMBULATOR 350.1.13.21 College Y 0.2.7.2.686 of [id number] [facility] 300 e 2018-12-09 2018-12-09 Office Stu Kumar 1.2.840.114 [id number] 10:06:25 10:51:25 Visit AMBULATOR 350.1.13.21 Y 0.2.7.2.686 [id number] 300 Results Test Description Test Time Test Comments Results Result Comments Source Thyroid Stimulating Hormone (TSH) 2022-03-02 11:59:34 Test Item Value Reference Range Interpretation Comme nts TSH (test code = 9304344027) See_Comment Biotin has been reported to cause a negative bias , interpret results relativ e to patient's use of biotin. [Aut omated message] The system [employer] generated this result transmit myriam reference range: 0.45 - 4 .70 mIU/L. The reference range was not used to interpret this result as normal/abnormal . Lab Interpretation (test code = Normal 65069-3) [facility] (NA, K, CL, CO2, GLUCOSE, BUN, CREATININE, CA)2022-03-02 11:47:39 Test Item Value Reference Range Interpretation Comments NA (test code = 138 mmol/L 135-145 7859812534) K (test code = 3.7 mmol/L 3.5-5.0 1158634376) CL (test code = 104 mmol/L 98-108 6491692279) CO2 TOTAL (test code = 29 mmol/L 23-31 0884470081) AGAP (test code = 2-16 0958431629) BUN (test code = 12 mg/dL - 6597581271) GLUCOSE (test code = 118 mg/dL 70-110 H 3012698982) CREATININE (test code = 0.94 mg/dL 0.60-1.25 4426882056) CALCIUM (test code = 8.5 mg/dL 8.6-10.6 L 2544445128) eGFR (test code = mL/min/1.73m2 5023472560) CHARLES (test code = CHARLES) Association of Glomerular Filtration Rate (GFR) and Staging of Kidney Disease* + --+ --+ ------+| GFR (mL/min/1.73 m2) ?| With Kidney Damage ?| ?Without Kidney Damage+ --------+ --------+ +| ?>90 ?| ?Stage one ?| ? Normal ?+ ---+ ---+ -------+| ?60-89 ?| ?Stage two ?| ? Decreased GFR ? + --+ --+ ------+| ?30-59 ?| ?Stage three ?| ? Stage three ? + --+ --+ ------+| ?15-29 ?| ?Stage four ? | ? Stage four ?+ ---+ ---+ -------+| ?<15 (or dialysis) ? ?| ?Stage five ? | ? Stage five ?+ ---+ ---+ -------+ *Each stage assumes the associated GFR level has been in effect for at least three months. ?Stages 1 to 5, with or without kidney disease, indicate chronic kidney disease. Notes: Determination of stages one and two (with eGFR >59mL/min/1.73 m2) requires estimation of kidney damage for at least three months as defined by structural or functional abnormalities of the kidney, manifested by either:Pathological abnormalities or Markers of kidney damage (including abnormalities in the composition of the blood or urine or abnormalities in imaging tests). Lab Interpretation Abnormal (test code = 13211-1) [facility] [id number] 11:41:11 Test Item Value Reference Interpretation Comments Range TROPONIN I (test 0.005 ng/mL See_Comment [Automated code = 8781307952) message] The system which generated this result transmitted reference range : <=0.034. The reference range was not used to interpret this result as normal/abnormal . CHARLES (test code = Reference (Normal) CHARLES) Range (defined by the 99th percentile reference limit): <= 0.034 ng/mL Note: Cardiac troponin begins to rise 3-4 hours after the onset of ischemia. Repeat in 4-6 hours if the sample was drawn within 3-4 hours of the onset of the symptom and found normal. Diagnosis of myocardial injury is made with acute changes in cTn concentrations with at least one serial sample above the 99th percentile upper reference limit (URL), taken together with the patient's clinical presentation. Biotin has been reported to cause a negative bias, interpret results relative to patient's use of biotin. Lab Interpretation Normal (test code = 60633-9) [facility] (Total Cholesterol, Triglycerides, HDL)2022-03-02 11:34:52 Test Item Value Reference Range Interpretation Comments CHOL (test code = 149 mg/dL 120-200 9731605533) HDL (test code = 41 mg/dL See_Comment [Automated message] 1329976318) The system [employer] generated this result transmit myriam reference range : >=40. The refer ence range was not u sed to interpret th is result as normal/abnormal . HDLC RATIO (test code = See_Comment [Au tomated message] 3226179148) The system [employer] generated this result transmit myriam reference range : <=5.0. The refe rence range was not u sed to interpret th is result as normal/abnormal . TRIG (test code = 151 mg/dL 30-170 8224809244) LDL CHOL (test code = 78 mg/dL See_Comment [Auto mated message] 28665-6) The system [employer] generated this result transmit myriam reference range : <=160. The refe rence range was not u sed to interpret th is result as normal/abnormal . VLDL (test code = 30 mg/dL 5-60 2857258052) Lab Interpretation (test Normal code = 63558-6) [facility] ([facility]1C)2022-03-02 11:12:36 Test Item Value Reference Range Interpretation Comments HGB A1C (test code = 5.4 % 4.0-5.7 4548-4) CHARLES (test code = CHARLES) Reference RangesNormal: <5.7%Prediabetes: 5.7 - 6.4%Diabetes: > 6.5% Lab Interpretation (test Normal code = 91757-2) [facility] WITHOUT [id number] 11:01:10 Test Item Value Reference Range Interpretation Comments WBC (test code = 6690-2) See_Comment [A utomated message] The system [employer] generated this result transmit myriam reference range : 4.20 - 10.70 10*3/?L. The reference range was not used to interpret this result as normal/abnormal . RBC (test code = 789-8) See_Comment [Au tomated message] The system [employer] generated this result transmit myriam reference range : 4.26 - 5.52 10* 6/?L. The reference r aziza was not used to interpret this result as normal/abnormal . HGB (test code = 718-7) 12.6 g/dL 12.2-16.4 HCT (test code = 4544-3) 38.0 % 38.4-49.3 L MCH (test code = 785-6) 28.7 pg 26.1-32.7 MCV (test code = 787-2) 86.6 fL 81.7-95.6 MCHC (test code = 786-4) 33.2 g/dL 31.2-35.0 PLT (test code = 777-3) See_Comment [Au tomated message] The system [employer] generated this result transmit myriam reference range : 150 - 328 10*3/?L. The reference range was not used to interpret this result as normal/abnormal . MPV (test code = 9.0 fL 9.8-13.0 L 27879-8) RDW-CV (test code = 14.0 % 12.1-15.4 788-0) RDW-SD (test code = 43.8 fL 38.5-51.6 23171-3) NRBC x10^3 (test code = See_Comment [Au tomated message] 4909440583) The system [employer] generated this result transmit myriam reference range : 10*3/?L. The reference range was not used to interpret this result as normal/abnormal . NRBC/100 WBC (test code See_Comment [Au tomated message] = 0398903221) The system [facility] generated this result transmit myriam reference range : 0.0 - 10.0 /100 WBC s. The reference r aziza was not used to interpret this result as normal/abnormal . IPF % (test code = 6866706493) Lab Interpretation (test Abnormal code = 94403-1) [facility] [id number] 04:32:11 Test Item Value Reference Interpretation Comments Range TROPONIN I (test 0.002 ng/mL See_Comment [Automated code = 2523324342) message] The system which generated this result transmitted reference range : <=0.034. The reference range was not used to interpret this result as normal/abnormal . CHARLES (test code = Reference (Normal) CHARLES) Range (defined by the 99th percentile reference limit): <= 0.034 ng/mL Note: Cardiac troponin begins to rise 3-4 hours after the onset of ischemia. Repeat in 4-6 hours if the sample was drawn within 3-4 hours of the onset of the symptom and found normal. Diagnosis of myocardial injury is made with acute changes in cTn concentrations with at least one serial sample above the 99th percentile upper reference limit (URL), taken together with the patient's clinical presentation. Biotin has been reported to cause a negative bias, interpret results relative to patient's use of biotin. Lab Interpretation Normal (test code = 09107-7) [facility] [id number] 23:14:56 Test Item Value Reference Interpretation Comments Range TROPONIN I (test 0.002 ng/mL See_Comment [Automated code = 0867786441) message] The system which generated this result transmitted reference range : <=0.034. The reference range was not used to interpret this result as normal/abnormal . CHARLES (test code = Reference (Normal) CHARLES) Range (defined by the 99th percentile reference limit): <= 0.034 ng/mL Note: Cardiac troponin begins to rise 3-4 hours after the onset of ischemia. Repeat in 4-6 hours if the sample was drawn within 3-4 hours of the onset of the symptom and found normal. Diagnosis of myocardial injury is made with acute changes in cTn concentrations with at least one serial sample above the 99th percentile upper reference limit (URL), taken together with the patient's clinical presentation. Biotin has been reported to cause a negative bias, interpret results relative to patient's use of biotin. Lab Interpretation Normal (test code = 50956-3) [id number] 23:11:55 Test Item Value Reference Range Interpretation Comments NT-proBNP (test code 235 pg/mL See_Comment H [Autom ated = 6206803431) message] The system which generated this result transmitted reference range : <=125. The reference range was not used to interpret this result as normal/abnormal . CHARLES (test code = CHARLES) Biotin has been reported to cause a negative bias, interpret results relative to patient's use of biotin. Lab Interpretation Abnormal (test code = 60741-9) [facility]COMP[facility] MET[facility]OLIC PANEL (69331)2022-03-01 23:04:18 Test Item Value Reference Range Interpretation Comments NA (test code = 138 mmol/L 135-145 8417629184) K (test code = 4.4 mmol/L 3.5-5.0 7508955153) CL (test code = 107 mmol/L 98-108 9996808894) CO2 TOTAL (test code 24 mmol/L 23-31 = 8324167129) AGAP (test code = 2-16 4210496159) BUN (test code = 12 mg/dL 7-23 9335657757) GLUCOSE (test code = 89 mg/dL 70-110 4504264334) CREATININE (test code 0.77 mg/dL 0.60-1.25 = 0923326941) TOTAL BILI (test code 0.4 mg/dL 0.1-1.1 = 7611329077) CALCIUM (test code = 8.8 mg/dL 8.6-10.6 4991281763) T PROTEIN (test code 6.8 g/dL 6.3-8.2 = 4877815717) ALBUMIN (test code = 4.2 g/dL 3.5-5.0 2272951571) ALK PHOS (test code = 71 U/L 34-122 4165429862) ALTv (test code = 27 U/L 5-50 1742-6) AST(SGOT) (test code 22 U/L 13-40 = 3514499996) eGFR (test code = mL/min/1.73m2 3791669596) CHARLES (test code = CHARLES) Association of Glomerular Filtration Rate (GFR) and Staging of Kidney Disease* + + +- +| GFR (mL/min/1.73 m2) ?| With Kidney Damage ?| ?Without Kidney Damage+ ------+ ----+ ------+| ?>90 ?| ?Stage one ?| ? Normal ?+ -+ + -+| ?60-89 ?| ?Stage two ?| ? Decreased GFR ? + + +- +| ?30-59 ?| ?Stage three ?| ? Stage three ? + + +- +| ?15-29 ?| ?Stage four ? | ? Stage four ?+ -+ + -+| ?<15 (or dialysis) ? ?| ?Stage five ? | ? Stage five ?+ -+ + -+ *Each stage assumes the associated GFR level has been in effect for at least three months. ?Stages 1 to 5, with or without kidney disease, indicate chronic kidney disease. Notes: Determination of stages one and two (with eGFR >59mL/min/1.73 m2) requires estimation of kidney damage for at least three months as defined by structural or functional abnormalities of the kidney, manifested by either:Pathological abnormalities or Markers of kidney damage (including abnormalities in the composition of the blood or urine or abnormalities in imaging tests). [facility]LIPASE2022-[facility]-27 23:03:58 Test Item Value Reference Range Interpretation Comments LIPASE (test code = 2111611612) 70 U/L 0-220 Lab Interpretation (test code = Normal 06536-2) [facility] CampusCB WITH [id number] 22:50:56 Test Item Value Reference Range Interpretation Comments WBC (test code = See_Comment [Automated 8174-2) message] The sy stem which generated this result transmitted reference range : 4.20 - 10.70 10*3/?L. The reference range was not used to interpret this result as normal/abnormal . RBC (test code = See_Comment [Automated 794-6) message] The sy stem which generated this result transmitted reference range : 4.26 - 5.52 10*6/?L. The reference range was not used to interpret this result as normal/abnormal . HGB (test code = 13.1 g/dL 12.2-16.4 718-7) HCT (test code = 39.3 % 38.4-49.3 4544-3) MCV (test code = 86.6 fL 81.7-95.6 787-2) MCH (test code = 28.9 pg 26.1-32.7 785-6) MCHC (test code = 33.3 g/dL 31.2-35.0 786-4) RDW-SD (test code = 43.1 fL 38.5-51.6 80213-6) RDW-CV (test code = 13.8 % 12.1-15.4 788-0) PLT (test code = See_Comment [Automated 777-3) message] The sy stem which generated this result transmitted reference range : 150 - 328 10*3/ ?L. The reference r aziza was not used to interpret this result as normal/abnormal . MPV (test code = 9.2 fL 9.8-13.0 L 32931-8) NRBC/100 WBC (test See_Comment [Automat ed code = 3183882000) message] The system which generated this result transmitted reference range : 0.0 - 10.0 /100 WBCs. The refer ence range was not u sed to interpret th is result as normal/abnormal . NRBC x10^3 (test code See_Comment [Auto mated = 3537958134) message] The s ystem which generated this result transmitted reference range : 10*3/?L. The reference range was not used to interpret this result as normal/abnormal . GRAN MAT (NEUT) % 68.9 % (test code = 770-8) IMM GRAN % (test code 0.10 % = 3872725928) LYMPH % (test code = 19.2 % 736-9) MONO % (test code = 9.9 % 5905-5) EOS % (test code = 1.5 % 713-8) BASO % (test code = 0.4 % 706-2) GRAN MAT x10^3(ANC) 4.74 10*3/uL 1.99-6.95 (test code = 8805652402) IMM GRAN x10^3 (test 0.00-0.06 code = 5212374155) LYMPH x10^3 (test code 1.32 10*3/uL 1.09-3.23 = 731-0) MONO x10^3 (test code 0.68 10*3/uL 0.36-1.02 = 742-7) EOS x10^3 (test code = 0.10 10*3/uL 0.06-0.53 711-2) BASO x10^3 (test code 0.03 10*3/uL 0.01-0.09 = 704-7) Lab Interpretation Abnormal (test code = 47160-0) [facility]2019-07-[facility] 07:08:00 Test Item Value Reference Range Interpretation Comments PHOSPHORUS (BEAKER) (test code = 4.1 mg/dL 2.3-4.7 604) [id number] 07:08:00 Test Item Value Reference Range Interpretation Comments MAGNESIUM (BEAKER) (test code = 1.9 mg/dL 1.6-2.6 627) BASIC METABOLIC [id number] 07:08:00 Test Item Value Reference Range Interpretation Comments SODIUM (BEAKER) 140 meq/L 136-145 (test code = 381) POTASSIUM (BEAKER) 4.0 meq/L 3.5-5.1 (test code = 379) CHLORIDE (BEAKER) 106 meq/L 98-107 (test code = 382) CO2 (BEAKER) (test 27 meq/L 22-29 code = 355) BLOOD UREA [...] S NOT APPLICABLE FOR DIALYSIS PATIEN TS. [id number] 05:59:00 Test Item Value Reference Range Interpretation [...] thrombosis and/or pulmonary embolus.HIGH RISK: Target INR is 2.5-3.5 for patients wiht mechanical heart valves.PROTHROMBIN [id number] 05:58:00 Test Item Value Reference Range Interpretation Comments PROTIME (BEAKER) (test code = 13.3 seconds 11.9-14.2 759) INR (BEAKER) (test code = 370) 1.1 <=5.9 Effective 08/31/2018: PT Reference Range ChangeNew: 11.9-14.2 Previous: 11.7- 14.7RECOMMENDED COUMADIN/WARFARIN INR THERAPY RANGESSTANDARD DOSE: 2.0-3.0 Includes: PROPHYLAXIS for venous thrombosis, systemic embolization; TREATMENT for venous thrombosis and/or pulmonary embolus.HIGH RISK: Target INR is 2.5-3.5 for patients wiht mechanical heart valves.CALCIUM, [id number] 05:48:00 Test Item Value Reference Range Interpretation [...] WBC 0-0 (BEAKER) (test code = 413) [id number] 06:15:00 Test Item Value Reference Range Interpretation Comments PHOSPHORUS (BEAKER) (test code = 3.8 mg/dL 2.3-4.7 604) [id number] 06:15:00 Test Item Value Reference Range Interpretation Comments MAGNESIUM (BEAKER) (test code = 1.9 mg/dL 1.6-2.6 627) BASIC METABOLIC [id number] 06:15:00 Test Item Value Reference Range Interpretation [...] S NOT APPLICABLE FOR DIALYSIS PATIEN TS. [id number] 05:49:00 Test Item Value Reference Range Interpretation [...] thrombosis and/or pulmonary embolus.HIGH RISK: Target INR is 2.5-3.5 for patients wiht mechanical heart valves.PROTHROMBIN [id number] 05:48:00 Test Item Value Reference Range Interpretation Comments PROTIME (BEAKER) (test code = 13.5 seconds 11.9-14.2 759) INR (BEAKER) (test code = 370) 1.1 <=5.9 Effective 08/31/2018: PT Reference Range ChangeNew: 11.9-14.2 Previous: 11.7- 14.7RECOMMENDED COUMADIN/WARFARIN INR THERAPY RANGESSTANDARD DOSE: 2.0-3.0 Includes: PROPHYLAXIS for venous thrombosis, systemic embolization; TREATMENT for venous thrombosis and/or pulmonary embolus.HIGH RISK: Target INR is 2.5-3.5 for patients wiht mechanical heart valves.CALCIUM, [id number] 05:46:00 Test Item Value Reference Range Interpretation [...] = 413) CT, CTA CORONARY, W/ PATTY [id number] 18:13:00Addendum BeginsREPORT STATUS:A Addendum: October 20, 2018 at 1815 hours I have reviewed the CT images for this study and I concur with the nonvascular imaging findings as dictated. Signed: Manjeet Bridges MDReport Verified Date/Time: 10/21/2018 18:13:46 Reading Location: [place] [address] Angio Body Reading RoomAddendum EndsFINAL REPORT CT coronary angiography, 20-Oct-18 INDICATION: This is a 28 years old male, with transposition of great vessel, presents for assessment, due to dilated ascending aorta. Patient also chest pain. TECHNIQUE: Spiral acquisition before and during intravenous contrast administration using a Gaston multidetector CT scanner. Multi-planar 5-Thtaqnx-zbzwhwelx reconstruction was performed using an independent workstation [...] metoprolol 0 mg;IV metoprolol 20 mg;S/L nitroglyercin 0.4 mg. Please refer to the contrast sheet scanned in the EPIC system for the amount and route of contrast given.This exam was performed according to our departmental dose-optimisation programme, which includes aut omated exposure control, adjustment of the mA and/or kV according to patient size and/or use of iterative reconstruction technique. Dose modulation, iterative reconstruction, and/or weight based adjustment of the mA/kV was utilized to reduce the radiation dose to as low as reasonably achievable. FINDIN GS: VASCULAR: Patient has D-Transposition of Great Vessel (D-TGA), underwent the Jantene arterial switch procedure, with the Jr manoeuvre with the expected location of the main pulmonary artery anterior to the ascending thoracic aorta Since this is after corrective surgery, currently, there is normal atrio- ventricular and ventriculo-arterial concordance, and systemic and pulmonary venous return. The left ventricle is normal in size. There could be minimal right ventricular prominence identified by visual inspection. Correlate with echocardiography. Significant increase imaging noise is identified, however, on visual inspection, no obvious coronary artery calcification is present. Presumably,the coronary artery origins are reimplanted. There are [...] distal descending thoracic aorta measures 1.9 cm. Noacute aortic pathology is seen and no dissection or contained rupture is identified. The aortic archis left-sided, and the arch vessel branching pattern [...] the Jantene arterial switch procedure, with the Kennard manoeuvre, with the expected anatomy of the pulmonary arteries and the ascending thoracic aorta (PA is now sitting in front of the ascending thoracic aorta). In the available images, the aortic root (blayne-aorticroot) has borderline aneurysmal dilation; by multiplanar reformation, [...] of the prior surgery, the central pulmonary arteryis unremarkable, no evidence of central pulmonary artery embolism. 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 5. No acute pulmonary pathology. 6. Other findings as described above. 7. The non-vascular findings will be reviewed by the Banquet Waiter/Waitress Radiologist and addendum will be added asneeded. Major findings were discussed with Dr. Kumar at the time of dictation. Signed: Gokul [place]ke[place] Verified Date/Time: 10/20/2018 20:02:00 Reading Location: [place] [address] Cardiology MRI [id number] 08:03:00 Test Item Value Reference Range Interpretation Comments PHOSPHORUS (BEAKER) (test code = 3.9 mg/dL 2.3-4.7 604) [id number] 08:03:00 Test Item Value Reference Range Interpretation Comments MAGNESIUM (BEAKER) (test code = 2.0 mg/dL 1.6-2.6 627) BASIC METABOLIC [id number] 08:03:00 Test Item Value Reference Range Interpretation [...] NOT APPLICABLE FOR DIALYSIS PATIEN TS. PROTHROMBIN [id number] 07:17:00 Test Item Value Reference Range Interpretation Comments PROTIME (BEAKER) (test code = 12.5 seconds 11.9-14.2 759) INR (BEAKER) (test code = 370) 1.0 <=5.9 Effective 08/31/2018: PT Reference Range ChangeNew: 11.9-14.2 Previous: 11.7- 14.7RECOMMENDED COUMADIN/WARFARIN INR THERAPY RANGESSTANDARD DOSE: 2.0-3.0 Includes: PROPHYLAXIS for venous thrombosis, systemic embolization; TREATMENT for venous thrombosis and/or pulmonary embolus.HIGH RISK: Target INR is 2.5-3.5 for patients wiht mechanical heart valves.[id number] 07:17:00 Test Item Value Reference Range Interpretation [...] thrombosis and/or pulmonary embolus.HIGH RISK: Target INR is 2.5-3.5 for patients wiht mechanical heart valves.CBC (HEMOGRAM [...] 0-0 (BEAKER) (test code = 413) CALCIUM, [id number] 07:01:00 Test Item Value Reference Range Interpretation Comments CALCIUM IONIZED (BEAKER) (test 1.20 mmol/L 1.12-1.27 code = 698) PH, BLOOD (BEAKER) (test code = 7.37 1810) [id number] 06:56:00 Test Item Value Reference Range Interpretation Comments PHOSPHORUS (BEAKER) (test code = 5.4 mg/dL 2.3-4.7 H 604) [id number] 06:56:00 Test Item Value Reference Range Interpretation Comments MAGNESIUM (BEAKER) (test code = 2.2 mg/dL 1.6-2.6 627) BASIC METABOLIC [id number] 06:56:00 Test Item Value Reference Range Interpretation [...] S NOT APPLICABLE FOR DIALYSIS PATIEN TS. [id number] 06:30:00 Test Item Value Reference Range Interpretation [...] thrombosis and/or pulmonary embolus.HIGH RISK: Target INR is 2.5-3.5 for patients wiht mechanical heart valves.PROTHROMBIN [id number] 06:29:00 Test Item Value Reference Range Interpretation Comments PROTIME (BEAKER) (test code = 12.8 seconds 11.9-14.2 759) INR (BEAKER) (test code = 370) 1.0 <=5.9 Effective 08/31/2018: PT Reference Range ChangeNew: 11.9-14.2 Previous: 11.7- 14.7RECOMMENDED COUMADIN/WARFARIN INR THERAPY RANGESSTANDARD DOSE: 2.0-3.0 Includes: PROPHYLAXIS for venous thrombosis, systemic embolization; TREATMENT for venous thrombosis and/or pulmonary embolus.HIGH RISK: Target INR is 2.5-3.5 for patients wiht mechanical heart valves.CBC (HEMOGRAM [...] 0-0 (BEAKER) (test code = 413) CALCIUM, [id number] 05:32:00 Test Item Value Reference Range Interpretation Comments CALCIUM IONIZED (BEAKER) (test 1.20 mmol/L 1.12-1.27 code = 698) PH, BLOOD (BEAKER) (test code = 7.38 1810) COMPREHENSIVE METABOLIC [id number] 21:28:00 Test Item Value Reference Range Interpretation [...] S NOT APPLICABLE FOR DIALYSIS PATIEN TS. [id number] 21:24:00 Test Item Value Reference Range Interpretation Comments PARTIAL THROMBOPLASTIN TIME 30.5 seconds 22.5-36.0 (BEAKER) (test code = 760) PROTHROMBIN [id number] 21:23:00 Test Item Value Reference Range Interpretation Comments PROTIME (BEAKER) (test code = 13.5 seconds 11.9-14.2 759) INR (BEAKER) (test code = 370) 1.1 <=5.9 Effective 08/31/2018: PT Reference Range ChangeNew: 11.9-14.2 Previous: 11.7- 14.7RECOMMENDED COUMADIN/WARFARIN INR THERAPY RANGESSTANDARD DOSE: 2.0-3.0 Includes: PROPHYLAXIS for venous thrombosis, systemic embolization; TREATMENT for venous thrombosis and/or pulmonary embolus.HIGH RISK: Target INR is 2.5-3.5 for patients wiht mechanical heart valves.CBC (HEMOGRAM [...] /100 WBC 0-0 (BEAKER) (test code = 413)"
[2022-06-17] MEDS ORDERED: MORPHINE 4 MG/ML SYR ONE (07:53)
[2022-06-17] MEDS ORDERED: ONDANSETRON 4 MG/2 ML VIAL ONE (07:53)
[2022-06-17 08:02] LABS: Hematocrit 41.5 % (39.6-49.0); Lymphocytes % 17.1 % (15.3-44.8); MCV 85.8 fL (80-100); MPV 7.3 fL (7.6-11.3); RBC Red Blood Cell Count 4.84 M/uL (4.33-5.43)
[2022-06-17 08:21] LABS: Potassium 3.9 mmol/L (3.5-5.1)
--- NOTE | 2022-06-17 09:36 | RAD REPORT ---
EXAM DESCRIPTION: CT - Angio Aorta For Dissection - 06/17/2022 8:33 am CLINICAL HISTORY: Prior aortic aneurysm repair ; intermittent Chest pain since last night, worsenin g. Low back pain COMPARISON: Angio Aorta For Dissection dated 11/10/2018; Chest Single View dated 06/17/2022 TECHNIQUE: Dynamically enhanced 3 mm thick images of the chest, abdomen, and upper pelvis were obtai carlos during administration of approximately 100mL Isovue 370 IV contrast. Sagittal and coronal reconst ructions as well as maximal intensity projection reconstruction were generated and reviewed per an rtic angiography protocol. All CT scans are performed using dose optimization technique as appropriate and may include automated exposure control or mA/KV adjustment according to patient size. FINDINGS: Altered anatomy, with anterior positioning of the main pulmonary artery trunk relative to the ascending aorta, which could relate to variant developmental anatomy versus postsurgical sequelae of correction of aortic transposition. At the level of the annulus, the aorta measures 3.8 centimete r in greatest AP dimension. At the level of the sinus of Valsalva, the aorta measures 4.9 centimeter in greatest AP dimension. At the sinotubular junction, the aorta measures 3.2 centimeter in greatest axial dimension. The ascending aorta measures 3.4 centimeter in greatest axial dimension. No signific ant interval change, allowing for differences and the cardiac cycle at the time of imaging, and some motion artifact. Aorta shows no dissection or other acute aortic findings. Reconstruction images show no significant findings. Main pulmonary artery is slightly diminutive in caliber, unchanged. Right and left pulmonary arteries are unremarkable. No mass or infiltrate in the lung parenchyma. Sequelae of prior median sternotomy again noted. No ple ural thickening, pleural effusion or pneumothorax. No abnormal mediastinal or hilar mass or lymphadenopathy seen. No chest wall mass or abnormal axillar y lymphadenopathy. Celiac, SMA and renal arteries show no suspicious findings. There is soft tissue thickening around th e right common femoral artery, with surgical clips, with no aneurysmal dilation or luminal irregulari ty, although it is difficult to exclude an element of mural thrombosis. Please correlate with prior h istory of intervention. Small midline ventral hernia containing fat just below the level of the xipho id process appear Solid abdominal viscera and bowel show no other new or significant findings. No mas s or abnormal lymphadenopathy. Small calcified stone versus calcified polyp near the gallbladder neck , unchanged. IMPRESSION: No acute abnormalities on CT angiogram of the aorta. Stable findings as above. New soft tissue thickening around the right common femoral artery as above. Please correlate with cuca or history of surgical intervention. No other suspicious findings on chest, abdomen and upper pelvis examination.
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
--- NOTE | 2022-06-17 11:30 | EDPHYS ---
Physician Documentation [facility] Name: Brice Polk III Age: 31 yrs Sex: Male : 1990 Arrival Date: 06/17/2022 Time: 07:02 Bed 20 Private MD: ED Physician Lucian Wilson Historical: - Allergies: 06/17 07:29 No Known Allergies; aa5 - Home Meds: 07:29 atorvastatin 20 mg Oral tab 1 tab once daily [Active]; metoprolol tartrate 100 mg Oral aa5 tab 1 tab 2 times per day [Active]; losartan oral [Active]; Nitrostat SL [Active]; - PMHx: 07:29 CONGENITAL HEART PROBLEMS; Hypertension; Hypercholesterolemia; aa5 - PSHx: 07:29 "Heart Bypass for Aortic aneurysm repair"; aa5 - Immunization history:: Adult Immunizations unknown. - Social history:: Smoking status: Patient denies any tobacco usage or history of. Vital Signs: 07:23 BP 136 / 77; Pulse 76; Resp 18 S; Temp 98(TE); Pulse Ox 99% on R/A; Weight 145.15 kg aa5 (R); Height 6 ft. 2 in. (R); 08:49 BP 129 / 59; Pulse 66; Resp 18 S; Pulse Ox 100% on R/A; kc6 09:39 BP 122 / 63; Pulse 66; Resp 17 S; Pulse Ox 94% on R/A; Pain 4/10; kc6 10:43 BP 118 / 56; Pulse 65; Resp 17 S; Pulse Ox 100% on R/A; kc6 07:23 Body Mass Index 41.09 (145.15 kg, 187.96 cm) aa5 09:39 Pain Scale: Adult kc6 MDM: 11:29 Patient medically screened. kdr 06/17 07:43 Order name: EKG; Complete Time: 07:44 kdr 06/17 07:43 Order name: Cardiac monitoring; Complete Time: 07:44 kdr 06/17 07:43 Order name: EKG - Nurse/Tech; Complete Time: 07:44 kdr 06/17 07:43 Order name: IV Saline Lock; Complete Time: 07:44 kdr 06/17 07:43 Order name: Labs collected and sent; Complete Time: 07:44 kdr 06/17 07:43 Order name: O2 Per Protocol; Complete Time: 07:44 kdr 06/17 07:43 Order name: O2 Sat Monitoring; Complete Time: 07:44 kdr 06/17 07:43 Order name: XRAY Chest (1 view) kdr 06/17 07:43 Order name: Basic Metabolic Panel; Complete Time: 09:13 kdr 06/17 07:43 Order name: CBC with Diff; Complete Time: 09:13 kdr 06/17 07:43 Order name: Troponin HS; Complete Time: 09:13 kdr 06/17 08:32 Order name: Angio Aorta For Dissection; Complete Time: 10:19 EDMS 06/17 10:20 Order name: Troponin High Sensitivity: Draw three (3) hours from initial draw; Complete kdr Time: 11:23 Administered Medications: 07:55 Drug: Ondansetron IVP 4 mg Route: IVP; Site: left wrist; kc6 09:40 Follow up: Response: No adverse reaction 6 07:55 Drug: morphine IVP or IV 4 mg Route: IVP; Infused Over: 4 mins; Site: left wrist; kc6 09:40 Follow up: Response: No adverse reaction; Pain is decreased; RASS: Alert and Calm (0) kc6 Disposition Summary: 06/17/22 11:29 Discharge Ordered Location: Home kdr Problem: an acute exacerbation kdr Symptoms: have improved kdr Condition: Fair kdr Diagnosis - Chest pain, unspecified kdr - Low back pain kdr Followup: kdr - With: Private Physician - When: 2 - 3 days - Reason: If symptoms return, Further diagnostic work-up, Recheck today's complaints, Continuance of care, Re-evaluation by your physician Forms: - Medication Reconciliation Form kdr - Thank You Letter kdr - Antibiotic Education kdr - Prescription Opioid Use kdr Signatures: Dispatcher [employer] EDMS Lucian Wilson MD MD kdr Sharri Smiley, RN RN aa5 Idania Gonzalez RN RN kc6 Corrections: (The following items were deleted from the chart) 08:32 07:44 Chest Abdomen Pelvis W Con+CT.RAD.BRZ ordered. EDMS EDMS
--- NOTE | 2022-06-17 12:19 | RAD REPORT ---
[facility] CLINICAL HISTORY: CHEST PAIN COMPARISON: Chest Single View dated 01/22/2020; Chest Single View dated 11/15/2018; Chest Single View dated 11/10/2018; Chest Single View dated 10/18/2018 TECHNIQUE: Portable AP view of the chest. FINDINGS: The lungs are clear. No pneumothorax or effusion. Sequelae of prior median sternotomy. Mod erate cardiomegaly IMPRESSION: No acute pulmonary process. Moderate cardiomegaly.
--- NOTE | 2022-06-17 13:19 | EKG ---
Test Date: 2022-06-17 Test Time: 07:30:51 Ab Initio Etl Developer: MARA MEASUREMENT RESULTS: Intervals: Rate: 69 PA: 148 QRSD: 108 QT: 406 QTc: 435 [place]: P: 33 PA: 148 QRS: 66 T: 24 INTERPRETIVE STATEMENTS: Sinus rhythm with frequent premature ventricular complexes Incomplete right bundle branch block Borderline ECG Compared to ECG 01/22/2020 11:33:13 Ventricular premature complex(es) now present T-wave abnormality no longer present Prolonged QT interval no longer present Electronically Signed On 06-17-22 13:19:03 CDT by Roberth Santos
== END 2022-06-17 11:59 | disposition home or self-care (01) ==
LOC: ER 06:59
DX: R07.9 Chest pain, unspecified (principal); M54.50 Low back pain, unspecified; Z95.1 Presence of aortocoronary bypass graft; I10 Essential (primary) hypertension
CPT/HCPCS: 36415; 71045; 71275; 74175; 80048; 84484; 85025; 93005; J2405; Q9967